=== PATIENT | female | born 1955 | race Caucasian/White ===

== ENCOUNTER 2022-04-02 17:25 | Observation (INO) | payer OTHER, SELFPAY ==
[2022-04-02] VITALS (12 sets, daily range): BP systolic 125–141; BP diastolic 59–83; PULSE 61–73; RESP 14–22; TEMP 36.3–36.4; O2SAT 95–100; BMI 29.5
--- NOTE | ~2022-04-02 | XR_ITS ---
XR chest 2V DATE: 04/02/2022 18:18 INDICATION: Left shoulder pain radiating to left breast for 3 days TECHNIQUE: PA and lateral views COMPARISON: None FINDINGS: Normal heart size. No hilar or mediastinal enlargement. The lungs are moderately hyperinfla oneal but clear of infiltrate or consolidation. No pleural effusion or pulmonary vascular congestion or pneumothorax. Aortic calcification and minimal unfolding. Osteopenia. IMPRESSION: No active cardiac pulmonary disease Aortic atherosclerosis Osteopenia Reviewed, dictated and finalized at location A.
--- NOTE | ~2022-04-02 | NM_ITS ---
EXAMINATION: NM michael stress w perfusion DATE: 04/03/2022 12:19 INDICATION: Chest pain. TECHNIQUE: Rest images were obtained following intravenous administration of 9 mCi Tc99m tetrofosmin (Myoview). The patient was infused intravenously with Lexiscan (regadenoson). Then, 30.8 mCi Tc99m te trofosmin (Myoview) was administered intravenously, and stress images were obtained. Data was reconst ructed into short axis and horizontal and vertical long axis SPECT images. Gated SPECT images were al so obtained. COMPARISON: None. FINDINGS: There is no definite reversible or fixed perfusion abnormality to suggest ischemia or infar ction. There is no segmental wall motion abnormality. Left ventricular ejection fraction measures > 70%. IMPRESSION: 1. No definite ischemia or infarct. 2. Normal left ventricular ejection fraction measuring >70%. Reviewed, dictated and finalized at location A.
--- NOTE | ~2022-04-02 | XR_ITS ---
EXAMINATION: XR thoracic spine 3V DATE: 04/03/2022 14:24 INDICATION: Thoracic back pain. TECHNIQUE: 3 views of thoracic spine were obtained. COMPARISON: Chest 2 views 04/02/2022 FINDINGS: There is 5 degrees levocurvature of thoracic spine. Vertebral body heights and intervertebr al disc heights are normal. There are endplate osteophytes at multiple levels. IMPRESSION: 1. Mild thoracic spondylosis. Reviewed, dictated and finalized at location A.
--- NOTE | ~2022-04-02 | XR_ITS ---
EXAMINATION: XR lumbar spine 2-3V DATE: 04/03/2022 14:24 INDICATION: Back pain. TECHNIQUE: 3 views of lumbar spine were obtained. COMPARISON: None. FINDINGS: Bone alignment is normal. Vertebral body heights and intervertebral disc heights are normal . There are endplate osteophytes at multiple levels. The facet joints are unremarkable. IMPRESSION: 1. Mild lumbar spondylosis. Reviewed, dictated and finalized at location A. IMPRESSION: 1. Mild lumbar spondylosis.
--- NOTE | 2022-04-02 17:45 | ECG_ITS ---
Measurements Intervals [place] Rate: 64 P: 41 MO: 179 QRS: 3 QRSD: 102 T: 94 QT: 408 QTc: 422 Interpretive Statements SINUS RHYTHM ST-T WAVE ABNORMALITY IN ANTERIOR LEADS- CONSIDER ISCHEMIA ABNORMAL ECG Electronically Signed On 04-02-2022 20:56:23 CDT by Giovani Gonsalez D.O.
--- NOTE | 2022-04-02 17:49 | ED.CHESTPAIN ---
HPI - Chest Pain General Chief Complaint: Chest Pain Stated Complaint: back pain that comes around to front Time Seen by Provider: 04/02/22 17:49 History of Present Illness HPI narrative: Patient is a 66-year-old female with a history of hypertension, hyperlipidemia, hypothyroidism presenting to the emergency department for evaluation of chest pain with radiation to the middle back. Patient reports left-sided breast pain with radiation to the back. There is no pain currently at the time of assessment. Patient reports pulsating pain that sometimes last for anywhere from 10 to 20 seconds but denies any pressure-like sensation. At times she has associated nausea but no associated diaphoresis or shortness of breath. Patient denies cough, weakness, general malaise. Denies fever, chills, nausea or vomiting. Patient reports upper abdominal pain. Patient reports history of stress test 10 years ago. She is also a former smoker with cessation 10 years ago. Patient denies recent long car or air travel. No recent leg swelling or calf pain. Related Data Home Medications Medication Instructions Recorded Confirmed calcium carbonate 600 mg calcium 1,200 mg PO DAILY 08/26/21 11/07/21 (1,500 mg) tablet (Calcium) propranolol 10 mg tablet 10 mg PO .QD 08/26/21 11/07/21 coenzyme Q10 75 mg capsule 75 mg PO DAILY 11/07/21 11/07/21 melatonin 3 mg capsule 3 mg PO QHS 11/25/21 Allergies Allergy/AdvReac Type Severity Reaction Status Date / Time morphine Allergy Unknown Unknown Verified 03/10/22 11:24 Latex, Natural Rubber Allergy Rash Verified 03/10/22 11:24 Penicillins Allergy Rash Verified 03/10/22 11:24 propoxyphene [From Darvon] Allergy Rash Verified 03/10/22 11:24 Review of Systems Review of Systems: CONSTITUTIONAL: Denies fever, chills, or sweats. EYES: Denies visual changes, redness, or discharge. ENT: Denies rhinorrhea, congestion, sore throat, or otalgia. CARDIOVASCULAR: Chest pain without palpitations or edema RESPIRATORY: Denies cough or dyspnea. GASTROINTESTINAL: Denies abdominal pain, nausea, vomiting, or diarrhea. GENITOURINARY: Denies dysuria or hematuria. SKIN: Denies rash or itching. MUSCULOSKELETAL: Denies back pain, joint pain, or myalgia. NEUROLOGIC: Denies headache, numbness, or weakness. [facility] Past Medical History Medical History Anxiety BMI 26.0-26.9,adult BMI 28.0-28.9,adult BMI greater than 30 History of breast cancer Hyperlipidemia Hypertension Hypothyroidism Impacted cerumen of right ear Inflamed skin tag Insomnia Left shoulder pain Osteopenia Surgical History Surgical History History of breast augmentation History of cholecystectomy History of D&C Family History Family History Other Arthritis Diabetes mellitus Hypertension Osteoporosis Social History Social History Alcohol intake: never Exam Narrative: GENERAL: Awake, alert, conversant HEAD: Normocephalic, atraumatic. EYES: PERRLA and EOMI. ENT: Nares clear, no rhinorrhea or epistaxis. Mucous membranes moist. NECK: Supple. CHEST: No respiratory distress, breathing even and non labored, no chest wall pain HEART: Regular rate, sinus rhythm ABDOMEN:Non distended, non tender EXTREMITIES: Normal range of motion. No edema. No calf tenderness or induration. SKIN: Warm, dry, no rash. NEURO:No focal deficits. Alert and oriented x3 Course Vital Signs Vital signs: Vital Signs Temperature 36.3 C L 04/02/22 17:35 Pulse Rate 73 04/02/22 17:35 Respiratory Rate 16 04/02/22 17:35 Blood Pressure 141/69 H 04/02/22 17:35 Pulse Oximetry 100 04/02/22 17:35 Oxygen Delivery Room Air 04/02/22 17:35 Temperature 36.3 C L 04/02/22 17:35 Pulse Rate 64 04/02/22 18:35 Respiratory Rate 16 04/02/22 1
[2022-04-02] MEDS: ASPIRIN 81 MG CHEWABLE TABLET 324 MG PO (17:54)
[2022-04-02 18:17] LABS: Basophils Absolute Auto 0.1 K/mm3 (0.0-0.1); Basophils Percent Auto 0.7 % (0.2-1.2); Eosinophils Absolute Auto 0.1 K/mm3 (0-0.3); Eosinophils Percent Auto 1.3 % (0-4.4); Hematocrit 42.1 % (37.0-47.0); Hemoglobin 14.1 g/dL (12.0-15.0); Immature Granulocyte Absolute 0.01 K/mm3 (0.00-0.031); Immature Granulocyte Percent A 0.1 % (0-0.5); Lymphocytes Absolute Auto 2.91 K/mm3 (0.9-3.2); Lymphocytes Percent Auto 38.1 % (18.3-44.2); Mean Corpuscular HGB Conc 33.5 g/dl (32-36); Mean Corpuscular Hemoglobin 30.1 pg (26-34); Monocytes Absolute Auto 0.5 K/mm3 (0.1-0.6); Monocytes Percent Auto 6.7 % (2.6-8.5); Neutrophils Absolute Auto 4.1 K/mm3 (1.3-6.7); Neutrophils Percent Auto 53.1 % (45.5-73.1); Platelet Count Result 310 k/mm3 (150-375); Red Blood Count 4.68 M/mm3 (4.2-5.4); Red Cell Distribution Width 13.5 % (11.5-14.5); White Blood Count 7.6 K/mm3 (4.5-10.0)
--- NOTE | 2022-04-02 18:23 | ECG_ITS ---
Measurements Intervals [place] Rate: 62 P: 46 [place]: 189 QRS: 4 QRSD: 104 T: 90 QT: 414 QTc: 423 Interpretive Statements SINUS RHYTHM T WAVE ABNORMALITY IN ANTERIOR LEADS- CONSIDER ISCHEMIA BASELINE ARTIFACT- II, III ABNORMAL ECG Electronically Signed On 04-02-2022 20:57:08 CDT by Giovani Gonsalez D.O.
[2022-04-02 18:31] LABS: Alanine Aminotransferase 20 U/L (6-35); Albumin Level 4.5 g/dL (3.5-5.1); Alkaline Phosphatase 87 U/L (38-126); Anion Gap 8 mmol/L (8-16); Aspartate Amino Transferase 28 U/L (14-36); Bilirubin,Total 0.6 mg/dL (0.2-1.3); Blood Urea Nitrogen 10 mg/dL (7-17); Calcium 9.4 mg/dL (8.4-10.2); Carbon Dioxide 28 mmol/L (22-30); Chloride 106 mmol/L (98-107); Estimated CRCL calculation 69 ml/min; Estimated Glomerular Filt Rate > 60; Glucose 100 mg/dL (65-110); Lipase 241 U/L (23-300); Potassium 3.7 mmol/L (3.4-5.0); Prothrombin Time 12.6 Seconds (11.1-14.7); Sodium 142 mmol/L (137-145)
[2022-04-02 18:42] LABS: Troponin I < 0.012 ng/mL (0.000-0.034)
[2022-04-02] MEDS: KETOROLAC 15 MG/ML VIAL (*BKC) IV PUSH (18:58)
[2022-04-02 19:16] LABS: Creatine Kinase 55 U/L (30-135)
[2022-04-02 19:26] LABS: SARS-CoV-2 RNA PCR Negative
[2022-04-02 19:41] LABS: D Dimer 0.33 ug/mL (<0.48)
--- NOTE | 2022-04-02 19:41 | PM.IMHP ---
H&P: HPI History of Present Illness Date/Time: 04/02/22 19:41 Chief Complaint: Chest discomfort Narrative: This is a 66-year-old female with past medical history significant for hyperlipidemia, hypertension, hypothyroidism, generalized anxiety disorder. Patient presents to the emergency room due to pain in the chest region for the last 3 days or so took Tylenol and ibuprofen at home which did not help only minimally decided to present to the emergency room after no improvement pain is in the back and comes around to the chest area of the left side there is no dizziness, no lightheadedness no shortness of breath no diaphoresis no nausea no vomiting associated with did no pain with deep inspiration, patient has not been doing any new activities or exercises, no fevers, no rigors, no chills, compares the pain to a squeeze, rate set at 6/10 in intensity, changes with position changes workup was unrevealing. Patient is been placed in observation for further evaluation, management and treatment. Review of Systems Review of Systems: Chest discomfort Constitutional: Constitutional: Denies body ache(s), Denies chills, Denies fatigue, Denies fever(s), Denies lethargy, Denies malaise, Denies poor appetite and Denies weakness Eyes: Eyes: Denies change in vision ENT: Denies dysphagia, Denies vertigo, Denies dizziness, Denies nasal congestion, Denies nasal discharge, Denies nasal obstruction, Denies odynophagia and Denies disequilibrium Cardiovascular: Cardiovascular: Reports chest pain, Denies syncope, Denies irregular heart rhythm, Denies lightheadedness, Denies palpitations and Denies dyspnea on exertion Respiratory: Respiratory: Denies cough Gastrointestinal: Gastrointestinal: Denies abdominal pain, Denies dyspepsia, Denies heartburn, Denies diarrhea, Denies nausea and Denies vomiting Genitourinary: Genitourinary: Denies dysuria Musculoskeletal: Musculoskeletal: Reports back pain Integumentary/Breasts: Skin/Breast: Denies rash Neurologic: Denies vertigo, Denies dizziness, Denies focal weakness and Denies Sensory deficit (Neuro) Psychiatric: Psychiatric: Reports no additional psychiatric complaints and Reports as per HPI Endocrine: Endocrine: Denies cold intolerance, Denies fatigue, Denies flushing, Denies heat intolerance, Denies polyphagia, Denies polydipsia and Denies palpitations Hematologic/Lymphatic: Hematologic/Lymphatic: Reports no additional hematologic/lymphatic complaints and Reports as per HPI Allergic/Immunologic: Allergic/Immunologic: Reports no additional allergic/immunologic complaints and Reports as per HPI PMFSH Past Medical History Medical History Anxiety BMI 26.0-26.9,adult BMI 28.0-28.9,adult BMI greater than 30 History of breast cancer Hyperlipidemia Hypertension Hypothyroidism Impacted cerumen of right ear Inflamed skin tag Insomnia Left shoulder pain Osteopenia Surgical History Surgical History History of breast augmentation History of cholecystectomy History of D&C Family History Family History Other Arthritis Diabetes mellitus Hypertension Osteoporosis Social History Social History Smoking packs per day: 1 Smoking cigarettes per day: 20.0 Years smoked: 23 Smoking pack-years: 23.00 Smoking status: Former smoker Tobacco type: cigarettes Alcohol intake: never Substance use: never Spiritual care concerns: No Meds Home Medications and Allergies Home Medications Medication Instructions Recorded Confirmed Type calcium carbonate 600 mg calcium 1,200 mg PO DAILY 08/26/21 04/02/22 History (1,500 mg) tablet (Calcium) propranolol 10 mg tablet 10 mg PO DAILY 08/26/21 04/02/22 History levothyroxine 25 mcg tablet 25 mcg PO DAILY 04/02/22 04/02/22 H
[2022-04-02 21:26] LABS: Troponin I < 0.012 ng/mL (0.000-0.034)
--- NOTE | 2022-04-02 22:00 | ADMGEN ---
This patient, Edith Joyner, was admitted to IMU Room 206-02 on 04/02/22 at 2050. Patient/family oriented to hospital policies and general routines including ID bracelet, bed and alarms, visiting hours, pain management, procedures, bathroom and other care routines, personal items, smoking policy, room service/diet, and visiting hours. Information on how to activate the Rapid Response Team has been discussed. Patient/Family are encouraged to report perceived risks to care and to ask questions if they do not understand what they are told or what they should do.
[2022-04-02] MEDS: ACETAMINOPHEN 325 MG TABLET 650 MG PO (22:25)
[2022-04-03] VITALS (8 sets, daily range): BP systolic 91–126; BP diastolic 52–62; PULSE 51–96; RESP 14–16; TEMP 36.2–36.4; O2SAT 96–99
[2022-04-03 00:26] LABS: Troponin I < 0.012 ng/mL (0.000-0.034)
--- NOTE | 2022-04-03 02:55 | EST_ITS ---
Patient Info Name: Edith Joyner Age: 66 years : 1955 Gender: Female Ht: 60 in Wt: 151 lbs BSA: 1.73 m2 HR: 50 bpm BP: 138 / 71 mmHg Heart Rhythm: Sinus Rhythm Exam Date: 04/03/2022 11:19 AM Exam Location: [facility] Stress Patient Status: Outpatient Admit Date: 04/02/2022 Staff Ordering Physician: rBit Kiser MD Attending Provider: Brit Kiser MD Exercise Technologist: Vicky Brenner CT Nurse: Sylvia Islas Exam Type: CA stress michael w NM Study Info Indications R07.9 - Chest pain, unspecified A regadenoson stress test was performed. Summary 1. Sinus rhythm with nonspecific T-wave abnormality. 2. No change in ECG following Lexiscan injection. 3. Clinically and electrocardiographically unremarkable Lexiscan stress test. 4. Myocardial perfusion imaging study to be dictated by Radiology. Protocol: Lexiscan Stress ECG Details Stage: REST Duration (min): 0 min : 52 sec HR (bpm): 51 SBP (mmHg): 138 DBP (mmHg): 71 Stage: REST Duration (min): 5 min : 15 sec HR (bpm): 60 SBP (mmHg): 138 DBP (mmHg): 71 Stage: STAGE 1 Duration (min): 0 min : 59 sec HR (bpm): 86 SBP (mmHg): 140 DBP (mmHg): 74 Stage: RECOVERY Duration (min): 1 min : 0 sec HR (bpm): 90 SBP (mmHg): 140 DBP (mmHg): 74 Stage: RECOVERY Duration (min): 2 min : 0 sec HR (bpm): 83 SBP (mmHg): 140 DBP (mmHg): 74 Stage: RECOVERY Duration (min): 3 min : 0 sec HR (bpm): 80 SBP (mmHg): 138 DBP (mmHg): 84 Stage: RECOVERY Duration (min): 3 min : 10 sec HR (bpm): 80 SBP (mmHg): 138 DBP (mmHg): 84 Rest HR: 60 bpm Peak HR: 91 bpm Rest Sys BP: 138 mmHg Peak Sys BP: 140 mmHg Max Pred HR: 152 bpm % Max Pred HR: 60 % Target HR: 129 bpm Max RPP: 12,740 bpm*mmHg Termination Reason: Completed protocol Cardiac Symptoms: None Total Time: 1 min : 0 sec Rest Shipley BP: 71 mmHg Peak [place]ley BP: 74 mmHg Total Dose: 0.4 mg Resting ECG Sinus rhythm with nonspecific T-wave abnormality. Stress ECG No change in ECG following Lexiscan injection. Report Signatures
[2022-04-03] MEDS: ACETAMINOPHEN 325 MG TABLET 650 MG PO ×2 (03:51→09:10)
[2022-04-03] MEDS: LEVOTHYROXINE SODIUM 25 MCG TABLET PO (05:50)
--- NOTE | 2022-04-03 08:14 | PM.IMPN ---
Subjective Date/time seen: 04/03/22 08:14 Objective Data Vital Signs Vital Signs: Vital Signs - 24 hr 04/02/22 17:35 04/02/22 18:35 04/02/22 17:58 Temperature 97.4 F L Pulse Rate 73 64 71 Respiratory Rate 16 16 16 Blood Pressure 141/69 H 136/62 138/83 Pulse Oximetry 100 97 99 Oxygen Delivery Room Air 04/02/22 18:00 04/02/22 18:01 04/02/22 18:17 Temperature Pulse Rate 66 64 Respiratory Rate 19 14 22 H Blood Pressure 130/80 Pulse Oximetry 97 95 98 Oxygen Delivery 04/02/22 18:18 04/02/22 18:31 04/02/22 19:31 Temperature Pulse Rate 70 64 61 Respiratory Rate 20 18 17 Blood Pressure 139/75 136/62 125/78 Pulse Oximetry 98 96 97 Oxygen Delivery 04/02/22 19:19 04/03/22 00:00 04/03/22 00:00 Temperature 97.5 F L 97.2 F L Pulse Rate 63 70 Respiratory Rate 16 14 Blood Pressure 141/59 H 113/52 L Pulse Oximetry 98 96 Oxygen Delivery Room Air 04/02/22 22:00 04/03/22 00:00 04/02/22 21:30 Temperature Pulse Rate 61 66 63 Respiratory Rate Blood Pressure Pulse Oximetry Oxygen Delivery 04/03/22 02:00 04/03/22 04:00 04/03/22 04:00 Temperature 97.1 F L Pulse Rate 58 L 96 Respiratory Rate 16 Blood Pressure 91/60 L Pulse Oximetry 96 Oxygen Delivery Room Air 04/03/22 04:00 04/03/22 06:00 Temperature Pulse Rate 57 L 67 Respiratory Rate Blood Pressure Pulse Oximetry Oxygen Delivery Intake/Output Intake/Output: Intake & Output 03/31/22 04/01/22 04/02/22 04/03/22 23:59 23:59 23:59 23:59 Intake Total 0 Balance 0 Meds/Results Medications: Active Medications Generic Name Dose Route Start Last Admin Trade Name Freq PRN Reason Stop Dose Admin Acetaminophen 650 mg 04/02/22 19:14 04/03/22 03:51 Acetaminophen 325 Mg Tablet PO 650 mg Q4H PRN Administration Mild Pain (1-3) or Fever Aspirin 81 mg 04/03/22 08:00 Aspirin 81 Mg Chewable Tablet PO DAILY@0800 [facility] Calcium Carbonate 1,000 mg 04/03/22 09:00 Calcium Carbonate (Oscal) 500 Mg Tablet PO QAM [facility] Enoxaparin Sodium 40 mg 04/03/22 09:00 Enoxaparin 40 Mg/0.4 Ml Syringe SUB-Q DAILY [facility] Levothyroxine Sodium 25 mcg 04/03/22 06:30 04/03/22 05:50 Levothyroxine Sodium 25 Mcg Tablet PO 25 mcg DAILY@0630 [facility] Administration Ondansetron HCl 4 mg 04/02/22 19:14 Ondansetron Inj 4 Mg/2 Ml Vial IV PUSH Q4H PRN Nausea Propranolol HCl 10 mg 04/03/22 09:00 Propranolol Hcl 10 Mg Tablet PO DAILY [facility] Radiology Results: ITS Impressions Chest X-Ray 04/02/22 18:18 IMPRESSION: No active cardiac pulmonary disease Aortic atherosclerosis Osteopenia Labs Labs: Laboratory Results - last 24 hr 04/02/22 04/02/22 04/02/22 18:11 18:11 18:11 WBC 7.6 RBC 4.68 Hgb 14.1 Hct 42.1 MCV 90.0 MCH 30.1 MCHC 33.5 RDW 13.5 Plt Count 310 MPV 10.0 Immature Gran % (Auto) 0.1 Neut % (Auto) 53.1 Lymph % (Auto) 38.1 [place] % (Auto) 6.7 Eos % (Auto) 1.3 Baso % (Auto) 0.7 Lymph # (Auto) 2.91 [place] # (Auto) 0.5 Eos # (Auto) 0.1 Baso # (Auto) 0.1 Abs Immat Gran (auto) 0.01 Absolute Neuts (auto) 4.1 Absolute Nucleated RBC 0.0 Nucleated RBC % 0.0 PT 12.6 INR 1.0 APTT 28.0 D-Dimer Sodium 142 Potassium 3.7 Chloride 106 Carbon Dioxide 28 Anion Gap 8 BUN 10 Creatinine 0.60 L Estim Creat Clear Calc 69 Estimated GFR > 60 Glucose 100 Calcium 9.4 Total Bilirubin 0.6 AST 28 ALT 20 Alkaline Phosphatase 87 Total Creatine Kinase Troponin I < 0.012 Total Protein 7.0 Albumin 4.5 Lipase 241 SARS-CoV-2 RNA (RT-PCR) 04/02/22 04/02/22 04/02/22 18:11 18:11 18:36 WBC RBC Hgb Hct MCV MCH MCHC RDW Plt Count MPV Immature Gran % (Auto) Neut % (Auto) Lymph % (Auto) [place] % (Auto) Eos % (Auto) B
[2022-04-03] MEDS: ENOXAPARIN 40 MG/0.4 ML SYRINGE SUB-Q (09:07)
[2022-04-03] MEDS: PROPRANOLOL HCL 10 MG TABLET PO (09:07)
[2022-04-03] MEDS: CALCIUM CARBONATE (OSCAL) 500 MG TABLET 1000 MG PO (09:07)
[2022-04-03] MEDS: ASPIRIN 81 MG CHEWABLE TABLET PO (09:08)
--- NOTE | 2022-04-03 09:34 | PM.CNCAR ---
Assessment and Plan Assessment and plan (1) Atypical chest pain: Code(s): R07.89 - Other chest pain Status: Acute Plan This is a 66-year-old lady without previous history of coronary disease she has symptoms of recent onset of midthoracic back pain that at times radiates around to the left inframammary region. The features of this pain are not consistent with ischemic heart disease and I my level of concern is very low. The hospitalist I believe have already ordered a Lexiscan nuclear stress test for screening which of course is fine. We will follow-up on those results later today. Hopefully this will be negative for reversible ischemia and she can then be discharged. She probably requires some imaging of her thoracic spine given the onset of the symptoms and her history of breast cancer. Macario Ross MD [facility] History of Present Illness History of Present Illness Consult date/time: 04/03/22 09:34 Reason For Visit: Atypical chest pain Narrative: This is a 66-year-old woman that I am seeing at the request of the hospitalist this morning she was brought into the hospital yesterday because of some midthoracic back/chest pain that began about 3 or 4 days ago. The patient states she is having episodes of rather sharp mid thoracic back pain this seems to at times stay there and at times radiate around to the left inframammary region. The discomfort seems to come and go in a unpredictable fashion it is not really related to exertion or body position. The symptoms were persistent for several days so she came to the emergency department yesterday. Her electrocardiogram was from found to show sinus mechanism with some nonspecific precordial T-wave inversion. There are no old ECGs in the system here for comparison. She had a series of troponin levels done which are normal. She reports that she has not been found in the past to have coronary artery disease. She did state that many years ago when she was with her son who is now 35 years old she was told by 1 of the physicians they thought she had mitral valve regurgitation. She can not remember any of the testing that might have been done other than she thinks she had an echocardiogram back then. She was not of the opinion that this was anything serious and has not followed up with a rig welder since then. The patient does have a history of treated hypothyroidism and remote history of breast cancer having had a lumpectomy and radiation therapy on the right breast about 11 years ago. She is not actively followed by an oncologist. Review of Systems Constitutional: Constitutional: Reports no additional constitutional complaints Eyes: Eyes: Reports no additional eye complaints ENT: Reports system reviewed and no additional complaints, except as documented Cardiovascular: Cardiovascular: Reports as per HPI Respiratory: Respiratory: Reports no additional respiratory complaints Gastrointestinal: Gastrointestinal: Reports no additional gastrointestinal complaints Musculoskeletal: Musculoskeletal: Reports as per HPI and Reports back pain Integumentary/Breasts: Skin/Breast: Reports system reviewed and no additional complaints, except as docu Neurologic: Reports system reviewed and no additional complaints, except as documented Endocrine: Endocrine: Reports no additional endocrine complaints Hematologic/Lymphatic: Hematologic/Lymphatic: Reports no additional hematologic/lymphatic complaints Allergic/Immunologic: Allergic/Immunologic: Reports no additional allergic/immunologic complaints PMFSH Past Medical History Medical History Anxiety BMI 26.0-26.9,adult BMI 28.0-28.9,adult BMI greater than 30 History of breast cancer Hyperlipidemia Hypertension Hypothyroidism Impacted cerumen of right ear Inflamed skin tag Insomnia Left shoulder pain Osteopenia Surgical History Surgical History (Reviewed 04/02
--- NOTE | 2022-04-03 13:54 | PM.DS ---
DS: Admitting Diagnosis Discharge Date 04/03/22 Admitting Diagnosis Atypical Chest Pain DS: Discharge Diagnosis Discharge Diagnosis (1) Atypical chest pain: Code(s): R07.89 - Other chest pain Status: Acute Assessment and Plan: Admitted to IMU and monitored overnight. Troponin negative. Also patient denying chest pain saying she is having a back pain that radiates to her chest describing it as a sharp, intermittent pain. Lexiscan showed no ischemia. Does have hx of HTN but no hx of CAD. The pain is likely musculoskeletal as the lexican shows no ischemia. Added methocarbamaol. This was discussed with the patient who verbalized understanding. Of note, aspirin was not continued for discharge as USPSTF guidelines recommends against the use to daily aspirin due to increased bleeding risk and no recommendation for aspirin was made by Cardiology. (2) Hypothyroidism: Qualifiers: Hypothyroidism type: acquired Qualified Code(s): E03.9 - Hypothyroidism, unspecified Code(s): E03.9 - Hypothyroidism, unspecified Status: Acute Assessment and Plan: Continued home levothyroxine while inpatient. (3) Hypertension: Qualifiers: Hypertension type: primary hypertension Qualified Code(s): I10 - Essential (primary) hypertension Code(s): I10 - Essential (primary) hypertension Status: Acute Assessment and Plan: Continued home medication while inpatient. (4) Hyperlipidemia: Qualifiers: Hyperlipidemia type: mixed hyperlipidemia Qualified Code(s): E78.2 - Mixed hyperlipidemia Code(s): E78.5 - Hyperlipidemia, unspecified Status: Acute Assessment and Plan: Treating hypothyroidism can help with this but the patient does not take a statin at home. Will need to follow up outpatient with PCP. (5) History of breast cancer: Code(s): Z85.3 - Personal history of malignant neoplasm of breast Status: Acute Assessment and Plan: S/p lumpectomy and radiation. Due to the location of this pain ordered XR thoracic and lumbar spine. XR lumbar and thoraic spine were showed mild lumbar and thoracic spondylosis. If the pain is persistent, will need follow up with primary care physician. DS: Summary Hospital Course Reason for hospitalization: Atypical chest pain Hospital Course: 66F with a past medical history of breast cancer s/p xrt and lumpectomy, hypertension, hyperlipidemia and hypothyroidism who presented to the emergency department with reported left sided breast pain with radiation to the back. The next morning the patient denied this was what she reported saying the pain was a muscle spasm on the left side that radiated to her left breast. Cardiology was consulted and the patient had a lexiscan, which showed no ischemia. Patient reported her problem to be back spasm and was treated with methocarbamol. Cardiology did not feel the reported chest pain was cardiac in etiology and troponin were negative. Aspirin was not continued for discharge as USPSTF recommends against aspirin for primary prevention individuals over 60 and Cardiology did not make a recommendation for aspirin due to increased bleeding risk. For the back pain, xray of the lumbar and thoracic spine were completed and showed no fracture and mild lumbar and thoracic spondylosis. Patient advised to follow up with primary care physician within a week of discharge from the hospital. Patient discharged to home with low dose methocarbamol as she had significant sedation with cyclobenzaprine in the past. Time Spent with Patient Time attestation: Total time spent providing and/or coordinating discharge services: Exam Narrative: GENERAL: NAD, cooperative HEENT: Normocephalic, atraumal NECK: Supple CV: Normal S1, S2, RRR, No MRG RESP: CTAB, Normal work of breathing. EXTREMITIES: Warm and well perfused, no clubbing, cyanosis, or edema. SKIN: warm, dry and
== END 2022-04-03 16:48 | disposition home or self-care (01) ==
LOC: ANHED 19:39 → ANHIMU 20:38
PROVIDERS: Admitting Provider Internal Medicine; Emergency Provider Emergency Medicine; PCP Family Medicine; Visit Provider Family Medicine
DX: R07.89 Other chest pain (principal); E03.9 Hypothyroidism, unspecified; I10 Essential (primary) hypertension; E78.5 Hyperlipidemia, unspecified; R10.10 Upper abdominal pain, unspecified; Z85.3 Personal history of malignant neoplasm of breast; Z90.49 Acquired absence of other specified parts of digestive tract; I70.0 Atherosclerosis of aorta; M85.80 Other specified disorders of bone density and structure, unspecified site; M47.816 Spondylosis without myelopathy or radiculopathy, lumbar region; F41.1 Generalized anxiety disorder; I25.10 Atherosclerotic heart disease of native coronary artery without angina pectoris; M47.814 Spondylosis without myelopathy or radiculopathy, thoracic region; R94.31 Abnormal electrocardiogram [ECG] [EKG]; Z20.822 Contact with and (suspected) exposure to COVID-19; Z87.891 Personal history of nicotine dependence; Z79.899 Other long term (current) drug therapy; Z92.3 Personal history of irradiation
CPT/HCPCS: 36415; 71046; 72072; 72100; 78452; 80053; 82550; 83690; 84484; 85025; 85380; 85610; 85730; 93005; 93017; 96372; 96374; 99285; A9270; A9502; C9803; G0378; J1650; J1885; J2785; U0003; U0005

== ENCOUNTER → 2022-04-08 09:18 | Outpatient (CLI) | payer OTHER, SELFPAY ==
--- NOTE | ~2022-04-08 | MMUS_ITS ---
EXAMINATION: MM diag michael implant BI w yudelka, US breast RT limited HISTORY: History of right breast cancer status post lumpectomy. Right breast thickening. TECHNIQUE: Additional 3-D tomosynthesis images of the breasts were performed and synthetic 2-D images were generated. CAD analysis was submitted and interpreted. High resolution Limited right breast ult rasound was performed. COMPARISON: Comparison to multiple prior studies sequentially, with oldest reviewed study dated 06/10. BREAST PARENCHYMAL COMPOSITION: Breast composed of scattered areas of fibroglandular density FINDINGS: MAMMOGRAPHIC FINDINGS: There is distortion of the right breast in the lower inner quadrant with overlying skin thickening, u nchanged from prior studies. No new masses, calcifications or architectural distortion are identified in either breast to suggest malignancy. ULTRASOUND: Limited right breast ultrasound: Normal heterogeneous echotexture without focal solid or cystic mass. IMPRESSION: 1. No evidence for malignancy in either breast. 2. Routine yearly screening mammogram and regular clinical breast examination are recommended. BI-RADS Category 2: Benign finding(s). Reviewed, dictated and finalized at location L. IMPRESSION: 1. No evidence for malignancy in either breast. 2. Routine yearly screening mammogram and regular clinical breast examination a re recommended. BI-RADS Category 2: Benign finding(s).
== END ==
PROVIDERS: PCP Family Medicine; Visit Provider Nurse Practitioner
DX: N64.89 Other specified disorders of breast (principal)
CPT/HCPCS: 76642; 77062; 77066; G0279

== ENCOUNTER 2022-04-11 01:49 | Emergency (ER) | payer OTHER, SELFPAY ==
--- NOTE | ~2022-04-11 | XR_ITS ---
XR wrist RT min 3V 04/11/2022 02:50 Indication: Right wrist pain after fall Procedure: 5 views right wrist Comparison: No prior studies for comparison. Findings: There is a nondisplaced radial styloid fracture. The carpal bones and distal ulna there are unremarkable. Mild soft tissue swelling. Scaphoid intact. Impression: 1: Nondisplaced radial styloid fracture. Reviewed, dictated and finalized at location A. Impression: 1: Nondisplaced radial styloid fracture.
[2022-04-11 01:52] VITALS: BP 142/64; PULSE 71; RESP 17; TEMP 36.4; O2SAT 99
--- NOTE | 2022-04-11 02:11 | ED.GENADULT ---
HPI - General Adult General Chief complaint: Extremity Injury, Upper Stated complaint: Fall, right wrist pain Time Seen by Provider: 04/11/22 01:52 History of Present Illness HPI narrative: 66-year-old female presenting to the emergency department for evaluation of right wrist pain. Patient reports she was walking the dog when another dog interfered causing her dog to lounge and the patient fell injuring her wrist. Related Data Home Medications Medication Instructions Recorded Confirmed calcium carbonate 600 mg calcium 1,200 mg PO DAILY 08/26/21 04/09/22 (1,500 mg) tablet (Calcium) propranolol 10 mg tablet 10 mg PO DAILY 08/26/21 04/09/22 levothyroxine 25 mcg tablet 25 mcg PO DAILY 04/02/22 04/09/22 atorvastatin 20 mg tablet (Lipitor) 20 mg PO DAILY 04/09/22 04/09/22 Allergies Allergy/AdvReac Type Severity Reaction Status Date / Time morphine Allergy Unknown Unknown Verified 04/11/22 01:55 Latex, Natural Rubber Allergy Rash Verified 04/11/22 01:55 Penicillins Allergy Rash Verified 04/11/22 01:55 propoxyphene [From Darvon] Allergy Rash Verified 04/11/22 01:55 Review of Systems Review of Systems: CONSTITUTIONAL: Denies fever, chills, or sweats. EYES: Denies visual changes, redness, or discharge. ENT: Denies rhinorrhea, congestion, sore throat, or otalgia. CARDIOVASCULAR: Denies chest pain, palpitations, or edema. RESPIRATORY: Denies cough or dyspnea. GASTROINTESTINAL: Denies abdominal pain, nausea, vomiting, or diarrhea. GENITOURINARY: Denies dysuria or hematuria. SKIN: Denies rash or itching. MUSCULOSKELETAL: Wrist pain NEUROLOGIC: Denies headache, numbness, or weakness. [facility] Past Medical History Medical History (Updated 04/11/22 @ 03:23 by Adrian Jarquin MD) Adult BMI 29.0-29.9 kg/sq m Anxiety BMI 26.0-26.9,adult BMI 28.0-28.9,adult BMI greater than 30 History of breast cancer Hyperlipidemia Hypertension Hypothyroidism Impacted cerumen of right ear Inflamed skin tag Insomnia Left shoulder pain Osteopenia Surgical History Surgical History History of breast augmentation History of cholecystectomy History of D&C Family History Family History Other Arthritis Diabetes mellitus Hypertension Osteoporosis Social History Social History Smoking packs per day: 1 Smoking cigarettes per day: 20.0 Years smoked: 23 Smoking pack-years: 23.00 Smoking status: Former smoker Tobacco type: cigarettes Alcohol intake: never Substance use: never Spiritual care concerns: No Exam Narrative: APPEARANCE: Well appearing, no pain, no distress, well-nourished. HEAD: normocephalic, atraumatic. EYES: PERRLA/EOMI, conjunctivae clear. NOSE: Normal no drainage NECK: Supple. No adenopathy, no masses. RESPIRATORY: Airway patent, respirations nonlabored. Clear to auscultation bilaterally, no rales, rhonchi, wheezing. CARDIOVASCULAR: Regular rate and rhythm without murmurs rubs or gallops. ABDOMINAL: Soft, nontender, nondistended, normal bowel sounds MUSCULOSKELETAL: Right wrist pain due to tenderness to palpation. Limited range of motion. Neurovascular intact. No deformity or edema. NEURO: Alert. Cranial nerves II through XII intact. Good gait. Good coordination SKIN: Warm, dry. Normal Color Course Course Emergency Course: Patient was placed in a splint for concern for distal radius fracture. Patient was encouraged to have close follow-up with her primary care physician. Vital Signs Vital signs: Vital Signs Temperature 97.6 F 04/11/22 01:52 Pulse Rate 71 04/11/22 01:52 Respiratory Rate 17 04/11/22 01:52 Blood Pressure 142/64 H 04/11/22 01:52 Pulse Oximetry 99 04/11/22 01:52 Oxygen Delivery Room Air 04/11/22 01:52 Temperature 97.6 F 04/11/22 01:52 Pulse Rate 71 04/11/22 01:52 Respiratory Rate 17
--- NOTE | 2022-04-11 04:06 | PC.NURSE ---
Short arm volar OCL on right arm for 15-20min, CMS remains intact. Sling applied to Right arm and RN provided education about proper way to wear sling, verbalized understanding. Pt having no pain upon discharge. ambulatory with steady gait upon D/C from ER. to drive pt home.
== END 2022-04-11 04:08 | disposition home or self-care (01) ==
PROVIDERS: Emergency Provider Emergency Medicine; PCP Family Medicine
DX: S52.514A Nondisplaced fracture of right radial styloid process, initial encounter for closed fracture (principal); E78.5 Hyperlipidemia, unspecified; I10 Essential (primary) hypertension; E03.9 Hypothyroidism, unspecified; M85.80 Other specified disorders of bone density and structure, unspecified site; Z85.3 Personal history of malignant neoplasm of breast; W18.39XA Other fall on same level, initial encounter; Y93.K1 Activity, walking an animal
CPT/HCPCS: 29125; 73110; 99283; 99284; A4565

== ENCOUNTER 2022-05-31 12:54 | Observation (INO) | payer OTHER, SELFPAY ==
[2022-05-31] VITALS (9 sets, daily range): BP systolic 111–135; BP diastolic 58–83; PULSE 59–75; RESP 12–20; TEMP 36.4–36.7; O2SAT 92–100; BMI 29.3
--- NOTE | ~2022-05-31 | XR_ITS ---
XR chest 1V DATE: 05/31/2022 13:37 INDICATION: Dizziness, weakness TECHNIQUE: AP chest COMPARISON: 04/02/2022 PA and lateral chest FINDINGS: Normal heart size. Aortic arch calcification and minimal aortic unfolding. No hilar or medi astinal enlargement. No pulmonary infiltrate or consolidation, pleural effusion or pulmonary vascular congestion or pneumo thorax. Included skeletal structures are unremarkable. IMPRESSION: No active cardiopulmonary disease Aortic atherosclerosis Reviewed, dictated and finalized at location A.
--- NOTE | ~2022-05-31 | CT_ITS ---
EXAMINATION: CT brain wo con DATE: 05/31/2022 13:34 INDICATION: Dizziness for 4 to 5 days TECHNIQUE: Computed tomography (CT) of the head was performed without intravenous contrast. The mA wa s adjusted according to patient size. Iterative reconstruction technique was employed. Exam dose: 60 5.33 mGy-cm total exam DLP. COMPARISON: None FINDINGS: No intracranial mass lesion or hemorrhage or cerebrovascular accident. No midline shift or mass effect. Normal ventricular size. No subdural or epidural hematoma. Focal mild posterolateral right sphenoid sinus mucoperiosteal thickening. The included paranasal sinu ses and mastoids are otherwise normally developed and aerated. No fracture or bone destruction of the cranial vault. IMPRESSION: No significant intracranial abnormality Reviewed, dictated and finalized at Location A. Reviewed, dictated and finalized at location A.
--- NOTE | 2022-05-31 13:02 | ECG_ITS ---
Measurements Intervals [place] Rate: 62 P: 44 IA: 197 QRS: 22 QRSD: 109 T: 123 QT: 417 QTc: 425 Interpretive Statements SINUS RHYTHM LOW QRS VOLTAGE IN PRECORDIAL LEADS ST-T WAVE ABNORMALITY IN ANT/HIGH LAT LEADS- CONSIDER ISCHEMIA BASELINE WANDER- V3 ABNORMAL ECG COMPARED TO ECG 04/02/2022 18:34:05 NO SIGNIFICANT CHANGES Electronically Signed On 06-01-2022 6:46:01 CDT by Giovani Gonsalez D.O.
--- NOTE | 2022-05-31 13:14 | ED.DIZZY ---
HPI - Dizziness General Chief Complaint: Dizziness <Leatha Oconnor MD - Last Filed: 05/31/22 16:10> Stated Complaint: lightheaded dizzy for the past few days <Leatha Oconnor MD - Last Filed: 05/31/22 16:10> Time Seen by Provider: 05/31/22 13:07 <Leatha Oconnor MD - Last Filed: 05/31/22 16:10> Source: patient and family <Leatha Oconnor MD - Last Filed: 05/31/22 16:10> Mode of arrival: ambulatory <Leatha Oconnor MD - Last Filed: 05/31/22 16:10> Limitations: no limitations <Leatha Oconnor MD - Last Filed: 05/31/22 16:10> History of Present Illness HPI Narrative: Patient is 67 years old white female came from home with her by private car complaining of lightheadedness and dizziness for the last 5 days, most of the time. Yesterday woke up from sleep with severe blurry vision, could not read her phone for up to 1 hour. Resolved spontaneously. The lightheadedness and dizziness gets worse with walking, standing and moving, get better laying still. History of hypertension, hyperlipidemia, hypothyroidism. Patient does not smoke or drink or uses drugs. Patient does not take antiplatelet or anticoagulant medication. <Leatha Oconnor MD - Last Filed: 05/31/22 16:10> Related Data Home Medications: Home Medications Medication Instructions Recorded Confirmed calcium carbonate 600 mg calcium 1,200 mg PO DAILY 08/26/21 05/31/22 (1,500 mg) tablet (Calcium) propranolol 10 mg tablet 10 mg PO DAILY 08/26/21 05/31/22 atorvastatin 20 mg tablet (Lipitor) 20 mg PO HS 04/09/22 05/31/22 levothyroxine 25 mcg tablet 25 mcg PO DAILY 05/31/22 05/31/22 <Leatha Oconnor MD - Last Filed: 05/31/22 16:10> Allergies/Adverse Reactions: Allergies Allergy/AdvReac Type Severity Reaction Status Date / Time Latex, Natural Rubber Allergy Unknown Blisters Verified 05/31/22 13:34 morphine Allergy Unknown Nausea Verified 05/31/22 13:34 Penicillins Allergy SOB Verified 05/31/22 13:34 propoxyphene [From Darvon] Allergy Rash Verified 05/31/22 13:34 <Leatha Oconnor MD - Last Filed: 05/31/22 16:10> Review of Systems Review of Systems: All systems reviewed & are unremarkable except as noted in HPI and below <Leatha Oconnor MD - Last Filed: 05/31/22 16:10> PMFSH Past Medical History Medical History: Medical History (Updated 05/31/22 @ 22:21 by Nina Blevins PA-C) Anxiety Arthritis Cancer of right breast (2010) Status post lumpectomy and radiation therapy. Hyperlipidemia Hypertension Hypothyroidism Osteopenia <Leatha Oconnor MD - Last Filed: 05/31/22 16:10> Surgical History Surgical History: Surgical History (Updated 05/31/22 @ 22:11 by Nina Blevins PA-C) History of breast augmentation History of cholecystectomy History of dilation and curettage History of lumpectomy of right breast (2010) <Leatha Oconnor MD - Last Filed: 05/31/22 16:10> Family History Family History: Family History Father CHF (congestive heart failure) Mother No problems noted. Sibling Hypertension Obesity Breast cancer Other Arthritis Diabetes mellitus HLD (hyperlipidemia) Osteoporosis <Leatha Oconnor MD - Last Filed: 05/31/22 16:10> Social History Social History: Social History Social History: Surrogate medical decision maker: Julian Joyner, spouse. Code status: Full code. Smoking packs per day: 1 Smoking cigarettes per day: 20.0 Years smoked: 23 Smoking pack-years: 23.00 Smoking status: Former smoker Tobacco type: cigarettes Second hand tobacco smoke exposure: Yes Smoking end date: 06/20/11 Alcohol intake: former Alcohol use details: No alcohol since 2010. Substance use: never Substance use type: does not use Additional living arrangements comments: The patient lives with her spouse in [facility]
[2022-05-31 13:32] LABS: Basophils Absolute Auto 0.1 K/mm3 (0.0-0.1); Basophils Percent Auto 0.9 % (0.2-1.2); Eosinophils Absolute Auto 0.1 K/mm3 (0-0.3); Eosinophils Percent Auto 0.9 % (0-4.4); Hematocrit 43.7 % (37.0-47.0); Hemoglobin 14.8 g/dL (12.0-15.0); Immature Granulocyte Absolute 0.02 K/mm3 (0.00-0.031); Immature Granulocyte Percent A 0.3 % (0-0.5); Lymphocytes Absolute Auto 2.47 K/mm3 (0.9-3.2); Lymphocytes Percent Auto 35.7 % (18.3-44.2); Mean Corpuscular HGB Conc 33.9 g/dl (32-36); Mean Corpuscular Hemoglobin 30.7 pg (26-34); Mean Corpuscular Volume 90.7 fl (80-100); Monocytes Absolute Auto 0.5 K/mm3 (0.1-0.6); Monocytes Percent Auto 7.1 % (2.6-8.5); Neutrophils Absolute Auto 3.8 K/mm3 (1.3-6.7); Neutrophils Percent Auto 55.1 % (45.5-73.1); Platelet Count Result 321 k/mm3 (150-375); Red Blood Count 4.82 M/mm3 (4.2-5.4); Red Cell Distribution Width 13.3 % (11.5-14.5); White Blood Count 6.9 K/mm3 (4.5-10.0)
[2022-05-31 13:43] LABS: Alanine Aminotransferase 24 U/L (6-35); Albumin Level 4.6 g/dL (3.5-5.1); Alkaline Phosphatase 70 U/L (38-126); Anion Gap 10 mmol/L (8-16); Aspartate Amino Transferase 36 U/L (14-36); Blood Urea Nitrogen 13 mg/dL (7-17); Calcium 9.4 mg/dL (8.4-10.2); Carbon Dioxide 25 mmol/L (22-30); Chloride 107 mmol/L (98-107); Estimated CRCL calculation 66 ml/min; Estimated Glomerular Filt Rate > 60; Glucose 121 mg/dL (65-110); Potassium 4.1 mmol/L (3.4-5.0); Sodium 142 mmol/L (137-145)
[2022-05-31 13:54] LABS: Troponin I < 0.012 ng/mL (0.000-0.034)
[2022-05-31 14:03] LABS: Prothrombin Time 12.7 Seconds (11.1-14.7)
[2022-05-31 14:04] LABS: Partial Thromboplastin Time 26.9 SECONDS (22.3-36.8)
[2022-05-31 14:11] LABS: Erythrocyte Sedimentation Rate 6 mm/hr (0-20)
[2022-05-31 14:34] LABS: Appearance Urine Cloudy (Clear); Bilirubin Urine Negative (Negative); Blood Urine Negative (Negative); Color Urine Yellow (Yellow); Glucose Urine UA Negative (Negative); Ketones Urine Negative (Negative); Leukocyte Esterase Ur Negative LEU/UL (Negative); Nitrate Urine Negative (Negative); Protein Urine Negative (Negative); Specific Grav Ur 1.015 (1.001-1.035)
[2022-05-31 14:38] LABS: Mucus Urine Rare /lpf; RBC Urine 0-2 /hpf (0-2); Squamous Epithelial Cell Urine Many /hpf (Few); WBC Urine 0-3 /hpf
[2022-05-31 14:39] LABS: Add Urine Microscopic? YES
[2022-05-31 14:45] LABS: Amphetamine Screen Urine Negative (Negative); Barbiturate Screen Urine Negative (Negative); Benzodiazepines Screen Urine Negative (Negative); Cannabinoid Screen Urine Negative (Negative); Cocaine Screen Urine Negative (Negative); Methadone Screen Urine Negative (Negative); Opiate Screen Urine Negative (Negative); Phencyclidine Screen Urine Negative (Negative)
--- NOTE | 2022-05-31 16:00 | PM.IMHP ---
H&P: HPI History of Present Illness Date/Time: 05/31/22 16:00 Chief Complaint: Dizziness. Narrative: This is a pleasant 67-year-old female with hypertension, hyperlipidemia, hypothyroidism, anxiety, and history of breast cancer who presented to the emergency department via private vehicle from home for evaluation of dizziness for 5 days. She woke from sleep on Wednesday morning and when she got a bed she felt dizzy and lightheaded with a mild, dull headache, sinus congestion, and bilateral fullness in her ears. She assumes that her symptoms were related to a change in weather however her symptoms have persisted. She has noticed now that her dizziness seems to be more vertiginous in nature, almost as though she is on a boat with mild but pretty constant feelings of movement or swaying. It is not worse with position change. Yesterday when she woke from sleep she rolled over to look at her phone and her vision was blurry for upwards of an hour I thought my eyes were dry but they were not. Her vital signs were stable on arrival today. Labs were reviewed and they are reassuring and really unremarkable. Brain CT showed no significant intracranial abnormalities however did note focal, mild posterolateral right sphenoid sinus perimucosal thickening. She is being admitted in this setting for brain MRI to rule out central causes of her symptoms. On exam she had heavy cerumen bilaterally, and impacted cerumen on the left. Ears were washed out and she feels as though her congestion and symptoms have may be improved somewhat. She denies fever, chills, sweats, sore throat, tinnitus, productive cough, sick contacts, chest pain, palpitations, irregular heartbeat, paresthesias, focal weakness, facial droop, dysarthria, and dysphagia. She has not had any falls or head trauma. Review of Systems Review of Systems: Twelve systems were reviewed and are negative except for as per HPI. [facility] Past Medical History Medical History (Updated 05/31/22 @ 22:21 by Nina Blevins PA-C) Anxiety Arthritis Cancer of right breast (2010) Status post lumpectomy and radiation therapy. Hyperlipidemia Hypertension Hypothyroidism Osteopenia Surgical History Surgical History (Updated 05/31/22 @ 22:11 by Nina Blevins PA-C) History of breast augmentation History of cholecystectomy History of dilation and curettage History of lumpectomy of right breast (2010) Family History Family History Father CHF (congestive heart failure) Mother No problems noted. Sibling Hypertension Obesity Breast cancer Other Arthritis Diabetes mellitus HLD (hyperlipidemia) Osteoporosis Social History Social History Social History: Surrogate medical decision maker: Julian Joyner, spouse. Code status: Full code. Smoking packs per day: 1 Smoking cigarettes per day: 20.0 Years smoked: 23 Smoking pack-years: 23.00 Smoking status: Former smoker Tobacco type: cigarettes Second hand tobacco smoke exposure: Yes Smoking end date: 06/20/11 Alcohol intake: former Alcohol use details: No alcohol since 2010. Substance use: never Substance use type: does not use Additional living arrangements comments: The patient lives with her spouse in [place]. 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 Spiritual care concerns: No Meds Home Medications and Allergies Home Medications Medication Instructions Recorded Confirmed Type calcium carbonate 600 mg calcium 1,200 mg PO DAILY 08/26/21 05/31/22 History (1,500 mg) tablet (Calcium) propranolol 10 mg tablet 10 mg PO DAILY 08/26/21 05/31/22 History atorvastatin 20 mg tablet (Lipitor) 20 mg PO HS 04/09/22 05/31/22 History levothyroxine 25 mcg tablet 25 mcg PO DAILY 05/31/22 05/31/22 History Allergies Allergy/AdvReac T
[2022-05-31] MEDS: ASPIRIN 325 MG TABLET PO (16:12)
--- NOTE | 2022-05-31 17:34 | PC.NURSE ---
This patient, Edith Joyner, was admitted to Medical Room 242-. Patient/family oriented to hospital policies and general routines including ID bracelet, bed and alarms, visiting hours, pain management, procedures, bathroom and other care routines, personal items, smoking policy, room service/diet, and visiting hours. Information on how to activate the Rapid Response Team has been discussed. Patient/Family are encouraged to report perceived risks to care and to ask questions if they do not understand what they are told or what they should do.
[2022-05-31] MEDS: CARBAMIDE PEROXIDE 6.5% OT SOLN 15 ML BTL 5 DROP LEFT EAR (18:38)
[2022-05-31] MEDS: ATORVASTATIN 20 MG TABLET PO (22:14)
[2022-06-01] VITALS (7 sets, daily range): BP systolic 119; BP diastolic 53; PULSE 57–72; RESP 17; TEMP 36.3; O2SAT 97–98
--- NOTE | 2022-06-01 | ECHO_ITS ---
Patient Info Name: Edith Joyner Age: 67 years : 1955 Gender: Female Ht: 60 in Wt: 150 lbs BSA: 1.72 m2 HR: 65 bpm BP: 119 / 53 mmHg Heart Rhythm: Sinus Rhythm Exam Date: 06/01/2022 9:40 AM Exam Location: [facility] Patient Status: Outpatient Admit Date: 05/31/2022 Staff Ordering Physician: Nina Blevins PA-C Dental Floss Packer: Shon Young RDCS, RT Attending Provider: Varsha Nicolas MD Referring Physician: Gen PULLIAM; Exam Type: CA echo doppler color flow Study Info Indications R42 - Dizziness and giddiness I11.0 - Hypertensive heart disease with heart failure Complete two-dimensional, color flow and Doppler transthoracic echocardiogram is performed. Strain analysis performed. Summary 1. Complete two-dimensional, color flow and Doppler transthoracic echocardiogram is performed. 2. Left ventricular chamber dimension is normal. 3. Left ventricular systolic function is normal, estimated at 65-70%. 4. There is mildly increased left ventricular wall thickness. 5. The left ventricular diastolic function is grade I diastolic dysfunction. 6. Global longitudinal strain is normal at -23 %. 7. There is trace mitral valve regurgitation. 8. The mitral valve annulus is mildly calcified. 9. There is no aortic valve stenosis. 10. There is no aortic valve regurgitation. 11. There is mild tricuspid valve regurgitation. 12. Mild pulmonary hypertension, estimated pulmonary arterial systolic pressure is 35 mmHg. Left Ventricle Left ventricular chamber dimension is normal. Left ventricular systolic function is normal, estimated at 65-70%. There is mildly increased left ventricular wall thickness. The left ventricular diastolic function is grade I diastolic dysfunction. Global longitudinal strain is normal at -23 %. Right Ventricle Right ventricular chamber dimension is normal. Right ventricular systolic function is normal. Left Atria Left atrial chamber dimension is normal. Right Atria Right atrial chamber dimension is normal. Aortic Valve The aortic valve is not well visualized. There is no aortic valve stenosis. There is no aortic valve regurgitation. Pulmonic Valve The pulmonic valve is not well visualized. Mitral Valve The mitral valve has normal leaflets. There is trace mitral valve regurgitation. The mitral valve annulus is mildly calcified. Tricuspid Valve The tricuspid valve leaflets are normal. There is mild tricuspid valve regurgitation. Mild pulmonary hypertension, estimated pulmonary arterial systolic pressure is 35 mmHg. Pericardium/Pleural The pericardium appears epicardial fat pad. There is no pericardial effusion. Inferior Vena Cava Normal inferior vena cava with >50% collapse upon inspiration consistent with normal right atrial pressure, 5 mmHg. Aorta The aortic root size at the sinus of Valsalva is normal. Left Ventricular Outflow Tract Name Value Normal LVOT 2D LVOT Diameter 1.9 cm LVOT Doppler LVOT Peak Gradient 5 mmHg LVOT Mean Gradient 2 mmHg LVOT VTI
[2022-06-01 05:32] LABS: Anion Gap 14 mmol/L (8-16); Blood Urea Nitrogen 14 mg/dL (7-17); Carbon Dioxide 25 mmol/L (22-30); Chloride 103 mmol/L (98-107); Estimated CRCL calculation 65 ml/min; Estimated Glomerular Filt Rate > 60; Glucose 94 mg/dL (65-110); Magnesium 2.2 mg/dL (1.6-2.3); Potassium 3.1 mmol/L (3.4-5.0); Sodium 142 mmol/L (137-145)
[2022-06-01] MEDS: LEVOTHYROXINE SODIUM 25 MCG TABLET PO (06:25)
--- NOTE | 2022-06-01 08:45 | PM.DS ---
DS: Admitting Diagnosis Discharge Date 06/01/22 0845 Admitting Diagnosis Vertigo DS: Discharge Diagnosis Discharge Diagnosis (1) Vertigo: Code(s): R42 - Dizziness and giddiness Status: Acute Assessment and Plan: Head CT was performed and showed no significant intracranial abnormalities Patient was noted to have impacted cerumen which had been rinsed out the ED Neurology consulted Carotid Dopplers Patient was able to walk No arrhythmia noted Drug screen negative Meclizine on board (2) Impacted cerumen of left ear: Code(s): H61.22 - Impacted cerumen, left ear Status: Acute Assessment and Plan: Rinsed out in the ED No further problems Will have patient follow up outpatient (3) Sinusitis: Code(s): J32.9 - Chronic sinusitis, unspecified Status: Acute Assessment and Plan: Continue home medications (4) Hypertension: Qualifiers: Hypertension type: primary hypertension Qualified Code(s): I10 - Essential (primary) hypertension Code(s): I10 - Essential (primary) hypertension Status: Acute Assessment and Plan: BP 119/53 Continue home medications Trend BP Adjust therapy as indicated (5) Hyperlipidemia: Qualifiers: Hyperlipidemia type: mixed hyperlipidemia Qualified Code(s): E78.2 - Mixed hyperlipidemia Code(s): E78.5 - Hyperlipidemia, unspecified Status: Acute Assessment and Plan: Continue home atorvastatin (6) Hypothyroidism: Qualifiers: Hypothyroidism type: acquired Qualified Code(s): E03.9 - Hypothyroidism, unspecified Code(s): E03.9 - Hypothyroidism, unspecified Status: Acute Assessment and Plan: Continue levothyroxine DS: Summary Hospital Course Hospital Course: Patient is 67-year-old female with a past medical history of hypertension, hyperlipidemia, hypothyroidism that presented to the ED with complaints of dizziness for 5 days. Upon arrival it was noted that patient did have impaction of cerumen in the left ear. Cerumen was cleaned out and patient was feeling a little better however does seem to little water logged. Patient was admitted for further investigation. CT of the brain showed no abnormalities. Carotid Dopplers were performed. Echo was also taken. Currently patient feels okay and is able to walk without feeling dizzy. She denies any chest pain, shortness of breath, nausea, vomiting, diarrhea, constipation, weakness or fatigue. Patient is stable for discharge per labs and vital signs at this time. Neurology did see the patient and agrees with current care plan. Status at Discharge Functional status at discharge: independent ambulation Overall status at discharge: patient is progressing back to baseline Time Spent with Patient Time attestation: Total time spent providing and/or coordinating discharge services: 37 minutes Time spent: Greater than 30 minutes Specific discharge activities: Diagnostic testing, chart review, developing a treatment plan, education, care coordination documentation, physical exam, result review Exam Const: General: cooperative, healthy appearing, no acute distress, well developed, alert and awake Nutritional Appearance: well nourished Orientation/consciousness: patient oriented x3 Limitations: no limitations HENMT: Head: normal to inspection Ears: hearing grossly normal bilaterally General nose exam: Normal external nose present Mouth: Yes Normal oral and palatal mucosa present, Yes lip normal and Yes tongue normal Teeth and gingiva: abnormal tooth and associated gingiva and poor dentition Eyes: General: appearance normal, both eyes and all related structures Neck: Neck: normal visual inspection, full ROM, trachea midline and supple Chest: Chest palpation & inspection: normal inspection of the chest Resp: Effort & Inspection: normal
[2022-06-01] MEDS: CALCIUM CARBONATE (OSCAL) 500 MG TABLET 1000 MG PO (09:06)
[2022-06-01] MEDS: ASPIRIN 81 MG CHEWABLE TABLET PO (09:06)
[2022-06-01] MEDS: FLUTICASONE PROPIONATE 0.05% NA SPR 16 GM BTL (*BKC) 1 SPRAY NASAL (09:07)
[2022-06-01] MEDS: CARBAMIDE PEROXIDE 6.5% OT SOLN 15 ML BTL 5 DROP LEFT EAR (09:07)
[2022-06-01] MEDS: PROPRANOLOL HCL 10 MG TABLET PO (09:08)
[2022-06-01] MEDS: POTASSIUM CHLORIDE 20 MEQ TABLET 40 MEQ PO (09:09)
--- NOTE | 2022-06-01 09:52 | WPDNEURCNPN ---
Assessment and Plan Assessment and plan (1) Vertigo: Code(s): R42 - Dizziness and giddiness Status: Acute Plan considering the symptomatology of several days duration even though she will be treated symptomatic the possibility of the central etiology needs to be ruled out she would go through the investigation and further recommendations made accordingly Consult date: 06/01/22 Time Seen: 09:30 Reason for consult: Dizziness HPI: Edith Joyner is a 67 year old female admitted to the hospital through the emergency room where she was brought by her from home in a private car complaining of lightheadedness and dizziness of 5 days duration reportedly yesterday she woke up from sleep with severe blurred vision could not read or phone for [id number] though the symptomatology resolved spontaneously her lightheadedness and dizziness gets worse with walking standing and moving and get better when she lays down his stated she reported that she has history of 1. Hypertension 2. Hypothyroid 3. Anxiety and napped for arthritis. She has undergone surgery for cholecystectomy and right breast lumpectomy with no diagnosis of the malignancy. She has been taking propranolol 10 mg daily at home in addition to atorvastatin 20 mg daily levothyroxine 25 mg daily on initial evaluation in the emergency room vital signs were stable, her CBC and BMP were normal except for glucose was 121 and UA was negative so as the drug screen. CT scan of the head in the emergency room revealed no evidence of bleed and the chest x-ray was negative except mentioned about the aortic atherosclerosis EKG revealed no atrial fibrillation Review of Systems Review of Systems: All systems reviewed & are unremarkable except as noted in HPI and below PMFSH Past Medical History Medical History (Updated 05/31/22 @ 22:21 by Nina Blevins PA-C) Anxiety Arthritis Cancer of right breast (2010) Status post lumpectomy and radiation therapy. Hyperlipidemia Hypertension Hypothyroidism Osteopenia Surgical History Surgical History (Updated 05/31/22 @ 22:11 by Nina Blevins PA-C) History of breast augmentation History of cholecystectomy History of dilation and curettage History of lumpectomy of right breast (2010) Family History Family History Father CHF (congestive heart failure) Mother No problems noted. Sibling Hypertension Obesity Breast cancer Other Arthritis Diabetes mellitus HLD (hyperlipidemia) Osteoporosis Social History Social History Social History: Surrogate medical decision maker: Julian Joyner, spouse. Code status: Full code. Smoking packs per day: 1 Smoking cigarettes per day: 20.0 Years smoked: 23 Smoking pack-years: 23.00 Smoking status: Former smoker Tobacco type: cigarettes Second hand tobacco smoke exposure: Yes Smoking end date: 06/20/11 Alcohol intake: former Alcohol use details: No alcohol since 2010. Substance use: never Substance use type: does not use Additional living arrangements comments: The patient lives with her spouse in [place]. 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 Spiritual care concerns: No Meds Home Medications and Allergies Home Medications Medication Instructions Recorded Confirmed Type calcium carbonate 600 mg calcium 1,200 mg PO DAILY 08/26/21 05/31/22 History (1,500 mg) tablet (Calcium) propranolol 10 mg tablet 10 mg PO DAILY 08/26/21 05/31/22 History atorvastatin 20 mg tablet (Lipitor) 20 mg PO HS 04/09/22 05/31/22 History levothyroxine 25 mcg tablet 25 mcg PO DAILY 05/31/22 05/31/22 History Allergies Allergy/AdvReac Type Severity Reaction Status Date / Time Latex, Natural Rubber Allergy Unknown Blisters Verified 05/31/22 13:34 morphine Allergy Unknown Nausea
== END 2022-06-01 15:39 | disposition home or self-care (01) ==
LOC: ANHED 16:10 → ANH2MED 17:17
PROVIDERS: Physician Assistant; Admitting Provider Hospitalist; Emergency Provider Emergency Medicine; PCP Family Medicine; Visit Provider Nurse Practitioner
DX: R42 Dizziness and giddiness (principal); H61.22 Impacted cerumen, left ear; J32.9 Chronic sinusitis, unspecified; I10 Essential (primary) hypertension; E78.2 Mixed hyperlipidemia; E03.9 Hypothyroidism, unspecified; H53.8 Other visual disturbances; F41.9 Anxiety disorder, unspecified; M85.80 Other specified disorders of bone density and structure, unspecified site; I70.0 Atherosclerosis of aorta; M19.90 Unspecified osteoarthritis, unspecified site; R94.31 Abnormal electrocardiogram [ECG] [EKG]; Z87.891 Personal history of nicotine dependence; Z85.3 Personal history of malignant neoplasm of breast; Z79.899 Other long term (current) drug therapy; Z82.62 Family history of osteoporosis; Z84.89 Family history of other specified conditions
CPT/HCPCS: 36415; 70450; 71045; 80048; 80053; 80307; 81001; 83735; 84443; 84484; 85025; 85610; 85652; 85730; 93005; 93306; 99285; A9270; G0378

== ENCOUNTER 2022-09-09 08:25 | Outpatient (CLI) | payer OTHER, SELFPAY ==
--- NOTE | ~2022-09-09 | MR_ITS ---
EXAMINATION: MR brain/brain stem wo con DATE: 09/09/2022 11:15 INDICATION: Transient ischemic episode. Dizziness. TECHNIQUE: Magnetic resonance imaging (MRI) of the brain and brainstem was performed without intraven ous contrast. Sequences included sagittal and axial T1-weighted SE, axial diffusion-weighted FS SE, a xial T2*-weighted GRE, axial 3D SWAN, axial T2-weighted FLAIR, and axial T2-weighted FSE. Postcontras t axial and coronal T1-weighted SE was obtained. Apparent diffusion coefficient (ADC) maps were creat ed. COMPARISON: Head CT dated 05/31/2022 FINDINGS: There are no areas of restricted diffusion to suggest acute infarction. There are couple tiny old lac unar infarcts in the right cerebellar hemisphere. No intracranial hemorrhage or abnormal intracranial mass lesion. There are a few small scattered areas of nonspecific increased T2-weighted signal inten sity in the cerebral white matter, predominantly involving the deep and periventricular white matter which is within normal limits for age and likely sequela of chronic small vessel ischemic disease.. T here are no intraparenchymal signal abnormalities seen on the other pulse sequences. The ventricles a re symmetric and normal in size. There are no abnormal extra-axial fluid collections. Flow voids are seen in the cerebral arteries on the T2-weighted sequences consistent with their expected patency. Vi sualized orbits and soft tissues are unremarkable. IMPRESSION: 1. A couple tiny old lacunar infarcts at the right cerebellar hemisphere. No acute intracranial proce ss. 2. Scattered nonspecific white matter T2 hyperintensity which is within normal limits for age and lik michelle sequela of chronic small vessel ischemic disease. Reviewed, dictated and finalized at location A. 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 A couple tiny old lacunar infarcts at the right cerebellar hemisphere. No ac tun[place]-biloxi intracranial process. 2. Scattered nonspecific white matter T2 hyperintensity which is within normal limits for age and likely sequela of chronic small vessel ischemic disease.
--- NOTE | 2022-09-09 09:04 | ECHO_ITS ---
Patient Info Name: Edith Joyner Age: 67 years : 1955 Gender: Female Ht: 60 in Wt: 148 lbs BSA: 1.71 m2 HR: 61 bpm BP: 131 / 76 mmHg Heart Rhythm: Sinus Rhythm Technical Quality: Fair Exam Date: 09/09/2022 9:12 AM Exam Location: [facility] Patient Status: Outpatient Admit Date: 09/09/2022 Staff Ordering Physician: Renato Miranda MD Transit Mechanic: Rosy London RDCS Attending Provider: Renato Miranda MD Exam Type: CA echo dop bubble study w con Study Info Indications G45.9 - Transient cerebral ischemic attack, unspecified Complete two-dimentional, color flow and Doppler transthoracic echocardiogram is performed with agitated saline and with contrast to opacify the left ventricle and to improve the delineation of the left ventricle endocardial borders. Contrast/Agitated Saline Contrast/Ag. Saline: Definity Amount: 3.00 ml Existing IV Access: No IV Access Condition: patent with no signs of infiltration New IV Access: Left Contrast/Ag. Saline: Agitated Saline Amount: 20.00 ml Existing IV Access: No IV Access Condition: patent with no signs of infiltration New IV Access: Left Summary 1. Left ventricular chamber dimension is normal. 2. Definity contrast administered improved wall motion interpretation. 3. Left ventricular systolic function is normal, estimated at 60-65%. 4. The left ventricular diastolic function is grade I diastolic dysfunction. 5. E/e' 8 is minimally elevated. 6. There is trace aortic valve regurgitation. 7. There is mild mitral valve regurgitation. 8. No pulmonary hypertension, estimated pulmonary arterial systolic pressure is 20 mmHg. Left Ventricle E/e' 8 is minimally elevated. Definity contrast administered improved wall motion interpretation. Left ventricular chamber dimension is normal. Left ventricular systolic function is normal, estimated at 60-65%. The left ventricular diastolic function is grade I diastolic dysfunction. Right Ventricle Right ventricular chamber dimension is normal. Right ventricular systolic function is normal. Left Atria Left atrial chamber dimension is normal. Right Atria Right atrial chamber dimension is normal. Atrial Septum Agitated saline injection with and without valsalva maneuver opacified right side cardiac chambers without shunt to left side cardiac chambers. Intact interatrial septum visualized by 2D and agitated saline imaging. Aortic Valve The aortic valve is trileaflet. There is no aortic valve stenosis. There is trace aortic valve regurgitation. Pulmonic Valve There is no pulmonic regurgitation. Mitral Valve There is no mitral valve stenosis. There is mild mitral valve regurgitation. Tricuspid Valve There is no tricuspid valve regurgitation. No pulmonary hypertension, estimated pulmonary arterial systolic pressure is 20 mmHg. Pericardium/Pleural There is no pericardial effusion. Inferior Vena Cava Normal inferior vena cava with >50% collapse upon inspiration consistent with normal right atrial pressure, 5 mmHg. Aorta The aortic root size at the sinus of Valsalva is normal. Left Ventricular Outflow Tract Name Value Normal LVOT 2D
[2022-09-09] MEDS: PERFLUTREN LIPID MICROSPHERES 1.5 ML VIAL DILUTED TO 10 ML TOTAL VOLUME IV PUSH (10:05)
--- NOTE | 2022-09-09 12:26 | IVDEFINITY ---
Prior to administration of IV Definity the patient was educated on the risks and benefits of the imaging enhancing agent including potential adverse side effects. The patient verbalized understanding. Allergies were verified. No exclusion criteria were identified and at least one of the following inclusion criteria were met: 1) physician request, 2) patient technically difficult to image (per the [place] [employer]chocardi[employer] guidelines of two or more segments not discernable within the apical view), or 3) questionable left ventricular function. ?
== END 2022-09-09 08:26 | disposition home or self-care (01) ==
LOC: ANHCARD 08:27
PROVIDERS: PCP Family Medicine; Visit Provider Psychiatry & Neurology Neurology
DX: G45.9 Transient cerebral ischemic attack, unspecified (principal); R42 Dizziness and giddiness; R93.0 Abnormal findings on diagnostic imaging of skull and head, not elsewhere classified; I34.0 Nonrheumatic mitral (valve) insufficiency
CPT/HCPCS: 70551; 96375; C8929; Q9957

== ENCOUNTER 2022-12-31 07:39 | Outpatient (CLI) | payer OTHER, SELFPAY ==
--- NOTE | ~2022-12-31 | MMUS_ITS ---
EXAMINATION: MM diagnostic michael BI w yudelka, US breast LT limited HISTORY: Palpable superior left breast abnormality. TECHNIQUE: ML, MLO and CC 3-D tomosynthesis images of both breasts were performed and synthetic 2-D i mages were generated. CAD analysis was submitted and interpreted. High resolution targeted left breas t ultrasound examination at the area of clinical complaint was performed. COMPARISON: 04/08/2022 diagnostic right mammogram and limited right breast ultrasound examination /, 06/09/2020, 06/12/2019 outside mammogram examinations BREAST PARENCHYMAL COMPOSITION: There are scattered areas of fibroglandular density. FINDINGS: MAMMOGRAPHIC FINDINGS: There is diminished size of the right breast and scarring including prominent inferomedial retraction , stable since 06/12/2019. Removal of left breast implant since 04/08/2022. No suspicious mass or new architectural distortion or any malignant calcification or new skin thicken ing or retraction is detected. ULTRASOUND: Real-time imaging targeted to area of clinical complaint of palpable abnormality of left breast at 12 :00 8 cm from the nipple reveals no suspicious mass or shadowing, cyst or other significant sonograph ic finding. IMPRESSION: 1. Status post right partial mastectomy for breast cancer; no evidence of malignancy 2. No significant change since 06/12/2019, with exception of interval removal of left breast implant s chelsi 04/08/2022 BI-RADS Category 2: Benign finding(s). Reviewed, dictated and finalized at location A. IMPRESSION: 1. Status post right partial mastectomy for breast cancer; no evidence of malig yolanda 2. No significant change since 06/12/2019, with exception of interval removal of left breast implant since 04/08/2022 BI-RADS Category 2: Benign finding(s).
== END 2022-12-31 07:40 ==
PROVIDERS: PCP Family Medicine; Visit Provider Nurse Practitioner Family
DX: N64.59 Other signs and symptoms in breast (principal); Z85.3 Personal history of malignant neoplasm of breast; Z90.11 Acquired absence of right breast and nipple
CPT/HCPCS: 76642; 77062; 77066; G0279

== ENCOUNTER 2023-03-04 10:39 | Outpatient (CLI) | payer OTHER, SELFPAY ==
--- NOTE | ~2023-03-04 | US_ITS ---
US thyroid INDICATION: Nontoxic thyroid goiter TECHNIQUE: Real-time sonographic images of the thyroid gland were obtained. COMPARISON: No prior studies for comparison. FINDINGS: The right thyroid lobe measures 4.3 x 1.8 x 1.9 cm. The left thyroid lobe measures 2.8 x 1 .1 x 1.3 cm. Thyroid gland is diffusely heterogeneous with multiple bilateral thyroid masses. Largest dominant largely solid mass of the right lobe is hypoechoic, wider than tall, smoothly marginated wi thout echogenic foci measuring 2.2 x 2 x 1.7 cm, TR 4. Largest dominant left thyroid mass is solid, h ypoechoic, wider than tall, smoothly marginated without echogenic foci measuring 9 mm, TR 4. IMPRESSION: 1. Small bilateral thyroid masses, largest dominant mass in the right lobe measures 2.2 cm, TR 4. Ul trasound-guided fine-needle aspiration biopsy recommended. Reviewed, dictated and finalized at location [] IMPRESSION: 1. Small bilateral thyroid masses, largest dominant mass in the right lobe mookie sures 2.2 cm, TR 4. Ultrasound-guided fine-needle aspiration biopsy recommended .
== END 2023-03-04 10:40 ==
PROVIDERS: PCP Family Medicine; Visit Provider Nurse Practitioner Family
DX: E04.1 Nontoxic single thyroid nodule (principal)
CPT/HCPCS: 76536

== ENCOUNTER 2023-03-24 12:18 | Outpatient (CLI) | payer OTHER, SELFPAY ==
--- NOTE | ~2023-03-24 | US_ITS ---
EXAMINATION: US FNA w image guidance DATE: 03/24/2023 13:17 INDICATION: Right thyroid nodule. TECHNIQUE: The procedure and its benefits and risks were discussed with the patient. Risks specifically discusse d included bleeding. The patient verbalized understanding of the risks and agreed to proceed. The nec k was prepped and draped in the usual sterile manner. 1% lidocaine was used for local anesthesia. 6 passes were made with a 25G needle into the lesion under ultrasound guidance. There were no immedia te complications. FINDINGS: Grayscale ultrasound images demonstrate needles advanced into a 2.1 cm nodule in right thyroid lobe f or biopsy. IMPRESSION: 1. Ultrasound-guided fine needle aspiration of a nodule in right thyroid lobe. Reviewed, dictated and finalized at location A.
== END 2023-03-24 12:19 | disposition home or self-care (01) ==
PROVIDERS: PCP Family Medicine; Visit Provider Nurse Practitioner Family
DX: E04.1 Nontoxic single thyroid nodule (principal)
CPT/HCPCS: 10005; 88173; 88305

== ENCOUNTER 2023-03-28 21:14 | Emergency (ER) | payer OTHER, SELFPAY ==
--- NOTE | ~2023-03-28 | XR_ITS ---
Clinical Indication: Cough PA and lateral views of the chest: Comparison: 05/31/2022 Findings: The lungs are clear, without evidence of focal consolidation or pleural effusion. Cardiome diastinal silhouette is within normal limits. Bones and soft tissues are unremarkable. Impression: Normal chest. Reviewed, dictated and finalized at location . Impression: Normal chest.
--- NOTE | 2023-03-28 21:15 | ECG_ITS ---
Measurements Intervals [place] Rate: 60 P: 53 DE: 189 QRS: 8 QRSD: 97 T: 22 QT: 399 QTc: 400 Interpretive Statements SINUS RHYTHM ST-T WAVE ABNORMALITY IN ANTERIOR LEADS- CONSIDER ISCHEMIA BASELINE ARTIFACT- I, III, AVL ABNORMAL ECG COMPARED TO ECG 05/31/2022 13:41:52 NO SIGNIFICANT CHANGES Electronically Signed On 03-29-2023 6:52:12 CDT by Giovani Gonsalez D.O.
[2023-03-28 21:21] VITALS: BP 151/83; PULSE 60; RESP 13; O2SAT 99
[2023-03-28 21:46] LABS: Basophils Absolute Auto 0.1 K/mm3 (0.0-0.1); Basophils Percent Auto 0.9 % (0.2-1.2); Eosinophils Absolute Auto 0.2 K/mm3 (0-0.3); Eosinophils Percent Auto 2.2 % (0-4.4); Hematocrit 46.4 % (37.0-47.0); Hemoglobin 15.6 g/dL (12.0-15.0); Immature Granulocyte Absolute 0.02 K/mm3 (0.00-0.031); Immature Granulocyte Percent A 0.2 % (0-0.5); Lymphocytes Absolute Auto 3.42 K/mm3 (0.9-3.2); Lymphocytes Percent Auto 38.4 % (18.3-44.2); Mean Corpuscular HGB Conc 33.6 g/dl (32-36); Mean Corpuscular Hemoglobin 30.8 pg (26-34); Mean Corpuscular Volume 91.5 fl (80-100); Mean Platelet Volume 10.1 fl (7.4-10.4); Monocytes Absolute Auto 0.7 K/mm3 (0.1-0.6); Neutrophils Absolute Auto 4.5 K/mm3 (1.3-6.7); Neutrophils Percent Auto 50.3 % (45.5-73.1); Platelet Count Result 322 k/mm3 (150-375); Red Blood Count 5.07 M/mm3 (4.2-5.4); Red Cell Distribution Width 13.4 % (11.5-14.5); White Blood Count 8.9 K/mm3 (4.5-10.0)
[2023-03-28 21:59] LABS: Alanine Aminotransferase 24 U/L (6-35); Albumin Level 4.9 g/dL (3.5-5.1); Alkaline Phosphatase 72 U/L (38-126); Anion Gap 5 mmol/L (8-16); Aspartate Amino Transferase 35 U/L (14-36); Bilirubin,Total 0.7 mg/dL (0.2-1.3); Blood Urea Nitrogen 11 mg/dL (7-17); Calcium 9.8 mg/dL (8.4-10.2); Carbon Dioxide 30 mmol/L (22-30); Chloride 104 mmol/L (98-107); Estimated CRCL calculation 63 ml/min; Estimated Glomerular Filt Rate > 60; Glucose 92 mg/dL (65-110); Magnesium 2.2 mg/dL (1.6-2.3); Sodium 139 mmol/L (137-145)
[2023-03-28 22:32] VITALS: PULSE 68
[2023-03-28 22:47] LABS: Appearance Urine Cloudy (Clear); Bilirubin Urine Negative (Negative); Blood Urine Negative (Negative); Color Urine Yellow (Yellow); Glucose Urine UA Negative (Negative); Ketones Urine Negative (Negative); Leukocyte Esterase Ur Negative LEU/UL (Negative); Nitrate Urine Negative (Negative); Protein Urine Negative (Negative); RBC Urine 0-2 /hpf (0-2); Specific Grav Ur 1.006 (1.001-1.035); Urobilinogen Urine 0.2 mg/dL (<2.0)
[2023-03-28 22:48] LABS: Bacteria Urine Rare /hpf; Non Pathogenic Casts 0-2; Squamous Epithelial Cell Urine Many /hpf (Few); WBC Urine 0-5 /hpf
[2023-03-28 23:07] LABS: Add Urine Microscopic? YES
--- NOTE | 2023-03-28 23:23 | ED.GENADULT ---
HPI - General Adult General Chief complaint: Arrhythmia/Palpitations Stated complaint: irregular heart beat Time Seen by Provider: 03/28/23 21:23 History of Present Illness HPI narrative: Patient is a 67-year-old female who presents the emergency department with chief complaint of palpitations. Patient reports that she had a blood pressure cuff that read as her heart rate was irregular patient states she had no palpitations during this time no feeling syncope no chest pain. Patient does report that she had a little bit of a cough and was concerned that she may have bronchitis or pneumonia. Related Data Home Medications Medication Instructions Recorded Confirmed fluticasone propionate 50 1 spray intranasal Q12H 08/21/22 12/10/22 mcg/actuation nasal spray,suspension aspirin 81 mg tablet,delayed 81 mg PO .QD 10/23/22 12/10/22 release (Adult Aspirin Regimen) calcium carbonate 600 mg calcium 600 mg PO DAILY 11/11/22 12/10/22 (1,500 mg) tablet (Calcium) Allergies Allergy/AdvReac Type Severity Reaction Status Date / Time Latex, Natural Rubber Allergy Unknown Blisters Verified 03/28/23 21:15 morphine Allergy Unknown Nausea Verified 03/28/23 21:15 Penicillins Allergy SOB Verified 03/28/23 21:15 propoxyphene [From Darvon] Allergy Rash Verified 03/28/23 21:15 Review of Systems Review of Systems: A 10 system review of systems was completed on the patient and is negative except for what is stated in the HPI. Nursing and ancillary documentation was reviewed. COUNT INCLUDES THE [facility] Past Medical History Medical History Anxiety Arthritis Cancer of right breast (2010) Status post lumpectomy and radiation therapy. Diastolic dysfunction Hyperlipidemia Hypertension Hypokalemia Hypothyroidism Multiple lacunar infarcts Osteopenia Overweight with body mass index (BMI) of 28 to 28.9 in adult Surgical History Surgical History History of breast augmentation History of cholecystectomy History of dilation and curettage History of lumpectomy of right breast (2010) Family History Family History Father CHF (congestive heart failure) Mother Hypertension Sibling Hypertension Obesity Breast cancer Bone cancer Other Arthritis Diabetes mellitus HLD (hyperlipidemia) Osteoporosis Social History Social History Social History: Surrogate medical decision maker: Julian Joyner, spouse. Code status: Full code. Smoking packs per day: 1 Smoking cigarettes per day: 20.0 Years smoked: 23 Smoking pack-years: 23.00 Smoking status: Former smoker Tobacco type: cigarettes Second hand tobacco smoke exposure: Yes Smoking end date: 06/20/11 Alcohol intake: former Alcohol use details: No alcohol since 2010. Substance use: never Substance use type: does not use Lack of Transportation: No Lack of Food: Never True Current Housing: I Have Housing Concerned About Future Housing: No Difficulty Paying Gas/Electric Bills: No Difficulty Paying for Meds: No Currently Unemployed: No Education: Trade/Vocational Certificate Difficulty w/ Childcare or Family Care: No Living arrangements: with family Additional living arrangements comments: The patient lives with her spouse in [place]. 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 Gender identity (if verbalized by the patient): Female Spiritual care concerns: No Exam Narrative: GENERAL: Well-appearing, well-nourished, and in no acute distress. HEAD: Normocephalic, atraumatic. EYES: PERRLA and EOMI. ENT: Nares clear, no rhinorrhea or epistaxis. Mucous membranes moist. NECK: Supple. CHEST: Clear to auscultatio
[2023-03-28 23:30] VITALS: BP 131/55; PULSE 66; RESP 17; O2SAT 99
== END 2023-03-28 23:35 | disposition home or self-care (01) ==
PROVIDERS: Emergency Provider Emergency Medicine; PCP Family Medicine
DX: R00.2 Palpitations (principal); E78.5 Hyperlipidemia, unspecified; I10 Essential (primary) hypertension; E03.9 Hypothyroidism, unspecified; M19.90 Unspecified osteoarthritis, unspecified site; M85.80 Other specified disorders of bone density and structure, unspecified site; Z85.3 Personal history of malignant neoplasm of breast; Z92.3 Personal history of irradiation; Z87.891 Personal history of nicotine dependence; Z79.82 Long term (current) use of aspirin; Z90.49 Acquired absence of other specified parts of digestive tract
CPT/HCPCS: 36415; 71046; 80053; 81001; 83735; 85025; 93005; 99283

== ENCOUNTER → 2023-05-04 10:05 | Outpatient (CLI) | payer OTHER, SELFPAY ==
--- NOTE | ~2023-05-04 | DEXA_ITS ---
Bone Density Report Name: VICENTA TORRES Age: 67 Sex: Female Ethnicity: White Date of : 1955 Indication: postmenopausal; screening for osteoporosis; parental hip fracture; prior fracture; Referring Provider: Caren Davidson Study: Bone densitometry was performed. Exam Date: May 04, 2023 Accession number: [id number] Bone Density: Region BMD T-score Z-score Classification AP Spine (L1-L4) 0.878 -1.5 0.6 Osteopenia Femoral Neck (Left) 0.617 -2.1 -0.3 Osteopenia Total Hip (Left) 0.761 -1.5 0.0 Osteopenia Femoral Neck (Right) 0.662 -1.7 0.1 Osteopenia Total Hip (Right) 0.758 -1.5 0.0 Osteopenia Total Hip Mean 0.760 -1.5 0.0 Osteopenia World Health Organization criteria for BMD impression classify patients as: Normal (T-score at or above -1.0), Osteopenia (T-score between -1.0 and -2.5), or Osteoporosis (T-score at or below -2.5). 10-year Fracture Risk(1): Major Osteoporotic Fracture 29% Hip Fracture 7.4% Reported Risk Factors: [place] (), Neck BMD=0.617, BMI=27.6, previous fracture, parental fracture (1) FRAX(R) Version 3.08. Fracture probability calculated for an untreated patient. Fracture probability may be lower if the patient has received treatment. Clinical Information Provided by Patient: Has had a low trauma fracture Parent has had a hip fracture Has used the following medications: Calcium, vit D included in Calcium, taken off and on Patient maximum height was 61 Menopause Age: 54 Drinks caffeinated beverages Onset of menses at age 12 Number of children 1 Impression: The patient has low bone mass, based on the Left Femoral Neck T-score. The patient has an estimated ten-year risk of hip fracture of 7.4% and an estimated ten-year risk of major fracture of 29%, based on the WHO FRAX algorithm. The patient has risk factors, including: parental hip fracture, previous fracture. Discussion: BONE DENSITY IS LOW AT ONE OR MORE SKELETAL SITES. THE PATIENT'S BMD AND CLINICAL RISK FACTORS CONTRIBUTE TO THIS PATIENT'S HIGH RISK OF FRACTURE. This patient's lowest T-score is low at one or more skeletal sites. It meets the World Health Organization's (WHO) criteria for ?low bone mass? (T-score between -1.0 and -2.5). The patient's 10-year risk of hip fracture and 10 year risk of a major osteoporotic fracture as calculated by FRAX exceeds the threshold where pharmacological therapy is recommended by the National Osteoporosis Foundation (NOF). However, all treatment decisions require clinical judgment and consideration of individual patient factors, including patient preferences, comorbidities, previous drug use, risk factors not captured in the FRAX model (e.g., frailty, falls, vitamin D deficiency, increased bone turnover, interval significant decline in bone density) and possib
== END ==
PROVIDERS: PCP Family Medicine; Visit Provider Nurse Practitioner Family
DX: M85.88 Other specified disorders of bone density and structure, other site (principal); M85.852 Other specified disorders of bone density and structure, left thigh; M85.851 Other specified disorders of bone density and structure, right thigh
CPT/HCPCS: 77080

== ENCOUNTER 2023-05-27 12:32 | Outpatient (CLI) | payer OTHER, SELFPAY ==
--- NOTE | ~2023-05-27 | US_ITS ---
EXAMINATION: US FNA w image guidance DATE: 05/27/2023 13:55 INDICATION: Nontoxic single thyroid nodule TECHNIQUE: A time-out was performed to verify the patient's name, date of , and procedure to be performed . The procedure and its benefits and risks were discussed with the patient. Risks specifically discus sed included bleeding and infection. The patient understood the risks and agreed to proceed. The neck was prepped and draped in the usual sterile manner. 3 mL 1% lidocaine was used for local anesthesia . 6 passes were made with a 25G needle into the lesion targeting both the isoechoic, hypoechoic and very hypoechoic components. A 7th passes made with a 20 1G needle into the cystic component of the ma ss and 2.5 mm dark maroon-colored fluid was aspirated and also sent to lab. Appropriate needle locati on was documented with continuous sonographic guidance. A sterile bandage was applied. There were n o immediate complications. FINDINGS: Grayscale ultrasound images demonstrate biopsy needles advanced into a 2.7 x 1.4 x 2.0 cm mixed solid and cystic mass in the right thyroid. IMPRESSION: 1. Successful ultrasound-guided fine needle aspiration of a 2.7 cm mixed solid and cystic right thyr oid mass. Reviewed, dictated and finalized at location A. IMPRESSION: 1. Successful ultrasound-guided fine needle aspiration of a 2.7 cm mixed solid and cystic right thyroid mass.
== END 2023-05-27 12:33 | disposition home or self-care (01) ==
PROVIDERS: PCP Family Medicine; Visit Provider Otolaryngology
DX: E04.1 Nontoxic single thyroid nodule (principal)
CPT/HCPCS: 10005; 88108; 88173; 88305

== ENCOUNTER 2023-05-31 10:48 | Outpatient (CLI) | payer OTHER, SELFPAY ==
--- NOTE | 2023-06-10 14:43 | WPDHOLTEREM ---
Holter/Event Monitor Holter/Event Monitor Date of procedure: 06/08/23 Holter/Event Procedure: 48 Hr Holter Monitor Indications: Cardiac arrhythmia Conclusion: 1. 48 hour holter monitor on 06/08/23. 2. Underlying rhythm is sinus rhythm. HR range 48-92 bpm; average HR 63 bpm. 3. There are 7 premature supraventricular complexes and 2 supraventricular couplets and 1 supraventricular triplet. No supraventricular tachycardia. 4. There are 116 premature ventricular complexes. No ventricular tachycardia. 5. No sinoatrial or atrioventricular blocks. No significant pauses greater than 2 seconds. 6. Patient reports symptoms of irregular heart beat which demonstrate sinus rhythm, HR range 62-73 bpm.
== END 2023-05-31 10:49 | disposition home or self-care (01) ==
PROVIDERS: PCP Family Medicine; Visit Provider Family Medicine
DX: I49.9 Cardiac arrhythmia, unspecified (principal)
CPT/HCPCS: 93225; 93226

== ENCOUNTER 2023-09-17 12:18 | Emergency (ER) | payer OTHER, SELFPAY ==
[2023-09-17] VITALS (8 sets, daily range): BP systolic 109–126; BP diastolic 55–68; PULSE 60–67; RESP 16–24; TEMP 36.6–36.8; O2SAT 98–100
--- NOTE | ~2023-09-17 | XR_ITS ---
EXAMINATION: XR chest 2V 09/17/2023 13:09 INDICATION: Crushing chest pain. Hypertension. PROCEDURE: 2 view chest COMPARISON: 03/28/2023 FINDINGS: The lungs are clear. The cardiomediastinal silhouette is within normal limits. There are no pleural effusions. There is no pneumothorax suspected. IMPRESSION: 1: NO ACUTE CARDIOPULMONARY DISEASE. Reviewed, dictated and finalized at location A. RIOR PANELER
--- NOTE | 2023-09-17 12:19 | ECG_ITS ---
Measurements Intervals [place] Rate: 59 P: 38 [place]: 198 QRS: 0 QRSD: 96 T: 38 QT: 403 QTc: 401 Interpretive Statements SINUS BRADYCARDIA LOW QRS VOLTAGE IN PRECORDIAL LEADS [QRS DEFLECTION < 1.0 mV IN CHEST LEADS] COMPARED TO ECG 03/28/2023 21:22:18 SINUS BRADYCARDIA NOW PRESENT Electronically Signed On 09-17-2023 16:39:04 SLIDE FASTENERS INSPECTOR by Michelle Hinkle M.D.
[2023-09-17 12:35] LABS: Basophils Percent Auto 0.6 % (0.2-1.2); Eosinophils Absolute Auto 0.1 K/mm3 (0-0.3); Eosinophils Percent Auto 1.2 % (0-4.4); Hematocrit 41.9 % (37.0-47.0); Hemoglobin 13.5 g/dL (12.0-15.0); Lymphocytes Absolute Auto 2.26 K/mm3 (0.9-3.2); Lymphocytes Percent Auto 32.9 % (18.3-44.2); Mean Corpuscular HGB Conc 32.2 g/dl (32-36); Mean Corpuscular Hemoglobin 29.8 pg (26-34); Mean Corpuscular Volume 92.5 fl (80-100); Mean Platelet Volume 9.9 fl (7.4-10.4); Monocytes Absolute Auto 0.5 K/mm3 (0.1-0.6); Monocytes Percent Auto 6.7 % (2.6-8.5); Neutrophils Percent Auto 58.6 % (45.5-73.1); Platelet Count Result 293 k/mm3 (150-375); Red Blood Count 4.53 M/mm3 (4.2-5.4); Red Cell Distribution Width 13.4 % (11.5-14.5); White Blood Count 6.9 K/mm3 (4.5-10.0)
[2023-09-17 12:46] LABS: Alanine Aminotransferase 19 U/L (6-35); Albumin Level 4.3 g/dL (3.5-5.1); Alkaline Phosphatase 75 U/L (38-126); Anion Gap 8 mmol/L (8-16); Aspartate Amino Transferase 27 U/L (14-36); Bilirubin,Total 0.9 mg/dL (0.2-1.3); Blood Urea Nitrogen 15 mg/dL (7-17); Calcium 9.3 mg/dL (8.4-10.2); Carbon Dioxide 27 mmol/L (22-30); Chloride 106 mmol/L (98-107); Estimated CRCL calculation 65 ml/min; Estimated Glomerular Filt Rate > 60; Glucose 106 mg/dL (65-110); Lipase 231 U/L (23-300); Potassium 3.6 mmol/L (3.4-5.0); Sodium 141 mmol/L (137-145)
[2023-09-17 12:54] LABS: INR 0.9; Prothrombin Time 12.3 Seconds (11.1-14.7)
[2023-09-17 12:55] LABS: Partial Thromboplastin Time 27.4 SECONDS (22.3-36.8)
[2023-09-17 12:57] LABS: Troponin I < 0.012 ng/mL (0.000-0.034)
--- NOTE | 2023-09-17 13:53 | ED.CHESTPAIN ---
HPI - Chest Pain General Chief Complaint: Chest Pain Stated Complaint: chest pain X1 hour Time Seen by Provider: 09/17/23 13:32 History of Present Illness HPI narrative: 68-year-old female presenting to the emergency department for evaluation of intermittent chest pain. Patient states that the pain has been occurring over the last few hours. Patient describes a short lasting tightness across her anterior chest. Patient is unable to do find anything that makes the pain better or worse. Patient has no prior history of OR. patient does take medications for high cholesterol and hypertension. Patient has no prior history of PE or DVT. Patient denies any fevers shortness of breath. Related Data Home Medications Medication Instructions Recorded Confirmed aspirin 81 mg tablet,delayed 81 mg PO .QD 10/23/22 06/14/23 release (Adult Aspirin Regimen) calcium carbonate 600 mg calcium 600 mg PO DAILY 11/11/22 06/14/23 (1,500 mg) tablet (Calcium) nystatin 100,000 unit/gram topical topical 09/15/23 powder Allergies Allergy/AdvReac Type Severity Reaction Status Date / Time Latex, Natural Rubber Allergy Unknown Blisters Verified 09/17/23 12:18 morphine Allergy Unknown Nausea Verified 09/17/23 12:18 Penicillins Allergy SOB Verified 09/17/23 12:18 propoxyphene [From Darvon] Allergy Rash Verified 09/17/23 12:18 Review of Systems Review of Systems: All systems reviewed & are unremarkable except as noted in HPI and below PMFSH Past Medical History Medical History Adult BMI 29.0-29.9 kg/sq m Anxiety Arthritis Cancer of right breast (2010) Status post lumpectomy and radiation therapy. Changing skin lesion Diastolic dysfunction Dyspepsia Hyperlipidemia Hypertension Hypokalemia Hypothyroidism Multiple lacunar infarcts Osteopenia Overweight with body mass index (BMI) of 28 to 28.9 in adult Surgical History Surgical History History of breast augmentation History of cholecystectomy History of dilation and curettage History of lumpectomy of right breast (2010) Family History Family History Father CHF (congestive heart failure) Mother Hypertension Sibling Hypertension Obesity Breast cancer Bone cancer Other Arthritis Diabetes mellitus HLD (hyperlipidemia) Osteoporosis Social History Social History Social History: Surrogate medical decision maker: Julian Joyner, spouse. Code status: Full code. Smoking packs per day: 1 Smoking cigarettes per day: 20.0 Years smoked: 23 Smoking pack-years: 23.00 Smoking status: Former smoker Tobacco type: cigarettes Second hand tobacco smoke exposure: No Smoking end date: 06/20/11 Alcohol intake: former Alcohol use details: No alcohol since 2010. Substance use: never Substance use type: does not use Lack of Transportation: No Lack of Food: Never True Current Housing: I Have Housing Concerned About Future Housing: No Difficulty Paying Gas/Electric Bills: No Difficulty Paying for Meds: No Currently Unemployed: No Education: Trade/Vocational Certificate Difficulty w/ Childcare or Family Care: No Living arrangements: with family Additional living arrangements comments: The patient lives with her spouse in [place]. 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 Gender identity (if verbalized by the patient): Female Spiritual care concerns: No Exam Narrative: APPEARANCE: Well appearing, no pain, no distress, well-nourished. HEAD: normocephalic, atraumatic. EYES: PERRLA/EOMI, conjunctivae clear. NOSE: Normal no drainage EARS:TMS clear with good light reflex. THROAT: Pharynx clear, no exudate
--- NOTE | 2023-09-17 15:31 | ECG_ITS ---
Measurements Intervals [place] Rate: 61 P: 46 [place]: 198 QRS: 2 QRSD: 101 T: -61 QT: 425 QTc: 431 Interpretive Statements SINUS RHYTHM LOW QRS VOLTAGE IN PRECORDIAL LEADS [QRS DEFLECTION < 1.0 mV IN CHEST LEADS] MODERATE T-WAVE ABNORMALITY, CONSIDER ANTERIOR ISCHEMIA [-0.1+ mV T WAVE IN V3/V4] MODERATE T-WAVE ABNORMALITY, CONSIDER INFERIOR ISCHEMIA [-0.1+ mV T WAVE IN II/aVF] COMPARED TO ECG 09/17/2023 12:24:21 SINUS RHYTHM NOW PRESENT Electronically Signed On 09-17-2023 16:43:29 ACTIVITIES MANAGER by Michelle Hinkle M.D.
[2023-09-17 16:11] LABS: Troponin I < 0.012 ng/mL (0.000-0.034)
== END 2023-09-17 16:50 | disposition home or self-care (01) ==
PROVIDERS: Emergency Provider Emergency Medicine; PCP Family Medicine
DX: R07.89 Other chest pain (principal); I10 Essential (primary) hypertension; E78.00 Pure hypercholesterolemia, unspecified; E03.9 Hypothyroidism, unspecified; E66.3 Overweight; Z68.28 Body mass index [BMI] 28.0-28.9, adult; M19.90 Unspecified osteoarthritis, unspecified site; M85.80 Other specified disorders of bone density and structure, unspecified site; Z85.3 Personal history of malignant neoplasm of breast; Z87.891 Personal history of nicotine dependence; Z90.49 Acquired absence of other specified parts of digestive tract; Z79.82 Long term (current) use of aspirin; R00.1 Bradycardia, unspecified
CPT/HCPCS: 36415; 71046; 80053; 83690; 84484; 85025; 85610; 85730; 93005; 99284

== ENCOUNTER 2023-09-29 08:29 | Outpatient (CLI) | payer OTHER, SELFPAY ==
[2023-09-29 09:32] LABS: Cholesterol 162 mg/dL (0-200); HDL Direct 75 mg/dL; Triglycerides 101 mg/dL (<150)
[2023-09-29 09:45] LABS: LDL Cholesterol Direct 62 mg/dL
== END 2023-09-29 08:30 | disposition home or self-care (01) ==
LOC: ANHLAB 08:30
PROVIDERS: PCP Family Medicine; Visit Provider Nurse Practitioner Family
DX: E78.2 Mixed hyperlipidemia (principal); E03.9 Hypothyroidism, unspecified; F41.9 Anxiety disorder, unspecified
CPT/HCPCS: 36415; 80061; 84436; 84443

== ENCOUNTER 2023-09-30 09:19 | Outpatient (CLI) | payer OTHER, SELFPAY ==
--- NOTE | ~2023-09-30 | XR_ITS ---
XR cervical spine min 6V DATE: 09/30/2023 09:38 INDICATION: Neck pain, limited range of motion TECHNIQUE: AP, open-mouth, odontoid, flexion, extension and neutral lateral views COMPARISON: None FINDINGS: C1 and C2 are normally aligned and the odontoid process is intact. There is minimal anterolisthesis at C2-3, stable in neutral, flexion and extension. There is an approximately 2 mm anterolisthesis at C3-4 in flexion, reduced in neutral and extension. There is minimal retrolisthesis at C5-6 and extension, reduced in neutral and extension and flexion. There is approximately 2.5 mm anterolisthesis at C7-T1, relatively stable despite flexion or extensio n. There is preservation of cervical disc space at C2-3 and C3-4. There is moderate loss of interspace h eight at C4-5. There is moderate to moderately severe degenerative disc disease at C5-6. There is severe degenerative disease at C6-7 and C7-T1. There is uncovertebral joint spurring at C5-6 and C6-7 primarily. IMPRESSION: Cervical spondylosis Reviewed, dictated and finalized at location L. TING SUPERVISOR IMPRESSION: Cervical spondylosis
== END 2023-09-30 09:20 | disposition home or self-care (01) ==
LOC: ANHIMG 09:23
PROVIDERS: PCP Family Medicine; Visit Provider Nurse Practitioner Family
DX: M47.892 Other spondylosis, cervical region (principal)
CPT/HCPCS: 72052

== ENCOUNTER 2023-10-07 07:42 | Outpatient (CLI) | payer OTHER, SELFPAY ==
--- NOTE | ~2023-10-07 | MR_ITS ---
EXAMINATION: MR cervical spine wo con DATE: 10/07/2023 08:11 INDICATION: Neck pain. TECHNIQUE: Magnetic resonance imaging (MRI) of the cervical spine was performed without intravenous c ontrast. COMPARISON: Cervical spine radiographs 09/30/23 FINDINGS: There is 3 degrees levocurvature of cervical spine. There is mild chronic height loss of C7 vertebral body. There is mildly decreased disc height at C4-C5, moderately decreased disc height at C5-C6, and severely decreased disc height at C6-C7 and C7-T1. The spinal cord signal intensity is nor mal. The following disc levels are specifically discussed: C2-C3: The disc does not extend beyond the endplate margin. There is no uncovertebral joint osteoarth ritis. There is ankylosis of the facet joints with moderate hypertrophy. There is no neural foraminal stenosis. There is no central canal stenosis. C3-C4: The disc does not extend beyond the endplate margin. There is no uncovertebral joint osteoarth ritis. There is severe bilateral facet joint osteoarthritis. There is mild bilateral neural foraminal stenosis. There is no central canal stenosis. C4-C5: The disc does not extend beyond the endplate margin. There is no uncovertebral joint osteoarth ritis. There is ankylosis of the facet joints with moderate right and mild left hypertrophy. There is no neural foraminal stenosis. There is no central canal stenosis. C5-C6: The disc is bulging. There is mild right and severe left uncovertebral joint osteoarthritis. T here is mild bilateral facet joint osteoarthritis. There is mild left neural foraminal stenosis. Ther e is mild central canal stenosis. C6-C7: The disc is bulging. There is severe bilateral uncovertebral joint osteoarthritis. There is mo derate bilateral facet joint osteoarthritis. There is moderate left neural foraminal stenosis. There is no central canal stenosis. C7-T1: There is a central protrusion. There is severe bilateral uncovertebral joint osteoarthritis. T here is moderate bilateral facet joint osteoarthritis. There is mild bilateral neural foraminal steno sis. There is no central canal stenosis. IMPRESSION: 1. Severe cervical spondylosis. Reviewed, dictated and finalized at location E. GER HOTEL
== END 2023-10-07 07:43 ==
PROVIDERS: PCP Nurse Practitioner Family; Visit Provider Nurse Practitioner Family
DX: M50.30 Other cervical disc degeneration, unspecified cervical region (principal); M47.892 Other spondylosis, cervical region
CPT/HCPCS: 72141

== ENCOUNTER 2023-12-10 09:19 | Outpatient (CLI) | payer OTHER, SELFPAY ==
--- NOTE | ~2023-12-10 | US_ITS ---
US axilla RT 12/10/2023 09:37 Indication: Right axillary lump. Personal history of breast cancer. Procedure: High-resolution ultrasound of the right axilla Comparison: Diagnostic mammogram dated 12/31/2022 Findings: There is a normal 1 cm lymph node with fatty hilum in the area of palpable concern. No susp icious masses to suggest malignancy. Impression: 1: No suspicious masses of the right axilla. Normal right axillary lymph node measures 1 in the area of palpable concern. BI-RADS CATEGORY 2 - BENIGN FINDINGS Reviewed, dictated and finalized at location A. Impression: 1: No suspicious masses of the right axilla. Normal right axillary lymph node m easures 1 in the area of palpable concern. BI-RADS CATEGORY 2 - BENIGN FINDINGS
== END 2023-12-10 09:20 ==
PROVIDERS: PCP Obstetrics & Gynecology; Visit Provider Physician Assistant
DX: G89.29 Other chronic pain (principal); M25.512 Pain in left shoulder; R22.9 Localized swelling, mass and lump, unspecified
CPT/HCPCS: 76882

== ENCOUNTER 2024-01-07 13:38 | Emergency (ER) | payer OTHER, SELFPAY ==
--- NOTE | ~2024-01-07 | CT_ITS ---
EXAMINATION: CT brain wo con DATE: 01/07/2024 14:07 INDICATION: Head injury TECHNIQUE: Computed tomography (CT) of the head was performed without intravenous contrast. Sagittal and coronal reconstructions were performed. The mA was adjusted according to patient size. Iterative reconstruction technique was employed. The dose-length product was 681.00 mGy-cm. COMPARISON: None FINDINGS: No fracture. No acute intracranial hemorrhage, acute infarction or abnormal extra axial fluid collect ion. There is minimal scattered white matter hypoattenuation consistent with chronic small vessel isc hemic disease. Symmetric prominence of the sulci consistent with mild age-appropriate diffuse cerebr al volume loss. Ventricles are normal and symmetric. No mass/mass effect. The orbits, paranasal sinus es and mastoid air cells are normal. IMPRESSION: 1. Normal aging brain. No fracture or acute intracranial process. Reviewed, dictated and finalized at location A.
[2024-01-07 13:39] VITALS: BP 141/58; PULSE 86; RESP 16; TEMP 36.6; O2SAT 100
--- NOTE | 2024-01-07 14:23 | ED_ITS ---
HPI - General Adult General Chief complaint: Head Injury Stated complaint: head injury Time Seen by Provider: 01/07/24 13:51 History of Present Illness HPI narrative: 68-year-old female present to the emergency department for evaluation after a head injury last night. Patient states she stood up and struck her head on the freezer door causing a posterior scalp hematoma. Patient denies any neck pain denies any loss of consciousness. Related Data Home Medications Medication Instructions Recorded Confirmed aspirin 81 mg tablet,delayed 81 mg PO .QD 10/23/22 01/12/24 release (Adult Aspirin Regimen) calcium carbonate (Calcium 600) 600 mg PO DAILY 11/11/22 01/12/24 Allergies Allergy/AdvReac Type Severity Reaction Status Date / Time Latex, Natural Rubber Allergy Unknown Blisters Verified 01/12/24 10:50 morphine Allergy Unknown Nausea Verified 01/12/24 10:50 Penicillins Allergy SOB Verified 01/12/24 10:50 propoxyphene [From Darvon] Allergy Rash Verified 01/12/24 10:50 Review of Systems Review of Systems: All systems reviewed & are unremarkable except as noted in HPI and below PMFSH Past Medical History Medical History Adult BMI 29.0-29.9 kg/sq m Anxiety Arthritis Cancer of right breast (2010) Status post lumpectomy and radiation therapy. Changing skin lesion Diastolic dysfunction Dyspepsia Hyperlipidemia Hypertension Hypokalemia Hypothyroidism Multiple lacunar infarcts Osteopenia Overweight with body mass index (BMI) of 28 to 28.9 in adult Surgical History Surgical History History of breast augmentation History of cholecystectomy History of dilation and curettage History of lumpectomy of right breast (2010) Family History Family History Father CHF (congestive heart failure) Hypertension Mother Hypertension Heart disease Thyroid disorder Sibling Hypertension Obesity Breast cancer Bone cancer Diabetes mellitus Depression Other Depression Other Arthritis HLD (hyperlipidemia) Osteoporosis Social History Social History Social History: Surrogate medical decision maker: Julian Anya, spouse. Code status: Full code. Smoking packs per day: 1 Smoking cigarettes per day: 20.0 Years smoked: 23 Smoking pack-years: 23.00 Smoking status: Former smoker Tobacco type: cigarettes Second hand tobacco smoke exposure: No Smoking end date: 06/20/11 Alcohol intake: former Alcohol use details: No alcohol since 2010. Substance use: never Substance use type: does not use Do You Feel Safe in your Home?: Yes Lack of Transportation: No Lack of Food: Never True Current Housing: I Have Housing Concerned About Future Housing: No Difficulty Paying Gas/Electric Bills: No Difficulty Paying for Meds: No Currently Unemployed: No Education: Trade/Vocational Certificate Difficulty w/ Childcare or Family Care: No Living arrangements: with family Additional living arrangements comments: The patient lives with her spouse in [place]. 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 Gender identity (if verbalized by the patient): Female Spiritual care concerns: No Exam Narrative: APPEARANCE: Well appearing, no pain, no distress, well-nourished. HEAD: normocephalic, atraumatic. Posterior scalp hematoma EYES: PERRLA/EOMI, conjunctivae clear. NOSE: Normal no drainage EARS:TMS clear with good light reflex. THROAT: Pharynx clear, no exudate. NECK: Supple. No adenopathy, no masses. RESPIRATORY: Airway patent, respirations nonlabored. Clear to auscultation bilaterally, no rales, rhonchi, wheezing. CARDIOVASCULAR: Regular rate and rhythm without murmurs rubs or gallops. ABDOMINAL: Soft, nontender, nondistended, normal bowel sounds MUSCULOSKELETAL: Moves all extremities. Strength/ROM intact, No edema, No calf tenderness. NEURO: Alert. Cranial nerves II through XII intact. Good gait. Good coordination SKIN: Warm, dry. Normal Color Course Vital Signs Vital signs: Vital Signs Temperature 97.8 F 01/07/24 13:39 Pulse Rate 86 01/07/24 13:39 Respiratory Rate 16 01/07/24 13:39 Blood Pressure 141/58 H 01/07/24 13:39 Pulse Oximetry 100 01/07/24 13:39 Oxygen Delivery Room Air 01/07/24 13:39 Temperature 97.8 F 01/07/24 13:39 Pulse Rate 86 01/07/24 13:39 Respiratory Rate 16 01/07/24 13:39 Blood Pressure 141/58 H 01/07/24 13:39 Pulse Oximetry 100 01/07/24 13:39 Oxygen Delivery Room Air 01/07/24 13:39 Medical Decision Making MDM Narrative Medical decision making narrative: 68-year-old female presented to the emergency department for evaluation for head injury. Head CT was negative for acute intracranial abnormality. Patient was updated the results of her workup. All questions concerns were addressed patient was well-appearing at time of discharge. Differential Diagnosis Differential Diagnosis: Skull fracture, hematoma, concussion, subdural hematoma, subarachnoid hemorrhage Vital Signs Vital Signs: Vital Signs Temperature 97.8 F 01/07/24 13:39 Pulse Rate 86 01/07/24 13:39 Respiratory Rate 16 01/07/24 13:39 Blood Pressure 141/58 H 01/07/24 13:39 Pulse Oximetry 100 01/07/24 13:39 Oxygen Delivery Room Air 01/07/24 13:39 Temperature 97.8 F 01/07/24 13:39 Pulse Rate 86 01/07/24 13:39 Respiratory Rate 16 01/07/24 13:39 Blood Pressure 141/58 H 01/07/24 13:39 Pulse Oximetry 100 01/07/24 13:39 Oxygen Delivery Room Air 01/07/24 13:39 Discharge Plan Discharge Clinical Impression: Head injury Patient Disposition: Home, Self-Care Condition: Stable Instructions: Antibiotic Form, Head Injury (ED) Additional Instructions: Tylenol for pain control. Ice as needed. Have close follow-up with your primary care physician. If you have any worsening symptoms please call or return to the emergency department. Prescriptions: No Action calcium carbonate [Calcium 600] 600 mg calcium (1,500 mg) tablet 600 mg PO DAILY aspirin [Adult Aspirin Regimen] 81 mg tablet,delayed release (DR/EC) 81 mg PO .QD nystatin-triamcinolone 100,000-0.1 unit/g-% cream 1 applic topical BID Qty: 30 0RF atorvastatin [Lipitor] 20 mg tablet 20 mg PO HS Qty: 90 1RF propranolol 10 mg tablet 10 mg PO DAILY Qty: 90 1RF levothyroxine 25 mcg tablet 25 mcg PO DAILY Qty: 90 1RF Rx Instructions: TAKE 1 TABLET BY MOUTH EVERY DAY ondansetron 4 mg tablet,disintegrating 4 mg PO Q8H PRN (Reason: nausea and vomiting) Qty: 7 0RF Follow-up/Referrals: Deon Kathleen MD [Primary Care Provider] -
== END 2024-01-07 15:09 | disposition home or self-care (01) ==
PROVIDERS: Emergency Provider Emergency Medicine; PCP Family Medicine
DX: S00.03XA Contusion of scalp, initial encounter (principal); I10 Essential (primary) hypertension; E78.5 Hyperlipidemia, unspecified; E03.9 Hypothyroidism, unspecified; M19.90 Unspecified osteoarthritis, unspecified site; M85.80 Other specified disorders of bone density and structure, unspecified site; Z85.3 Personal history of malignant neoplasm of breast; Z87.891 Personal history of nicotine dependence; Z90.49 Acquired absence of other specified parts of digestive tract; Z79.82 Long term (current) use of aspirin; W22.8XXA Striking against or struck by other objects, initial encounter
CPT/HCPCS: 70450; 99284

== ENCOUNTER 2024-02-01 09:15 | Day surgery (SDC) | payer OTHER, SELFPAY ==
[2024-01-27 10:39] VITALS: BMI 29.2
--- NOTE | ~2024-02-01 | XR_ITS ---
EXAMINATION: XR fluoroscopy no charge DATE: 02/01/2024 10:00 CDT INDICATION: BRANDON C5,C6,C7 NERVE BK . TECHNIQUE: 12 fluoroscopic images and 4 cine clips of the cervical spine were obtained during bilater al C5-C7 nerve block, performed by Juvencio Byrd MD. I was not present during the procedure. Fluor oscopy exposure time was 28.1 seconds. Air Kerma 3.75 mGy. COMPARISON: None FINDINGS/IMPRESSION: Fluoroscopic documentation of bilateral C5-C7 nerve block. Please refer to the operative note for com plete procedural details . Reviewed, dictated and finalized at location K.
--- NOTE | 2024-02-01 06:11 | WPDHPUPDATE1 ---
History and Physical Update Update Date/Time: 02/01/24 06:11 History and Physical has been reviewed, including an updated exam of the patient. There are NO changes in the patient's condition. Risks, benefits, and alternatives have been discussed and questions answered. Patient agrees to proceed with procedure.
--- NOTE | 2024-02-01 06:12 | W.PM.PROC2 ---
Procedure Note - Detailed Date of Procedure 02/01/24 Pre-op Diagnosis cervical spondylosis, cervicalgia, chronic pain Post-op Diagnosis Same Procedure Performed Diagnostic bilateral Cervical Medial Branch Blocks at C5, C6, C7 Blocking the Ipsilateral C5-6, C6-7 facet joints under Fluoroscopic Guidance and with Contrast Control ( 4 levels blocked). Surgeon Juvencio Byrd MD Anesthesia Local Description of Procedure INFORMED CONSENT: Risks, benefits and alternatives to the procedure were discussed in detail with the patient who expressed explicit understanding and consent to proceed. Patient was informed verbally and in written form regarding the risks associated with the procedure including the low risk of serious infection, bleeding/bruising, allergic reaction, nerve or organ injury, paralysis, procedural site pain or discomfort, worsening pain and/or mobility, failure to treat and/or disfigurement. The patient expressed explicit understanding and consent to proceed. All materials required for the procedure were available prior to procedure start. Site and side were marked prior to procedure and confirmed in the presence of the patient. PROCEDURE IN DETAIL: The patient was brought to the procedural suite and placed in the prone position with head stabilized with a ProneView pillow. Patient was made comfortable with use of pillows under the head/chest, hips and ankles. Skin overlying the injection site on the affected side(s) was prepared broadly with ChloraPrep applicator and draped in a sterile manner. Aseptic technique was used throughout. The endplates of the vertebral bodies at the site(s) of interest were aligned in the AP view. Ipsilateral oblique angulation was utilized to optimize visualization of the pars interarticularis at each target site. Local anesthesia was established by infiltration with approximately 5 mL of 1% lidocaine via a 1-1/2 inch 27-gauge needle. A 25-gauge 3.5 inch Quincke spinal needle was advanced until the needle tip contacted the periosteum of the pars interarticularis at the target site, right C5. Lateral view was utilized to confirm the appropriate placement of the needle tip just anterior to the center point of the interarticularis. In the Lateral view, 0.25 mL of Omnipaque 300 contrast medium was injected after negative aspiration for CSF, blood or other bodily fluid, showing appropriate extra-articular spread of contrast without evidence of intravascular, foraminal or intrathecal placement. A 0.25 mL solution of 0.5% PF bupivacaine was injected after negative repeat aspiration. Appropriate spread of the injectate was confirmed with washout of previously injected contrast. No parasthesias were elicited. Needle was removed completely intact without difficulty. The same exact procedure was repeated for all remaining levels on the ipsilateral side, right C6,C7 medial branches, modified as necessary to accommodate for the new target location with identical findings and results and no evidence of complication. The same exact procedure was repeated for all remaining levels on the contralateral side, left C5, C6, C7 medial branches, modified as necessary to accommodate for the new target location with identical findings and results and no evidence of complication. Images were saved and documented in the patient chart. Patient's skin was cleansed and sterile bandage applied. The patient tolerated the procedure well. The patient was transported to the recovery area in stable condition where they were observed for an appropriate amount of time prior to discharge, without evidence of complication. Patient was instructed on the appropriate completion of a pain diary over the next 12-24 hours. The patient was instructed to avoid excessive activity for the next 48 hours, including climbing and frequent use of stairs. Showers only for 48 hours. They were instructed not to drive or operate heavy machinery for 24 hours. They are to monitor
[2024-02-01 09:28] VITALS: BP 117/69; PULSE 60; RESP 16; TEMP 36.4; O2SAT 99
[2024-02-01 10:06] VITALS: BP 130/62; PULSE 60; RESP 12; O2SAT 98
[2024-02-01 10:10] VITALS: BP 116/52; PULSE 60; RESP 12; O2SAT 98
[2024-02-01 10:15] VITALS: BP 117/58; PULSE 57; RESP 15; O2SAT 98
[2024-02-01] MEDS: LIDOCAINE HCL 1% PF INJ 5 ML VIAL INFILTRATE (10:16)
[2024-02-01] MEDS: BUPivacaine HCL 0.5% 10 ML AMP 5 ML INFILTRATE (10:19)
[2024-02-01 10:20] VITALS: BP 115/55; PULSE 57; RESP 14; O2SAT 98
[2024-02-01 10:25] VITALS: BP 114/56; PULSE 56; RESP 14; O2SAT 98
== END 2024-02-01 10:37 | disposition home or self-care (01) ==
PROVIDERS: PCP Family Medicine; Visit Provider Anesthesiology Pain Medicine
PROC: (CPT 64490; principal; 2024-02-01 10:30)
DX: M47.812 Spondylosis without myelopathy or radiculopathy, cervical region (principal); M54.2 Cervicalgia; G89.4 Chronic pain syndrome
CPT/HCPCS: 64490; 64491; 99199

== ENCOUNTER 2024-02-03 10:34 | Outpatient (CLI) | payer OTHER, SELFPAY ==
--- NOTE | ~2024-02-03 | MM_ITS ---
EXAMINATION: MM screening michael BI w yudelka HISTORY: Screening mammogram TECHNIQUE: Craniocaudal and mediolateral oblique 3-D tomosynthesis images were obtained and synthetic 2-D images were generated. CAD analysis was submitted and interpreted. COMPARISON: December 31, 2022 diagnostic bilateral mammogram and limited left breast ultrasound examinat ion BREAST PARENCHYMAL COMPOSITION: There are scattered areas of fibroglandular density. FINDINGS: Again noted is volume loss, deformity and retraction of the right breast, stable since 2022. There is no evidence of suspicious mass, calcification, or new architectural distortion t o suggest malignancy in either breast. There has been no suspicious interval change. IMPRESSION: 1. Status post right partial mastectomy for breast cancer; No mammographic evidence of malignancy. 2. Recommend routine screening mammography in one year. BI-RADS Category 2: Benign finding(s). Reviewed, dictated and finalized at location B. IMPRESSION: 1. Status post right partial mastectomy for breast cancer; No mammographic evid ence of malignancy. 2. Recommend routine screening mammography in one year. BI-RADS Category 2: Benign finding(s).
== END 2024-02-03 10:35 ==
LOC: MICIMG 10:35
PROVIDERS: PCP Obstetrics & Gynecology; Visit Provider Family Medicine
DX: Z12.31 Encounter for screening mammogram for malignant neoplasm of breast (principal)
CPT/HCPCS: 77063; 77067

== ENCOUNTER 2024-02-11 08:00 | Outpatient (RCR) | payer OTHER, SELFPAY ==
--- NOTE | 2024-02-05 09:36 | PTOPEVAL1 ---
Assessment and note entered by Kely Mcgrath, PT Evaluation Information Assessment Status Evaluation Diagnosis neck pain Onset 01/18/2024 Subjective Information Pt reports chronic stiffness to neck to the base of the skull R = L denies radiating to shoulder and arms. States have increased difficulty with turning head to the left when driving and lying down the couch/bed. States that more often, she's feeling more of inability to move, restricted and tight versus pain. Reported Pain Level Pain Score 2: Self Report Assessment PT Clinical Summary Pt presents with increased pain to neck muscles from the base of the skull down to shoulders. Presents with impaired ROM secondary to muscle shortening, aching and tightness type of pain, muscle imbalance with weakness of the opposite side and postural deficits which impacts safety with performing IADLs and driving. Skilled PT necessary to improve safety and function, improve quality of life. Plan of Care Interventions Electrical Stimulation,Hot Pack/Cold Pack,Manual Therapy,Neuro Re-education,Patient/Caregiver Education,Therapeutic Activities,Therapeutic Exercise PT Services Indicated Yes Treatment Frequency and 2x/wk for 12 visits Duration These treatments will address the objective and functional deficits as defined above. The patient will be advanced safely and appropriately in order for the patient to progress towards his/her prior level of function. Additional exercises will be introduced and as well as a comprehensive home exercise program upon discharge, if needed, ?to ensure carryover of functional gains achieved in the clinic. This treatment plan has been reviewed and agreement upon by the patient.
--- NOTE | 2024-05-11 10:10 | PCPTNOTE ---
Mrs. Joyner attended a total of 4 treatment sessions from 01/31/24 to 02/11/24. During her last sessions pt. received manual techniques and performed therapeutic exercise focused on posture, ROM and strength. She continued to c/o tightness at the neck and pain levels at 11/27. She failed to return to the clinic following her 02/11/24 appointment. She will be discharged from our care at this time.
== END 2024-04-30 23:59 | disposition home or self-care (01) ==
LOC: ANHPT 08:00
PROVIDERS: PCP Family Medicine; Visit Provider Anesthesiology Pain Medicine
DX: M54.2 Cervicalgia (principal); M79.18 Myalgia, other site; M47.812 Spondylosis without myelopathy or radiculopathy, cervical region
CPT/HCPCS: 97014; 97110; 97140; 97161; 97530; G0283

== ENCOUNTER 2024-05-03 08:32 | Outpatient (CLI) | payer OTHER, SELFPAY ==
--- NOTE | ~2024-05-03 | CT_ITS ---
CTA brain carotid Ordering provider: Dian ArnoldMD History: . history of cerebellar stroke . Comparison: January 07, 2024 Technique: CT angiogram head and neck was performed following timed intravenous injection of contrast . Thin slice axial images and reformatted coronal images were obtained. Three dimensional reformatted images of the brain were also obtained using a [employer] workstation. Radiation reduction technique ut ilized. The dose-length product was 1453.64 mGy-cm. FINDINGS: HEAD: --ANTERIOR AND MIDDLE CEREBRAL ARTERIES AND BRANCHES: Normal caliber and contour. --INTERNAL CAROTID ARTERIES: Mild atheromatous disease but no significant stenosis. No occlusion. --BASILAR ARTERY AND BRANCHES: Small caliber and normal contour. No atheromatous disease. --POSTERIOR CEREBRAL ARTERIES: Normal caliber and contour --POSTERIOR COMMUNICATING ARTERIES: Both continues as the posterior cerebral arteries. --ANEURYSM: None visualized. --BRAIN: Normal. No evidence of hemorrhage or acute infarct seen. --BONES AND SUPERFICIAL SOFT TISSUES: Normal. --PARANASAL SINUSES AND MASTOIDS: Left maxillary and right sphenoid sinus disease. Minimal bilateral ethmoid sinus disease. NECK: --RIGHT CERVICAL CAROTID SYSTEM: Normal caliber and contour. Percent stenosis per NASCET criteria is 0%. No carotid dissection. Otherwise, no significant atheromatous disease or stenosis of the cervica l carotid system. --LEFT CERVICAL CAROTID SYSTEM: Normal caliber and contour. Percent stenosis per NASCET criteria is 0%. No carotid dissection. Otherwise, no significant atheromatous disease or stenosis of the cervical carotid system. --VERTEBRAL ARTERIES: Normal caliber and contour. --VISUALIZED AORTIC ARCH AND BRANCHING VESSELS: Mild atheromatous disease but no significant stenosis . --SOFT TISSUES: Nodule is seen in the right lobe of the thyroid. --CERVICAL SPINE: Age appropriate degenerative changes. IMPRESSION: 1. Normal CTA head and neck. Percent stenosis per NASCET criteria is 0%. 2. No occlusion or significant stenosis seen in the intracerebral vessels. Reviewed, dictated and finalized at location A.
[2024-05-03 09:58] LABS: Estimated Glomerular Filt Rate > 60
== END 2024-05-03 08:33 | disposition home or self-care (01) ==
PROVIDERS: PCP Family Medicine; Visit Provider Student in an Organized Health Care Education/Training Program
DX: I63.9 Cerebral infarction, unspecified (principal)
CPT/HCPCS: 70496; 70498; Q9967

== ENCOUNTER 2024-05-17 10:28 | Outpatient (CLI) | payer OTHER, SELFPAY ==
--- NOTE | ~2024-05-17 | US_ITS ---
EXAMINATION: US thyroid DATE: 05/17/2024 10:59 INDICATION: Nontoxic single thyroid nodule. TECHNIQUE: Multiple ultrasound images of the thyroid were obtained. COMPARISON: Ultrasound 03/04/2023 FINDINGS: The right thyroid lobe measures 4.4 x 1.8 x 1.9 cm. The left thyroid lobe measures 4.2 x 0.9 x 1.2 c m. In the left thyroid lobe, there is a 9 mm mixed solid and cystic, isoechoic, wider than tall nodu le with smooth margins without echogenic foci (TI-RADS TR2), not suspicious. In the right thyroid lob e, there is a 3.0 cm mixed cystic and solid, hypoechoic, wider than tall nodule with ill-defined peg in without echogenic foci (TR3), stable from 03/04/23. In the thyroid isthmus, there is a 4 mm nodule, likely benign. IMPRESSION: 1. 3.0 cm right thyroid nodule, stable from 03/04/23. Biopsy was nondiagnostic on 03/24/2023 and 3. Reviewed, dictated and finalized at location A. IMPRESSION: 1. 3.0 cm right thyroid nodule, stable from 03/04/23. Biopsy was nondiagnostic o n 03/24/2023 and 05/27/2023.
== END 2024-05-17 10:29 ==
LOC: MICIMG 10:28
PROVIDERS: PCP Family Medicine; Referring Provider Otolaryngology; Visit Provider Otolaryngology
DX: E04.1 Nontoxic single thyroid nodule (principal)
CPT/HCPCS: 76536

== ENCOUNTER 2024-06-08 16:06 | Emergency (ER) | payer OTHER, SELFPAY ==
[2024-06-08 16:12] VITALS: BP 137/69; PULSE 70; RESP 16; TEMP 36.7; O2SAT 98
[2024-06-08 18:20] VITALS: BP 142/74; PULSE 67; RESP 18; TEMP 36.3; O2SAT 98
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
[2024-06-08] MEDS: BACITRACIN OINTMENT 15 GM TUBE 1 APPLIC TOPICAL (20:19)
[2024-06-08 20:20] VITALS: BP 136/70; PULSE 70; RESP 20; O2SAT 99
== END 2024-06-08 20:20 | disposition home or self-care (01) ==
PROVIDERS: Emergency Provider Physician Assistant; PCP Family Medicine
DX: T21.22XA Burn of second degree of abdominal wall, initial encounter (principal); T31.0 Burns involving less than 10% of body surface; I11.9 Hypertensive heart disease without heart failure; E78.5 Hyperlipidemia, unspecified; E03.9 Hypothyroidism, unspecified; E66.3 Overweight; Z68.29 Body mass index [BMI] 29.0-29.9, adult; M19.90 Unspecified osteoarthritis, unspecified site; M85.80 Other specified disorders of bone density and structure, unspecified site; Z92.3 Personal history of irradiation; Z85.3 Personal history of malignant neoplasm of breast; Z87.891 Personal history of nicotine dependence; Z90.49 Acquired absence of other specified parts of digestive tract; Z79.899 Other long term (current) drug therapy; X12.XXXA Contact with other hot fluids, initial encounter
CPT/HCPCS: 16000; 16020; 99283; A9270

== ENCOUNTER 2024-10-07 08:48 | Outpatient (CLI) | payer OTHER, SELFPAY ==
[2024-10-07 09:32] LABS: Hematocrit 42.2 % (37.0-47.0); Mean Corpuscular HGB Conc 33.2 g/dl (32-36); Mean Corpuscular Hemoglobin 30.6 pg (26-34); Mean Corpuscular Volume 92.1 fl (80-100); Mean Platelet Volume 10.1 fl (7.4-10.4); Platelet Count Result 291 k/mm3 (150-375); Red Blood Count 4.58 M/mm3 (4.2-5.4); Red Cell Distribution Width 13.6 % (11.5-14.5); White Blood Count 6.7 K/mm3 (4.5-10.0)
[2024-10-07 09:47] LABS: Alanine Aminotransferase 25 U/L (6-35); Albumin Level 4.3 g/dL (3.5-5.1); Alkaline Phosphatase 85 U/L (38-126); Anion Gap 8 mmol/L (4-12); Aspartate Amino Transferase 28 U/L (14-36); Bilirubin,Total 0.9 mg/dL (0.2-1.3); Blood Urea Nitrogen 11 mg/dL (7-17); Calcium 9.2 mg/dL (8.4-10.2); Carbon Dioxide 27 mmol/L (22-30); Chloride 106 mmol/L (98-107); Cholesterol 148 mg/dL (0-200); Estimated Glomerular Filt Rate > 60; Glucose 99 mg/dL (65-110); HDL Direct 76 mg/dL; Potassium 3.8 mmol/L (3.4-5.0); Sodium 141 mmol/L (137-145); Triglycerides 105 mg/dL (<150)
[2024-10-07 09:57] LABS: LDL Cholesterol Direct 45 mg/dL
[2024-10-07 10:03] LABS: Free T4 Free Thyroxine 0.97 ng/dL (0.78-2.19); Vitamin D 25 Hydroxy 22.5 ng/mL
--- OUTSIDE RECORDS SUMMARY | 2024-10-12 08:39 | XMS_ITS | Clinical Summary ---
Author Organization [employer] [facility] stephania Address [address] [place] [address] Care Team Providers Care Physical Therapy Supervisor Name Role Phone Deon Kathleen MD Primary Care Provider [phone] Allergies Active Allergy Reactions Criticality Noted Date Comments Latex Hives High 11/10/2013 Morphine Nausea and Vomiting Low 11/10/2013 Penicillin G Other (See Comments) 04/20/2012 Trouble breathing Medications levothyroxine 25 mcg tablet TAKE 1 TABLET DAILY CASHIER WRAPPER. 90 Tablet 2 10/01/2016 Active propranolol (INDERAL) 10 mg tablet Take 10 mg by mouth 2 times daily. 0 08/30/2018 Active calcium-cholecal ciferol 500 mg(1,250mg) -400 unit tablet Take 1 Tablet by mouth daily. Active atorvastatin (LIPITOR) 20 mg tablet Take 20 mg by mouth daily at bedtime. Active Active Problems Patient Care Coordination No te Formatting of this note migh t be different from the original. Primary Care: Sunny Cruz MD Referring Provider: Sunny Cruz MD [address] [place] [address] Other: Problem Noted Date Diagnosed Date Mitral valve insufficiency 11/14/2018 Hypertension 11/14/2018 Anxiety and depression 08/13/2014 Non-toxic multinodular goiter 04/07/2014 Hyperlipidemia 02/28/2014 Osteopenia 12/01/2013 Overview (12/01/2013): Dexa 12/01: Lumbar Spine (L1-L4) Bone Mineral Density = 1.108 gm/cm2 (T-score), -0.6 -normal Left Femoral Neck Bone Mineral Density = 0.896 gm/cm2 (T-score), -1.0 -normla Right Femoral Neck Bone Mineral Density = 0.886 gm/cm2 (T-score),-1.1 -osteopenia GERD (gastroesophageal reflux disease) 4 Obesity 11/12/2013 Breast cancer 04/20/2012 Overview (04/20/2012): 10-2010, R DCIS,micropappilary,node negative, ER+,TN+,BCT,RT, Tamoxifen Resolved Problems Problem Noted Date Diagnosed Date Resolved Date Hypothyroidism 01/10/2015 04/30/2016 Encounters Date Type Department Care Team Description 10/10/2024 External Device Data ST[facility] ABSTRACTION Provider, Abstract 10/03/2024 External Device Data [facility] ABSTRACTION Provider, Abstract 08/22/2024 Telephone [facility] [place] [address] [place] [address] Anni Parra RN pathology results 08/15/2024 External Device Data [facility] ABSTRACTION Provider, Abstract 08/10/2024 11:30 AM HOURLY SIGN LANGUAGE INTERPRETER - 08/10/2024 12:00 PM HOURLY SIGN LANGUAGE INTERPRETER Surgery [facility] [address] [place] [address] Madyson Pina MD COLONOSCOPY 08/10/2024 11:11 AM HOURLY SIGN LANGUAGE INTERPRETER Anesthesia Event [facility] [address] [place] [address] Tracy Ag MD 08/10/2024 9:47 AM HOURLY SIGN LANGUAGE INTERPRETER - 08/10/2024 12:11 PM HOURLY SIGN LANGUAGE INTERPRETER Hospital Encounter [facility] [address] [place] [address] Madyson Pina MD Positive colorectal cancer screening using Cologuard test Discharge Disposition: Home or Self Care from Last 3 Months Immunizations Immunization Administration Dates Next Due Influenza Vaccine Split 3+ Yrs IM 08/10/2014 Family History Medical History Relation Name Comments Heart Disease Father High Cholesterol Father Hypertension Father Melanoma Mother Colon Cancer Neg Hx Relation Name Status Comments Father Mother Social History Tobacco Use Types Packs/Day Years Used Date Smoking Tobacco: Former Cigarettes 1 32 0 04/20/1979 - 04/20/2011 Smokeless Tobacco: Never Tobacco Cessation:Counseling Given: Not Answered Alcohol Use Standard Drinks/Week Comments No 0 (1 standard drink = 0.6 oz pur e alcohol) None since 2010. Feeling Safe Answer Date Recorded Are you in a relationship wi th someone who hurts you emotionally and/or physically? No 08/10/2024 Comments No Sex and Gender Information Value Date Recorded Sex Assigned at Female 08/05/2024 12:43 PM HOURLY SIGN LANGUAGE INTERPRETER Legal Sex Female 3:11 AM HOURLY SIGN LANGUAGE INTERPRETER Gender Identity Female 08/05/2024 12:43 PM HOURLY SIGN LANGUAGE INTERPRETER Sexual Orientation Straight 08/05/2024 12 :43 PM HOURLY SIGN LANGUAGE INTERPRETER Occupation Industry Job Start Date Job End Date Not on file Not on file Not on file Not on file Last Filed Vital Signs Vital Sign Reading Time Taken Comments Blood Pressure 114/82 08/10/2024 12:00 PM HOURLY SIGN LANGUAGE INTERPRETER Pulse 70 08/10/2024 12:00 PM HOURLY SIGN LANGUAGE INTERPRETER Temperature 36.2 ??C (97.2 ??F) 08/10/2024 10:[address] Respiratory Rate 16 08/10/2024 12:00 PM HOURLY SIGN LANGUAGE INTERPRETER Oxygen Saturation 99% 08/10/2024 12:00 PM HOURLY SIGN LANGUAGE INTERPRETER Inhaled Oxygen Concentration - - Weight 66.4 kg (146 lb 6.4 oz) 08/10/2024 10:07 AM HOURLY SIGN LANGUAGE INTERPRETER Height 152.4 cm (5') 08/10/2024 10:07 AM HOURLY SIGN LANGUAGE INTERPRETER Body Mass Index 28.59 08/10/2024 10:07 AM HOURLY SIGN LANGUAGE INTERPRETER Plan of Treatment Health Maintenance Due Date Last Done Comments DTAP/TDAP/TD VACCINES (1 - Tdap) 1972 FIT-DNA Q 3 years 1998 FIT/FOBT Q 1 year 1998 Flex Sig/CT Colonography Q 5 years 1998 PNEUMOCOCCAL VACCINE 65+ YEA RS (1 of 1 - PCV) 2003 ZOSTER VACCINE (1 of 2) 2003 BREAST CANCER SCREENING 07/15/2017 07/15/20 16, 07/05/2015, 07/17/2014, Additional history exists INFLUENZA VACCINE (#1) 2024 08/10/2014 RSV VACCINE (60+ or ) (1 - 1-dose 75+ series) 2028 COLORECTAL SCREENING 08/10/2034 08/10/2024, 08/10/2024, 01/05/2014, Additional history exists Colorectal Cancer Screening 08/10/2034 OSTEOPOROSIS SCREENING Completed , 01/28/2018, 01/03/2016, Additional history exists Procedures Procedure Name Priority Date/Time Associated Diagnosis Comments COLONOSCOPY REPORT 08/10/2024 11 :46 AM HOURLY SIGN LANGUAGE INTERPRETER PATHOLOGY Pathology 08/10/2024 11:32 AM HOURLY SIGN LANGUAGE INTERPRETER Positive colorectal cancer screening using Cologuard test TN COLONOSCOPY FLX DX W/COLLJ SPEC WHEN PFRMD 08/10/2024 11:30 AM HOURLY SIGN LANGUAGE INTERPRETER Positive colorectal cancer screening using Cologuard test Case Notes no blood thinner LATEX ALLERGY XR DEXA BONE DENSITY AXIAL 1 OR MORE SITES Routine 04/01/2021 11:51 AM CDT Osteoporosis of multiple sites MAMMO SCREEN IMPL BILAT W OR WO CAD Routine 07/15/2016 9:16 AM CDT Visit for screening mammogram from Last 3 Months or Most Recently Relevant to Health Maintenance Results * COLONOSCOPY REPORT (08/10/2024 11:46 AM HOURLY SIGN LANGUAGE INTERPRETER) Narrative Procedure Note Madyson Pina MD - 08/10/2024 11:46 AM CST [facility] Endoscopy Patient Name: Edith Joyner Procedure Date: 08/10/2024 Date of : 1955 Attending MD: Madyson Pnia MD, Procedure: Colonoscopy Indications: Positive Cologuard test Providers: Madyson Pina MD Referring MD: Deon Kathleen MD Medicines: Monitored Anesthesia Care Complications: No immediate complications. Procedure: Informed consent was obtained for the procedure, including moderate sedation after risks were discussed. Based on the pre-procedure assessment, including review of the patient's medical history, medications, allergies, and review of systems, the patient was deemed to be an appropriate candidate for sedation. A timeout was performed. Continuous ECG monitoring, pulse oximetry, blood pressure monitoring, and direct observation were performed. The Colonoscope was introduced through the anus and advanced to the cecum, identified by appendiceal orifice and ileocecal valve. The colonoscopy was performed without difficulty. The patient tolerated the procedure well. The quality of the bowel preparation was adequate. Findings: The perianal and digital rectal examinations were normal. A 4 mm polyp was found in the rectum. The polyp was hyperplastic. The polyp was removed with a cold snare. Resection and retrieval were complete. A 3 mm polyp was found in the descending colon. The polyp was sessile. The polyp was removed with a cold snare. Resection and retrieval were complete. A 4 mm polyp was found in the transverse colon. The polyp was sessile. The polyp was removed with a cold snare. Resection and retrieval were complete. Impression: - One 4 mm polyp in the rectum, removed with a cold snare. Resected and retrieved. - One 3 mm polyp in the descending colon, removed with a cold snare. Resected and retrieved. - One 4 mm polyp in the transverse colon, removed with a cold snare. Resected and retrieved. Recommendation: - Discharge patient to home. - Advance diet as tolerated. - Await pathology results. - Repeat colonoscopy for surveillance based on pathology results. Procedure Code(s): --- Professional --- 43409, Colonoscopy, flexible; with removal of tumor(s), polyp(s), or other lesion(s) by snare technique CPT copyright 2020 [employer]. All rights reserved. The codes documented in this report are preliminary and upon harness worker review may be revised to meet current compliance requirements. Madyson Pina MD 08/10/2024 11:46:01 AM This report has been signed electronically. Number of Addenda: [id number] [address] [place] [address] [place] Madyson Pina MD GI PROCEDURE ORDERABLES Final Re sult * PATHOLOGY (08/10/2024 11:32 AM HOURLY SIGN LANGUAGE INTERPRETER) CASE REPORT Surgical Pathology Report ? Case: [id number] ? Authorizing Provider: ??Madyson Pina MD ?Collected: ? 08/10/2024 11:32 AM ? Ordering Location: ? [facility] ? Received: ?08/10/2024 12:40 PM ? Endoscopy Services ? Pathologist: ? Kenneth, Ernestine, MD ? Specimens: ?? A) - Colon, transverse, polyp ? B) - Colon, descending, polyp ? C) - Rectum, polyp ? 08/16/2024 3:[address] [facility] FINAL DIAGNOSIS Large intestine, transverse colon, biopsy - Tubular adenoma Large intestine, descending colon, biopsy - Colonic mucosa with prominent smooth muscle (see microscopic description) Large intestine, rectum, biopsy - Benign spindle cell proliferation, favor perineurioma 08/16/2024 3:[address] [facility] S DESCRIPTION A. Received in formalin labeled with the patient's name and colon, transverse is 1 trinh-pink piece of tissue admixed with fecal material measuring 0.4 x 0.4 x 0.2 cm. The specimen is filtered and entirely submitted as A1. B. Received in formalin labeled with the patient's name and colon, descending is 1 trinh-pink piece of tissue measuring 0.6 x 0.5 x 0.2 cm. The specimen is filtered and entirely submitted as B1. C. Received in formalin labeled with the patient's name and rectum are 2 trinh-pink pieces of tissue measuring 0.7 x 0.4 x 0.2 cm in aggregate. The specimen is filtered and entirely submitted as C1. 08/16/2024 3:[address] [facility] MICROSCOPIC DESCRIPTION The descending colon biopsy shows a fragment with prominent smooth muscle. The cells are positive for desmin and negative for DOG1. This likely represents prominent muscularis mucosae. The rectum biopsy shows a benign spindle cell proliferation within the lamina propria. The cells are positive for CD34, while negative for S100 and GORAN. 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 Dr. Wright has reviewed the rectum biopsy and agrees. 08/16/2024 3:[address] [facility] OPERATIVE PROCEDURE 1: COLONOSCOPY 08/16/2024 3:[address] [facility] CLINICAL INFORMATION R19.5-Positive colorectal cancer screening using Cologuard test 08/16/2024 3:[address] [facility] COMMENT Immunohistochemical stains were performed, if any, and interpreted at [facility] ([facility]) Laboratory with appropriately staining controls. This test was developed and its performance characteristics determined by [facility] Lab. It has not been cleared or approved by the US Food and Drug Administration. The FDA does not require this test to go through premarket FDA review. This test is used for clinical purposes, and should not be regarded as investigational or for research. This lab is certified under CLIA to perform high complexity testing. Estrogen and progesterone receptor staining has not been validated in our lab on decalcified tissue; decalcification may decrease immunoreactivity for these and other antigens. 08/16/2024 3:57 PM HOURLY SIGN LANGUAGE INTERPRETER [facility] Tissue TRANSVERSE COLON STRUCTURE / Unknown Collection / Unknown 08/10/2024 11:32 AM HOURLY SIGN LANGUAGE INTERPRETER 08/10/2024 12:40 PM HOURLY SIGN LANGUAGE INTERPRETER Tissue specimen (specimen) DESCENDING COLON STRUCTURE / Unknown 08/10/2024 11:32 AM HOURLY SIGN LANGUAGE INTERPRETER 08/10/2024 12:40 PM HOURLY SIGN LANGUAGE INTERPRETER Tissue specimen (specimen) ENTIRE RECTUM / Unknown 08/10/2024 11:33 AM HOURLY SIGN LANGUAGE INTERPRETER 08/10/2024 12:40 PM HOURLY SIGN LANGUAGE INTERPRETER Madyson Pina MD PATHOLOGY/CYTOLOGY ORDERABLES Fi nal Result [facility]# [id number] [address] [place] [address] * XR DEXA BONE DENSITY AXIAL 1 OR MORE SITES (04/01/2021 11:51 AM CDT) Anatomical Region Laterality Modality Computed Radiogr aphy 04/01/2021 11:5 1 AM CDT Narrative 04/01/2021 3:08 PM CDT SUMMARY DEXA REPORT ?? DATE: 04/01/2021 11:51 AM INDICATION: Breast cancer, postmenopausal FINDINGS: Bone mineral density is consistent with osteopenia. The lowest T score is -1.6. The lowest T score on the previous study was -1.5. Please refer to the full report available in [facility] under the PACS Images tab. ??If a faxed copy is needed, please call [phone]. ?? DICTATION LOCATION: [facility] Procedure Note Oberle, Keshawn, MD - 04/01/2021 SUMMARY DEXA REPORT DATE: 04/01/2021 11:51 AM INDICATION: Breast cancer, postmenopausal FINDINGS: Bone mineral density is consistent with osteopenia. The lowest T score is -1.6. The lowest T score on the previous study was -1.5. Please refer to the full report available in [facility] under the PACS Images tab. If a faxed copy is needed, please call [phone]. DICTATION LOCATION: [facility] us Daphnie Arteaga MD DIAGNOSTIC IMAGING ORDERABLES Final Result * MAMMO DIGITAL SCREEN IMPLANTS BILAT (07/15/2016 9:16 AM CDT) Anatomical Region Laterality Modality Breast Bilateral Mammography 07/15/2016 9:16 AM CDT Impressions 07/16/2016 4:54 PM CDT IMPRESSION: Negative bilateral screening mammogram. Recommend routine followup. OVERALL ASSESSMENT: ??BI-RADS Category 1 - Negative DICTATION LOCATION: [facility] Narrative 07/16/2016 4:54 PM CDT BILATERAL DIGITAL SCREENING IMPLANT MAMMOGRAM WITH CAD DATE: 07/15/2016 9:16 AM HISTORY: Annual screening study. Postlumpectomy right breast. Implant left breast. COMPARISON: 07/05/2015 and 06/24/2012 TECHNIQUE: ??A bilateral screening mammogram was performed. In addition to the standard views, implant displaced views were obtained in two projections, eight views total. BREAST COMPOSITION: ??Scattered fibroglandular densities. FINDINGS: ??No new masses, suspicious calcifications, or areas of asymmetry or distortion are identified. The images were reviewed using the CAD system. Procedure Note Helen Orellana MD - 07/16/2016 BILATERAL DIGITAL SCREENING IMPLANT MAMMOGRAM WITH CAD DATE: 07/15/2016 9:16 AM HISTORY: Annual screening study. Postlumpectomy right breast. Implant left breast. COMPARISON: 07/05/2015 and 06/24/2012 TECHNIQUE: A bilateral screening mammogram was performed. In addition to the standard views, implant displaced views were obtained in two projections, eight views total. BREAST COMPOSITION: Scattered fibroglandular densities. FINDINGS: No new masses, suspicious calcifications, or areas of asymmetry or distortion are identified. The images were reviewed using the CAD system. IMPRESSION IMPRESSION: Negative bilateral screening mammogram. Recommend routine followup. OVERALL ASSESSMENT: BI-RADS Category 1 - Negative DICTATION LOCATION: [facility] Don Alvarado MD MAMMO ORDERABLES F inal Result from Last 3 Months or Most Recently Relevant to Health Maintenance Insurance [facility] MCR Advance Directives For more information, please contact: [phone] * Full Code (Latest Code Status on File) Date Activated Date Inactivated Comments 01/05/2014 11:11 AM 01/05/2014 3:58 PM Care Teams Physical Therapy Supervisor Relationship Specialty Start Date End Date Deon Kathleen MD [address] [place] [address] PCP - General Family Practice 07/31/24
--- OUTSIDE RECORDS SUMMARY | 2024-10-12 08:39 | XMS_ITS | Patient Health Summary ---
Author Organization [facility] Address [address] [place] [address] Care Team Providers Care Professional Builder Name Role Phone Unavailable Primary Care Provider Unavailabl e Note from [facility],non-owned Affiliates and Associated Physician Practices is amultiple site organization consisting of ambulatory clinics and hospital sitesin [place], [place], [place] and [place]. This disclosure is being madepursuant to the Care Everywhere program and may not contain all information available regarding this patient. Last updated 18.[facility] Social History Tobacco Use Types Packs/Day Years Used Date Smoking Tobacco: Never Assessed Sex and Gender Information Value Date Recorded Sex Assigned at Not on file Gender Identity Not on file Sexual Orientation Not on file Procedures * DERMATOPATHOLOGY(Performed 06/14/2023) * DERMATOPATHOLOGY(Performed 10/27/2021) Results * DERMATOPATHOLOGY (06/14/2023 12:00 AM CDT) Only the most recent of2 resultswithin the time period is included. Case Report Dermatopathology Report ? Case: [id number] ? Authorizing Provider: ??Deon Kathleen MD ? Collected: ? 06/14/2023 12:00 AM ? Ordering Location: ? [facility] ? Received: ?06/15/2023 11:31 AM ? Pathologist: ? Joceline Gutierrez MD ? Specimens: ?? A) - Skin, right back upper ? B) - Skin, right back middle ? 3 2:32 PM T DERMATOPATHOLOGY LABORATORY Final Diagnosis Specimen A. SKIN, right back upper: SEBORRHEIC KERATOSIS, IRRITATED AND INFLAMED (L82.0) PRESENT AT MARGIN Specimen B. SKIN, right back middle: SEBORRHEIC KERATOSIS, IRRITATED (L82.0) PRESENT AT MARGIN 3 2:32 PM T DERMATOPATHOLOGY LABORATORY Clinical History A-B: Changing Lesion Check Margins 3 2:32 PM T DERMATOPATHOLOGY LABORATORY Gross Description Specimen A: Received is one formalin filled container labeled with the patient's name and designated right back upper. The specimen consists of a shave biopsy measuring 14x8x3 mm. Jar 0. Specimen B: Received is one formalin filled container labeled with the patient's name and designated right back middle. The specimen consists of a shave biopsy measuring 9x10x4 mm. Jar 0. 3 2:32 PM T DERMATOPATHOLOGY LABORATORY Microscopic Description Specimen A. SKIN, right back upper: Sections show acanthosis, papillomatosis, hyperkeratosis, and squamous eddies. There is a lymphohistiocytic infiltrate within the papillary dermis. This lesion is present at the margin of the specimen. Specimen B. SKIN, right back middle: There is acanthosis consisting of fairly uniform squamous cells with eosinophilic cytoplasm and squamous eddies. This lesion is present at the margin of the specimen. 3 2:32 PM CDT DERMATOPATHOLOGY LABORATORY Disclaimer An external and internal positive and negative controls are appropriate for the histochemical, immunohistochemical and immunofluorescence stain(s) in this case (if any), except where stated explicitly. The performance characteristics of the stain(s) cited in this report were developed and its performance characteristic determined by the Dermatopathology Laboratory at [facility], directed by Dr. Michelle Jauregui. These tests need not be, and therefore are not, approved by the [place] Food and Drug Administration. The tests are used for clinical purposes. Billing Codes Specimen Charges Stain Charges 15654 13438 1 1 3 2:32 PM CDT DERMATOPATHOLOGY LABORATORY Embedded Images 3 2:32 PM CDT DERMATOPATHOLOGY LABORATORY Pathology/Cytology TISSUE SPECIMEN FROM SKIN / Unknown 06/14/2023 06/15/2023 11:31 AM CDT Miscellaneous samples (specimen) TISSUE SPECIMEN FROM SKIN / Unknown 06/14/2023 06/15/2023 11:31 AM CDT Deon Kathleen MD LAB - PATHOLOGY/CYTO LOGY ORDERABLES Performing Organization Address City/State/[facility] Co de Phone Number DERMATOPATHOLOGY LABORATORY [facility] - Department of Dermatology [address], [address] [phone]
--- OUTSIDE RECORDS SUMMARY | 2024-10-12 08:39 | XMS_ITS | Clinical Summary ---
Author Organization [facility] Address [address] [place] [address] Care Team Providers Care Tile Erector Name Role Phone Harsha Fay MD Primary Care Provider Allergies Active Allergy Reactions Criticality Noted Date Comments Codeine Nausea & Vomiting Low 06/30/2018 Latex Hives Medium 11/10/2013 Blisters Morphine Nausea And Vomiting 11/10/2013 Penicillins Unknown Medications levothyroxine (SYNTHROID, LEVOTHROID) 25 mcg tablet 05/23/2018 Active propranolol (INDERAL) 10 mg tablet TK 1 T PO BID 0 05/15/2018 Active calcium carbonate-vitam in D3 500 mg(1,250mg) -400 unit chewable tablet Take 1 tablet by mouth daily. Active mirtazapine (REMERON) 15 mg tablet Take 15 mg by mouth nightly before bedtime 12/19/2020 Active simvastatin (ZOCOR) 10 mg tablet Take 10 mg by mouth nightly Active Active Problems Problem Noted Date Diagnosed Date Personal history of primary malignant neoplasm o f breast 02/03/2014 Overview (12/25/2016): Hx of breast cancer Surgical History Surgery Date Site/Laterality Comments OTHER SURGICAL HISTORY 09/20/2010 - 09/19/2011 Cancer, breast: right lumpectomy 2010 w/ [facility] AUGMENTATION MAMMOPLASTY 09/20/1976 - 09/19/1977 Breast augmentation CHOLECYSTECTOMY 09/20/1996 - 09/19/1997 Cholecystectomy BREAST LUMPECTOMY 09/20/2010 - 09/19/2011 Right Cancerous SHOULDER SURGERY 09/20/2016 - 09/19/2017 Right Shoulder Lipoid Removed-Non Cancerous LIPOMA RESECTION Left shoulder COMBINED HYSTEROSCOPY DIAGNOSTIC / D&C 09/20/2016 - 09/19/2017 with curettage COMBINED HYSTEROSCOPY DIAGNOSTIC / D&C 09/20/2017 - 09/19/2018 Medical History Medical History Date Comments Hx Other Medical Radiation thera py Hypothyroidism 2016 Hypertension 2016 Breast cancer (HCC) 2010 Cancer, [facility] [facility]; Outcome: free of disease Mitral insufficiency mumur GERD (gastroesophageal reflux disease) Breast CA (HCC) right High cholesterol Family History Medical History Relation Name Comments Breast cancer Sister Colon cancer Neg Hx Ovarian cancer Neg Hx Uterine cancer Neg Hx Relation Name Status Comments Sister Social History Tobacco Use Types Packs/Day Years Used Date Smoking Tobacco: Former Smokeless Tobacco: Never Comments:quit 7 years ago Alcohol Use Standard Drinks/Week Comments No 0 (1 standard drink = 0.6 oz pur e alcohol) Comments No Sex and Gender Information Value Date Recorded Sex Assigned at Not on file Legal Sex Female 4:19 PM DRAWER IN Gender Identity Not on file Sexual Orientation Not on file Obstetrics History Para Term AB IAB SAB Ectopic Multiple Livin g Live Births 1 1 Date Outcome GA Total Labor Labor/2nd/3rd Weight Sex Type Anes PTL Tasneem A1 A5 Name Clin 1987 Para 3.43 kg (7 lb 9 oz) Vag-Sp ont Last Filed Vital Signs Vital Sign Reading Time Taken Comments Blood Pressure 126/74 03/19/2021 10:04 AM CDT Pulse 51 06/30/2018 9:47 AM CDT Temperature 35.9 ??C (96.7 ??F) 06/30/2018 9:10 AM CD T Respiratory Rate 14 06/30/2018 9:47 AM CDT Oxygen Saturation 99% 06/30/2018 9:47 AM CDT Inhaled Oxygen Concentration - - Weight 78.5 kg (173 lb) 03/19/2021 10:04 AM CDT Height 153.7 cm (5' 0.5 ) 03/19/2021 10:04 AM CD T Body Mass Index 33.23 03/19/2021 10:04 AM CDT Plan of Treatment Not on file Insurance HEALTHCARE Member Subscriber Plan / Payer (Ef fective 2018-Present) Name:Edith Joyner Relation to Subscriber:Self Name:Edith Joyner Payer ID:[id number] (NAIC) Type:MEDICARE RISK OTHER Address: [address] [place] [id number] [place] [address] HEALTHCARE [address] [place] [address] HEALTHCARE Care Teams Tile Erector Relationship Specialty [place] [address] [address] [address] PCP - General Family Medicine 06/01/18
--- OUTSIDE RECORDS SUMMARY | 2024-10-12 08:39 | XMS_ITS | Encounter Summary ---
Author Organization [facility] Address [address] [address] Care Team Providers Care Tire Bagger Name Role Phone Unavailable Primary Care Provider Unavailabl e Encounter Details Date Type Department Care Team (Late st Contact Info) Description 06/15/2023 Lab Requisition [facility] - [facility] [address] [facility] [place] [address] Deon Kathleen MD [address] [place] [address] Social History Tobacco Use Types Packs/Day Years Used Date Smoking Tobacco: Never Assessed Sex and Gender Information Value Date Recorded Sex Assigned at Not on file Gender Identity Not on file Sexual Orientation Not on file documented as of this encounter Plan of Treatment Not on file documented as of this encounter Procedures Procedure Name Priority Date/Time Associated Diagnosis Comments DERMATOPATHOLOGY Routine 06/14/2023 12:0 0 AM CDT documented in this encounter Results * DERMATOPATHOLOGY (06/14/2023 12:00 AM CDT) Case Report Dermatopathology Report ? Case: [id number] ? Authorizing Provider: ??Deon Kathleen MD ? Collected: ? 06/14/2023 12:00 AM ? Ordering Location: ? [facility] ? Received: ?06/15/2023 11:31 AM [...] (L82.0) PRESENT AT MARGIN 3 2:32 PM [facility] Clinical History A-B: Changing Lesion [...] 9x10x4 mm. Jar 0. 3 2:32 PM [facility] Microscopic Description Specimen A. SKIN, [...] characteristic determined by the Dermatopathology Laboratory at [facility], directed by Dr. Michelle Jauregui. These tests need not be, and therefore are not, approved by the [place] Food and Drug Administration. The tests are used for clinical purposes. Billing Codes Specimen Charges Stain Charges 26475 06391 1 1 3 2:32 PM CDT DERMATOPATHOLOGY LABORATORY Embedded Images 3 2:32 PM CDT DERMATOPATHOLOGY LABORATORY Pathology/Cytology TISSUE SPECIMEN FROM SKIN / Unknown 06/14/2023 06/15/2023 11:31 AM CDT Miscellaneous samples (specimen) TISSUE SPECIMEN FROM SKIN / Unknown 06/14/2023 06/15/2023 11:31 AM CDT Deon Kathleen MD LAB - PATHOLOGY/CYTO LOGY ORDERABLES DERMATOPATHOLOGY LABORATORY [facility] - Department of Dermatology [address], [address] [phone] documented in this encounter Visit Diagnoses Not on filedocumented in this encounter
--- OUTSIDE RECORDS SUMMARY | 2024-10-12 08:39 | XMS_ITS | Encounter Summary ---
Author Organization [facility] Address [address] [place] [address] Care Team Providers Care Healthcare Customer Service Name Role Phone Deon Kathleen MD Primary Care Provider [phone] Encounter Details Date Type Department Care Team (Late st Contact Info) Description 07/23/2006 Outpatient Historical [facility] Internal Medicine [address] [address] [place] [address] Ramon Garnett MD [address] [place] [address] Social History Tobacco Use Types Packs/Day Years Used Date Smoking Tobacco: Never Assessed Comments Unknown Sex and Gender Information Value Date Recorded Sex Assigned at Female 08/05/2024 12:43 PM ETL PROGRAMMER Legal Sex Female 3:11 AM ETL PROGRAMMER Gender Identity Female 08/05/2024 12:43 PM ETL PROGRAMMER Sexual Orientation Straight 08/05/2024 12 :43 PM ETL PROGRAMMER documented as of this encounter Plan of Treatment Not on file documented as of this encounter Visit Diagnoses Not on filedocumented in this encounter Care Teams Healthcare Customer Service Relationship Specialty Start Date End Date Deon Kathleen MD [address] [place] [address] PCP - General Family Practice 07/31/24 documented as of this encounter
--- OUTSIDE RECORDS SUMMARY | 2024-10-12 08:39 | XMS_ITS | Encounter Summary ---
Author Organization [facility] Address [address] [place] [address] Care Team Providers Care Clinical Nursing Professor Name Role Phone Unavailable Primary Care Provider Unavailabl e Encounter Details Date Type Department Care Team (Late st Contact Info) Description 10/29/2021 Lab Requisition [facility] [address] [facility] [place] [id number] Deon Kathleen MD [address] [place] [address] Social History Tobacco Use Types [...] Priority Date/Time Associated Diagnosis Comments DERMATOPATHOLOGY Routine 10/27/2021 12:0 0 AM LDR NURSE documented in this encounter Results * DERMATOPATHOLOGY (10/27/2021 12:00 AM LDR NURSE) Case Report Dermatopathology Report ? Case: [id number] ? Authorizing Provider: ??Deon Kathleen MD ? Collected: ? 10/27/2021 12:00 AM ? Ordering Location: ? [facility] ?Received: ?10/29/2021 01:26 PM ? Pathologist: ? Joceline Gutierrez MD ? Specimen: ?Skin, back ? 10:32 AM [facility] DERMATOPATHOLOGY LABORATORY Final Diagnosis Specimen A. SKIN, back: BENIGN VERRUCOUS KERATOSIS, INFLAMED (L82.1) PRESENT AT MARGIN 10:32 AM [facility] DERMATOPATHOLOGY LABORATORY Clinical History Changing lesion. Check margins. 10:32 AM [facility] DERMATOPATHOLOGY LABORATORY Gross Description Specimen A: Received is one formalin filled container labeled with the patient's name and designated back. The specimen consists of a shave biopsy measuring [id number], bisected. The margin is inked green. Jar 0. 10:32 AM [facility] DERMATOPATHOLOGY LABORATORY Microscopic Description Specimen A. SKIN, back: Sections show hyperkeratosis, papillomatosis, hypergranulosis, and acanthosis. Inflammatory cells are present within the dermis. These histological findings can be seen in a verruca vulgaris or a seborrheic keratosis. This lesion is present at the margin of the specimen. 10:32 AM [facility] DERMATOPATHOLOGY LABORATORY Disclaimer An external and internal positive and negative controls are appropriate for the histochemical, immunohistochemical and immunofluorescence stain(s) in this case (if any), except where stated explicitly. The performance characteristics of the stain(s) cited in this report were developed and its performance characteristic determined by the Dermatopathology Laboratory at [facility], directed by Dr. Michelle Jauregui. These tests need not be, and therefore are not, approved by the [place] Food and Drug Administration. The tests are used for clinical purposes. Billing Codes Specimen Charges Stain Charges 31382 1 2 10:32 AM LDR NURSE DERMATOPATHOLOGY LABORATORY Embedded Images 2 10:32 AM LDR NURSE DERMATOPATHOLOGY LABORATORY Pathology/Cytolog y TISSUE SPECIMEN FROM SKIN / Unknown 10/27/2021 10/29/2021 1:26 PM LDR NURSE Deon Kathleen MD LAB - PATHOLOGY/CYTO LOGY ORDERABLES DERMATOPATHOLOGY LABORATORY [facility] - Department of Dermatology [facility] Medicine [address] [place] [address], [address] [phone] documented in this encounter Visit Diagnoses Not on filedocumented in this encounter
--- OUTSIDE RECORDS SUMMARY | 2024-10-12 08:39 | XMS_ITS | Clinical Summary ---
Author Organization [facility] Address [address] [place] [address] Care Team Providers Care Travel Coordinator Name Role Phone Unavailable Primary Care Provider Unavailabl e Source Comments [facility],non-owned Affiliates and Associated Physician Practices is amultiple site organization consisting of ambulatory clinics and hospital sitesin [place], [place], [place] and [place]. This disclosure is being madepursuant to the Care Everywhere program and may not contain all information available regarding this patient. Last updated 18.[facility] Social History Tobacco Use Types Packs/Day Years Used Date Smoking Tobacco: Never Assessed Sex and Gender Information Value Date Recorded Sex Assigned at Not on file Gender Identity Not on file Sexual Orientation Not on file Plan of Treatment Health Maintenance Due Date Last Done Comments BONE DENSITY TESTING 1955 COLOGUARD (AGES 45-75) - COL ON CA SCREENING 1955 COLON MONITORING 1953 COLONOSCOPY - COLON CA SCREENING 1953 CT COLONOGRAPHY - COLON CA SCREENING 1955 Colorectal Cancer Screening 1953 FIT - COLON CA SCREENING 1953 FLEX SIG - COLON CA SCREENING 1953 LIPID TESTING 1953 MAMMOGRAM 1953 HEPATITIS C SCREENING 05/18/1971 DTAP/TDAP/TD VACCINES (1 - Tdap) 1972 PNEUMOCOCCAL VACCINE 50+ (1 of 1 - PCV) 2003 ZOSTER VACCINE (1 of 2) 2003 COVID-19 VACCINE ( - 2023-2 5 season) 2024 INFLUENZA VACCINE (#1) 2024 DEPRESSION SCREENING 09/20/2024 MEDICARE AWV ? CALENDAR YEAR 2024 Respiratory Syncytial Virus (RSV) Vaccine Pt: or over 60 yrs (1 - 1-dose 75+ series) 2028 HEPATITIS B VACCINE Aged Out No longe r eligible based on patient's age to complete this topic HIB VACCINE Aged Out No longer eligi ble based on patient's age to complete this topic HPV VACCINE Aged Out No longer eligi ble based on patient's age to complete this topic MENINGOCOCCAL (Group B) VACCINE Aged Out No longer eligible based on patient's age to complete this topic MENINGOCOCCAL VACCINE Aged Out No brendon giulia eligible based on patient's age to complete this topic
--- OUTSIDE RECORDS SUMMARY | 2024-10-12 08:39 | XMS_ITS | Continuity of Care Document ---
Author Organization [facility] Address [address] [place] [address] Phone Care Team Providers Care Fuel House Attendant Name Role Phone Deepthi Friedman DO Unavailable [...] on Encounter [facility], [address] [facility], [place], [address], [place] tel:[phone] [facility] Encounter for screening mammogram for breast cancer [address], [place], [place], [address] . tel: [phone] [facility], [address] [facility] [address], [place], [address], [place] tel:[phone] [facility] No Information [address], [place], [place], [address] . tel: [phone] OFFICE/OUTPAT IENT VISIT EST [facility], [address] [facility] [facility] [address], [place], [address], [place] tel:[phone] [facility] abnormal bleeding (chief complaint) PMB (postmenopaus al bleeding)H/O tamoxifen therapy 7 [address]. [address], [place], [place], [address] . 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 [address], [place], [place], [address] . tel: [phone] [facility] , [address] [address], [place], [address], [place] tel:[phone] [facility] No Information 6 Ricki Perez. [address] [facility], [place], [place], [address] . tel: [phone] OFFICE/OUTPAT IENT VISIT NEW [facility] , [address] [address], [place], [address], [place] tel:[phone] [facility] Pain of finger of right handOpen displaced fracture of distal phalanx of right little finger, initial encounter 6 Ricki Perez. [address] [facility], [place], [place], [id number] . 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 [address], [place], [place], [address] . tel: [phone] OFFICE/OUTPAT IENT VISIT EST [facility], [address] [facility] [address], [place], [address], tel:[phone] [facility] abnormal pap smear (chief complaint) ASCUS (atypical squamous cells of undetermined sig 4 [address]. [address], [place], [place], [address] . tel: [phone] Family History Family Member Type Diagnosis Age [...] is Payers Payer name Insurance type Covered green party ID Authoriza tion(s) No Information Social History [...] breast exam. Related to Enc ntr for obgyn nurse exam (general) (routine) w/o abn findings Aug-16-2016 HPV guidelines reviewed. Related to Encntr for obgyn nurse exam (general) (routine) w/o abn findings Pap smear guidelines reviewed. R elated to Encntr for obgyn nurse exam (general) (routine) w/o abn findings Enroll in our patient portal. Re lated to Encntr for obgyn nurse exam (general) (routine) w/o abn findings Rest, ice and elevate. Related t o Open displaced fracture of distal phalanx of right little finger, initial encounter Pap screening guidelines Assessments Type Assessment Date No Information Patient Care Teams Name Effective Dates (start - stop) Status Members No Information
--- OUTSIDE RECORDS SUMMARY | 2024-10-12 08:39 | XMS_ITS | Data Portability ---
Author Organization [facility] Address [address] [place] [address] Care Team Providers Care Data Processing Auditor Name Role Phone DEION MCNEAL Primary Care Provider Assessment Encounter Date Assessment Date Assessment LastModified by Organization Details LastModified Time 03/24/2022 03/24/2022 Annual gynecological exam performed. Patient will come back in a year unless there are new symptoms. [email or web address] Not available 03/24/2022 12:34:50 07/05/2023 07/05/2023 Annual gynecological exam performed. Patient will come back in a year unless there are new symptoms. [email or web address] Not available 07/05/2023 12:21:11 08/16/2024 08/16/2024 Annual gynecological exam performed. Patient will come back in a year unless there are new symptoms. Not available 08/16/2024 11:54:58 Plan of Treatment Reminders Order Date Submit Date Provider Last Modified By Organization Details Last Modified Time Details Appointments None recorded. Lab None recorded. Referral breast surgery referral - This patient wants to be referred to a breast specialist. Our office can not refer her with her [employer] insurance. The patients PCP must send out off specialist referrals. Please create an insurance referral for this patient, Thank you. 2021 022 CLEMENTINA resendez MD, [address] [facility], [facility], [place], [address], 05:00:49 Procedures None recorded. Surgeries None recorded. Imaging None recorded. Medication Orders nystatin 100,000 unit/gram topical powder 2022 023 [email or web address] [id number], [address], [place], [address], 4 11:08:38 nystatin-tr iamcinolone 100,000 unit/gram-0 .1 % topical ointment 2023 024 CLEMENTINA [id number], [address], [place], [address], 4 12:00:39 Patient TargetsNo targets recorded. Patient InstructionsNo instructions recorded. Reason for Referral Breast Surgery Referral for Personal history of primary malignant neoplasm of breast This patient wants to be referred to a breast specialist. Our office can not refer her with her [employer] insurance. The patients PCP must send out off specialist referrals. Please create an insurance referral for this patient, Thank you. Referring Physician: Arielle Huff, STUDENT SUPPORT SERVICES DIRECTOR, Encounter Date: 03/24/2022 Results Created Date Observation Date Name Description Value Unit Range Abnormal Flag Note LastModifiedBy Organization Detail LastModifiedTime 03/24/20 22 03/24/2022 IMAGE GUIDE D PAP AND HPV REGAR DLESS image guided Pap, HPV regardless of Pap result SEE RESULT S BELOW CASE REPOR T: Cytol ogy Gynec ologi monique Repor t Case: [id number] Autho vatere g Provi ronny: Arielle Huff, MARIANGEL Colle cted: 03/24 1256 Order ing Locat ion: [place] [facility] Recei alia: 03/25 0810 First Scree n: Frase r, Kalee , CT Rescr een: Zarina Leonard, CT Speci men: Scree josh Pap - Image d, Cervi x STATE MENT OF ADEQU ACY: Satis facto ry for evalu ation Trans forma tion zone compo nent prese nt FINAL DIAGN OSIS: Negat miroslava for Intra epith elial Lesio n or Malig yolanda (NIL) . Elect lito coronel lindsay d by Zarina Leonard, CT on 2021 at 2:17 PM ----- ----- ----- ----- ----- ----- ----- ----- ----- ----- ----- ----- ----- ----- ----- ----- ----- ---- HPV RESUL TS: HPV mRNA E6/E7 : No HPV mRNA Detec oneal NOTE: This high risk HPV mRNA assay detec ts fourt een high- risk HPV types (16, 18, 31, 33, 35, 39, 45, 51, 52, 56, 58, 59, 66, 68) witho ut diffe renti ation . COMME NT: Note: This speci men was revie wed by a Cytot echno logis t and/o r Patho logis t (as indic ated in this repor t) after evalu ation using the Thinp rep Imagi ng Syste m. CLINI MONIQUE INFOR MATIO N: Menst rual Statu s: LMP (if appli cable ): Clini monique Histo ry/Pr eviou s Pap: Type of Neopl leoncio (if appli cable ): Signi fican t Clini monique Findi ngs: Other Histo ry: Hormo valdo (if appli cable ): PAP EDUCA SANDOVAL L NOTE: The Pap Test is a scree josh test with an inher ent false negat miroslava rate. Liqui d-bas ed sampl ing may decre ase, but will not elimi tracie, false negat miroslava resul ts. A negat miroslava resul t does not precl ude the prese nce and/o r devel opmen t of disea se, since the prese nce of abnor mal cells in the sampl e depen ds on the locat ion of the lesio n and sampl ing techn ique. Ponce nued regul ar scree josh is the best metho d of cance r preve ntion . If repor oneal cytol ogic findi ng do not corre late with physi monique and/o r histo rical findi ngs, fur er inves tigat ion is recom megan d, as clini robert sanchez nted. Not Available [facility] [address] [facility], [place], [address], 03/30/2022 15:19:58 03/24/20 22 03/24/2022 IMAGE GUIDE D PAP AND HPV REGAR DLESS image guided Pap, HPV regardless of Pap result SEE RESULT S BELOW CASE REPOR T: Cytol ogy Gynec ologi monique Repor t Case: [id number] Autho mary segura Provi ronny: Arielle Huff, MARRIAGE PERFORMER Colle cted: 03/24 1256 Order ing Locat ion: [place] [facility] [place] Recei alia: 03/25 0810 First Scree n: Kalee Jaimes , CT Rescr een: Zarina Leonard, CT Speci men: Donis moreno Pap - Image d, Cervi x STATE MENT OF ADEQU ACY: Satis facto ry for evalu ation Trans forma tion zone compo nent prese nt FINAL DIAGN OSIS: Negat miroslava for Intra epith elial Lesio n or Leonardo guerrero (NIL) . Elect lito coronel lindsay d by Zarina Leonard, CT on 2021 at 2:17 PM ----- ----- ----- ----- ----- ----- ----- ----- ----- ----- ----- ----- ----- ----- ----- ----- ----- ---- HPV RESUL TS: HPV mRNA E6/E7 : No HPV mRNA Detec oneal NOTE: This high risk HPV mRNA assay detec ts fourt een high- risk HPV types (16, 18, 31, 33, 35, 39, 45, 51, 52, 56, 58, 59, 66, 68) witho ut diffe renti ation . COMME NT: Note: This speci men was revie wed by a Cytot echno logis t and/o r Patho logis t (as indic ated in this repor t) after evalu ation using the Thinp rep Imagi ng Syste m. CLINI MONIQUE INFOR MATIO N: Menst rual Statu s: LMP (if appli cable ): Clini monique Histo ry/Pr eviou s Pap: Type of Neopl leoncio (if appli cable ): Signi fican t Clini monique Findi ngs: Other Histo ry: Hormo valdo (if appli cable ): PAP EDUCA SANDOVAL L NOTE: The Pap Test is a scree josh test with an inher ent false negat miroslava rate. Liqui d-bas ed sampl ing may decre ase, but will not elimi tracie, false negat miroslava resul ts. A negat miroslava resul t does not precl ude the prese nce and/o r devel opmen t of disea se, since the prese nce of abnor mal cells in the sampl e depen ds on the locat ion of the lesio n and sampl ing techn ique. Ponce nued regul ar scree josh is the best metho d of cance r preve ntion . If repor oneal cytol ogic findi ng do not corre late with physi monique and/o r histo rical findi ngs, furth er inves tigat ion is recom megan d, as clini robert sanchez nted. Not Available [facility] [address] [place], [address], 05/26/2022 16:54:53 08/16/20 24 08/16/2024 IMAGE GUIDE D PAP AND HPV REGAR DLESS image guided Pap, HPV regardless of Pap result SEE RESULT S BELOW CASE REPOR T: Cytol ogy Gynec ologi monique Repor t Case: [id number] Autho mary g Provi ronny: Arielle Huff, MARIANGEL Colle cted: 08/16 1346 Order ing Locat ion: [place] [facility] [place] Recei alia: 08/17 0229 First Scree n: Soumya Foley ret, CT Speci men: Scree josh Pap - Image d, Cervi x STATE MENT OF ADEQU ACY: Satis facto ry for evalu ation Trans forma tion zone compo nent absen t ----- ----- ----- ----- ----- ----- ----- ----- ----- ----- ----- ----- ----- ----- ----- ----- ----- ---- FINAL DIAGN OSIS: Negat miroslava for Intra epith elial Lesshruti grande or Leonardo guerrero (NIL) . Elect lito montoya d by Soumya Foley ret, CT on 2023 at 3:40 PM ----- ----- ----- ----- ----- ----- ----- ----- ----- ----- ----- ----- ----- ----- ----- ----- ----- ---- HPV RESUL TS: HPV mRNA E6/E7 : No HPV mRNA Detec oneal NOTE: This high risk HPV mRNA assay detec ts fourt een high- risk HPV types (16, 18, 31, 33, 35, 39, 45, 51, 52, 56, 58, 59, 66, 68) witho ut diffe renti ation . COMME NT: This speci men was revie wed by a Cytot echno logis t and/o r Patho logis t (as indic ated in this repor t) after evalu ation using the Thinp rep Imagi ng Syste m. CLINI MONIQUE INFOR MATIO N: Menst rual Statu s: LMP (if appli cable ): Clini monique Histo ry/Pr eviou s Pap: Type of Neopl leoncio (if appli cable ): Signi radha t Clini monique Findi ngs: Other Histo ry: Hormo valdo (if appli cable ): PAP EDUCA SANDOVAL L NOTE: The Pap Test is a scree josh test with an inher ent false negat miroslava rate. Liqui d-bas ed sampl ing may decre ase, but will not elimi tracie, false negat miroslava resul ts. A negat miroslava resul t does not precl ude the prese nce and/o r devel opmen t of disea se, since the prese nce of abnor mal cells in the sampl e depen ds on the locat ion of the lesio n and sampl ing techn ique. Ponce nued regul ar scree josh is the best metho d of cance r preve ntion . If repor oneal cytol ogic findi ng do not corre late with physi monique and/o r histo rical findi ngs, furth er inves tigat ion is recom megan d, as clini robert warra nted. Not Available [facility] (Lab) [address], [place], [address], 08/28/2024 16:43:57 05/27/20 22 04/08/2022 MAMMO , diagn ostic , digit al, bilat eral No observ ation record ed. [email or web address] [facility] [address], [place], [address], 05/28/2022 16:19:17 12/10/19 24 12/10/2023 US, breas t, unila teral No observ ation record ed. [facility] [address], [place], [address], 12/14/2023 12:52:42 02/04/20 24 02/03/2024 MAMMO , scree josh, bilat eral No observ ation record ed. CLEMENTINA [facility] [address], [place], [address], 02/09/2024 14:37:02 Result Notes None recorded. Problems No Known Problems Procedures Surgical History Date Name Laterality Status Provider Name and Address Organization Details Recorded Time 024 Date of Last Colonoscopy completed Rebecca Cheney [facility] 08/16/2024 11:59:03 024 [facility] 12:02:41 024 Date of Last Mammogram completed Rebecca [facility] 08/16/2024 12:01:47 023 removal of mole of skin by excision completed [facility] 07/05/2023 12:26:24 022 Date of Last Pap Smear completed Rebecca [facility] 08/16/2024 12:01:20 022 removal of breast implant completed [facility] 07/05/2023 12:25:18 018 Dilation and Curettage completed [facility] 07/05/2023 12:24:21 017 Dilation and Curettage completed [facility] 07/05/2023 12:24:11 014 completed Judit Saenz [facility] 03/24/2022 12:35:32 011 Breast Surgery completed [facility] 07/05/2023 12:23:48 011 Breast Biopsy completed [facility] 07/05/2023 12:23:41 011 removal of breast implant completed [facility] 07/05/2023 12:25:13 005 procedure on shoulder completed [facility] 07/05/2023 12:26:07 992 procedure on shoulder completed [facility] 07/05/2023 12:25:51 989 [facility] 12:24:02 979 termination of completed Linhmatteo Wolf [facility] 07/05/2023 12:24:32 978 Breast Implants completed [facility] 07/05/2023 12:23:54 Imaging Results Imaging Date Name Status LastModified by Organiz ation Details LastModified Time 04/08/2022 MAMMO, diagnostic, digital, bilateral completed vschroedter [facility] [address], [place], [address], 05/28/2022 16:19:17 12/10/2023 US, breast, unilateral completed [facility] [address], [place], [address], 12/14/2023 12:52:42 02/03/2024 MAMMO, screening, bilateral completed CLEMENTINA [facility] [address], [place], [address], 02/09/2024 14:37:02 Procedure Notes None recorded. Medical Equipment None Reported. Allergies Allergen ID Allergen Name Allergen Category Reaction Reaction Severity Criticality Documentation Date Start Date Code Code System Note Provider Name and Address Organization Details Recorded Time 38355 morpholin e salicylat e Not available vomiting moderate Not available 03/24/2022 97553 8 RxNorm Judit hernandez [facility] 2 12:35:24 51952 Product containin g penicilli n and antibioti c (product) medicatio n anaphylax is severe Not available 03/24/2022 36559 05 SNOMED Judit hernandez [facility] 2 12:35:24 Medications Name Sig Start Date Stop Date Status Note LastModified by Organization Details LastModified Time silver sulfadiazin e 1 % topical cream APPLY THIN LAYER TO BURN TWICE DAILY FOR 2 WEEKS active Not Available Not Available No t Available nystatin 100,000 unit/mL oral suspension SWISH AND SWALLOW 1 ML TO EACH SIDE OF THE MOUTH 4 TIMES DAILY 07/05 completed Not Available Not Available Not Available atorvastati n 20 mg tablet TAKE 1 TABLET BY MOUTH AT BEDTIME active Not Available Not Available No t Available trazodone 50 mg tablet TAKE 1 TABLET BY MOUTH EVERYDAY AT BEDTIME 07/05 completed Not Available Not Available Not Available meloxicam 15 mg tablet TAKE 1 TABLET BY MOUTH EVERY DAY 07/05 completed Not Available Not Available Not Available famotidine 40 mg tablet TAKE 1 TABLET BY MOUTH EVERY EVENING FOR 30 DAYS 07/05 completed Not Available Not Available Not Available sulfamethox azole 800 mg-trimetho prim 160 mg tablet TAKE 1 TABLET BY MOUTH TWICE A DAY 08/16 completed Not Available Not Available Not Available levothyroxi ne 25 mcg tablet TAKE 1 TABLET BY MOUTH EVERY DAY active Not Available Not Available No t Available nystatin-tr iamcinolone 100,000 unit/gram-0 .1 % topical ointment APPLY TO AFFECTED AREA TWICE A DAY FOR 7 DAYS 08/16 completed Not Available Not Available Not Available propranolol 10 mg tablet TAKE 1 TABLET BY MOUTH EVERY DAY active Not Available Not Available No t Available benzonatate 100 mg capsule TAKE 1 CAPSULE BY MOUTH THREE TIMES A DAY NEEDED FOR COUGH 07/05 completed Not Available Not Available Not Available simvastatin 5 mg tablet TAKE 1 TABLET BY MOUTH EVERY DAY IN THE EVENING 03/24 completed Not Available Not Available Not Available nystatin-tr iamcinolone 100,000 unit/g-0.1 % topical cream APPLY TOPICALLY TWICE A DAY 08/16 completed Not Available Not Available Not Available mupirocin 2 % topical ointment APPLY 1 APPLICATI ON ONTO THE AFFECTED AREA(S) ON THE SKIN TWICE DAILY 07/05 completed Not Available Not Available Not Available mirtazapine 15 mg tablet TAKE 1 TABLET BY MOUTH EVERY DAY BEFORE BEDTIME 03/24 completed Not Available Not Available Not Available nystatin 100,000 unit/gram topical powder APPLY TO AFFECTED AREA TWICE A DAY FOR 7 DAYS 03/01 completed Not Available Not Available Not Available ondansetron 4 mg disintegrat ing tablet DISSOLVE 1 TABLET ON THE TONGUE EVERY 8 HOURS NEEDED FOR NAUSEA/VO MITING 03/03 completed Not Available Not Available Not Available fluticasone propionate 50 mcg/actuati on nasal spray,suspe nsion INSTILL 1-2 SPRAYS INTO EACH NOSTRIL ONCE DAILY active Not Available Not Available No t Available hydrocortis one 1 % topical cream with perineal applicator APPLY 1 APPLICATI ON TO AFFECTED AREA THREE TIMES A DAY NEEDED FOR ITCHING active Not Available Not Available No t Available Gavilyte-C 240 gram-22.72 gram-6.72 gram-5.84 gram oral solution FOLLOW PRESCRIBI NG PHYSICIAN S INSTRUCTI ONS ONLY - THESE WERE SENT VIA EMAIL OR [employer]. 08/16 completed Not Available Not Available Not Available BinaxNOW COVID-19 Ag Self Test kit Use as Directed on the Package 07/05 completed Not Available Not Available Not Available Vitals Date Recorded Body height Body mass index (BMI) Body weight Systolic blood pressure Diastolic blood pressure Provider Name and Address Organization Details Last Updated DateTime 03/24/2022 154.94 cm 29.5 kg/m2 78274.41 g 140 mm[Hg] 81 mm[Hg] Judit Saenz [facility] 2 12:35:18 Date Recorded Body height Body mass index (BMI) Body weight Systolic blood pressure Diastolic blood pressure Provider Name and Address Organization Details Last Updated DateTime 07/05/2023 154.94 cm 28.5 kg/m2 12819.45 g 125 mm[Hg] 74 mm[Hg] Linh Wolf [facility] 3 12:21:30 Date Recorded Body height Body mass index (BMI) Body weight Systolic blood pressure Diastolic blood pressure Provider Name and Address Organization Details Last Updated DateTime 03/03/2024 154.94 cm 28.2 kg/m2 47111.26 g 128 mm[Hg] 74 mm[Hg] Tasneem Reddy [facility] 4 09:43:28 Date Recorded Body height Body mass index (BMI) Body weight Systolic blood pressure Diastolic blood pressure Provider Name and Address Organization Details Last Updated DateTime 08/16/2024 154.94 cm 28.3 kg/m2 71048.86 g 122 mm[Hg] 71 mm[Hg] Rebecca Cheney [facility] 11:58:51 Social History Question Answer Notes LastModified by Organizat ion Details LastModified Time Tobacco Smoking Status Former Smoker Arianna Case mary, [facility] 07/08/2023 14:02:05 Do You Have An Advance Directive? No Information not available 03/24/2022 What Is Your Level Of Alcohol Consumption? Occasional [email or web address] Information not available 07/05/2023 How Many Years Have You Consumed Alcohol? 10 Information not available 03/24/2022 Are You Blind Or Do You Have Difficulty Seeing? No Information not available 03/24/2022 What Is Your Level Of Caffeine Consumption? Occasional Information not available 03/24/2022 How Much Tobacco Do You Chew? None Information not available 03/24/2022 In The 14 Days Before Symptom Onset, Have You Had Close Contact With A Laboratory-confir med COVID-19 While That Case Was Ill? No Information not available 03/24/2022 In The 14 Days Before Symptom Onset, Have You Had Close Contact With A Person Who Is Under Investigation For COVID-19 While That Person Was Ill? No Information not available 03/24/2022 Have You Been To An Area Known To Be High Risk For COVID-19? No Information not available 03/24/2022 Are You Deaf Or Do You Have Serious Difficulty Hearing? No Information not available 03/24/2022 What Type Of Diet Are You Following? REGULAR Information not available 03/24/2022 What Is The Highest Grade Or Level Of School You Have Completed Or The Highest Degree You Have Received? [id number] Information not available 03/24/2022 What Is Your Occupation? Retired Information not available 03/24/2022 When Did You Quit Smoking? 11-15yearssinc elastcigarette Information not available 07/08/2023 Are There Any Guns Present In Your Home? No Information not available 03/24/2022 Have You Ever Been Counseled For Unhealthy Alcohol Use? No Information not available 07/05/2023 Do You Use Protection During Sex? No Information not available 03/24/2022 Do You Use Your Seat Belt Or Car Seat Routinely? Yes Information not available 03/24/2022 Do You Have Smoke And Carbon Monoxide Detectors In Your Home? Yes Information not available 03/24/2022 At What Age Did You Start Smoking Tobacco? 18 Information not available 03/24/2022 How Much Tobacco Do You Smoke? No Information not available 03/24/2022 Do You Feel Stressed (tense, Restless, Nervous, Or Anxious, Or Unable To Sleep At Night)? [id number] Information not available 08/16/2024 Do You Use Any Illicit Or Recreational Drugs? No Information not available 03/24/2022 Do You Use Sunscreen Routinely? Yes Information not available 03/24/2022 How Many Years Have You Smoked Tobacco? 20 Information not available 03/24/2022 Have You Used IV Drugs? No Information not available 03/24/2022 Do You Or Have You Ever Used Any Other Forms Of Tobacco Or Nicotine? No Information not available 07/08/2023 Sex: Unknown Functional Status Question Answer Note LastModified by Organizat ion Details LastModified Time Do you have difficulty walking or climbing stairs? No Information not available 03/24/2022 Are you able to walk? YESWOREST Information not available 03/24/2022 Are you able to care for yourself? Yes Information not available 03/24/2022 Do you have difficulty dressing or bathing? No Information not available 03/24/2022 What is your exercise level? Occasional Information not available 03/24/2022 Mental Status None recorded. Family History Relationship Description Onset Age of this Age Resolved Age Notes LastModified by Organization Details LastModified Time Father Heart disease [email or web address] Not available 01/2022 12:35:28 Mother Disorder of thyroid gland vschroedter Not available 01/2022 12:35:28 Mother Osteoporosis vschroedter Not av ailable 03/24/2022 12:35:28 Sister Diabetes mellitus vschroedter Not available 01/2022 12:35:28 Sister Anxiety disorder vschroedter Not available 01/2022 12:35:28 Sister Malignant tumor of breast vschroedter Not available 01/2022 12:35:28 Sister Heart disease vschroedter Not available 01/2022 12:35:28 Medical History Condition Response Allergies (Food, seasonal, environmental ) Y Other N Breast Cancer Y Drug/Latex Allergies/Reactions Y Blood Transfusion N Dermatologic Disorders N Lung Disease N Defects or Inherited Disease N Breast Problem Y Gestational Diabetes N Hematologic disorders N Anesthesia Complications N History of STI N Deep Vein Thrombosis N Polycystic ovary syndrome N Anxiety Disorder Y Autoimmune disease Y Arthritis N Infertility N Polyps N Acid Reflux (GERD) Y History of abnormal pap N Cancer Y Stroke N Varicosities N Neurologic/Epilepsy N Endometriosis N High Cholesterol Y Headaches Y Fibromyalgia N Kidney Disease N Heart Problems Y Kidney or Bladder Problems N Thyroid Problems Y GI Problems N Eating Disorder N Anemia N Art (IVF or FET) N Psychiatric Illness N Ovarian Cancer N Diabetes N Pulmonary (TB, Asthma) N Hepatitis/Liver Disease N No Past Medical History N Eczema N Urinary Tract Infection N Abuse/Domestic Violence N Asthma N Trauma/Violence N Depression/ depression N Heart Disease Y Pre-Eclampsia N Hypertension Y Osteoporosis N Thrombophilias N Gynecological History Statement/Question Response Date of Last Mammogram 02/03/2024 Date of LMP 08/20/2011 N Was last menstrual period normal Y STIs/STDs N If Post Menopausal, Age at Menopause 55 Date of Last Colonoscopy 08/10/2024 N/A Desired Control Method Abstinence Abnormal Pap N On BCP's at Conception? N Colposcopy HPV Vaccine N Duration of Flow (days) 7 Current Control Method Menopause Age at First Child 31 Frequency of Cycle (Q days) 30 Sexually Active? N Menses Monthly N Date of DEXA bone scan 09/20/2019 Age of first menstrual cycle 13 Date of Last Pap Smear 03/24/2022 Sexual Problems? N LMP Approximate 09/20/2013 N Obstetrics History GPAL:G 2 P 1 0 1 1 Type Value Full Term 1 Induced 1 Living 1 Total 2 Past Encounters Encounter ID Performer Location Encounter Start Date Encounter Closed Date Diagnosis/Indication Diagnosis SNOMED-CT Code Diagnosis ICD10 Code Diagnosis Note [id number] ARCHANA Magallon [facility] [address] [address] 03/24/2022 12:02:15 03/24/2022 17:11:44 Gynecologic examination [id number] Z01.419 Take Calcium with Vitamin D 12-1500mg daily. Do monthly self breast exams. It is advised to get annual flu shot in the fall and she could obtain at [facility] or [facility] care clinic. If you haven't received the Tdap vaccine in the last 10 years you should obtain one as well. Have mammogram yearly, bone density every 2-3 years and colonoscop y every 5-10 years depending on findings and history. Engage in daily exercise of low impact aerobic exercise 45-60 minutes 4-5 times weekly. Avoid tobacco and illicit drugs as well as using moderation with alcohol intake less than 1-2 8 oz beverages daily. This lifestyle behavior pattern will lead to less health conditions and longer life span. If BMI greater than 25 weight watchers or dietary consult advised. Questions have been answered. Patient appears to understand instructio ns, but if you have any further questions call or respond to this email WWEMedical hx: Breast cancer, hypothyroi dism, mitral insufficie ncy, coronary artery disease, GERD, high cholestero l, HTNRight breast cancer, Right lumpectomy in 2010, radiation, tamoxifen therapy (completed in ) Upon completion of tamoxifen therapy had an episode of postmen bleeding, had D&C x 2 with benign pathology per patient. No vaginal bleeding since.Hx of ASCUS pap a few years agoLast pap 2019 - Normal per patientPap done today due to abnormal recent hxBreast exam with right breast lump vs fluid collection vs scar tissue. Patient states it has been like this since her procedure and it was thought to be a fluid collection . We discussed breast specialist referral for consult / assessment .-Her last breast imaging was on 06/20/2021 per patient, states breast have not changed since then. She would like to see specialist prior to obtaining new imaging.Елена Glover is getting her left breast implant removed in April with plastic surgery, we discussed having breast specialist consult prior to this procedureC olonoscopy UTDDexa in 2019 - managed by PCP, states osteopenia - taking calcium and vitamin D. Next Dexa in 1 year through PCP per patientRTC in 1 year for WWE or sooner if needed BP 140/81, no symptoms. To f/u with PCP about BP, red flag symptoms discussed Personal h istory of primary malignant neoplasm of breast [id number] Z85.3 [id number] ARCHANA Magallon Hurley [address] [address] 07/05/2023 12:01:59 07/05/2023 14:42:13 Gynecologic examination [id number] Z01.419 WWEpostmen opausalno pap needed todayhx of breast CA : mammogram UTD, due next 4dex a UTD/manage d by PCPcolonos copy UTD/manage d by PCPUTD with routine labs Take Calcium with Vitamin D daily.Do monthly self breast exams.It is advised to get annual flu shot in the fall and she could obtain at [facility] or [facility] care clinic. If you haven't received the Tdap vaccine in the last 10 years you should obtain one as well.Have mammogram yearly, bone density every 2-3 years and colonoscop y every 5-10 years depending on findings and history.En kandis in daily exercise of low impact aerobic exercise 45-60 minutes 4-5 times weekly. Avoid tobacco and illicit drugs as well as using moderation with alcohol intake less than 1-2 8 oz beverages daily. This lifestyle behavior pattern will lead to less health conditions and longer life span. If BMI greater than 25 weight watchers or dietary consult advised.Qu estions have been answered. Patient appears to understand instructio ns, but if you have any further questions call or respond to this email Candidiasis of skin 8582 [id number] B37.2 rx sent, keep area clean/dryI f no improvemen t RTC for further evaluation [id number] ARCHANA Magallon Hurley [address] [address] 03/03/2024 09:32:44 03/03/2024 10:22:06 Candidiasis of skin [id number] B37.2 rx sent for nystatin-t riamcinolo ne ointmentke ep area clean/drya void scented soaps/prod ucts, free and clear laundry products, avoid tigh/restr ictive clothing, cotton underwear only, sleep with no underwearR TC if symptoms persist Time spent in visit is a total of 20 mins with at least 50% of visit consisting of counseling and review of plan of care. [id number] ARCHANA Magallon Hurley [address] [address] 08/16/2024 11:48:46 08/16/2024 12:27:02 Gynecologic examination [id number] Z01.419 WWEpostmen opausalPap - updated per pt requestSTI screen - declinedMa mmogram - order given, due next 5Colo n cancer screening - UTDDexa - UTD/PCPRou bassem labs - UTD/PCPRTC in 1 yr or sooner if needed Do monthly self breast exams.It is advised to get annual flu shot in the fall and she could obtain at local pharmacy. If you haven't received the Tdap vaccine in the last 10 years you should obtain one as well.Have mammogram yearly, bone density every 2-3 years and stay up to date on colon cancer screening. Engage in regular exercise. Avoid tobacco and illicit drugs. This lifestyle behavior pattern will lead to less health conditions and longer life span. If BMI greater than 25 dietary consult advised.Qu estions have been answered. Health Concerns Section Related Observation LastModified by Organization Detai ls LastModified Time None Recorded Concern Status LastModified by Organization Details LastModified Time None Recorded Advance Directives Directive N: Payers Encounter Date Sequence Insurance Name Policy Number Policy Johnson Covered Member ID Johnson Member ID Guarantor Name 03/24/2022 1 [employer] [facility] (MEDICARE REPLACEMENT HMO) [id number] Edith Joyner [id number] Edith Joyner 07/05/2023 1 [employer] [facility] (MEDICARE REPLACEMENT HMO) [id number] Edith Joyner [id number] Edith Joyner 03/03/2024 1 [employer] [facility] (MEDICARE REPLACEMENT HMO) [id number] Edith Joyner [id number] Edith Anya 08/16/2024 1 [employer] (MEDICARE REPLACEMENT O) [id number] Edith Resendez Anya [id number] Edith Anya Notes Date Note Type Note Provider Name and Address Organization Details Recorded Time 2 text/html Annual Spare Hand Post-MenopausalReported bypatient.Menopausal Symptoms:no menopausal symptoms; normal vaginal lubrication Vaginal Bleeding:history of menopause having occurred; no history of post menopausal bleeding Urinary Symptoms:no hematuria; no incontinence; no nocturia; no urinary frequency Vulva:no genital lesion; no vulvar atrophy Vagina:normal vaginal discharge; no vaginal atrophy Breast:no breast lump; no nipple discharge; no breast pain Sexual Complaints:no sexual complaints Psychological Symptoms:no depression; no anxiety Preventive Measures:encourage regular mammograms starting age 40; encourage self breast examination; encourage regular exercise; encourage no tobacco use ARCHANA Magallon [address], [place], [address], [facility] 03/24/2022 14:08:31 3 text/html Annual Spare Hand Post-MenopausalReported bypatient.Menopausal Symptoms:no menopausal symptoms; normal vaginal lubrication Vaginal Bleeding:history of menopause having occurred; no history of post menopausal bleeding Urinary Symptoms:no hematuria; no incontinence; no nocturia; no urinary frequency Vulva:no genital lesion; no vulvar atrophy Vagina:normal vaginal discharge; no vaginal atrophy Breast:no breast lump; no nipple discharge; no breast pain; yeast rash under breast, red/itchy (also happens under pannus Sexual Complaints:no sexual complaints Psychological Symptoms:no depression; no anxiety Preventive Measures:encourage regular mammograms starting age 40; encourage self breast examination; encourage regular exercise; encourage no tobacco use; mammogram performed within the past yearNotes:Medical hx: Breast cancer, hypothyroidism, mitral insufficiency, coronary artery disease, GERD, high cholesterol, HTNRight breast cancer, Right lumpectomy in 2010, radiation, tamoxifen therapy (completed in )Upon completion of tamoxifen therapy had an episode of postmen bleeding, had D&C x 2 with benign pathology per patient. No vaginal bleeding since. [address], [place], [address], [facility] 07/05/2023 14:41:51 4 text/html 68yopresents for irritation in bilateral inner thigh creasesymptoms come and go for the past year, worse when hot outsideirritated and itchy at timessymptoms do not extend to vulva or vagina neg d/c, odors, pelvic painneg n/v/fneg flu-like symptomsneg lesions Medical hx: Breast cancer, hypothyroidism, mitral insufficiency, coronary artery disease, GERD, high cholesterol, HTN ARCHANA Magallon [address], [place], [address], [facility] 03/03/2024 10:21:31 4 text/html Annual Spare Hand Post-MenopausalReported bypatient.Menopausal Symptoms:no menopausal symptoms; normal vaginal lubrication Vaginal Bleeding:history of menopause having occurred; no history of post menopausal bleeding Urinary Symptoms:no hematuria; no incontinence; no nocturia; no urinary frequency Vulva:no genital lesion; no vulvar atrophy Vagina:normal vaginal discharge; no vaginal atrophy Breast:no breast lump; no nipple discharge; no breast pain Sexual Complaints:no sexual complaints Psychological Symptoms:no depression; no anxiety Preventive Measures:encourage regular mammograms starting age 40; encourage self breast examination; encourage regular exercise; encourage no tobacco use; mammogram performed within the past year; history of recent colonoscopyNotes:69yo wwepostmenopausallast pap 2021 - normalmammogram UTD 4colonoscopy UTD exa UTD 2022 PCP Medical hx: Breast cancer, hypothyroidism, mitral insufficiency, coronary artery disease, GERD, high cholesterol, HTNRight breast cancer, Right lumpectomy in 2010, radiation, tamoxifen therapy (completed in )Upon completion of tamoxifen therapy had an episode of postmen bleeding, had D&C x 2 with benign pathology per patient. No vaginal bleeding since. ARCHANA Magallon [address], [place], [address], [facility] 08/16/2024 12:23:58 OBGyn Episode Ob Episode Information Episode Created Date Number of Fetuses Patient Bloodtype Patient rh Status Prepregnancy Weight lbs Domestic Partner Domestic Partner Phone Father Name Cat Wagon Operator Status 07/05/20 23 1 CLOSED Fetus Data First Name Last Name Admitted to NICU Weight (g) Sex Living Outcome Pediatric Complications Fetus ID Race Codes Race Delivery Type 3401.94 M Full Term [id number] Vaginal Delivery Ben Calculation Initial Ben Date Initial Exam Date Initial Exam Provider Initial Ultrasound Date Last Menstrual Period Date Ultra Sound Weeks Gestation 0 Eighteen To Twenty Week Ben Update Ultra Sound Date Fundal Height At Umbil Quickening Date Ultra Sound Latest Weeks Gestation Final Ben Confirmed By Final Ben Confirmed Date Final Ben Date Ultra Sound Latest Days Gestation 0 0 Menstrual History Last Menstrual Date Menses Monthly On Bcp Conception Prior Menses Frequency Hcg Plus Date Menarche Onset Age Delivery Information Delivery Date Delivery Type Labor Anesthesia Weeks Gestation Incision Type Labor Labor Length Hrs Delivered By Post Complications Tubal Sterilization Discharge Date Comments 7 Discharge Information Feeding Method Contraceptive Method Maternal HG B and HCT Levels Ob Episode Information Episode Created Date Number of Fetuses Patient Bloodtype Patient rh Status Prepregnancy Weight lbs Domestic Partner Domestic Partner Phone Father Name Cat Wagon Operator Status 07/05/20 23 1 CLOSED Fetus Data First Name Last Name Admitted to NICU Weight (g) Sex Living Outcome Pediatric Complications Fetus ID Race Codes Race Delivery Type , Induced [id number] Ben Calculation Initial Ben Date Initial Exam Date Initial Exam Provider Initial Ultrasound Date Last Menstrual Period Date Ultra Sound Weeks Gestation 0 Eighteen To Twenty Week Ben Update Ultra Sound Date Fundal Height At Umbil Quickening Date Ultra Sound Latest Weeks Gestation Final Ben Confirmed By Final Ben Confirmed Date Final Ben Date Ultra Sound Latest Days Gestation 0 0 Menstrual History Last Menstrual Date Menses Monthly On Bcp Conception Prior Menses Frequency Hcg Plus Date Menarche Onset Age Delivery Information Delivery Date Delivery Type Labor Anesthesia Weeks Gestation Incision Type Labor Labor Length Hrs Delivered By Post Complications Tubal Sterilization Discharge Date Comments 9 Discharge Information Feeding Method Contraceptive Method Maternal HG B and HCT Levels
--- OUTSIDE RECORDS SUMMARY | 2024-10-12 08:39 | XMS_ITS | Referral Summary ---
Author Organization [facility] Address [address] 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 This disclosure is being madepursuant to the Care Everywhere program and may not contain all information available regarding this patient. Last updated 18.[facility] [employer] [place] Social History Tobacco Use Types Packs/Day Years Used Date Smoking Tobacco: Never Assessed Sex and Gender Information Value Date Recorded Sex Assigned at Not on file Gender Identity Not on file Sexual Orientation Not on file Plan of Treatment Not on file
--- OUTSIDE RECORDS SUMMARY | 2024-10-12 08:39 | XMS_ITS | Referral Summary ---
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 Gender Identity Not on file Sexual Orientation Not on file Last Filed Vital Signs Vital Sign Reading Time Taken Comments Blood Pressure 126/74 03/19/2021 10:04 AM CDT Pulse 51 06/30/2018 9:47 AM CDT Temperature 35.9 ??C (96.7 ??F) 06/30/2018 9:10 AM C DT Respiratory Rate 14 06/30/2018 9:47 AM CDT Oxygen Saturation 99% 06/30/2018 9:47 AM CDT Inhaled Oxygen Concentration - - Weight 78.5 kg (173 lb) 03/19/2021 10:04 AM CDT Height 153.7 cm (5' 0.5 ) 03/19/2021 10:04 AM CD T Body Mass Index 33.23 03/19/2021 10:04 AM CDT Plan of Treatment Not on file Insurance [employer] Care Teams Field Naturalist Relationship Specialty [place] [id number] [address] [facility] [address] [place] [address] PCP - General Family Medicine 06/01/18
--- OUTSIDE RECORDS SUMMARY | 2024-10-12 08:39 | XMS_ITS | Continuity of Care Document ---
Author Organization [facility] Address [address] [place] [address] Phone Care Team Providers Care Outside Sales Engineer Name Role Phone Harsha Fay MD Unavailable Unavailable Allergies, Adverse Reactions, Alerts Substance Reaction Status Criticality codeine Active No Information morphine Active No Information PENICILLIN Active No Information Medications Medication Instructions Dosage Effective Dates (start - stop) Status Comments PROPRANOLOL 10 MG TABLET TAKE 1 TABLET BY MOUTH EVERY DAY - Active LEVOTHYROXINE 25 MCG TABLET TAKE 1 TABLET BY MOUTH EVERY DAY - Active meloxicam 15 mg tablet take 1 tablet by oral route every day 15 MG - Active MIRTAZAPINE 15 MG TABLET TAKE 1 TABLET BY MOUTH EVERY DAY BEFORE BEDTIME - Active SIMVASTATIN 5 MG TABLET TAKE 1 TABLET BY MOUTH EVERY DAY IN THE EVENING - Active Calcium 500 + D 500 mg (1,250 mg)-400 unit tablet 1 tablet twice a day - Active FIBER GUMMIES (unknown strength) 2 BID Not Available - Active Procedures Procedure Date X-RAY EXAM OF SHOULDER, COMPLETE 2020 Admin influenza virus vac FLU VACC PRSV FREE INC ANTIG OFFICE [id number] BODY MASS INDEX DOCD SYST BP >= 140 MM HG6 IT DIAST BP >= 90 MM HG Kept Appointment No Charge Encounter Jun SCREENING MAMMOGRAM (CAD) HEPATIC FUNCTION PANEL(LFT, LIVER) May- LIPID PANEL ROUTINE VENIPUNCTURE FALL RISK ASSESSMENT DOC'D PRES/ABSN URINE INCON ASSESS Pt inelig neg scrn depres OFFICE [id number] BODY MASS INDEX DOCD SYST BP LT 130 MM HG DIAST BP 80-89 MM HG CBC, INC PLATELETS AND DIFFERENTIAL COMPREHEN METABOLIC PANEL CMP 1 LIPID PANEL THYROID STIMULATION HORMONE(TSH) 2020 ROUTINE VENIPUNCTURE Admin influenza virus vac FLU VAC NO PRSV 4 MIKA, 0.5mL DOSAGE SYST BP LT 130 MM HG DIAST BP < 80 MM HG OFFICE [id number] Additional supplies, materials, & Clinic al Staff Time During A PHE BODY MASS INDEX DOCD SCREENING MAMMOGRAM (CAD) COMPREHEN METABOLIC PANEL CMP 0 LIPID PANEL THYROID STIMULATION HORMONE(TSH) 2019 ROUTINE VENIPUNCTURE FALL RISK ASSESSMENT DOC'D PRES/ABSN URINE INCON ASSESS Pt inelig neg scrn depres OFFICE [id number] BODY MASS INDEX DOCD SYST BP LT 130 MM HG DIAST BP < 80 MM HG LIPID PANEL ROUTINE VENIPUNCTURE COMPREHEN METABOLIC PANEL CMP 9 LIPID PANEL THYROID STIMULATION HORMONE(TSH) 2018 ROUTINE VENIPUNCTURE OFFICE [id number] BODY MASS INDEX DOCD SYST BP LT 130 MM HG DIAST BP < 80 MM HG Admin influenza virus vac FLU VACC PRSV FREE INC ANTIG SCREENING MAMMOGRAM (CAD) FALL PLAN OF CARE DOC'D URINE INCON PLAN DOC'D PRES/ABSN URINE INCON ASSESS Pt inelig neg scrn depres OFFICE [id number] BODY MASS INDEX DOCD SYST BP LT 130 MM HG DIAST BP 80-89 MM HG OFFICE [id number] BODY MASS INDEX DOCD SYST BP LT 130 MM HG DIAST BP < 80 MM HG OFFICE [id number] BODY MASS INDEX DOCD SYST BP LT 130 MM HG DIAST BP < 80 MM HG Advance Directives Directive Yes / No Effective Date File Name No Information Encounters Encounter Description Practice Location Reason(s) For Visit Diagnoses Date Provider Providers Copied on Encounter [facility], [id number] [place] [address], [id number] , tel: [phone] [facility] No Information 2 Sumeet Harsha. [address], [id number] , . tel: [phone] [facility], [address] [place] [address], [id number] , tel: [phone] [facility] No Information 2 Sumeet Harsha. [address], [id number] , [place]. tel: [phone] [facility], [id number] [place] [address], [id number] , tel: [phone] [facility] No Information 2 Sumeet Harsha. [address], [id number] , . tel: [phone] [facility], [address], [place], [place], [address] , [place] tel: [phone] [facility] Pain in left shoulder 1 John Valentina. [address] [place] [address], [address], [id number] , [place]. tel: [phone] Referring Provider: Valentina Lopez, [address] [place] [address], [address] . tel:[phone] OFFICE HOUAL-PAD-HA PANDED [facility], [address], [place], [place], [address] , [place] tel: [phone] [facility] Acute (chief complaint) Acute pain of left shoulderBody mass index [BMI] 31.0-31.9, adult 1 John Montgomery. [address] [place] [address], [address], [id number] , [place]. tel: [phone] Referring Provider: Harsha Fabian, [address] [place] [address], [address] . tel:[phone] [facility], [address], [place], [place], [address] , [place] tel: [phone] [facility] Acute cough 1 Sumeet Mcleod. [address] [place] [address], [address], [id number] , [place]. tel: [phone] Referring Provider: Harsha Fabian, [address] [place] [address], [address] . tel:[phone] [facility], [address], [place], [place], [address] , [place] tel: [phone] [facility] No Information 1 Veronica Ann [address] [place], [place], [id number] , [place]. tel: [phone] Referring Provider: Harsha Fabian, [address] [place] [address], [address] . tel:[phone] [facility], [address], [place], [place], [id number] , tel: [phone] [facility] Mixed hyperlipidemia 1 Sumeet Irving [address] [place] [address], [id number] , . tel: [phone] Referring Provider: Harsha Fabian, [address] [place] [address], [address] . tel:[phone] [facility], [address], [place], [place], [address] , tel: [phone] [facility] No Information 1 Sumeet Irving [address] [place] [address], [id number] , . tel: [phone] OFFICE PDOLN-VMU-JS TAILED [facility], [address], [place], [place], [address] , tel: [phone] [facility] med management (chief complaint) Body mass index (BMI) 32.0-32.9, adultMixed hyperlipidemiaEsse ntial (primary) hypertensionModera te major depressionChronic insomniaGAD (generalized anxiety disorder)Nonrheuma tic mitral (valve) insufficiencyObesi ty (BMI 30-39.9)Multinodul ar goiterGERD without esophagitisAdult hypothyroidism 1 Sumeet Irving [address] [place] [address], [id number] , . tel: [phone] Referring Provider: Harsha Fabian, [address] [place] [address], [address] . tel:[phone] [facility], [address] [place] [address], [id number] , tel: [phone] [facility] Hypothyroidism, unspecified 1 Sumeet Irving [address] [place] [address], [id number] , . tel: [phone] Referring Provider: Harsha Fabian, [address] [place] [address], [address] . tel:[phone] [facility], [address] [place] [address], [id number] , tel: [phone] [facility] No Information 1 Sumeet Mcleod. [address] [place] [address], [id number] , . tel: [phone] OFFICE DJPNB-JKJ-[facility], [address] [facility], [place], [place], [address] , tel: [phone] [facility] med management (chief complaint) Essential (primary) hypertensionModera te major depressionAdult hypothyroidismGERD without esophagitisObesity (BMI 30.0-34.9)Mixed hyperlipidemia 0 Sumeet Mcleod. [address] [place] [address], [id number] , [place]. tel: [phone] Referring Provider: Harsha Fabian, [address] [place] [address], [address] . tel:[phone] [facility], [address] [place] [address], [id number] , tel: [phone] [facility] No Information 0 Dionte Vargas [address], [place], [place], [address] , [place]. tel: [phone] Referring Provider: Harsha Fabian, [address] [place] [address], [address] . tel:[phone] [facility], [address] [facility], [place], [place], [address] , tel: [phone] [facility] Eye exam, routine 0 Sumeet Mcleod. [address] [place] [address], [id number] , [place]. tel: [phone] [facility], [address], [place], [place], [address] , tel: [phone] [facility] Mixed hyperlipidemia Justin-0 4-202 0 Sumeet Mcleod. [address] [facility], [address], [id number] , . tel: [phone] Referring Provider: Harsha Fabian, [address] [place] [address], [address] . tel:[phone] OFFICE UJDMK-VPP-[facility], [address], [place], [place], [address] , tel: [phone] [facility] med management (chief complaint) Body mass index (BMI) 31.0-31.9, adultGAD (generalized anxiety disorder)GERD without esophagitisAdult hypothyroidismMode rate major depressionMultinod ular goiterMixed hyperlipidemiaEsse ntial (primary) hypertensionChroni c insomniaObesity (BMI 30.0-34.9) January- 8-202 0 Sumeet Mcleod. [address] [place] [address], [address], [id number] , . tel: [phone] Referring Provider: Harsha Fabian, [address] [place] [address], [address] . tel:[phone] [facility], [address], [place], [place], [address] , tel: [phone] [facility] Mixed hyperlipidemia Mar-0 6-202 0 Sumeet Mcleod. [address] [facility], [address], [id number] , . tel: [phone] Referring Provider: Harsha Fabian, [address] [place] [address], [address] . tel:[phone] [facility], [address], [place], [place], [address] , tel: [phone] [facility] Mixed hypercholesterolem ia and hypertriglyceridem ia 9 Sumeet Aldridgen. [address] [place] [address], [address], [id number] , [place]. tel: [phone] [facility], [address], [place], [place], [address] , tel: [phone] [facility] Essential (primary) hypertensionMixed hyperlipidemiaGene ralized anxiety disorder 9 Sumeet Aldridgen. [address] [place] [address], [address], [id number] , [place]. tel: [phone] Referring Provider: Harsha Fabian, [address] [place] [address], [address] . tel:[phone] OFFICE OLGCT[facility]WDX[facility], [address] [place] [address], [id number] , tel: [phone] [facility] med management (chief complaint) Essential hypertensionMixed hypercholesterolem ia and hypertriglyceridem iaAdult hypothyroidismGAD (generalized anxiety disorder)Moderate major depressionGERD without esophagitisBody mass index (BMI) 32.0-32.9, adult 9 Sumeet Aldridgen. [address] [facility], [address], [id number] , [place]. tel: [phone] Referring Provider: Harsha Fabian, [address] [place] [address], [address] . tel:[phone] [facility], [address], [place], [place], [address] , tel: [phone] [facility] No Information 9 Sumeet Harsha. [address] [place] [address], [address], [id number] , . tel: [phone] Referring Provider: Harsha Fabian, [address] [place] [address], [address] . tel:[phone] [facility], [address], [place], [place], [address] , tel: [phone] [facility] No Information Veronica Ann [address] [place], [place], [id number] , . tel: [phone] Referring Provider: Harsha Fabian, [address] [place] [address], [address] . tel:[phone] [facility], [address], [place], [place], [address] , [place] tel: [phone] [facility] med management (chief complaint) Body mass index (BMI) 32.0-32.9, adultGAD (generalized anxiety disorder)Chronic insomniaEssential hypertensionMixed hypercholesterolem ia and hypertriglyceridem iaAdult hypothyroidismObes ity (BMI 30.0-34.9) Sumeet Mcleod. [address] [place] [address], [address], [id number] , . tel: [phone] Referring Provider: Harsha Fabian, [address] [place] [address], [address] . tel:[phone] OFFICE [facility], [address] [facility], [place], [place], [address] , tel: [phone] [facility] med management (chief complaint) Body mass index (BMI) 31.0-31.9, adultGAD (generalized anxiety disorder)Obesity (BMI 30.0-34.9)Right foot pain Sumeet Mcleod. [address] [place] [address], [address], [id number] , . tel: [phone] Referring Provider: Harsha Fabian, [address] [place] [address], [address] . tel:[phone] OFFICE [facility], [address], [place], [place], [address] , tel: [phone] [facility] med management (chief complaint) Body mass index (BMI) 31.0-31.9, adultMixed hypercholesterolem ia and hypertriglyceridem iaModerate major depressionEssentia l hypertensionAdult hypothyroidismGAD (generalized anxiety disorder)Chronic insomniaObesity (BMI 30.0-34.9)Multinod ular goiter 9 Sumeet Mcleod. [address] [facility], [address], [id number] , . tel: [phone] Referring Provider: Harsha Fabian, [address] [place] [address], [address] . tel:[phone] [facility], [address], [place], [place], [address] , tel: [phone] [facility] Urinary frequency 9 Sumeet Mcleod. [address] [place] [address], [address], [id number] , . tel: [phone] Referring Provider: Harsha Fabian, [address] [place] [address], [address] . tel:[phone] [facility], [address], [place], [place], [address] , tel: [phone] [facility] Nonrheumatic mitral (valve) insufficiency 9 Sumeet Irving [address] [place] [address], [address], [id number] , [place]. tel: [phone] [facility], [address], [place], [place], [address] , tel: [phone] [facility] Other hypertrophic disorders of the skin 9 Sumeet Mcleod. [address] [facility], [address], [id number] , . tel: [phone] Referring Provider: Harsha Fabian, [address] [place] [address], [address] . tel:[phone] [facility], [address], [place], [place], [address] , tel: [phone] [facility] Adult hypothyroidismEsse ntial hypertensionMixed hypercholesterolem ia and hypertriglyceridem iaBreast pain, leftGERD without esophagitisGAD (generalized anxiety disorder) 4 9 Sumeet Mcleod. [address] [facility], [address], [id number] , [place]. tel: [phone] Referring Provider: Harsha Fabian, [address] [place] [address], [address] . tel:[phone] [facility], [address], [place], [place], [address] , tel: [phone] [facility] Left eye pain Aug- 9- 8 Sumeet Mcleod. [address] [facility], [address], [id number] , [place]. tel: [phone] [facility], [address], [place], [place], [address] , [place] tel: [phone] [facility] Other vitreous opacities, left eye Aug-1 3-201 8 Demarco Chapman. [address] [facility], [address], [id number] , [place]. tel: [phone] [facility], [address], [place], [place], [address] , [place] tel: [phone] [facility] Other vitreous opacities, left eye Dec-0 7-201 8 Sumeet Harsha. [address] [facility], [address], [id number] , [place]. tel: [phone] [facility], [address], [place], [place], [address] , tel: [phone] [facility] Mixed hypercholesterolem ia and hypertriglyceridem iaEssential hypertensionAdult hypothyroidismVitr eous floaters of left eyeSkin tagMucinous cystadenoma Dec-0 6-201 8 Sumeet Aldridgen. [address] [facility], [address], [id number] , [place]. tel: [phone] Referring Provider: Harsha Fabian, [address] [place] [address], [address] . tel:[phone] [facility], [address], [place], [place], [address] , [place] tel: [phone] [facility] Submucous leiomyoma of uterus 8 Sumeet Aldridgen. [address] [facility], [address], [id number] , [place]. tel: [phone] [facility], [address], [place], [place], [address] , [place] tel: [phone] [facility] Uterine leiomyoma, unspecified location 8 Sumeet Aldridgen. [address] [facility], [address], [id number] , [place]. tel: [phone] [facility], [address], [place], [place], [address] , [place] tel: [phone] [facility] Essential hypertensionMixed hypercholesterolem ia and hypertriglyceridem iaAdult hypothyroidismAnnu al physical exam May- 8 Sumeet Aldridgen. [address] [facility], [address], [id number] , [place]. tel: [phone] Referring Provider: Harsha Fabian, [address] [place] [address], [address] . tel:[phone] [facility], [address], [place], [place], [address] , [place] tel: [phone] [facility] Encntr for general adult medical exam w/o abnormal findingsHypothyroi dism, unspecifiedMixed hyperlipidemia May- 8 Sumeet Aldridgen. [address] [facility], [address], [id number] , [place]. tel: [phone] Referring Provider: Harsha Fabian, [address] [place] [address], [address] . tel:[phone] [facility], [address], [place], [place], [address] , tel: [phone] [facility] Annual physical examAdult hypothyroidismMixe d hypercholesterolem ia and hypertriglyceridem iaGAD (generalized anxiety disorder)Multinodu lar thyroidEncntr screen mammogram for malignant neoplasm of breastEssential hypertensionBody mass index (BMI) 30.0-30.9, adultObesity (BMI 30.0-34.9) 8 Sumeet Mcleod. [address] [place] [address], [address], [id number] , . tel: [phone] Referring Provider: Harsha Fabian, [address] [place] [address], [address] . tel:[phone] [facility], [address] [facility], [place], [place], [address] , tel: [phone] [facility] Screening for osteoporosis 8 Sumeet Mcleod. [address] [place] [address], [address], [id number] , . tel: [phone] [facility], [address], [place], [place], [address] , tel: [phone] [facility] Body mass index (BMI) 29.0-29.9, adultAdult hypothyroidismGAD (generalized anxiety disorder)Mixed hypercholesterolem ia and hypertriglyceridem iaRefused influenza vaccine 8 Sumeet Mcleod. [address] [place] [address], [address], [id number] , . tel: [phone] Referring Provider: Harsha Fabian, [address] [place] [address], [address] . tel:[phone] [facility], [address] [facility], [place], [place], [address] , tel: [phone] [facility] JOINT PAIN-ANKLE 200 6 Mena Darling. [address], [place], [place], [address] . tel: [phone] Family History Family Member Type Diagnosis Age At Onset Mother Problem (finding) hypercholesterolemia Mother Problem (finding) osteoarthritis Immunizations Vaccine Date Status Comments Fluzone High-Dose, high dose , preservative free administered Source: New Immuniza tion Record Moderna COVID19 Vaccine, 0.5 mL per dose, 2 doses, administered 28 days apart administered Note: Josselint ; Scout ce: Other Registry Moderna COVID19 Vaccine, 0.5 mL per dose, 2 doses, administered 28 days apart administered Source: Other Regist ry Fluzone Quad, preservative free, split virus, 0.5mL dosage administered Source: New Immunization Record pneumococcal polysaccharide vaccine, 23 valent administered Source: Source Unspe cified Fluzone High-Dose, high dose , preservative free administered Source: New Immuniza tion Record Pneumococcal conjugate PCV 13 administere d Source: New Immunization Record Tdap administered Source: Source Unspecified Pneumococcal conjugate PCV 13 pending Source: New Immunization Record Payers Payer name Insurance type Covered democrat ID Authoriza tion(s) [employer] MB [id number] [employer] [place] [id number] [employer] MB [id number] [employer] MB [id number] [employer] MB [id number] [employer] MB [id number] Social History Type Description Quantity Date Captured Comments Sex Female Smoking Status No Information Gender Identity Female Chief Complaint And Reason For Visit No Information Reason For Referral Reason For Referral No Information Plan Of Treatment Date Type Action Status Goal Dietary manageme nt education, guidance, and counseling completed Goal Dietary manageme nt education, guidance, and counseling completed Goal Dietary manageme nt education, guidance, and counseling completed Goal Dietary manageme nt education, guidance, and counseling completed Goal Dietary manageme nt education, guidance, and counseling completed Goal Dietary manageme nt education, guidance, and counseling completed Goal Dietary manageme nt education, guidance, and counseling completed Referral Ordered: X-RAY EXAM OF SHOULDER, COMPLETE, MIN 2 VIEWS Left ordered Referral Ordered: Sharmaine Ellison OD -Ophthalmology (related to Eye exam, routine) ordered Referral [place]: [place] [address] [place], [phone] Ordered: Referrals: Ophthalmology. Sharmaine Ellison OD. Evaluation/diagnostic/treatment - Level 3 Appointment date/timeframe: 03/22/2020 ordered Unknown Immunization Pneumococcal conjugate PCV 1 3 ordered Future Order: Lab Order TSH - Th yroid Stimulating Hormone ([id number]), Collected on: , Sent on: Sent Future Order: Lab Order Comprehe nsive Metabolic (CMP) ([id number]), Collected on: , Sent on: Sent Future Order: Lab Order Lipid Pa ranjeet ([id number]), Collected on: , Sent on: Sent Future Order: Lab Order CBC AUTO DIFF ([id number]), Collected on: , Sent on: Sent Future Order: Lab Order Free T4 (FT4) ([id number]), Collected on: , Sent on: Sent History Of Present Illness Encounter Date Complaint History Of Prese nt Illness Acute 66 y/o F here w/ concern of left shoulder painPatient c/o left shoulder pain progressively worsening. Denies injury. Rates pain0/10 at rest but w/ rotation of shoulder rates 9/10. She has tried topical arthritic cream and ibuprofen w/ minimal relief. She also has tried heat - feels good while heat is applied but does not resolve pain. med management Here for follow up on chronic medical conditions. Recent BW results reviewed and discussed with patient. All questions answered to patient's satisfaction.Mixed hyperlipidemiaCholesterol remains high - willing to start statin - start on 5 mg Simvastatin dailyEssential (primary) hypertension Advised to continue current medications. Monitor BP regularly. Advised on DASH diet and regular exercises as natural ways to help lower blood pressure.Moderate major depression Exercise encouraged to release natural endorphins and increase energy.Medication/s as prescribed.YEIMI (generalized anxiety disorder) No recent flare up. Stable. Discussed relaxation techniques and patient verbalized understanding.Nonrheumatic mitral (valve) insufficiency AsxMultinodular goiter euthyroid based on previous blood work results. continue current replacement doseChronic insomniaStable with med useObesity I have discussed weight management with patient. I discussed goal BMI. advised on meal portioning, healthier eating habits, and regular aerobic exercise.GERD without esophagitis No recent flare up. Discussed avoidance of acidic and spicy foods. Avoid skipping meals. Verbalized understanding.Adult hypothyroidism euthyroid based on previous blood work results. continue current replacement dose med management Here for follow up on chronic medical conditions.Essential (primary) hypertension Blood pressure control should be less than 130/80 on most occasions. Monitoring is important to see trends. Advised logging BP.Low salt diet is very helpful along with regular cardiovascular exercises, adequate water intake and appropriate restful sleep as these have shown to naturally help decrease BP. Blood tests should be done at least once yearly to see effects of hypertension such as possible deterioration of kidney function as well as to monitor effects of medications.Good blood pressure control is needed to avoid and reduce potential end-organ damage.Patient verbalized understanding.Moderate major depression Exercise encouraged to release natural endorphins and increase energy.Medication/s as prescribed.Adult hypothyroidism euthyroid based on previous blood work results. continue current replacement doseGERD without esophagitis No recent flare up. Discussed avoidance of acidic and spicy foods. Avoid skipping meals. Verbalized understanding.Obesity I have discussed weight management with patient. I discussed goal BMI. advised on meal portioning, healthier eating habits, and regular aerobic exercise. med management Here for follow up on chronic medical conditions.YEIMI No recent flare up. Stable. Discussed relaxation techniques and patient verbalized understanding.GERD without esophagitis No recent flare up. Discussed avoidance of acidic and spicy foods. Avoid skipping meals. Verbalized understanding.Adult hypothyroidism euthyroid based on previous blood work results. continue current replacement doseModerate major depression Exercise encouraged to release natural endorphins and increase energy.Medication/s as prescribed.Multinodular goiternot palpableMixed hyperlipidemia Advised on hypercholesterolemia. Watch diet, stay active. Continue current treatment.Essential (primary) hypertension Blood pressure control should be less than 130/80 on most occasions. Monitoring is important to see trends. Advised logging BP.Low salt diet is very helpful along with regular cardiovascular exercises, adequate water intake and appropriate restful sleep as these have shown to naturally help decrease BP. Blood tests should be done at least once yearly to see effects of hypertension such as possible deterioration of kidney function as well as to monitor effects of medications.Good blood pressure control is needed to avoid and reduce potential end-organ damage.Patient verbalized understanding.Chronic insomnia Patient is stable with current med, denies ill effects, reports good compliance. Occasionally can't sleep and advised can double up on Remeron. Will call with updatesObesity I have discussed weight management with patient. I discussed goal BMI. advised on meal portioning, healthier eating habits, and regular aerobic exercise. med management Here for follow up on chronic medical conditions.Essential hypertension Blood pressure control should be less than 130/80 on most occasions. Monitoring is important to see trends. Advised logging BP.Low salt diet is very helpful along with regular cardiovascular exercises, adequate water intake and appropriate restful sleep as these have shown to naturally help decrease BP. Blood tests should be done at least once yearly to see effects of hypertension such as possible deterioration of kidney function as well as to monitor effects of medications.Good blood pressure control is needed to avoid and reduce potential end-organ damage.Patient verbalized understanding.Mixed hypercholesterolemia Advised on hypercholesterolemia. Watch diet, stay active. Continue current treatment.Adult hypothyroidism euthyroid based on previous blood work results. continue current replacement doseGAD (generalized anxiety disorder) No recent flare up. Stable. Discussed relaxation techniques and patient verbalized understanding.Moderate major depression Exercise encouraged to release natural endorphins and increase energy.GERD GERD or acid reflux can be best treated by eating small meals throughout the day. Acid reflux medications can also help suppress some of the symptoms. Recommendations have been to keep the head of bed elevated at nighttime to prevent nighttime symptoms, and try to avoid acidic, spicy, greasy and heavy meals. med management Here for follow up on chronic medical conditions.YEIMI (generalized anxiety disorder) better with med useChronic insomnia stable with current med, denies ill effects, reports complianceEssential hypertension Advised to continue current medications. Monitor BP regularly. Advised on DASH diet and regular exercises as natural ways to help lower blood pressure.Mixed hypercholesterolemia Advised on hypercholesterolemia. Watch diet, stay active. Continue current treatment.Adult hypothyroidism euthyroid based on previous blood work results. continue current replacement doseObesity I have discussed weight management with patient. I discussed goal BMI. advised on meal portioning, healthier eating habits, and regular aerobic exercise. med management Here for follow up on chronic medical conditions.She never really started Remeron due to fear of listed side effects. Discussed at length - she will try and call with updates. Nothing much has changed with regards to her anxiety and insomnia as she did not use med.Also reports right foot pain, denies any injury or trauma med management Here for follow up on chronic medical conditions.Moderate major depression under a lot od stress lately, getting depressedWill start RX, discussed and verbalized understandingChronic insomniaunable to sleep due to mind constantly racingWill start RX, discussed and verbalized understandingMixed hypercholesterolemia Advised on hypercholesterolemia. Watch diet, stay active. Continue current treatment.Essential hypertension Advised to continue current medications. Monitor BP regularly. Advised on DASH diet and regular exercises as natural ways to help lower blood pressure.Adult hypothyroidism euthyroid based on previous blood work results. continue current replacement doseGAD (generalized anxiety disorder) no recent flare up. on meds, stable. discussed relaxation techniquesObesity I have discussed weight management with patient. I discussed goal BMI. advised on meal portioning, healthier eating habits, and regular aerobic exercise.Multinodular goiterasx, euthyroid Functional Status Date Functional Assessmen t No Information Instructions Date Instruction Additional Infor russell XR todayMeloxicam 15 mg daily x 2 weeksHeat/iceNotify if no improvement in 2 weeks Related to Acute pain of left shoulder Dietary management e ducation, guidance, and counseling Related to Body mass index (BMI) 31.0-31.9, adult Body Mass index disc ussed. Explained current BMI and goal BMI and ways to reach goal Related to Body mass index (BMI) 32.0-32.9, adult euthyroid based on p revious blood work results. continue current replacement dose Related to Adult hypothyroidism No recent flare up. Discussed avoidance of acidic and spicy foods. Avoid skipping meals. Verbalized understanding. Related to GERD without esophagitis Exercise encouraged to release natural endorphins and increase energy.Medication/s as prescribed. Related to Moderate major depression No recent flare up. Stable. Discussed relaxation techniques and patient verbalized understanding. Related to YEIMI (generalized anxiety disorder) I have discussed caitlyn ght management with patient. I discussed goal BMI. advised on meal portioning, healthier eating habits, and regular aerobic exercise. Related to Obesity (BMI 30-39.9) Stable with med use Related to C hronic insomnia euthyroid based on p revious blood work results. continue current replacement dose Related to Multinodular goiter Asx Related to Nonrh eumatic mitral (valve) insufficiency Advised to continue current medications. Monitor BP regularly. Advised on DASH diet and regular exercises as natural ways to help lower blood pressure. Related to Essential (primary) hypertension Cholesterol remains high - willing to start statin - start on 5 mg Simvastatin daily Related to Mixed hyperlipidemia Prescribed activity/ exercise education Related to Body mass index (BMI) 32.0-32.9, adult Dietary management e ducation, guidance, and counseling Related to Body mass index (BMI) 32.0-32.9, adult No recent flare up. Discussed avoidance of acidic and spicy foods. Avoid skipping meals. Verbalized understanding. Related to GERD without esophagitis euthyroid based on p revious blood work results. continue current replacement dose Related to Adult hypothyroidism I have discussed caitlyn ght management with patient. I discussed goal BMI. advised on meal portioning, healthier eating habits, and regular aerobic exercise. Related to Obesity (BMI 30.0-34.9) Exercise encouraged to release natural endorphins and increase energy.Medication/s as prescribed. Related to Moderate major depression Blood pressure contr ol should be less than 130/80 on most occasions. Monitoring is important to see trends. Advised logging BP.Low salt diet is very helpful along with regular cardiovascular exercises, adequate water intake and appropriate restful sleep as these have shown to naturally help decrease BP. Blood tests should be done at least once yearly to see effects of hypertension such as possible deterioration of kidney function as well as to monitor effects of medications.Good blood pressure control is needed to avoid and reduce potential end-organ damage.Patient verbalized understanding. Related to Essential (primary) hypertension Advised on hyperchol esterolemia. Watch diet, stay active. Continue current treatment. Related to Mixed hyperlipidemia Blood pressure contr ol should be less than 130/80 on most occasions. Monitoring is important to see trends. Advised logging BP.Low salt diet is very helpful along with regular cardiovascular exercises, adequate water intake and appropriate restful sleep as these have shown to naturally help decrease BP. Blood tests should be done at least once yearly to see effects of hypertension such as possible deterioration of kidney function as well as to monitor effects of medications.Good blood pressure control is needed to avoid and reduce potential end-organ damage.Patient verbalized understanding. Related to Essential (primary) hypertension I have discussed caitlyn ght management with patient. I discussed goal BMI. advised on meal portioning, healthier eating habits, and regular aerobic exercise. Related to Obesity (BMI 30.0-34.9) not palpable Related to Multi nodular goiter Exercise encouraged to release natural endorphins and increase energy.Medication/s as prescribed. Related to Moderate major depression Patient is stable wi th current med, denies ill effects, reports good compliance. Related to Chronic insomnia Body Mass index disc ussed. Explained current BMI and goal BMI and ways to reach goal Related to Body mass index (BMI) 31.0-31.9, adult euthyroid based on p revious blood work results. continue current replacement dose Related to Adult hypothyroidism No recent flare up. Stable. Discussed relaxation techniques and patient verbalized understanding. Related to YEIMI (generalized anxiety disorder) No recent flare up. Discussed avoidance of acidic and spicy foods. Avoid skipping meals. Verbalized understanding. Related to GERD without esophagitis Prescribed activity/ exercise education Related to Body mass index (BMI) 31.0-31.9, adult Dietary management e ducation, guidance, and counseling Related to Body mass index (BMI) 31.0-31.9, adult GERD or acid reflux can be best treated by eating small meals throughout the day. Acid reflux medications can also help suppress some of the symptoms. Recommendations have been to keep the head of bed elevated at nighttime to prevent nighttime symptoms, and try to avoid acidic, spicy, greasy and heavy meals. Related to GERD without esophagitis Exercise encouraged to release natural endorphins and increase energy. Related to Moderate major depression No recent flare up. Stable. Discussed relaxation techniques and patient verbalized understanding. Related to YEIMI (generalized anxiety disorder) Advised on hyperchol esterolemia. Watch diet, stay active. Continue current treatment. Related to Mixed hypercholesterolemia and hypertriglyceridemia euthyroid based on p revious blood work results. continue current replacement dose Related to Adult hypothyroidism Blood pressure contr ol should be less than 130/80 on most occasions. Monitoring is important to see trends. Advised logging BP.Low salt diet is very helpful along with regular cardiovascular exercises, adequate water intake and appropriate restful sleep as these have shown to naturally help decrease BP. Blood tests should be done at least once yearly to see effects of hypertension such as possible deterioration of kidney function as well as to monitor effects of medications.Good blood pressure control is needed to avoid and reduce potential end-organ damage.Patient verbalized understanding. Related to Essential hypertension Prescribed activity/ exercise education Related to Body mass index (BMI) 32.0-32.9, adult Dietary management e ducation, guidance, and counseling Related to Body mass index (BMI) 32.0-32.9, adult euthyroid based on p revious blood work results. continue current replacement dose Related to Adult hypothyroidism I have discussed caitlyn ght management with patient. I discussed goal BMI. advised on meal portioning, healthier eating habits, and regular aerobic exercise. Related to Obesity (BMI 30.0-34.9) Advised on hyperchol esterolemia. Watch diet, stay active. Continue current treatment. Related to Mixed hypercholesterolemia and hypertriglyceridemia stable with current med, denies ill effects, reports compliance Related to Chronic insomnia Advised to continue current medications. Monitor BP regularly. Advised on DASH diet and regular exercises as natural ways to help lower blood pressure. Related to Essential hypertension Body Mass index disc ussed. Explained current BMI and goal BMI and ways to reach goal Related to Body mass index (BMI) 32.0-32.9, adult better with med use Related to G AD (generalized anxiety disorder) Urinary Incontinence Fall Risk Prevention Prescribed activity/ exercise education Related to Body mass index (BMI) 32.0-32.9, adult Dietary management e ducation, guidance, and counseling Related to Body mass index (BMI) 32.0-32.9, adult I have discussed caitlyn ght management with patient. I discussed goal BMI. advised on meal portioning, healthier eating habits, and regular aerobic exercise. Related to Obesity (BMI 30.0-34.9) Body Mass index disc ussed. Explained current BMI and goal BMI and ways to reach goal Related to Body mass index (BMI) 31.0-31.9, adult exam is benign, like ly arthritic. Advised on use of OTC pain meds Related to Right foot pain will start Remeron Related to GA D (generalized anxiety disorder) Dietary management e ducation, guidance, and counseling Related to Body mass index (BMI) 31.0-31.9, adult Prescribed activity/ exercise education Related to Body mass index (BMI) 31.0-31.9, adult I have discussed caitlyn ght management with patient. I discussed goal BMI. advised on meal portioning, healthier eating habits, and regular aerobic exercise. Related to Obesity (BMI 30.0-34.9) asx, euthyroid Related to Multi nodular goiter Body Mass index disc ussed. Explained current BMI and goal BMI and ways to reach goal Related to Body mass index (BMI) 31.0-31.9, adult no recent flare up. on meds, stable. discussed relaxation techniques Related to YEIMI (generalized anxiety disorder) euthyroid based on p revious blood work results. continue current replacement dose Related to Adult hypothyroidism Advised to continue current medications. Monitor BP regularly. Advised on DASH diet and regular exercises as natural ways to help lower blood pressure. Related to Essential hypertension Will start RX, discu ssed and verbalized understanding Related to Chronic insomnia Will start RX, discu ssed and verbalized understanding Related to Moderate major depression Advised on hyperchol esterolemia. Watch diet, stay active. Continue current treatment. Related to Mixed hypercholesterolemia and hypertriglyceridemia Prescribed activity/ exercise education Related to Body mass index (BMI) 31.0-31.9, adult Dietary management e ducation, guidance, and counseling Related to Body mass index (BMI) 31.0-31.9, adult Assessments Type Assessment Date No Information Patient Care Teams Name Effective Dates (start - stop) Status Members No Information
== END 2024-10-07 08:49 | disposition home or self-care (01) ==
LOC: ANHLAB 08:51
PROVIDERS: PCP Family Medicine; Visit Provider Nurse Practitioner Family
DX: F41.9 Anxiety disorder, unspecified (principal); I10 Essential (primary) hypertension; E55.9 Vitamin D deficiency, unspecified
CPT/HCPCS: 36415; 80053; 80061; 82306; 84439; 84443; 85027

== ENCOUNTER 2024-11-28 10:48 | Outpatient (CLI) | payer OTHER, SELFPAY ==
[2024-11-28 11:18] LABS: Anion Gap 8 mmol/L (4-12); Blood Urea Nitrogen 14 mg/dL (7-17); Calcium 9.5 mg/dL (8.4-10.2); Carbon Dioxide 28 mmol/L (22-30); Chloride 105 mmol/L (98-107); Estimated Glomerular Filt Rate > 60; Glucose 96 mg/dL (65-110); Sodium 141 mmol/L (137-145)
[2024-11-28 11:49] LABS: Vitamin D 25 Hydroxy 60.2 ng/mL
--- OUTSIDE RECORDS SUMMARY | 2024-11-28 12:21 | XMS_ITS | Encounter Summary ---
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 Name Role Phone Unavailable Primary Care Provider Unavailabl e Encounter Details Date Type Department Care Team (Late st Contact Info) Description 10/29/2021 Lab Requisition [facility] DermPath Lab [address] [facility], [place] [phone] Deon Kathleen MD [address] [place] [address] Social History Tobacco Use Types [...] Comments DERMATOPATHOLOGY Routine 10/27/2021 12:0 0 AM SPORTS MEDICINE MASSEUR documented in this encounter Results * DERMATOPATHOLOGY (10/27/2021 12:00 AM SPORTS MEDICINE MASSEUR) Case Report Dermatopathology Report Case: [id number] Authorizing Provider: Deon Kathleen MD Collected: 10/27/2021 12:00 AM Ordering Location: [facility] DermPath Lab Received: 10/29/2021 01:26 PM Pathologist: Joceline Gutierrez MD Specimen: Skin, back 2 10:32 AM SPORTS MEDICINE MASSEUR DERMATOPATHOLOGY LABORATORY Final Diagnosis Specimen A. SKIN, back: BENIGN VERRUCOUS KERATOSIS, INFLAMED (L82.1) PRESENT AT MARGIN 2 10:32 AM SPORTS MEDICINE MASSEUR DERMATOPATHOLOGY LABORATORY Clinical History Changing lesion. Check margins. 10:32 AM [facility] DERMATOPATHOLOGY LABORATORY Gross Description Specimen A: Received is one formalin filled container labeled with the patient's name and designated back. The specimen consists of a shave biopsy measuring 8o9m1ln, bisected. The margin is inked green. Jar 0. 10:32 AM [facility] DERMATOPATHOLOGY LABORATORY Microscopic Description Specimen A. SKIN, back: Sections show hyperkeratosis, papillomatosis, hypergranulosis, and acanthosis. Inflammatory cells are present within the dermis. These histological findings can be seen in a verruca vulgaris or a seborrheic keratosis. This lesion is present at the margin of the specimen. 10:32 AM [facility] DERMATOPATHOLOGY LABORATORY Disclaimer An external and internal positive and negative controls are appropriate for the histochemical, immunohistochemical and immunofluorescence stain(s) in this case (if any), except where stated explicitly. The performance characteristics of the stain(s) cited in this report were developed and its performance characteristic determined by the Dermatopathology Laboratory at [facility], directed by Dr. Michelle Jauregui. These tests need not be, and therefore are not, approved by the [place] Food and Drug Administration. The tests are used for clinical purposes. Billing Codes Specimen Charges Stain Charges 18896 1 10:32 AM [facility] DERMATOPATHOLOGY LABORATORY Embedded Images 10:32 AM [facility] DERMATOPATHOLOGY LABORATORY Pathology/Cytolog y TISSUE SPECIMEN FROM SKIN / Unknown 10/27/2021 10/29/2021 1:26 PM SPORTS MEDICINE MASSEUR Deon Kathleen MD LAB - PATHOLOGY/CYTO LOGY ORDERABLES DERMATOPATHOLOGY LABORATORY [facility] - Department of Dermatology [address], [address] [phone] documented in this encounter Visit Diagnoses Not on filedocumented in this encounter
--- OUTSIDE RECORDS SUMMARY | 2024-11-28 12:21 | XMS_ITS | Clinical Summary ---
Author Organization [facility] stephania Address [address] [place] [address] Care Team Providers Care Gas Regulator Repairer Name Role Phone Deon Kathleen MD Primary Care Provider [phone] Allergies Active Allergy Reactions Criticality Noted Date Comments Latex Hives High 11/10/2013 Morphine Nausea and Vomiting Low 11/10/2013 Penicillin G Other (See Comments) 04/20/2012 Trouble breathing Medications levothyroxine 25 mcg tablet TAKE 1 TABLET DAILY SPORTS PHYSICIAN. 90 Tablet 2 10/01/2016 Active propranolol (INDERAL) [...] MD Referring Provider: Sunny Cruz MD [address] 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, ER+,IL+,BCT,RT, Tamoxifen Resolved Problems Problem Noted Date Diagnosed Date Resolved Date Hypothyroidism 01/10/2015 04/30/2016 Encounters Date Type Department Care Team Description 11/08/2024 External Device Data STL ABSTRACTION Provider, Abstract 11/07/2024 External Device Data STL ABSTRACTION Provider, Abstract 10/12/2024 External Device Data STL ABSTRACTION Provider, Abstract 10/11/2024 External Device Data STL ABSTRACTION Provider, Abstract 10/10/2024 External Device Data STL ABSTRACTION Provider, Abstract 10/03/2024 External Device Data STL ABSTRACTION Provider, Abstract from Last 3 Months Immunizations Immunization Administration [...] Sex Assigned at Female 08/05/2024 12:43 PM SOLE SCRAPER Legal Sex Female 3:11 AM SOLE SCRAPER Gender Identity Female 08/05/2024 12:43 PM SOLE SCRAPER Sexual Orientation Straight 08/05/2024 12 :43 PM SOLE SCRAPER Occupation Industry Job Start Date Job End Date Not on file Not on file Not on file Not on file Last Filed Vital Signs Vital Sign Reading Time Taken Comments Blood Pressure 114/82 08/10/2024 12:00 PM SOLE SCRAPER Pulse 70 08/10/2024 12:00 PM SOLE SCRAPER Temperature 36.2 C (97.2 F) 08/10/2024 10:07 AM SOLE SCRAPER Respiratory Rate 16 08/10/2024 12:00 PM SOLE SCRAPER Oxygen Saturation 99% 08/10/2024 12:00 PM SOLE SCRAPER Inhaled Oxygen Concentration - - Weight 66.4 kg (146 lb 6.4 oz) 08/10/2024 10:07 AM SOLE SCRAPER Height 152.4 cm (5') 08/10/2024 10:07 AM SOLE SCRAPER Body Mass Index 28.59 08/10/2024 10:07 AM SOLE SCRAPER Plan of Treatment Health Maintenance Due Date Last Done Comments DTAP/TDAP/TD VACCINES (1 - Tdap) 1972 FIT-DNA Q 3 years 1998 FIT/FOBT Q 1 year 1998 Flex Sig/CT Colonography Q 5 years 1998 Lung Cancer Screening 2003 PNEUMOCOCCAL VACCINE 50+ YEA RS (1 of 1 - PCV) [...] Comments COLONOSCOPY REPORT 08/10/2024 11 :46 AM SOLE SCRAPER XR DEXA BONE DENSITY AXIAL 1 OR MORE SITES Routine 04/01/2021 11:51 AM CDT Osteoporosis of multiple sites MAMMO SCREEN IMPL BILAT W OR WO CAD Routine 07/15/2016 9:16 AM CDT Visit for screening mammogram from Last 3 Months or Most Recently Relevant to Health Maintenance Results * COLONOSCOPY REPORT (08/10/2024 11:46 AM SOLE SCRAPER) Narrative Procedure Note Madyson Pina MD - 08/10/2024 11:46 AM CST [facility] Endoscopy Patient Name: Edith Joyner Procedure Date: 08/10/2024 Date of : 1955 Attending MD: Madyson Pina MD, Procedure: Colonoscopy Indications: Positive Cologuard test [...] pathology results. Procedure Code(s): --- Professional --- 15156, Colonoscopy, flexible; with removal of tumor(s), polyp(s), or other lesion(s) by snare technique CPT copyright 2020 [employer]. All rights reserved. The codes documented in this report are preliminary and upon demo event specialist review may be revised to meet current compliance requirements. Madyson Pina MD 08/10/2024 11:46:01 AM This report has been signed electronically. Number of Addenda: [id number] [place] [address] Madyson Pina MD GI PROCEDURE ORDERABLES Final Re sult * XR DEXA BONE DENSITY AXIAL 1 OR MORE SITES (04/01/2021 11:51 AM CDT) Anatomical Region Laterality Modality Computed Radiogr aphy 04/01/2021 11:5 1 AM CDT Narrative 04/01/2021 3:08 PM CDT SUMMARY DEXA REPORT DATE: 04/01/2021 11:51 AM INDICATION: Breast cancer, postmenopausal FINDINGS: Bone mineral density is consistent with osteopenia. The lowest T score is -1.6. The lowest T score on the previous study was -1.5. Please refer to the full report available in [employer] under the PACS Images tab. If a faxed copy is needed, please call [phone]. DICTATION LOCATION: [facility] Procedure Note Keshawn Mccullough MD - 04/01/2021 SUMMARY DEXA REPORT DATE: 04/01/2021 11:51 AM INDICATION: Breast cancer, postmenopausal FINDINGS: Bone mineral density is consistent with osteopenia. The lowest T score is -1.6. The lowest T score on the previous study was -1.5. Please refer to the full report available in [facility] under the PACS Images tab. If a faxed copy is needed, please call [phone]. DICTATION LOCATION: [facility] us Daphnie Arteaga MD DIAGNOSTIC IMAGING ORDERABLES Final Result * MAMMO DIGITAL SCREEN IMPLANTS BILAT (07/15/2016 9:16 AM CDT) Anatomical Region Laterality Modality Breast Bilateral Mammography 07/15/2016 9:16 AM CDT Impressions 07/16/2016 4:54 PM CDT IMPRESSION: Negative bilateral screening mammogram. Recommend routine followup. OVERALL ASSESSMENT: BI-RADS Category 1 - Negative DICTATION LOCATION: [facility] Narrative 07/16/2016 4:54 PM CDT [...] BI-RADS Category 1 - Negative DICTATION LOCATION: [facility] Don Alvarado MD MAMMO ORDERABLES F inal Result from Last 3 Months or Most Recently Relevant to Health Maintenance Insurance [facility] Advance Directives For more information, please contact: [phone] * Full Code (Latest Code Status on File) Date Activated Date Inactivated Comments 01/05/2014 11:11 AM 01/05/2014 3:58 PM Care Teams Gas Regulator Repairer Relationship Specialty Start Date End Date Deon Kathleen MD [address] [place] [address] PCP - General Family Practice 07/31/24
--- OUTSIDE RECORDS SUMMARY | 2024-11-28 12:21 | XMS_ITS | Encounter Summary ---
Author Organization [facility] Address [address] [facility] [place] [address] Care Team Providers Care Music Composer Name Role Phone Unavailable Primary Care Provider Unavailabl e Encounter Details Date Type Department Care Team (Late st Contact Info) Description 06/15/2023 Lab Requisition [facility] - DermPath Lab [address] [facility] [place] [phone] Deon Kathleen MD [address] [place] [address] Social History Tobacco Use Types [...] 12:00 AM CDT) Case Report Dermatopathology Report Case: [id number] Authorizing Provider: Deon Kathleen MD Collected: 06/14/2023 12:00 AM Ordering Location: [facility] DermPath Lab Received: 06/15/2023 11:31 AM Pathologist: Joceline Gutierrez MD Specimens: A) - Skin, right back upper B) - Skin, right back middle 2:32 PM CDT DERMATOPATHOLOGY LABORATORY Final Diagnosis Specimen A. SKIN, right back upper: SEBORRHEIC KERATOSIS, IRRITATED AND INFLAMED (L82.0) PRESENT AT MARGIN Specimen B. SKIN, right back middle: SEBORRHEIC KERATOSIS, IRRITATED (L82.0) PRESENT AT MARGIN 3 2:32 PM T DERMATOPATHOLOGY LABORATORY Clinical History A-B: Changing Lesion Check Margins 3 2:32 PM CDT DERMATOPATHOLOGY LABORATORY Gross Description Specimen A: Received [...] margin of the specimen. 3 2:32 PM T DERMATOPATHOLOGY LABORATORY Disclaimer An external and internal positive and negative controls are appropriate for the histochemical, immunohistochemical and immunofluorescence stain(s) in this case (if any), except where stated explicitly. The performance characteristics of the stain(s) cited in this report were developed and its performance characteristic determined by the Dermatopathology Laboratory at [facility], directed by Dr. Michelle Jauregui. These tests need not be, and therefore are not, approved by the [place] Food and Drug Administration. The tests are used for clinical purposes. Billing Codes Specimen Charges Stain Charges 91127 15789 1 1 3 2:32 PM CDT DERMATOPATHOLOGY LABORATORY Embedded Images 3 2:32 PM CDT DERMATOPATHOLOGY LABORATORY Pathology/Cytology TISSUE SPECIMEN FROM SKIN / Unknown 06/14/2023 06/15/2023 11:31 AM CDT Miscellaneous samples (specimen) TISSUE SPECIMEN FROM SKIN / Unknown 06/14/2023 06/15/2023 11:31 AM CDT Deon Kathleen MD LAB - PATHOLOGY/CYTO LOGY ORDERABLES DERMATOPATHOLOGY LABORATORY [facility] - Department of Dermatology [facility] Medicine [address] [place] [address], [address] [phone] documented in this encounter Visit Diagnoses Not on filedocumented in this encounter
--- OUTSIDE RECORDS SUMMARY | 2024-11-28 12:21 | XMS_ITS | Encounter Summary ---
Author Organization [facility] Address [address] [facility] [place] [address] Care Team Providers Care Marketing Mgr Name Role Phone Unavailable Primary Care Provider Unavailabl e Encounter Details Date Type Department Care Team (Late st Contact Info) Description 10/18/2024 Lab Requisition [facility] - DermPath Lab [address] [place] [phone] Deon Kathleen MD [address] [place] [address] Social History Tobacco Use Types [...] Priority Date/Time Associated Diagnosis Comments DERMATOPATHOLOGY Routine 10/17/2024 3:33 AM PASTEURISER OPERATOR documented in this encounter Results * DERMATOPATHOLOGY (10/17/2024 3:33 AM PASTEURISER OPERATOR) Case Report Dermatopathology Report Case: [id number] Authorizing Provider: Deon Kathleen MD Collected: 10/17/2024 03:33 AM Ordering Location: [facility] - Received: 10/18/2024 01:53 PM DermPath Lab Pathologist: Nury Crawford MD Specimen: Skin, left upper chest 1:29 PM PASTEURISER OPERATOR DERMATOPATHOLOGY LABORATORY Final Diagnosis Specimen A. SKIN, left upper chest: SEBORRHEIC KERATOSIS, CLONAL TYPE; INFLAMED (L82.1) PRESENT AT MARGIN 1:29 PM PASTEURISER OPERATOR DERMATOPATHOLOGY LABORATORY Clinical History Changing Lesion. Check margins 1:29 PM [facility] DERMATOPATHOLOGY LABORATORY Gross Description Specimen A: Received is one formalin filled container labeled with the patient's name and designated left upper chest. The specimen consists of a shave biopsy measuring 9x5x3 mm. Jar 0. 1:29 PM [facility] DERMATOPATHOLOGY LABORATORY Microscopic Description Specimen A. SKIN, left upper chest: Sections show a proliferation of keratinocytes with overlying hyperkeratosis. Aggregates of keratinocytes with abundant pale-staining cytoplasm appear demarcated from surrounding basaloid keratinocytes. There is a lymphohistiocytic infiltrate within the dermis. This lesion is present at the margin of the specimen. 1:29 PM [facility] DERMATOPATHOLOGY LABORATORY Disclaimer An external and internal positive and negative controls are appropriate for the histochemical, immunohistochemical and immunofluorescence stain(s) in this case (if any), except where stated explicitly. The performance characteristics of the stain(s) cited in this report were developed and its performance characteristic determined by the Dermatopathology Laboratory at [facility], directed by Dr. Michelle Jauregui. These tests need not be, and therefore are not, approved by the [place] Food and Drug Administration. The tests are used for clinical purposes. Billing Codes Specimen Charges Stain Charges 68965 1 1:29 PM [facility] DERMATOPATHOLOGY LABORATORY Embedded Images 1:29 PM [facility] DERMATOPATHOLOGY LABORATORY Pathology/Cytolo gy TISSUE SPECIMEN FROM SKIN / Unknown 10/17/2024 3:33 AM PASTEURISER OPERATOR 10/18/2024 1:53 PM [facility] Deon Kathleen MD LAB - PATHOLOGY/CYTO LOGY ORDERABLES DERMATOPATHOLOGY LABORATORY [facility] - Department of Dermatology [address] [phone] documented in this encounter Visit Diagnoses Not on filedocumented in this encounter
--- OUTSIDE RECORDS SUMMARY | 2024-11-28 12:21 | XMS_ITS | Clinical Summary ---
Author Organization [facility] Address [address] [facility] [place] [address] Care Team Providers Care Adoption Services Manager Name Role Phone Unavailable Primary Care Provider Unavailabl e Source Comments [facility],non-owned Affiliates and Associated Physician Practices is amultiple site organization consisting of ambulatory clinics and hospital sitesin [place], [place], [place] and [place]. This disclosure is being madepursuant to the Care Everywhere program and may not contain all information available regarding this patient. Last updated 18.[facility] Encounters Date Type Department Care Team Description 10/18/2024 Lab Requisition [facility] - DermPath Lab [address] [place] [phone] Deon Kathleen MD from Last 3 Months Social History Tobacco Use Types Packs/Day Years [...] SCREENING 1955 LIPID TESTING 1955 MAMMOGRAM 1955 MEDICARE AWV 12 MONTHS 1955 HEPATITIS C SCREENING 05/18/1971 DTAP/TDAP/TD VACCINES (1 - Tdap) 1972 PNEUMOCOCCAL VACCINE 50+ (1 of 1 - PCV) 2003 ZOSTER VACCINE (1 of 2) 2003 COVID-19 VACCINE (1 - 2023-2 5 season) 2024 INFLUENZA VACCINE (#1) 2024 DEPRESSION SCREENING 09/20/2024 MEDICARE AWV CALENDAR YEAR 2024 Respiratory Syncytial Virus (RSV) [...] on patient's age to complete this topic Procedures Procedure Name Priority Date/Time Associated Diagnosis Comments DERMATOPATHOLOGY Routine 10/17/2024 3:33 AM PUG MILL OPERATOR from Last 3 Months Results * DERMATOPATHOLOGY (10/17/2024 3:33 AM PUG MILL OPERATOR) Case Report Dermatopathology Report Case: [id number] Authorizing Provider: Deon Kathleen MD Collected: 10/17/2024 03:33 AM Ordering Location: [facility] - Received: 10/18/2024 01:53 PM DermPath Lab Pathologist: Nury Crawford MD Specimen: Skin, left upper chest 1:29 PM PUG MILL OPERATOR DERMATOPATHOLOGY LABORATORY Final Diagnosis Specimen A. SKIN, left upper chest: SEBORRHEIC KERATOSIS, CLONAL TYPE; INFLAMED (L82.1) PRESENT AT MARGIN 1:29 PM PUG MILL OPERATOR DERMATOPATHOLOGY LABORATORY Clinical History Changing Lesion. Check margins 1:29 PM PUG MILL OPERATOR DERMATOPATHOLOGY LABORATORY Gross Description Specimen A: Received is one formalin filled container labeled with the patient's name and designated left upper chest. The specimen consists of a shave biopsy measuring 9x5x3 mm. Jar 0. 1:29 PM PUG MILL OPERATOR DERMATOPATHOLOGY LABORATORY Microscopic Description Specimen A. SKIN, left upper chest: Sections show a proliferation of keratinocytes with overlying hyperkeratosis. Aggregates of keratinocytes with abundant pale-staining cytoplasm appear demarcated from surrounding basaloid keratinocytes. There is a lymphohistiocytic infiltrate within the dermis. This lesion is present at the margin of the specimen. 5 1:29 PM [facility] DERMATOPATHOLOGY LABORATORY Disclaimer An external and internal positive and negative controls are appropriate for the histochemical, immunohistochemical and immunofluorescence stain(s) in this case (if any), except where stated explicitly. The performance characteristics of the stain(s) cited in this report were developed and its performance characteristic determined by the Dermatopathology Laboratory at [facility], directed by Dr. Michelle Jauregui. These tests need not be, and therefore are not, approved by the [place] Food and Drug Administration. The tests are used for clinical purposes. Billing Codes Specimen Charges Stain Charges 92338 1 5 1:29 PM [facility] DERMATOPATHOLOGY LABORATORY Embedded Images 1:29 PM [facility] DERMATOPATHOLOGY LABORATORY Pathology/Cytolo gy TISSUE SPECIMEN FROM SKIN / Unknown 10/17/2024 3:33 AM PUG MILL OPERATOR 10/18/2024 1:53 PM PUG MILL OPERATOR Deon Kathleen MD LAB - PATHOLOGY/CYTO LOGY ORDERABLES DERMATOPATHOLOGY LABORATORY [facility] - Department of Dermatology [address], [address] [phone] from Last 3 Months
--- OUTSIDE RECORDS SUMMARY | 2024-11-28 12:21 | XMS_ITS | Continuity of Care Document ---
Author Organization [employer] Address [address] [place] [address] Phone Care Team Providers Care Director Patient Financial Services Name Role Phone Harsha Fay MD Unavailable [...] FLU VACC PRSV FREE INC ANTIG OFFICE NRLKN-LUA-MJFWZNST BODY MASS INDEX DOCD SYST BP >= 140 MM HG6 IT DIAST BP >= 90 MM HG Kept Appointment No Charge Encounter Jun SCREENING MAMMOGRAM (CAD) HEPATIC FUNCTION PANEL(LFT, LIVER) May- LIPID PANEL ROUTINE VENIPUNCTURE FALL RISK ASSESSMENT DOC'D PRES/ABSN URINE INCON ASSESS Pt inelig neg scrn depres OFFICE TPGYS-FAM-JQUKTNEW BODY MASS INDEX DOCD SYST BP LT 130 MM HG DIAST BP 80-89 MM HG CBC, INC PLATELETS AND DIFFERENTIAL COMPREHEN METABOLIC PANEL CMP 1 LIPID PANEL THYROID STIMULATION HORMONE(TSH) 2020 ROUTINE VENIPUNCTURE Admin influenza virus vac FLU VAC NO PRSV 4 MIKA, 0.5mL DOSAGE SYST BP LT 130 MM HG DIAST BP < 80 MM HG OFFICE FDPRH-MCC-MEMJZURM Additional supplies, materials, & Clinic al Staff Time During A PHE BODY MASS INDEX DOCD SCREENING MAMMOGRAM (CAD) COMPREHEN METABOLIC PANEL CMP 0 LIPID PANEL THYROID STIMULATION HORMONE(TSH) 2019 ROUTINE VENIPUNCTURE FALL RISK ASSESSMENT DOC'D PRES/ABSN URINE INCON ASSESS Pt inelig neg scrn depres OFFICE [id number]-CKJ-[id number] BODY MASS INDEX DOCD SYST BP LT 130 MM HG DIAST BP < 80 MM HG LIPID PANEL ROUTINE VENIPUNCTURE COMPREHEN METABOLIC PANEL CMP 9 LIPID PANEL THYROID STIMULATION HORMONE(TSH) 2018 ROUTINE VENIPUNCTURE OFFICE BLABR-DMI-FGVJGGBG BODY MASS INDEX DOCD SYST BP LT 130 MM HG DIAST BP < 80 MM HG Admin influenza virus vac FLU VACC PRSV FREE INC ANTIG SCREENING MAMMOGRAM (CAD) FALL PLAN OF CARE DOC'D URINE INCON PLAN DOC'D PRES/ABSN URINE INCON ASSESS Pt inelig neg scrn depres OFFICE TOZSJ-NCZ-WCEQJWFO BODY MASS INDEX DOCD SYST BP LT 130 MM HG DIAST BP 80-89 MM HG OFFICE NKCHS-IWT-VETROMDH BODY MASS INDEX DOCD SYST BP LT 130 MM HG DIAST BP < 80 MM HG OFFICE WTCDY-VYT-GWPHLEKP BODY MASS INDEX DOCD SYST BP LT 130 MM HG DIAST BP < 80 MM HG Advance Directives Directive Yes / No Effective Date File Name No Information Encounters Encounter Description Practice Location Reason(s) For Visit Diagnoses Date Provider Providers Copied on Encounter [facility], [id number] [place] [address], [id number] , tel: [phone] [facility] No Information 5 Sumeet Aldridgen. [address], [id number] , . tel: [phone] [facility], [address] [place] [address], [id number] , tel: [phone] [employer] [facility] No Information 2 Sumeet Harsha. [address], [id number] , [place]. tel: [phone] [facility], [id number] [place] [address], [id number] , tel: [phone] [employer] [facility] No Information 2 Sumeet Harsha. [address], [id number] , . tel: [phone] [facility], [address], [place], [place], [address] , [place] tel: [phone] [facility] Pain in left shoulder 1 John Valentina. [address] [place] [address], [address], [id number] , [place]. tel: [phone] Referring Provider: Valentina Lopez, [address] [place] [address], [address] . tel:[phone] OFFICE SFHIB-BNC-BY PANDED [facility], [address], [place], [place], [id number] , [place] tel: [phone] [facility] Acute (chief complaint) Acute pain of left shoulderBody mass index [BMI] 31.0-31.9, adult 1 John Montgomery. [address] [place] [address], [address], [id number] , [place]. tel: [phone] Referring Provider: Harsha Fabian, [address] [place] [address], [address] . tel:[phone] [facility] [address], [address], [place], [place], [address] , [place] tel: [phone] [facility] Acute cough 1 Sumeet Mcleod. [address] [place] [address], [address], [id number] , [place]. tel: [phone] Referring Provider: Harsha Fabian, [address] [place] [address], [address] . tel:[phone] [facility] [address], [address], [place], [place], [address] , [place] tel: [phone] [facility] No Information 1 Veronica Ann [address] [place], [place], [id number] , . tel: [phone] Referring Provider: Harsha Fabian, [address] [place] [address], [address] . tel:[phone] [employer] [facility], [address], [place], [place], [address] , tel: [phone] [employer] [facility] Mixed hyperlipidemia 1 Sumeet Irving [address] [place] [address], [id number] , . tel: [phone] Referring Provider: Harsha Fabian, [address] [place] [address], [address] . tel:[phone] [employer] [facility], [address], [place], [place], [address] , tel: [phone] [facility] No Information 1 Sumeet Irving [address] [place] [address], [id number] , . tel: [phone] OFFICE DUWZN-PYG-LP TAILED [facility], [address] [facility], [place], [place], [address] , tel: [phone] [facility] med management (chief complaint) Body mass index (BMI) 32.0-32.9, adultMixed hyperlipidemiaEsse ntial (primary) hypertensionModera te major depressionChronic insomniaGAD (generalized anxiety disorder)Nonrheuma tic mitral (valve) insufficiencyObesi ty (BMI 30-39.9)Multinodul ar goiterGERD without esophagitisAdult hypothyroidism 1 Sumeet Irving [address] [place] [address], [id number] , . tel: [phone] Referring Provider: Harsha Fabian, [address] [place] [address], [address] . tel:[phone] [facility], [address] [place] [address], [id number] , tel: [phone] [facility] Hypothyroidism, unspecified 1 Sumeet Irving [address] [place] [address], [id number] , . tel: [phone] Referring Provider: Harsha Fabian, [address] [place] [address], [address] . tel:[phone] [facility], [address] [place] [address], [id number] , tel: [phone] [facility] No Information 1 Sumeet Mcleod. [address] [place] [address], [id number] , . tel: [phone] OFFICE SILBM-PDU-OA TAILED [facility], [address] [facility], [place], [place], [id number] , tel: [phone] [facility] med management (chief complaint) Essential (primary) hypertensionModera te major depressionAdult hypothyroidismGERD without esophagitisObesity (BMI 30.0-34.9)Mixed hyperlipidemia 0 Sumeet Mcleod. [address] [place] [address], [id number] , [place]. tel: [phone] Referring Provider: Harsha Fabina, [address] [place] [address], [address] . tel:[phone] [facility], [address] [facility], [place], [place], [address] , tel: [phone] [facility] No Information 0 Dionte Vargas [address], [place], [place], [id number] , [place]. tel: [phone] Referring Provider: Harsha Fabian, [address] [place] [address], [address] . tel:[phone] [facility], [address] [facility], [place], [place], [address] , tel: [phone] [facility] Eye exam, routine 0 Sumeet Mcleod. [address] [place] [address], [id number] , . tel: [phone] [employer] [facility], [address], [place], [place], [address] , tel: [phone] [facility] Mixed hyperlipidemia Justin-0 4-202 0 Sumeet Mcleod. [address] [facility], [address], [id number] , . tel: [phone] Referring Provider: Harsha Fabian, [address] [place] [address], [address] . tel:[phone] OFFICE WKJWW-KKP-WM [facility], [address], [place], [place], [address] , tel: [phone] [facility] med management (chief complaint) Body mass index (BMI) 31.0-31.9, adultGAD (generalized anxiety disorder)GERD without esophagitisAdult hypothyroidismMode rate major depressionMultinod ular goiterMixed hyperlipidemiaEsse ntial (primary) hypertensionChroni c insomniaObesity (BMI 30.0-34.9) January- 8-202 0 Sumeet Mcleod. [address] [place] [address], [address], [id number] , . tel: [phone] Referring Provider: Harsha Fabian, [address] [place] [address], [address] . tel:[phone] [employer] [facility], [address], [place], [place], [address] , tel: [phone] [employer] [facility] Mixed hyperlipidemia Mar-0 6-202 0 Sumeet Mcleod. [address] [facility], [address], [id number] , . tel: [phone] Referring Provider: Harsha Fabian, [address] [place] [address], [address] . tel:[phone] [employer] [facility], [address], [place], [place], [address] , tel: [phone] [facility] Care [facility] Mixed hypercholesterolem ia and hypertriglyceridem ia [address] [place] [address], [address], [id number] , [place]. tel: [phone] [facility], [address], [place], [place], [address] , tel: [phone] [facility] Essential (primary) hypertensionMixed hyperlipidemiaGene ralized anxiety disorder 9 Sumeet Aldridgen. [address] [place] [address], [address], [id number] , [place]. tel: [phone] Referring Provider: Harsha Fabian, [address] [place] [address], [address] . tel:[phone] OFFICE XVSWR-EIX-XQ [facility], [address], [place], [place], [address] , tel: [phone] [facility] Care [facility] med management (chief complaint) Essential hypertensionMixed hypercholesterolem ia and hypertriglyceridem iaAdult hypothyroidismGAD (generalized anxiety disorder)Moderate major depressionGERD without esophagitisBody mass index (BMI) 32.0-32.9, adult 9 Sumeet Aldridgen. [address] [facility], [address], [id number] , [place]. tel: [phone] Referring Provider: Harsha Fabian, [address] [place] [address], [address] . tel:[phone] [facility], [address], [place], [place], [address] , tel: [phone] [facility] Care [facility] No Information 9 Sumeet Aldridgen. [address] [place] [address], [address], [id number] , . tel: [phone] Referring Provider: Harsha Fabian, [address] [place] [address], [address] . tel:[phone] [facility] [address], [place], [place], [address] , tel: [phone] [facility] No Information Veronica Ann [address] [place], [place], [address] , . tel: [phone] Referring Provider: Harsha Fabian, [address] [place] [address], [address] . tel:[phone] OFFICE [facility], [address], [place], [place], [address] , [place] tel: [phone] [facility] med management (chief complaint) Body mass index (BMI) 32.0-32.9, adultGAD (generalized anxiety disorder)Chronic insomniaEssential hypertensionMixed hypercholesterolem ia and hypertriglyceridem iaAdult hypothyroidismObes ity (BMI 30.0-34.9) Sumeet Mcleod. [address] [place] [address], [address], [id number] , . tel: [phone] Referring Provider: Harsha Fabian, [address] [place] [address], [address] . tel:[phone] OFFICE [facility]CE[facility]UBK[facility], [address], [place], [place], [address] , tel: [phone] [facility] med management (chief complaint) Body mass index (BMI) 31.0-31.9, adultGAD (generalized anxiety disorder)Obesity (BMI 30.0-34.9)Right foot pain Sumeet Mcleod. [address] [place] [address], [address], [id number] , . tel: [phone] Referring Provider: Harsha Fabian, [address] [place] [address], [address] . tel:[phone] OFFICE [facility]NT[facility]KWK[facility], [address], [place], [place], [address] , tel: [phone] [facility] med management (chief complaint) Body mass index (BMI) 31.0-31.9, adultMixed hypercholesterolem ia and hypertriglyceridem iaModerate major depressionEssentia l hypertensionAdult hypothyroidismGAD (generalized anxiety disorder)Chronic insomniaObesity (BMI 30.0-34.9)Multinod ular goiter 9 Sumeet Mcleod. [address] [facility], [address], [id number] , . tel: [phone] Referring Provider: Harsha Fabian, [address] [place] [address], [address] . tel:[phone] [facility], [address], [place], [place], [address] , tel: [phone] [facility] Urinary frequency 9 Sumeet Mcleod. [address] [place] [address], [address], [id number] , [place]. tel: [phone] Referring Provider: Harsha Fabian, [address] [place] [address], [address] . tel:[phone] [facility], [address], [place], [place], [address] , tel: [phone] [facility] Nonrheumatic mitral (valve) insufficiency Sumeet Mcleod. [address] [place] [address], [address], [id number] , [place]. tel: [phone] [facility], [address], [place], [place], [address] , tel: [phone] [facility] Other hypertrophic disorders of the skin 9 Sumeet Mcleod. [address] [facility], [address], [id number] , . tel: [phone] Referring Provider: Harsha Fabian, [address] [place], [place] [address] [address], [address] . tel:[phone] [facility], [address], [place], [place], [address] , tel: [phone] [facility] Adult hypothyroidismEsse ntial hypertensionMixed hypercholesterolem ia and hypertriglyceridem iaBreast pain, leftGERD without esophagitisGAD (generalized anxiety disorder) 4 9 Sumeet Mcleod. [address] [facility], [address], [id number] , [place]. tel: [phone] Referring Provider: Harsha Fabian, [address] [place] [address], [address] . tel:[phone] [facility], [address], [place], [place], [address] , tel: [phone] [facility] Left eye pain Aug- 9- 8 Sumeet Mcleod. [address], [id number] , [place]. tel: [phone] [facility], [address], [place], [address] , [place] tel: [phone] [facility] Other vitreous opacities, left eye Aug- 3-201 8 Demarco Chapman. [address] [facility], [address], [id number] , [place]. tel: [phone] [facility], [address], [place], [place], [address] , [place] tel: [phone] [facility] Other vitreous opacities, left eye Dec-0 7-201 8 Sumeet Harsha. [address] [facility], [address], [id number] , [place]. tel: [phone] [facility], [address], [place], [place], [address] , tel: [phone] [facility] Mixed hypercholesterolem ia and hypertriglyceridem iaEssential hypertensionAdult hypothyroidismVitr eous floaters of left eyeSkin tagMucinous cystadenoma Dec-0 6-201 8 Sumeet Aldridgen. [address] [facility], [address], [id number] , [place]. tel: [phone] Referring Provider: Harsha Fabian, [address] [place] [address], [address] . tel:[phone] [facility], [address], [place], [place], [address] , [place] tel: [phone] [facility] Submucous leiomyoma of uterus 8 Sumeet Aldridgen. [address] [facility], [address], [id number] , [place]. tel: [phone] [facility], [address], [place], [place], [address] , [place] tel: [phone] [facility] Uterine leiomyoma, unspecified location 8 Sumeet Aldridgen. [address] [place] [address], [address], [id number] , [place]. tel: [phone] [employer] [facility], [address], [place], [place], [address] , [place] tel: [phone] [facility] Essential hypertensionMixed hypercholesterolem ia and hypertriglyceridem iaAdult hypothyroidismAnnu al physical exam May- 8 Sumeet Aldridgen. [address] [facility], [address], [id number] , [place]. tel: [phone] Referring Provider: Harsha Fabian, [address] [place] [address], [address] . tel:[phone] [facility], [address], [place], [place], [address] , [place] tel: [phone] [facility] Encntr for general adult medical exam w/o abnormal findingsHypothyroi dism, unspecifiedMixed hyperlipidemia May- 8 Sume[address]gen[address] [place] [address], [address], [id number] , [place]. tel: [phone] Referring Provider: Harsha Fabian, [address] [place] [address], [address] . tel:[phone] [facility], [address] [facility], [place], [place], [address] , tel: [phone] [facility] Annual physical examAdult hypothyroidismMixe d hypercholesterolem ia and hypertriglyceridem iaGAD (generalized anxiety disorder)Multinodu lar thyroidEncntr screen mammogram for malignant neoplasm of breastEssential hypertensionBody mass index (BMI) 30.0-30.9, adultObesity (BMI 30.0-34.9) 8 Sumeet Mcleod. [address] [place] [address], [address], [id number] , . tel: [phone] Referring Provider: Harsha Fabian, [address] [place] [address], [address] . tel:[phone] [facility], [address] [facility], [place], [place], [address] , [place] tel: [phone] [facility] Screening for osteoporosis 8 Sumeet Mcleod. [address] [place] [address], [address], [id number] , . tel: [phone] [facility], [address] [facility], [place], [place], [address] , tel: [phone] [facility] Body mass index (BMI) 29.0-29.9, adultAdult hypothyroidismGAD (generalized anxiety disorder)Mixed hypercholesterolem ia and hypertriglyceridem iaRefused influenza vaccine 8 Sumeet Mcleod. [address] [place] [address], [address], [id number] , . tel: [phone] Referring Provider: Harsha Fabian, [address] [place] [address], [address] . tel:[phone] [employer] [facility], [address] [facility], [place], [place], [address] , tel: [phone] [facility] JOINT PAIN-ANKLE 200 6 Mena Darling. [address], [place], [place], [address] . tel: [phone] Family History Family Member Type Diagnosis Age [...] Insurance type Covered libertarian ID Authoriza tion(s) [employer] MB [id number] [employer] Voicemail MB [id number] [employer] MB [id number] [employer] MB [id number] [employer] MB [id number] [employer] MB [id number] Social History Type Description Quantity Date Captured [...] ordered Referral [place]: [place] [address] [place], [phone] Ordered: Referrals: Ophthalmology. Sharmaine Ellison OD. Evaluation/diagnostic/treatment - Level 3 Appointment date/timeframe: 03/22/2020 ordered Unknown Immunization Pneumococcal conjugate PCV 1 3 ordered Future Order: Lab Order TSH - Th yroid Stimulating Hormone ([id number]), Collected on: , Sent on: Sent Future Order: Lab Order Comprehe nsive Metabolic (CMP) ([id number]), Collected on: , Sent on: Sent Future Order: Lab Order Lipid Pa ranjeet ([id number]), Collected on: , Sent on: Sent Future Order: Lab Order CBC AUTO DIFF ([id number]), Collected on: , Sent on: Sent Future Order: Lab Order Free T4 (FT4) ([id number]), Collected on: , Sent on: Sent History [...]
--- OUTSIDE RECORDS SUMMARY | 2024-11-28 12:21 | XMS_ITS | Referral Summary ---
Author Organization [facility] Address [address] [place] [address] Care Team Providers Care Business Development Name Role Phone Unavailable Primary Care Provider Unavailabl e Source Comments [facility],non-owned Affiliates and Associated Physician Practices is amultiple site organization consisting of ambulatory clinics and hospital sitesin [place], [place], [place] and [place]. This disclosure is being madepursuant to the Care Everywhere program and may not contain all information available regarding this patient. Last updated 18.[facility] Encounters Date Type Department Care Team Description 10/18/2024 Lab Requisition [facility] - DermPath Lab [address] [place] [address] Deon Kathleen MD from Last 3 Months Social History Tobacco Use Types Packs/Day Years Used Date Smoking Tobacco: Never Assessed Sex and Gender Information Value Date Recorded Sex Assigned at Not on file Gender Identity Not on file Sexual Orientation Not on file Plan of Treatment Not on file Procedures Procedure Name Priority Date/Time Associated Diagnosis Comments DERMATOPATHOLOGY Routine 10/17/2024 3:33 AM STAMP MOUNTER from Last 3 Months Results * DERMATOPATHOLOGY (10/17/2024 3:33 AM STAMP MOUNTER) Case Report Dermatopathology Report Case: [id number] Authorizing Provider: Deon Kathleen MD Collected: 10/17/2024 03:33 AM Ordering Location: [facility] Physician [facility] - Received: 10/18/2024 01:53 PM DermPath Lab Pathologist: Nury Crawford MD Specimen: Skin, left upper chest 1:29 PM STAMP MOUNTER DERMATOPATHOLOGY LABORATORY Final Diagnosis Specimen A. SKIN, left upper chest: SEBORRHEIC KERATOSIS, CLONAL TYPE; INFLAMED (L82.1) PRESENT AT MARGIN 1:29 PM [facility] DERMATOPATHOLOGY LABORATORY Clinical History Changing Lesion. Check margins 1:29 PM [facility] DERMATOPATHOLOGY LABORATORY Gross Description Specimen A: Received is one formalin filled container labeled with the patient's name and designated left upper chest. The specimen consists of a shave biopsy measuring 9x5x3 mm. Jar 0. 1:29 PM [facility] DERMATOPATHOLOGY LABORATORY Microscopic Description Specimen A. SKIN, left upper chest: Sections show a proliferation of keratinocytes with overlying hyperkeratosis. Aggregates of keratinocytes with abundant pale-staining cytoplasm appear demarcated from surrounding basaloid keratinocytes. There is a lymphohistiocytic infiltrate within the dermis. This lesion is present at the margin of the specimen. 1:29 PM [facility] DERMATOPATHOLOGY LABORATORY Disclaimer An external and [...] purposes. Billing Codes Specimen Charges Stain Charges 97462 1 1:29 PM [facility] DERMATOPATHOLOGY LABORATORY Embedded Images 1:29 PM [facility] DERMATOPATHOLOGY LABORATORY Pathology/Cytolo gy TISSUE SPECIMEN FROM SKIN / Unknown 10/17/2024 3:33 AM STAMP MOUNTER 10/18/2024 1:53 PM STAMP MOUNTER Deon Kathleen MD LAB - PATHOLOGY/CYTO LOGY ORDERABLES DERMATOPATHOLOGY LABORATORY [facility] - Department of Dermatology [address], [address] [phone] from Last 3 Months
--- OUTSIDE RECORDS SUMMARY | 2024-11-28 12:21 | XMS_ITS | Encounter Summary ---
Author Organization [facility] Address [address] [place] [address] Care Team Providers Care Specimen Boss Name Role Phone Deon Kathleen MD Primary Care Provider [phone] Encounter Details Date Type Department Care Team (Late st Contact Info) Description 07/23/2006 Outpatient Historical [facility] Internal Medicine [place] [address] [place] [address] Ramon Garnett MD [address] [place] [address] Social History Tobacco Use Types Packs/Day Years Used Date Smoking Tobacco: Never Assessed Comments Unknown Sex and Gender Information Value Date Recorded Sex Assigned at Female 08/05/2024 12:43 PM BOOTH SUPERVISOR Legal Sex Female 3:11 AM BOOTH SUPERVISOR Gender Identity Female 08/05/2024 12:43 PM BOOTH SUPERVISOR Sexual Orientation Straight 08/05/2024 12 :43 PM BOOTH SUPERVISOR documented as of this encounter Plan of Treatment Not on file documented as of this encounter Visit Diagnoses Not on filedocumented in this encounter Care Teams Specimen Boss Relationship Specialty Start Date End Date Deon Kathleen MD [address] [place] [address] PCP - General Family Practice 07/31/24 documented as of this encounter
--- OUTSIDE RECORDS SUMMARY | 2024-11-28 12:21 | XMS_ITS | Patient Health Summary ---
Author Organization [facility] Address [address] [place] [address] Care Team Providers Care Coal Loader Name Role Phone Unavailable Primary Care Provider Unavailabl e Note from [facility],non-owned Affiliates and Associated Physician Practices is amultiple site organization consisting of ambulatory clinics and hospital sitesin [place], [place], [place] and [place]. This disclosure is being madepursuant to the Care Everywhere program and may not contain all information available regarding this patient. Last updated 18.[facility] Social History Tobacco Use Types Packs/Day Years Used Date Smoking Tobacco: Never Assessed Sex and Gender Information Value Date Recorded Sex Assigned at Not on file Gender Identity Not on file Sexual Orientation Not on file Procedures * DERMATOPATHOLOGY(Performed 10/17/2024) * DERMATOPATHOLOGY(Performed 06/14/2023) * DERMATOPATHOLOGY(Performed 10/27/2021) Results * DERMATOPATHOLOGY (10/17/2024 3:33 AM WESTERN FELT HAT BLOCKER) Only the most recent of3 resultswithin the time period is included. Case Report Dermatopathology Report Case: [id number] Authorizing Provider: Deon Kathleen MD Collected: 10/17/2024 03:33 AM Ordering Location: [facility] - Received: 10/18/2024 01:53 PM DermPath Lab Pathologist: Nury Crawford MD Specimen: Skin, left upper chest 1:29 PM WESTERN FELT HAT BLOCKER DERMATOPATHOLOGY LABORATORY Final Diagnosis Specimen A. SKIN, left upper chest: SEBORRHEIC KERATOSIS, CLONAL TYPE; INFLAMED (L82.1) PRESENT AT MARGIN 1:29 PM [facility]STERN FELT HAT BLOCK[facility] DERMATOPATHOLOGY LABORATORY Clinical History Changing Lesion. Check margins 1:29 PM WESTERN FELT HAT BLOCKER DERMATOPATHOLOGY LABORATORY Gross Description Specimen A: Received is one formalin filled container labeled with the patient's name and designated left upper chest. The specimen consists of a shave biopsy measuring 9x5x3 mm. Jar 0. 5 1:29 PM [facility] DERMATOPATHOLOGY LABORATORY Microscopic Description Specimen A. SKIN, left upper chest: Sections show a proliferation of keratinocytes with overlying hyperkeratosis. Aggregates of keratinocytes with abundant pale-staining cytoplasm appear demarcated from surrounding basaloid keratinocytes. There is a lymphohistiocytic infiltrate within the dermis. This lesion is present at the margin of the specimen. 5 1:29 PM [facility] DERMATOPATHOLOGY LABORATORY Disclaimer An external and internal positive and negative controls are appropriate for the histochemical, immunohistochemical and immunofluorescence stain(s) in this case (if any), except where stated explicitly. The performance characteristics of the stain(s) cited in this report were developed and its performance characteristic determined by the Dermatopathology Laboratory at [facility], directed by Dr. Michelle Jauregui. These tests need not be, and therefore are not, approved by the [place] Food and Drug Administration. The tests are used for clinical purposes. Billing Codes Specimen Charges Stain Charges 12523 1 5 1:29 PM [facility] DERMATOPATHOLOGY LABORATORY Embedded Images 1:29 PM [facility] DERMATOPATHOLOGY LABORATORY Pathology/Cytolo gy TISSUE SPECIMEN FROM SKIN / Unknown 10/17/2024 3:33 AM WESTERN FELT HAT BLOCKER 10/18/2024 1:53 PM [facility] Deon Kathleen MD LAB - PATHOLOGY/CYTO LOGY ORDERABLES DERMATOPATHOLOGY LABORATORY [facility] - Department of Dermatology [address], [address] [phone]
--- OUTSIDE RECORDS SUMMARY | 2024-11-28 12:22 | XMS_ITS | Clinical Summary ---
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 Gender Identity Not on file Sexual Orientation Not on file Obstetrics History Para Term AB IAB SAB Ectopic Multiple Livin g Live Births 1 1 1 Date Outcome GA Total Labor Labor/2nd/3rd Weight Sex Type Anes PTL Tasneem A1 A5 Name Clin 1989 Para 3.43 kg (7 lb 9 oz) Vag-Sp ont Last Filed Vital Signs Vital Sign Reading Time Taken Comments Blood Pressure 126/74 03/19/2021 10:04 AM CDT Pulse 51 06/30/2018 9:47 AM CDT Temperature 35.9 C (96.7 F) 06/30/2018 9:10 AM CDT Respiratory Rate 14 06/30/2018 9:47 AM CDT Oxygen Saturation 99% 06/30/2018 9:47 AM CDT Inhaled Oxygen Concentration - - Weight 78.5 kg (173 lb) 03/19/2021 10:04 AM CDT Height 153.7 cm (5' 0.5 ) 03/19/2021 10:04 AM CD T Body Mass Index 33.23 03/19/2021 10:04 AM CDT Plan of Treatment Not on file Insurance HEALTHCARE [address] [place] [address] [address] [place] [address] HEALTHCARE Care Teams Granite Polisher Machine Relationship Specialty [place] [address] [address] [address] PCP - General Family Medicine 06/01/18
--- OUTSIDE RECORDS SUMMARY | 2024-11-28 12:22 | XMS_ITS | Continuity of Care Document ---
Author Organization [facility] Address [address] [place] [address] Phone Care Team Providers Care Transferrer Name Role Phone Deepthi Friedman DO Unavailable [...] on Encounter [facility], [address] [facility], [place], [address], [place] tel:[phone] [facility] Encounter for screening mammogram for breast cancer [address], [place], [place], [address] . tel: [phone] [facility], [address] [facility] [facility] [address], [place], [address], [place] tel:[phone] [facility] No Information [address], [place], [place], [address] . tel: [phone] OFFICE/OUTPAT IENT VISIT EST [facility], [address] [facility] [address], [place], [address], [place] tel:[phone] [facility] abnormal bleeding (chief complaint) PMB (postmenopaus al bleeding)H/O tamoxifen therapy [address], [place], [place], [address] . 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, [place], [place], [id number] . tel: [phone] [facility] , [address] [address], [place], [address], [place] tel:[phone] [facility] No Information 6 Ricki Perez. [address] [facility], [place], [place], [address] . tel: [phone] OFFICE/OUTPAT IENT VISIT NEW [facility] , [address] [address], [place], [address], [place] tel:[phone] [facility] Pain of finger of right handOpen displaced fracture of distal phalanx of right little finger, initial encounter 6 Ricki Perez. [address] [facility], [place], [place], [address] . 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 [address] [address] [facility] [address], [place], [place], [address] . tel: [phone] OFFICE/OUTPAT IENT VISIT EST [facility], [address] [facility] [address], [place], [address], tel:[phone] [facility] abnormal pap smear (chief complaint) ASCUS (atypical squamous cells of undetermined sig [address]. [address] [address] [facility] [address], [place], [place], [address] . tel: [phone] Family History Family Member Type Diagnosis Age [...] is Payers Payer name Insurance type Covered republican ID Authoriza tion(s) No Information Social History [...] breast exam. Related to Enc ntr for molasses feed mixer exam (general) (routine) w/o abn findings Aug-16-2016 HPV guidelines reviewed. 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 Re lated to Encntr for molasses feed mixer exam (general) (routine) w/o abn findings Rest, ice and elevate. Related t o Open displaced fracture of distal phalanx of right little finger, initial encounter Pap screening guidelines Assessments Type Assessment Date No Information Patient Care Teams Name Effective Dates (start - stop) Status Members No Information
--- OUTSIDE RECORDS SUMMARY | 2024-11-28 12:22 | XMS_ITS | Referral Summary ---
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
== END 2024-11-28 10:49 | disposition home or self-care (01) ==
LOC: ANHLAB 10:49
PROVIDERS: PCP Family Medicine; Visit Provider Nurse Practitioner Family
DX: E55.9 Vitamin D deficiency, unspecified (principal); N28.9 Disorder of kidney and ureter, unspecified
CPT/HCPCS: 36415; 80048; 82306

== ENCOUNTER 2025-01-22 14:14 | Outpatient (CLI) | payer OTHER, SELFPAY ==
--- NOTE | ~2025-01-22 | XR_ITS ---
XR hand RT 2V Ordering provider: Malissa Davis APRN History: . M79.641 - Pain in right hand . Comparison: June 23, 2022 FINDINGS: BONES: No acute fracture or dislocation. Osteopenia in the periarticular aerated. JOINT SPACES: Narrowing of the proximal and distal interphalangeal joints. Osteoarthritic changes of the first carpometacarpal joint. SOFT TISSUES: Normal. IMPRESSION: No acute osseous abnormality right hand. Polyarticular osteoarthritic changes. Reviewed, dictated and finalized at location A.
--- OUTSIDE RECORDS SUMMARY | 2025-01-22 14:52 | XMS_ITS | Encounter Summary ---
Author Organization [facility] Address [address] [place] [address] Care Team Providers Care Customer Operations Associate Name Role Phone Deon Kathleen MD Primary Care Provider [phone] Encounter Details Date Type Department Care Team (Late st Contact Info) Description 07/23/2006 Outpatient Historical [facility] Internal Medicine [place] [address] [place] [address] Ramon Garnett MD [address] [place] [address] Social History Tobacco Use Types Packs/Day Years Used Date Smoking Tobacco: Never Assessed Comments Unknown Sex and Gender Information Value Date Recorded Sex Assigned at Female 08/05/2024 12:43 PM 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 [address] PCP - General Family Practice 07/31/24 documented as of this encounter
--- OUTSIDE RECORDS SUMMARY | 2025-01-22 14:53 | XMS_ITS | Clinical Summary ---
Author Organization [facility] Address [address] [place] [address] Care Team Providers Care Hot Packer Name Role Phone Unavailable Primary Care Provider Unavailabl e Source Comments [facility],non-owned Affiliates and Associated Physician Practices is amultiple site organization consisting of ambulatory clinics and hospital sitesin [place], [place], [place] and [place]. This disclosure is being madepursuant to the Care Everywhere program and may not contain all information available regarding this patient. 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
--- OUTSIDE RECORDS SUMMARY | 2025-01-22 14:53 | XMS_ITS | Encounter Summary ---
Author Organization [facility] Address [address] [facility] [place] [address] Care Team Providers Care Cut File Clerk Name Role Phone Unavailable Primary Care Provider Unavailabl e Encounter Details Date Type Department Care Team (Late st Contact Info) Description 06/15/2023 Lab Requisition [facility] - DermPath Lab [address] [facility], [place] [id number] Deon Kathleen MD [address] [place] [address] Social History Tobacco Use Types Packs/Day Years Used Date Smoking Tobacco: Never Assessed Comments Unknown Sex and Gender Information Value Date Recorded Sex Assigned at Not on file Legal Sex Female 1:03 PM DIRECTOR COMPLIANCE Gender Identity Not on file Sexual Orientation Not on file documented as of this encounter Plan of Treatment Not on file documented as of this encounter Procedures Procedure Name Priority Date/Time Associated Diagnosis Comments DERMATOPATHOLOGY Routine 06/14/2023 12:0 0 AM CDT documented in this encounter Results * DERMATOPATHOLOGY (06/14/2023 12:00 AM CDT) Case Report Dermatopathology Report Case: [id number] Authorizing Provider: Deon Kathleen MD Collected: 06/14/2023 12:00 AM Ordering Location: [facility] DermPath Lab Received: 06/15/2023 11:31 AM Pathologist: Joceline Guteirrez MD Specimens: A) - Skin, right back upper B) - Skin, right back middle 2:32 PM CDT DERMATOPATHOLOGY LABORATORY Final Diagnosis Specimen A. SKIN, right back upper: SEBORRHEIC KERATOSIS, IRRITATED AND INFLAMED (L82.0) PRESENT AT MARGIN Specimen B. SKIN, right back middle: SEBORRHEIC KERATOSIS, IRRITATED (L82.0) PRESENT AT MARGIN 3 2:32 PM T DERMATOPATHOLOGY LABORATORY Clinical History A-B: Changing Lesion Check Margins 2:32 PM T DERMATOPATHOLOGY LABORATORY Gross Description [...] shave biopsy measuring 9x10x4 mm. Jar 0. 2:32 PM T DERMATOPATHOLOGY LABORATORY Microscopic Description [...] present at the margin of the specimen. 2:32 PM T DERMATOPATHOLOGY LABORATORY Disclaimer An external and internal positive and negative controls are appropriate for the histochemical, immunohistochemical and immunofluorescence stain(s) in this case (if any), except where stated explicitly. The performance characteristics of the stain(s) cited in this report were developed and its performance characteristic determined by the Dermatopathology Laboratory at [facility], directed by Dr. Michelle Jauregui. These tests need not be, and therefore are not, approved by the [place] Food and Drug Administration. The tests are used for clinical purposes. Billing Codes Specimen Charges Stain Charges 22077 41302 1 1 3 2:32 PM CDT DERMATOPATHOLOGY LABORATORY Embedded Images 2:32 PM CDT DERMATOPATHOLOGY LABORATORY Pathology/Cytology TISSUE SPECIMEN FROM SKIN / Unknown 06/14/2023 06/15/2023 11:31 AM CDT Miscellaneous samples (specimen) TISSUE SPECIMEN FROM SKIN / Unknown 06/14/2023 06/15/2023 11:31 AM CDT us Denochristiane Kathleen MD LAB - PATHOLOGY/CYTOLOGY SHAILESH BAIRD Final Result DERMATOPATHOLOGY LABORATORY [facility] - Department of Dermatology [facility] Medicine [address] [place] [address], [address] [phone] documented in this encounter Visit Diagnoses Not on filedocumented in this encounter
--- OUTSIDE RECORDS SUMMARY | 2025-01-22 14:53 | XMS_ITS | Encounter Summary ---
Author Organization [facility] Address [address] [place] [address] Care Team Providers Care Emt Intermediate Name Role Phone Unavailable Primary Care Provider Unavailabl e Encounter Details Date Type Department Care Team (Late st Contact Info) Description 10/18/2024 Lab Requisition [facility] - DermPath Lab [address] [facility] [place] [phone] Deon Kathleen MD [address] [place] [address] Social History Tobacco Use Types Packs/Day Years Used Date Smoking Tobacco: Never Assessed Comments Unknown Sex and Gender Information Value Date Recorded Sex Assigned at Not on file Legal Sex Female 1:03 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 Gender Identity Not on file Sexual Orientation Not on file documented as of this encounter Plan of Treatment Not on file documented as of this encounter Procedures Procedure Name Priority Date/Time Associated Diagnosis Comments DERMATOPATHOLOGY Routine 10/17/2024 3:33 AM ACTIONSCRIPT DEVELOPER documented in this encounter Results * DERMATOPATHOLOGY (10/17/2024 3:33 AM ACTIONSCRIPT DEVELOPER) Case Report Dermatopathology Report Case: [id number] Authorizing Provider: Deon Kathleen MD Collected: 10/17/2024 03:33 AM Ordering Location: [facility] - Received: 10/18/2024 01:53 PM DermPath Lab Pathologist: Nury Crawford MD Specimen: Skin, left upper chest 1:29 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 DERMATOPATHOLOGY LABORATORY Final Diagnosis Specimen A. SKIN, left upper chest: SEBORRHEIC KERATOSIS, CLONAL TYPE; INFLAMED (L82.1) PRESENT AT MARGIN 1:29 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 DERMATOPATHOLOGY LABORATORY Clinical History Changing Lesion. Check margins 1:29 PM [facility] DERMATOPATHOLOGY LABORATORY Gross Description Specimen A: Received is one formalin filled container labeled with the patient's name and designated left upper chest. The specimen consists of a shave biopsy measuring 9x5x3 mm. Jar 0. 1:29 PM [facility] DERMATOPATHOLOGY LABORATORY Microscopic Description Specimen A. SKIN, left upper chest: Sections show a proliferation of keratinocytes with overlying hyperkeratosis. Aggregates of keratinocytes with abundant pale-staining cytoplasm appear demarcated from surrounding basaloid keratinocytes. There is a lymphohistiocytic infiltrate within the dermis. This lesion is present at the margin of the specimen. 1:29 PM [facility] DERMATOPATHOLOGY LABORATORY Disclaimer An external and internal positive and negative controls are appropriate for the histochemical, immunohistochemical and immunofluorescence stain(s) in this case (if any), except where stated explicitly. The performance characteristics of the stain(s) cited in this report were developed and its performance characteristic determined by the Dermatopathology Laboratory at [facility], directed by Dr. Michelle Jauregui. These tests need not be, and therefore are not, approved by the [place] Food and Drug Administration. The tests are used for clinical purposes. Billing Codes Specimen Charges Stain Charges 72002 1 1:29 PM [facility] DERMATOPATHOLOGY LABORATORY Embedded Images 1:29 PM [facility] DERMATOPATHOLOGY LABORATORY Pathology/Cytolo gy TISSUE SPECIMEN FROM SKIN / Unknown 10/17/2024 3:33 AM ACTIONSCRIPT DEVELOPER 10/18/2024 1:53 PM [facility] us Deonchristiane Kathleen MD LAB - PATHOLOGY/CYTOLOGY SHAILESH BAIRD Final Result DERMATOPATHOLOGY LABORATORY [facility] - Department of Dermatology [address] [place] [address], [facility] [phone] documented in this encounter Visit Diagnoses Not on filedocumented in this encounter
--- OUTSIDE RECORDS SUMMARY | 2025-01-22 14:53 | XMS_ITS | Clinical Summary ---
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, ER+,AR+,BCT,RT, Tamoxifen Resolved Problems Problem Noted Date Diagnosed [...] Sex Assigned at Female 08/05/2024 12:43 PM CINDER MAN Legal Sex Female 3:11 AM CINDER MAN Gender Identity Female 08/05/2024 12:43 PM CINDER MAN Sexual Orientation Straight 08/05/2024 12 :43 PM CINDER MAN Occupation Industry Job Start Date Job End Date Not on file Not on file Not on file Not on file Last Filed Vital Signs Vital Sign Reading Time Taken Comments Blood Pressure 114/82 08/10/2024 12:00 PM CINDER MAN Pulse 70 08/10/2024 12:00 PM CINDER MAN Temperature 36.2 C (97.2 F) 08/10/2024 10:07 AM CINDER MAN Respiratory Rate 16 08/10/2024 12:00 PM CINDER MAN Oxygen Saturation 99% 08/10/2024 12:00 PM CINDER MAN Inhaled Oxygen Concentration - - Weight 66.4 kg (146 lb 6.4 oz) 08/10/2024 10:07 AM CINDER MAN Height 152.4 cm (5') 08/10/2024 10:07 AM CINDER MAN Body Mass Index 28.59 08/10/2024 10:07 AM CINDER MAN Plan of Treatment Health Maintenance Due Date [...] history exists INFLUENZA VACCINE (#1) 2024 08/10/2014 OSTEOPOROSIS SCREENING 04/01/2026 , 01/28/2018, 01/03/2016, Additional history exists RSV VACCINE (60+ or ) (1 - 1-dose 75+ series) 2028 COLORECTAL SCREENING 08/10/2034 08/10/2024, 08/10/2024, 01/05/2014, Additional history exists Colorectal Cancer Screening 08/10/2034 Procedures Procedure Name Priority Date/Time Associated Diagnosis Comments COLONOSCOPY REPORT 08/10/2024 11 :46 AM CINDER MAN XR DEXA BONE DENSITY AXIAL 1 OR MORE SITES Routine 04/01/2021 11:51 AM CDT Osteoporosis of multiple sites MAMMO SCREEN IMPL BILAT W OR WO CAD Routine 07/15/2016 9:16 AM CDT Visit for screening mammogram from Last 3 Months or Most Recently Relevant to Health Maintenance Results * COLONOSCOPY REPORT (08/10/2024 11:46 AM CINDER MAN) Narrative Procedure Note Madyson Pina MD - 08/10/2024 11:46 AM CST [facility] Endoscopy Patient Name: Edith Joyner [...] pathology results. Procedure Code(s): --- Professional --- 75987, Colonoscopy, flexible; with removal of tumor(s), polyp(s), or other lesion(s) by snare technique CPT copyright 2020 [employer]. All rights reserved. The codes documented in this report are preliminary and upon business process analyst review may be revised to meet current compliance requirements. Madyson Pina MD 08/10/2024 11:46:01 AM This report has been signed electronically. Number of Addenda: [id number] [id number] [facility] [place] [address] Madyson Pina MD GI PROCEDURE ORDERABLES Final [...] refer to the full report available in [facility] under the PACS Images tab. If a faxed copy is needed, please call [phone]. DICTATION LOCATION: [facility] Procedure Note Keshawn Mccullough MD - 04/01/2021 SUMMARY DEXA REPORT DATE: 04/01/2021 11:51 AM INDICATION: Breast cancer, postmenopausal FINDINGS: Bone mineral density is consistent with osteopenia. The lowest T score is -1.6. The lowest T score on the previous study was -1.5. Please refer to the full report available in [facility] under the PACS Images tab. If a faxed copy is needed, please call [phone]. DICTATION LOCATION: [facility] us Daphnie Arteaga MD DIAGNOSTIC IMAGING ORDERABLES Final Result * MAMMO DIGITAL SCREEN IMPLANTS BILAT (07/15/2016 9:16 AM CDT) Anatomical Region Laterality Modality Breast Bilateral Mammography 07/15/2016 9:16 AM CDT Impressions 07/16/2016 4:54 PM CDT IMPRESSION: Negative bilateral screening mammogram. Recommend routine followup. OVERALL ASSESSMENT: BI-RADS Category 1 - Negative DICTATION LOCATION: [facility] Narrative 07/16/2016 4:54 PM CDT BILATERAL [...] BI-RADS Category 1 - Negative DICTATION LOCATION: [facility] Don Alvarado MD MAMMO ORDERABLES F inal Result from Last 3 Months or Most Recently Relevant to Health Maintenance Insurance [facility] MCR Advance Directives For more information, please contact: [phone] * Full Code (Latest Code Status on File) Date Activated Date Inactivated Comments 01/05/2014 11:11 AM 01/05/2014 3:58 PM Care Teams Cab Station Attendant Relationship Specialty Start Date End Date Deon Kathleen MD [address] [place] [address] PCP - General Family Practice 07/31/24
--- OUTSIDE RECORDS SUMMARY | 2025-01-22 14:53 | XMS_ITS | Encounter Summary ---
Author Organization [facility] Address [address] [place] [address] Care Team Providers Care Commercial Artist Name Role Phone Unavailable Primary Care Provider Unavailabl e Encounter Details Date Type Department Care Team (Late st Contact Info) Description 10/29/2021 Lab Requisition [facility] DermPath Lab [address] [facility] [address] [facility] [place] [phone] Deon Kathleen MD [address] [place] [address] Social History Tobacco Use Types Packs/Day Years Used Date Smoking Tobacco: Never Assessed Comments Unknown Sex and Gender Information Value Date Recorded Sex Assigned at Not on file Legal Sex Female 1:03 PM CUTTER GAS Gender Identity Not on file Sexual Orientation Not on file documented as of this encounter Plan of Treatment Not on file documented as of this encounter Procedures Procedure Name Priority Date/Time Associated Diagnosis Comments DERMATOPATHOLOGY Routine 10/27/2021 12:0 0 AM CUTTER GAS documented in this encounter Results * DERMATOPATHOLOGY (10/27/2021 12:00 AM CUTTER GAS) Case Report Dermatopathology Report Case: [id number] Authorizing Provider: Deon Kathleen MD Collected: 10/27/2021 12:00 AM Ordering Location: [facility] DermPath Lab Received: 10/29/2021 01:26 PM Pathologist: Joceline Gutierrez MD Specimen: Skin, back 2 10:32 AM CUTTER GAS DERMATOPATHOLOGY LABORATORY Final Diagnosis Specimen A. SKIN, back: BENIGN VERRUCOUS KERATOSIS, INFLAMED (L82.1) PRESENT AT MARGIN 2 10:32 AM CUTTER GAS DERMATOPATHOLOGY LABORATORY Clinical History Changing lesion. Check margins. 10:32 AM [facility] DERMATOPATHOLOGY LABORATORY Gross Description Specimen A: Received is one formalin filled container labeled with the patient's name and designated back. The specimen consists of a shave biopsy measuring 1u8w7cy, bisected. The margin is inked green. Jar 0. 10:32 AM [facility] DERMATOPATHOLOGY LABORATORY Microscopic Description Specimen A. SKIN, back: Sections show hyperkeratosis, papillomatosis, hypergranulosis, and acanthosis. Inflammatory cells are present within the dermis. These histological findings can be seen in a verruca vulgaris or a seborrheic keratosis. This lesion is present at the margin of the specimen. 10:32 AM [facility] DERMATOPATHOLOGY LABORATORY Disclaimer An external and internal positive and negative controls are appropriate for the histochemical, immunohistochemical and immunofluorescence stain(s) in this case (if any), except where stated explicitly. The performance characteristics of the stain(s) cited in this report were developed and its performance characteristic determined by the Dermatopathology Laboratory at [facility], directed by Dr. Michelle Jauregui. These tests need not be, and therefore are not, approved by the [place] Food and Drug Administration. The tests are used for clinical purposes. Billing Codes Specimen Charges Stain Charges 20842 1 2 10:32 AM [facility] DERMATOPATHOLOGY LABORATORY Embedded Images 10:32 AM [facility] DERMATOPATHOLOGY LABORATORY Pathology/Cytolog y TISSUE SPECIMEN FROM SKIN / Unknown 10/27/2021 10/29/2021 1:26 PM CUTTER G[employer] us Deonchristiane Kathleen MD LAB - PATHOLOGY/CYTOLOGY SHAILESH BAIRD Final Result DERMATOPATHOLOGY LABORATORY [facility] - Department of Dermatology [address] [phone] documented in this encounter Visit Diagnoses Not on filedocumented in this encounter
== END 2025-01-22 14:15 | disposition home or self-care (01) ==
PROVIDERS: PCP Family Medicine; Visit Provider Nurse Practitioner Family
DX: M19.041 Primary osteoarthritis, right hand (principal)
CPT/HCPCS: 73120

== ENCOUNTER 2025-02-03 08:31 | Outpatient (CLI) | payer OTHER, SELFPAY ==
--- NOTE | ~2025-02-03 | MM_ITS ---
EXAMINATION: MM screening michael BI w yudelka HISTORY: Screening TECHNIQUE: Craniocaudal and mediolateral oblique 3-D tomosynthesis images were obtained and synthetic 2-D images were generated. CAD analysis was submitted and interpreted. COMPARISON: Comparison to multiple prior studies sequentially, with oldest reviewed study dated 06/12. BREAST PARENCHYMAL COMPOSITION: Not dense: There are scattered areas of fibroglandular density. FINDINGS: There is no evidence of suspicious mass, calcification, or architectural distortion to sugg est malignancy in either breast. There has been no suspicious interval change. IMPRESSION: 1. No mammographic evidence of malignancy. 2. Recommend routine screening mammography in one year. BI-RADS Category 1: Negative Reviewed, dictated and finalized at location []
== END 2025-02-03 08:32 | disposition home or self-care (01) ==
LOC: MICIMG 08:32
PROVIDERS: PCP Family Medicine; Visit Provider Student in an Organized Health Care Education/Training Program
DX: Z12.31 Encounter for screening mammogram for malignant neoplasm of breast (principal)
CPT/HCPCS: 77063; 77067

== ENCOUNTER 2025-03-22 08:46 | Outpatient (CLI) | payer OTHER, SELFPAY ==
--- OUTSIDE RECORDS SUMMARY | 2025-03-22 08:51 | XMS_ITS | Clinical Summary ---
Author Organization [facility] Address [address] [place] [address] Care Team Providers Care Fence Manufacture Supervisor Name Role Phone Unavailable Primary Care Provider Unavailabl e Source Comments [facility],non-owned Affiliates and Associated Physician Practices is amultiple site organization consisting of ambulatory clinics and hospital sitesin [place], [place], [place] and [place]. This disclosure is being madepursuant to the Care Everywhere program and may not contain all information available regarding this patient. 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
--- OUTSIDE RECORDS SUMMARY | 2025-03-22 08:51 | XMS_ITS | Encounter Summary ---
Author Organization [facility] Address [address] [place] [address] Care Team Providers Care Braided Band Assembler Name Role Phone Unavailable Primary Care Provider Unavailabl e Encounter Details Date Type Department Care Team (Late st Contact Info) Description 06/15/2023 Lab Requisition [facility] - DermPath Lab [address] [place] [phone] Deon Kathleen MD [address] [place] [address] Social History Tobacco Use Types Packs/Day Years Used Date Smoking Tobacco: Never Assessed Comments Unknown Sex and Gender Information Value Date Recorded Sex Assigned at Not on file Legal Sex Female 1:03 PM YIELD ANALYST Gender Identity Not on file Sexual Orientation Not on file documented as of this encounter Plan of Treatment Not on file documented as of this encounter Procedures Procedure Name Priority Date/Time Associated Diagnosis Comments DERMATOPATHOLOGY Routine 06/14/2023 12:0 0 AM CDT documented in this encounter Results * DERMATOPATHOLOGY (06/14/2023 12:00 AM CDT) Case Report Dermatopathology Report Case: [id number] Authorizing Provider: Deon Kathleen MD Collected: 06/14/2023 12:00 AM Ordering Location: [facility] DermPath Lab Received: 06/15/2023 11:31 AM [...] MARGIN 3 2:32 PM T DERMATOPATHOLOGY LABORATORY at 1432 CDT Clinical History A-B: Changing Lesion Check Margins [...] 9x10x4 mm. Jar 0. 3 2:32 PM CDT DERMATOPATHOLOGY LABORATORY Microscopic Description Specimen A. SKIN, [...] determined by the Dermatopathology Laboratory at [facility], directed by Dr. Michelle Jauregui. These tests need not be, and therefore are not, approved by the [place] Food and Drug Administration. The tests are used for clinical purposes. Billing Codes Specimen Charges Stain Charges 69985 11162 1 1 3 2:32 PM CDT DERMATOPATHOLOGY LABORATORY Embedded Images 3 2:32 PM CDT DERMATOPATHOLOGY LABORATORY Pathology/Cytology TISSUE SPECIMEN FROM SKIN / Unknown 06/14/2023 06/15/2023 11:31 AM CDT Miscellaneous samples (specimen) TISSUE SPECIMEN FROM SKIN / Unknown 06/14/2023 06/15/2023 11:31 AM CDT us Deonchristiane Kathleen MD LAB - PATHOLOGY/CYTOLOGY SHAILESH BAIRD Final Result DERMATOPATHOLOGY LABORATORY [facility] - Department of Dermatology [facility] Medicine [address] [place] [address], [address] [phone] documented in this encounter Visit Diagnoses Not on filedocumented in this encounter
--- OUTSIDE RECORDS SUMMARY | 2025-03-22 08:51 | XMS_ITS | Encounter Summary ---
Author Organization [facility] Address [address] [place] [address] Care Team Providers Care Sales Representative Printing Name Role Phone Unavailable Primary Care Provider Unavailabl e Encounter Details Date Type Department Care Team (Late st Contact Info) Description 10/18/2024 Lab Requisition [facility] - DermPath Lab [address] [place] [phone] Deon Kathleen MD [address] [place] [address] Social History Tobacco Use Types Packs/Day Years Used Date Smoking Tobacco: Never Assessed Comments Unknown Sex and Gender Information Value Date Recorded Sex Assigned at Not on file Legal Sex Female 1:03 PM R&D LAB TECHNICIAN Gender Identity Not on file Sexual Orientation Not on file documented as of this encounter Plan of Treatment Not on file documented as of this encounter Procedures Procedure Name Priority Date/Time Associated Diagnosis Comments DERMATOPATHOLOGY Routine 10/17/2024 3:33 AM R&D LAB TECHNICIAN documented in this encounter Results * DERMATOPATHOLOGY (10/17/2024 3:33 AM R&D LAB TECHNICIAN) Case Report Dermatopathology Report Case: [id number] Authorizing Provider: Deon Kathleen MD Collected: 10/17/2024 03:33 AM Ordering Location: [facility] - Received: 10/18/2024 01:53 PM DermPath Lab Pathologist: Nury Crawford MD Specimen: Skin, left upper chest 1:29 PM R&D LAB TECHNICIAN DERMATOPATHOLOGY LABORATORY Final Diagnosis Specimen A. SKIN, left upper chest: SEBORRHEIC KERATOSIS, CLONAL TYPE; INFLAMED (L82.1) PRESENT AT MARGIN 1:29 PM R&D LAB TECHNICIAN DERMATOPATHOLOGY LABORATORY at 1329 R&D LAB TECHNICIAN Clinical History Changing Lesion. Check margins 1:29 PM [facility] DERMATOPATHOLOGY LABORATORY Gross Description Specimen A: Received is one formalin filled container labeled with the patient's name and designated left upper chest. The specimen consists of a shave biopsy measuring 9x5x3 mm. Jar 0. 1:29 PM [facility] DERMATOPATHOLOGY LABORATORY Microscopic Description Specimen A. SKIN, left upper chest: Sections show a proliferation of keratinocytes with overlying hyperkeratosis. Aggregates of keratinocytes with abundant pale-staining cytoplasm appear demarcated from surrounding basaloid keratinocytes. There is a lymphohistiocytic infiltrate within the dermis. This lesion is present at the margin of the specimen. 1:29 PM [facility] DERMATOPATHOLOGY LABORATORY Disclaimer An external and internal positive and negative controls are appropriate for the histochemical, immunohistochemical and immunofluorescence stain(s) in this case (if any), except where stated explicitly. The performance characteristics of the stain(s) cited in this report were developed and its performance characteristic determined by the Dermatopathology Laboratory at [facility], directed by Dr. Michelle Jauregui. These tests need not be, and therefore are not, approved by the [place] Food and Drug Administration. The tests are used for clinical purposes. Billing Codes Specimen Charges Stain Charges 53124 1 1:29 PM [facility] DERMATOPATHOLOGY LABORATORY Embedded Images 1:29 PM [facility] DERMATOPATHOLOGY LABORATORY Pathology/Cytolo gy TISSUE SPECIMEN FROM SKIN / Unknown 10/17/2024 3:33 AM R&D LAB TECHNICIAN 10/18/2024 1:53 PM [facility] us Deonchristiane Kathleen MD LAB - PATHOLOGY/CYTOLOGY SHAILESH BAIRD Final Result DERMATOPATHOLOGY LABORATORY [facility] - Department of Dermatology [address] [place] [address], [facility] [phone] documented in this encounter Visit Diagnoses Not on filedocumented in this encounter
--- OUTSIDE RECORDS SUMMARY | 2025-03-22 08:51 | XMS_ITS | Encounter Summary ---
Author Organization [facility] Address [address] [place] [address] Care Team Providers Care Vehicle Glass Technician Name Role Phone Unavailable Primary Care Provider Unavailabl e Encounter Details Date Type Department Care Team (Late st Contact Info) Description 10/29/2021 Lab Requisition [facility] [address] [place] [id number] Deon Kathleen MD [address] [place] [address] Social History Tobacco Use Types Packs/Day Years Used Date Smoking Tobacco: Never Assessed Comments Unknown Sex and Gender Information Value Date Recorded Sex Assigned at Not on file Legal Sex Female 1:03 PM CRABBER Gender Identity Not on file Sexual Orientation Not on file documented as of this encounter Plan of Treatment Not on file documented as of this encounter Procedures Procedure Name Priority Date/Time Associated Diagnosis Comments DERMATOPATHOLOGY Routine 10/27/2021 12:0 0 AM CRABBER documented in this encounter Results * DERMATOPATHOLOGY (10/27/2021 12:00 AM CRABBER) Case Report Dermatopathology Report Case: [id number] Authorizing Provider: Deon Kathleen MD Collected: 10/27/2021 12:00 AM Ordering Location: [facility] Received: 10/29/2021 01:26 PM Pathologist: Joceline Gutierrez MD Specimen: Skin, back 2 10:32 AM [facility] Final Diagnosis Specimen A. SKIN, back: BENIGN VERRUCOUS KERATOSIS, INFLAMED (L82.1) PRESENT AT MARGIN 2 10:32 AM [facility] at [address] [facility] Clinical History Changing lesion. Check margins. 10:32 AM [facility] Gross Description Specimen A: Received is one formalin filled container labeled with the patient's name and designated back. The specimen consists of a shave biopsy measuring [id number], bisected. The margin is inked green. Jar 0. 10:32 AM [facility] Microscopic Description Specimen A. SKIN, back: Sections show hyperkeratosis, papillomatosis, hypergranulosis, and acanthosis. Inflammatory cells are present within the dermis. These histological findings can be seen in a verruca vulgaris or a seborrheic keratosis. This lesion is present at the margin of the specimen. 10:32 AM [facility] Disclaimer An external and internal positive and negative controls are appropriate for the histochemical, immunohistochemical and immunofluorescence stain(s) in this case (if any), except where stated explicitly. The performance characteristics of the stain(s) cited in this report were developed and its performance characteristic determined by the Dermatopathology Laboratory at [facility], directed by Dr. Michelle Jauregui. These tests need not be, and therefore are not, approved by the [place] Food and Drug Administration. The tests are used for clinical purposes. Billing Codes Specimen Charges Stain Charges 64906 1 2 10:32 AM [facility] Embedded Images 10:32 AM [facility] Pathology/Cytolog y TISSUE SPECIMEN FROM SKIN / Unknown 10/27/2021 10/29/2021 1:26 PM CR[facility] us Deonchristiane Kathleen MD LAB - PATHOLOGY/CYTOLOGY SHAILESH BAIRD Final Result DERMATOPATHOLOGY LABORATORY [facility] - Department of Dermatology [address], [address] [phone] documented in this encounter Visit Diagnoses Not on filedocumented in this encounter
--- OUTSIDE RECORDS SUMMARY | 2025-03-22 08:51 | XMS_ITS | Clinical Summary ---
Author Organization [facility] stephania Address [address] [place] [address] Care Team Providers Care Hand Patcher Name Role Phone Deon Kathleen MD Primary Care Provider [phone] Allergies Active Allergy Reactions Criticality Noted Date Comments Latex Hives High 11/10/2013 Morphine Nausea and Vomiting Low 11/10/2013 Penicillin G Other (See Comments) 04/20/2012 Trouble breathing Medications levothyroxine 25 mcg tablet TAKE 1 TABLET DAILY PERSONAL LINES INSURANCE ADVISOR. 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, ER+,NM+,BCT,RT, Tamoxifen Resolved Problems Problem Noted Date Diagnosed Date Resolved Date Hypothyroidism 01/10/2015 04/30/2016 Encounters Date Type Department Care Team Description 03/13/2025 External Device Data [facility] ABSTRACTION Provider, Abstract 02/07/2025 External Device Data [facility] ABSTRACTION Provider, Abstract 02/06/2025 External Device Data [facility] Provider, Abstract [...] Sex Assigned at Female 08/05/2024 12:43 PM WELDING MACHINE FEEDER Legal Sex Female 3:11 AM WELDING MACHINE FEEDER Gender Identity Female 08/05/2024 12:43 PM WELDING MACHINE FEEDER Sexual Orientation Straight 08/05/2024 12 :43 PM WELDING MACHINE FEEDER Occupation Industry Job Start Date Job End Date Not on file Not on file Not on file Not on file Last Filed Vital Signs Vital Sign Reading Time Taken Comments Blood Pressure 114/82 08/10/2024 12:00 PM WELDING MACHINE FEEDER Pulse 70 08/10/2024 12:00 PM WELDING MACHINE FEEDER Temperature 36.2 C (97.2 F) 08/10/2024 10:07 AM WELDING MACHINE FEEDER Respiratory Rate 16 08/10/2024 12:00 PM WELDING MACHINE FEEDER Oxygen Saturation 99% 08/10/2024 12:00 PM WELDING MACHINE FEEDER Inhaled Oxygen Concentration - - Weight 66.4 kg (146 lb 6.4 oz) 08/10/2024 10:07 AM WELDING MACHINE FEEDER Height 152.4 cm (5') 08/10/2024 10:07 AM WELDING MACHINE FEEDER Body Mass Index 28.59 08/10/2024 10:07 AM WELDING MACHINE FEEDER Plan of Treatment Health Maintenance Due Date [...] Comments COLONOSCOPY REPORT 08/10/2024 11 :46 AM WELDING MACHINE FEEDER XR DEXA BONE DENSITY AXIAL 1 OR MORE SITES Routine 04/01/2021 11:51 AM CDT Osteoporosis of multiple sites MAMMO SCREEN IMPL BILAT W OR WO CAD Routine 07/15/2016 9:16 AM CDT Visit for screening mammogram from Last 3 Months or Most Recently Relevant to Health Maintenance Results * COLONOSCOPY REPORT (08/10/2024 11:46 AM WELDING MACHINE FEEDER) Narrative Procedure Note Madyson iPna MD - 08/10/2024 11:46 AM CST [facility] Endoscopy Patient Name: Edith Joyner Procedure [...] pathology results. Procedure Code(s): --- Professional --- 24289, Colonoscopy, flexible; with removal of tumor(s), polyp(s), or other lesion(s) by snare technique CPT copyright 2020 [employer]. All rights reserved. The codes documented in this report are preliminary and upon lead electrician review may be revised to meet current compliance requirements. Madyson Pina MD 08/10/2024 11:46:01 AM This report has been signed electronically. Number of Addenda: [id number] [place] [address] Madyson Pina MD GI PROCEDURE ORDERABLES Final [...] refer to the full report available in [facility] under the PACS Images tab. If a faxed copy is needed, please call [phone]. DICTATION LOCATION: [facility] Procedure Note Keshawn Mccullough MD - 04/01/2021 SUMMARY DEXA REPORT DATE: 04/01/2021 11:51 AM INDICATION: Breast cancer, postmenopausal FINDINGS: Bone mineral density is consistent with osteopenia. The lowest T score is -1.6. The lowest T score on the previous study was -1.5. Please refer to the full report available in [facility] under the PACS Images tab. If a faxed copy is needed, please call [phone]. DICTATION LOCATION: [facility] us Daphnie Arteaga MD DIAGNOSTIC IMAGING ORDERABLES Final Result * MAMMO DIGITAL SCREEN IMPLANTS BILAT (07/15/2016 9:16 AM CDT) Anatomical Region Laterality Modality Breast Bilateral Mammography 07/15/2016 9:16 AM CDT Impressions 07/16/2016 4:54 PM CDT IMPRESSION: Negative bilateral screening mammogram. Recommend routine followup. OVERALL ASSESSMENT: BI-RADS Category 1 - Negative DICTATION LOCATION: [facility] 07/16/2016 4:54 PM CDT BILATERAL DIGITAL SCREENING [...] BI-RADS Category 1 - Negative DICTATION LOCATION: [facility] Don Alvarado MD MAMMO ORDERABLES F inal Result from Last 3 Months or Most Recently Relevant to Health Maintenance Insurance [facility] Advance Directives For more information, please contact: [phone] * Full Code (Latest Code Status on File) Date Activated Date Inactivated Comments 01/05/2014 11:11 AM 01/05/2014 3:58 PM Care Teams Hand Patcher Relationship Specialty Start Date End Date Deon Kathleen MD [address] [place] [address] PCP - General Family Practice 07/31/24
--- OUTSIDE RECORDS SUMMARY | 2025-03-22 08:51 | XMS_ITS | Encounter Summary ---
Author Organization [facility] Address [address] [place] [address] Care Team Providers Care County Adviser Name Role Phone Deon Kathleen MD Primary Care Provider [phone] Encounter Details Date Type Department Care Team (Late st Contact Info) Description 07/23/2006 Outpatient Historical [facility] Internal Medicine [address] [address] [place] [address] Ramon Garnett MD [address] [place] [address] Social History Tobacco Use Types Packs/Day Years Used Date Smoking Tobacco: Never Assessed Comments Unknown Sex and Gender Information Value Date Recorded Sex Assigned at Female 08/05/2024 12:43 PM MANAGER RETAIL STORE Legal Sex Female 3:11 AM MANAGER RETAIL STORE Gender Identity Female 08/05/2024 12:43 PM MANAGER RETAIL STORE Sexual Orientation Straight 08/05/2024 12 :43 PM MANAGER RETAIL STORE documented as of this encounter Plan of Treatment Not on file documented as of this encounter Visit Diagnoses Not on filedocumented in this encounter Care Teams County Adviser Relationship Specialty Start Date End Date Deon Kathleen MD [address] [place] [address] PCP - General Family Practice 07/31/24 documented as of this encounter
--- OUTSIDE RECORDS SUMMARY | 2025-03-22 08:52 | XMS_ITS | Clinical Summary ---
Author Organization [facility] Address [address] [place] [address] Care Team Providers Care Hand Plug Shaper Name Role Phone Harsha Fay MD Primary [...] on file Legal Sex Female 4:19 PM TILE GRINDER Gender Identity Not on file Sexual Orientation [...] 10:04 AM CDT Height 153.7 cm (5' 0.5) 03/19/2021 10:04 AM CD T Body Mass Index 33.23 03/19/2021 10:04 AM CDT Plan of Treatment Not on file Insurance [employer]ALTH[employer]ARE [address] [place] [address] [address] [place] [address] HEALTHCARE Care Teams Hand Plug Shaper Relationship Specialty [place] [address] [address] PCP - General Family Medicine 06/01/18
--- OUTSIDE RECORDS SUMMARY | 2025-03-22 08:52 | XMS_ITS | Referral Summary ---
Author Organization [facility] Address [address] [place] [address] Care Team Providers Care Driver Merchandiser Name Role Phone Harsha Fay MD Primary [...] on file Legal Sex Female 4:19 PM LITIGATION SUPPORT ANALYST Gender Identity Not on file Sexual [...] Plan of Treatment Not on file Insurance [employer] Care Teams Driver Merchandiser Relationship Specialty [place] H[place] [address] [address] [address] [place] [address] PCP - General Family Medicine 06/01/18
--- OUTSIDE RECORDS SUMMARY | 2025-03-22 08:52 | XMS_ITS | Data Portability ---
Author Organization [facility] Address [address] [place] [address] Care Team Providers Care Clinical Support Nurse Name Role Phone DEION MCNEAL Primary Care Provider Assessment Encounter Date Assessment Date Assessment LastModified by Organization Details LastModified Time 03/24/2022 03/24/2022 Annual gynecological exam performed. Patient will come back in a year unless there are new symptoms. [email or web address] Not available 03/24/2022 12:34:50 07/05/2023 07/05/2023 Annual gynecological exam performed. Patient will come back in a year unless there are new symptoms. [email or web address] Not available 07/05/2023 12:21:11 08/16/2024 08/16/2024 Annual [...] Thank you. 2021 022 CLEMENTINA resendez MD, [address] [facility], [facility], [place], [address], 05:00:49 Procedures None recorded. Surgeries None recorded. Imaging None recorded. Medication Orders nystatin-tr iamcinolone 100,000 unit/gram-0 .1 % topical ointment 2023 024 CLEMENTINA [id number], [address], [place], [address], 4 12:00:39 nystatin 100,000 unit/gram topical powder 2022 023 georgiana [id number], [address], [place], [address], 4 11:08:38 Patient TargetsNo targets recorded. Patient InstructionsNo instructions [...] patient, Thank you. Referring Physician: Arielle Huff, COMMUNITY SERVICE WORKER, Encounter Date: 03/24/2022 Results Created Date Observation Date Name Description Value Unit Range Abnormal Flag Note LastModifiedBy Organization Detail LastModifiedTime 03/24/20 22 03/24/2022 IMAGE GUIDE D PAP AND HPV REGAR DLESS image guided Pap, HPV regardless of Pap result SEE RESULT S BELOW CASE REPOR T: Cytol ogy Gynec ologi monique Repor t Case: [id number] Autho mary g Provi ronny: Arielle Huff, [...] as clini robert sanchez nted. Not Available [facility] [address] [facility], [place], [address], 03/30/2022 15:19:58 03/24/20 22 03/24/2022 IMAGE GUIDE D PAP AND HPV REGAR DLESS image guided Pap, HPV regardless of Pap result SEE RESULT S BELOW CASE REPOR T: Cytol ogy Gynec ologi monique Repor t Case: [id number] Autho mary segura Provi ronny: Arielle Huff, MARIANGEL Colle cted: [...] as clini robert sanchez nted. Not Available [facility] [address] [place], [address], 05/26/2022 16:54:53 08/16/20 24 08/16/2024 IMAGE GUIDE D PAP AND HPV REGAR DLESS image guided Pap, HPV regardless of Pap result SEE RESULT S BELOW CASE REPOR T: Cytol ogy Gynec ologi monique Repor t Case: [id number] Autho rimarkn g Provi ronny: Arielle Huff, MARIANGEL Colle cted: 08/16 1346 Order ing Locat ion: [place] [facility] Recei alia: 08/17 0229 First Scree n: Alesha deSoumya ret, CT Speci men: Scree josh Pap [...] or Leonardo guerrero (NIL) . Elect lito loyd by Soumya Foley ret, CT on 2023 [...] as clini robert warra nted. Not Available [facility] (Lab) [address], [place], [address], 08/28/2024 16:43:57 05/27/20 22 04/08/2022 MAMMO , diagn ostic , digit al, bilat eral No observ ation record ed. [email or web address] [facility] [address], [place], [address], 05/28/2022 16:19:17 12/10/19 24 12/10/2023 US, tyrese t, unila teral No observ ation record ed. [facility] [address], [place], [address], 12/14/2023 12:52:42 02/04/20 24 02/03/2024 MAMMO , scree josh, bilat eral No observ ation record ed. [facility] [address], [place], [address], 02/09/2024 14:37:02 02/06/20 25 02/03/2025 MAMMO , scree josh, bilat eral No observ ation record ed. [facility] [address], [place], [address], 02/05/2025 11:07:38 Result Notes None recorded. Problems No Known Problems Procedures Surgical History Date Name Laterality Status Provider Name and Address Organization Details Recorded Time 024 Date of Last Colonoscopy completed [facility] 08/16/2024 11:59:03 024 Colonoscopy completed [facility] 08/16/2024 12:02:41 024 Date of Last Mammogram completed [facility] 08/16/2024 12:01:47 023 removal of mole of skin by excision completed [facility] 07/05/2023 12:26:24 022 Date of Last Pap Smear completed [facility] 08/16/2024 12:01:20 022 removal of breast implant completed [facility] 07/05/2023 12:25:18 018 Dilation and Curettage completed [facility] 07/05/2023 12:24:21 017 Dilation and Curettage completed [facility] 07/05/2023 12:24:11 014 completed Judit Saenz [facility] 03/24/2022 12:35:32 011 Breast Surgery completed [facility] 07/05/2023 12:23:48 011 Breast Biopsy completed [facility] 07/05/2023 12:23:41 011 removal of breast implant completed [facility] 07/05/2023 12:25:13 005 procedure on shoulder completed [facility] 07/05/2023 12:26:07 992 procedure on shoulder completed [facility] 07/05/2023 12:25:51 989 Cholecystectomy completed [facility] 07/05/2023 12:24:02 979 termination of completed [facility] 07/05/2023 12:24:32 978 Breast Implants completed [facility] 07/05/2023 12:23:54 Imaging Results None recorded. Procedure Notes None recorded. Medical Equipment None Reported. Allergies Allergen ID Allergen Name Allergen Category Reaction Reaction Severity Criticality Documentation Date Start Date Code Code System Note Provider Name and Address Organization Details Recorded Time 12848 morpholin e salicylat e Not available vomiting moderate Not available 03/24/2022 38292 8 [facility]Norm [facility] 12:35:24 23652 Product containin g penicilli n (product) medicatio n anaphylax is severe Not available 03/24/2022 02828 8001 SNOMED Judit stanford [facility] 12:35:24 Medications Name Sig Start Date Stop [...] - THESE WERE SENT VIA EMAIL OR Padcom. 08/16 completed Not Available Not Available Not Available [employer] COVID-19 Ag Self Test kit Use as Directed on the Package 07/05 completed Not Available Not Available Not Available Vitals Date Recorded Body height Body mass index (BMI) Body weight Systolic And Diastolic Provider Name and Address Organization Details Last Updated DateTime 03/03/2024 154.94 cm 28.2 kg/m2 45067.26 g 128/74 mm[Hg] Tasneem Reddy [facility] 03/03/2024 09:43:28 Date Recorded Body height Body mass index (BMI) Body weight Systolic And Diastolic Provider Name and Address Organization Details Last Updated DateTime 03/24/2022 154.94 cm 29.5 kg/m2 67177.41 g 140/81 mm[Hg] Judit Saenz [facility] 03/24/2022 12:35:18 Date Recorded Body height Body mass index (BMI) Body weight Systolic And Diastolic Provider Name and Address Organization Details Last Updated DateTime 07/05/2023 154.94 cm 28.5 kg/m2 56486.45 g 125/74 mm[Hg] Linh Wolf [facility] 07/05/2023 12:21:30 Date Recorded Body height Body mass index (BMI) Body weight Systolic And Diastolic Provider Name and Address Organization Details Last Updated DateTime 08/16/2024 154.94 cm 28.3 kg/m2 97932.86 g 122/71 mm[Hg] Rebecca Cheney [facility] 08/16/2024 11:58:51 Social History Question Answer Notes LastModified by Organizat ion Details LastModified Time Tobacco Smoking Status Former Smoker Arianna hernandez [facility] 07/08/2023 14:02:05 Do You Have An Advance Directive? No Information not available 03/24/2022 How Many Years Have You Consumed Alcohol? [...] Or The Highest Degree You Have Received? [id number] Information not available 03/24/2022 When Did You [...] No Information not available 03/24/2022 Do You Have Difficulty Walking Or Climbing Stairs? No Information not available 03/24/2022 Sex: Unknown Functional Status Question Answer Note LastModified by Organizat ion Details LastModified Time Do you use any illicit or recreational drugs? No Information not available 03/24/2022 Do you or have you ever used any other forms of tobacco or nicotine? No Information not available 07/08/2023 What is your level of alcohol consumption? Occasional Information not available 07/05/2023 Are you able to walk? YESWOREST Information not available 03/24/2022 Are you able to care for yourself? Yes Information n ot available 03/24/2022 What is your occupation? Retired Information not available 03/24/2022 Do you have difficulty dressing or bathing? No Information not available 03/24/2022 What is your exercise level? Occasional Information not available 03/24/2022 Mental Status Question Answer Note LastModified by Organization D etails LastModified Time Do you feel stressed (tense, restless, nervous, or anxious, or unable to sleep at night)? [id number] Information not available 08/16/2024 Family History Relationship Description Onset Age of [...] SNOMED-CT Code Diagnosis ICD10 Code Diagnosis Note [id number] ARCHANA Magallon [facility] [address] [address] 03/24/2022 12:02:15 03/24/2022 17:11:44 Gynecologic examination 92418669 Z01.419 Take Calcium with Vitamin D 12-1500mg daily. Do monthly self breast exams. It is advised to get annual flu shot in the fall and she could obtain at [facility] or [facility] care clinic. If you haven't received the [...] istory of primary malignant neoplasm of breast [id number] Z85.3 [id number] Arielle Huff MARIANGEL [facility] [address] [address] 07/05/2023 12:01:59 07/05/2023 14:42:13 Gynecologic examination 69436410 Z01.419 WWEpostmen opausalno pap needed todayhx of breast CA : mammogram UTD, due next 4dex a UTD/manage d by PCPcolonos copy UTD/manage d by PCPUTD with routine labs Take Calcium with Vitamin D daily.Do monthly self breast exams.It is advised to get annual flu shot in the fall and she could obtain at [facility] or [facility] clinic. If you haven't received the Tdap [...] respond to this email Candidiasis of skin 4988 3006 B37.2 rx sent, keep area clean/dryI f no improvemen t RTC for further evaluation [id number] Arielle Huff MARIANGEL [facility] [address] [address] 03/03/2024 09:32:44 03/03/2024 10:22:06 Candidiasis of skin 42025726 B37.2 rx sent for nystatin-t riamcinolo ne ointmentke ep area clean/drya void scented soaps/prod ucts, free and clear laundry products, avoid tigh/restr ictive clothing, cotton underwear only, sleep with no underwearR TC if symptoms persist Time spent in visit is a total of 20 mins with at least 50% of visit consisting of counseling and review of plan of care. [id number] ARCHANA Magallon [facility] [address] [address] 08/16/2024 11:48:46 08/16/2024 12:27:02 Gynecologic examination [id number] Z01.419 WWEpostconnor opausalPap - updated per pt requestSTI screen [...] None Recorded Advance Directives Directive N: Payers Insurance Date Sequence Insurance Name Policy Number Policy Johnson Covered Member ID Johnson Member ID Guarantor Name 08/19/2024 1 [facility] (MEDICARE REPLACEMENT HMO) [id number] Edith Joyner [id number] Edith Joyner Notes Date Note Type Note Provider Name and Address Organization Details Recorded Time 2 text/html Annual Glue Jointer Operator Post-MenopausalReported bypatient.Menopausal Symptoms:no menopausal symptoms; normal vaginal [...] exercise; encourage no tobacco use ARCHANA Magallon [address], [place], [address], [facility] 03/24/2022 14:08:31 3 text/html Annual Glue Jointer Operator Post-MenopausalReported bypatient.Menopausal Symptoms:no menopausal symptoms; normal vaginal [...] patient. No vaginal bleeding since. ARCHANA Magallon [address], [place], [address], [facility] 07/05/2023 14:41:51 4 text/html 68yopresents [...] cholesterol, HTN ARCHANA Magallon [address], [place], [address], [facility] 03/03/2024 10:21:31 4 text/html Annual Glue Jointer Operator Post-MenopausalReported bypatient.Menopausal Symptoms:no menopausal symptoms; normal vaginal [...] colonoscopyNotes:69yo wwepostmenopausallast pap 2021 - normalmammogram UTD olonoscopy UTD exa UTD 2022 PCP Medical hx: Breast cancer, hypothyroidism, mitral insufficiency, coronary artery disease, GERD, high cholesterol, HTNRight breast cancer, Right lumpectomy in 2010, radiation, tamoxifen therapy (completed in )Upon completion of tamoxifen therapy had an episode of postmen bleeding, had D&C x 2 with benign pathology per patient. No vaginal bleeding since. ARCHANA Magallon [address], [place], [address], [facility] 08/16/2024 12:23:58 OBGyn Episode Ob Episode Information Episode Created Date Number of Fetuses Patient Bloodtype Patient rh Status Prepregnancy Weight lbs Domestic Partner Domestic Partner Phone Father Name Product Support Representative Status 07/05/20 23 1 CLOSED Fetus Data First Name Last Name Admitted to NICU Weight (g) Sex Living Outcome Pediatric Complications Fetus ID Race Codes Race Delivery Type 3401.94 M Full Term [id number] Vaginal Delivery Ben Calculation Initial Ben Date [...] Domestic Partner Domestic Partner Phone Father Name Product Support Representative Status 07/05/20 23 1 CLOSED Fetus Data First Name Last Name Admitted to NICU Weight (g) Sex Living Outcome Pediatric Complications Fetus ID Race Codes Race Delivery Type , Induced 67228 Ben Calculation Initial Ben Date Initial Exam [...]
--- NOTE | 2025-03-22 11:30 | NEURO_ITS ---
Clinical note: The patient is 69-year-old with complaints of paresthesias in her right middle finger and neck pain. no history of diabetes mellitus. She had a nondisplaced fracture of the right wrist in 2022. A brief neurological examination of upper limbs did not show any focal muscle wasting or fasciculations. The results of the nerve conduction study and EMG findings are given below. Summary of findings: 1. Right median motor distal latency, amplitude and conduction velocity within normal limits. 2. Right ulnar motor distal latency, amplitude and conduction velocity within normal limits. 3. Right median palmar and digital sensory distal latencies amplitudes and conduction velocities normal limits. Right ulnar palmar and digital sensory distal latencies amplitudes and conduction velocity within normal limits. Right radial sensory distal latencies amplitudes conduction velocities were within normal limits 4. EMG examination is performed were various muscles examined in right upper limb in the C5-T1 distribution. No denervation changes were seen. Motor unit amplitude, duration and recruitment pattern were within normal limits. Impression: EMG and nerve conduction study of right upper limb is considered within normal limits. if symptoms continue a follow-up study in future should be considered. Melida Cordero MD, FAAN, FAANEM Neurology / electrodiagnostic Medicine Nerve Conduction Studies Motor Nerve Results ? Latency Amplitude F-Lat Segment Distance CV Comment Site (ms) (mV) (ms) (cm) (m/s) Right Med/Ulnar(Lum-INT) Motor ? Median (Lumb I) Wrist 3.0 1.78 ? Ulnar (Dorsal Interossei IV) Wrist 3.1 4.0 Right Median (APB) Motor Wrist 2.7 6.9 Elbow 6.7 5.9 Elbow-Wrist 200 50 Right Ulnar (ADM) Motor Wrist 2.6 9.4 Bel Elbow 6.0 8.4 Bel Elbow-Wrist 195 57 Abv Elbow 7.1 7.7 Abv Elbow-Bel Elbow 70 64 Sensory Nerve Results ? Latency (Peak) Amplitude (P-P) Segment Distance CV Comment Site (ms) (?V) (cm) (m/s) Right Median DigIII Sensory Wrist-Dig III 3.2 29 Wrist-Dig III 130 41 Right Median-Ulnar Palmar Sensory ? Median Palm-Wrist 1.85 51 Palm-Wrist 80 43 ? Ulnar Palm-Wrist 1.73 24 Palm-Wrist 80 46 Right Radial Sensory Forearm-Wrist 2.1 50 Forearm-Wrist 100 48 Right Ulnar Sensory Wrist-Dig V 2.9 34 Wrist-Dig V 130 45 Electromyography ?Side Muscle Nerve Ins Act Fibs Psw Amp Dur Recrt Comment Right Deltoid Axillary Nml Nml Nml Nml Nml Nml Right Triceps Radial Nml Nml Nml Nml Nml Nml Right ExtCarUln Radial (Post Int) Nml Nml Nml Nml Nml Nml Right Ext Indicis Radial (Post Int) Nml Nml Nml Nml Nml Nml Right FlexPolLong Median (Ant Int) Nml Nml Nml Nml Nml Nml Right 1stDorInt Ulnar Nml Nml Nml Nml Nml Nml Right Abd Poll Brev Median Nml Nml Nml Nml Nml Nml Right FlexDigProf Ulnar Nml Nml Nml Nml Nml Nml
== END 2025-03-22 08:47 | disposition home or self-care (01) ==
PROVIDERS: PCP Family Medicine; Visit Provider Plastic Surgery
DX: G56.01 Carpal tunnel syndrome, right upper limb (principal)
CPT/HCPCS: 95886; 95910

== ENCOUNTER 2025-06-05 10:47 | Outpatient (CLI) | payer OTHER, SELFPAY ==
--- OUTSIDE RECORDS SUMMARY | 2017-01-20 03:32 | XMS_ITS | Continuity of Care Document ---
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 TAMOXIFEN CITRATE (unknown strength) Not Available - Active LEVOTHYROXINE SODIUM (unknown strength) Not Available - Active LEXAPRO (unknown strength) Not Available - Active CALCIUM (unknown strength) Not Available - Active Lexapro 20 mg tablet - Active Synthroid 25 mcg tablet - Active tamoxifen 20 mg tablet - Active Procedures Procedure Date BIOPSY OF UTERUS LINING OFFICE/OUTPATIENT VISIT EST PREV VISIT EST AGE 40-64 RADEX FNGR MINIMUM 2 VIEWS OFFICE/OUTPATIENT VISIT NEW PREV VISIT EST AGE 40-64 OFFICE/OUTPATIENT VISIT EST Advance Directives Directive Yes / No Effective Date File Name No Information Encounters Encounter Description Practice Location Reason(s) For Visit Diagnoses Date Provider Providers Copied on Encounter [facility], [address] [facility], [place], [address], [place] tel:[phone] [facility] Encounter for screening mammogram for breast cancer [address], [place], [place], [id number] . tel: [phone] [facility], [address] [facility] [address], [place], [address], [place] tel:[phone] [facility] No Information [address] Elder [address]. [address], [place], [place], [id number] . tel: [phone] OFFICE/OUTPAT IENT VISIT EST [facility], [address] [facility] [address], [place], [address], [place] tel:[phone] [facility] abnormal bleeding (chief complaint) PMB (postmenopaus al bleeding)H/O tamoxifen therapy 7 Elder [address]. [address], [place], [place], [id number] . 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 [address], [place], [place], [id number] . tel: [phone] [facility] , [address] [address], [place], [address], [place] tel:[phone] [facility] No Information 6 Ricki Perez. [address] [facility], [place], [place], [id number] . tel: [phone] OFFICE/OUTPAT IENT VISIT NEW [facility] , [address] [address], [place], [address], [place] tel:[phone] [facility] Pain of finger of right handOpen displaced fracture of distal phalanx of right little finger, initial encounter 6 Ricki Perez. [address] [facility], [place], [place], [address] . 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 [address] [facility] [address], [place], [place], [address] . tel: [phone] OFFICE/OUTPAT IENT VISIT EST [facility], [address] [facility] [address], [place], [address], tel:[phone] [facility] abnormal pap smear (chief complaint) ASCUS (atypical squamous cells of undetermined sig 4 Elder [address]. [address], [place], [place], [address] . tel: [phone] Family History Family Member Type Diagnosis Age At Onset Mother Problem (finding) hypertension Father Problem (finding) stroke Mother Problem (finding) Anxiety Sister Problem (finding) Maternal history of alexey betes mellitus Sister Problem (finding) hypertension Sister Problem (finding) hypertension Father Problem (finding) hypertension Father Problem (finding) coronary arterioscleros is Mother Problem (finding) hypertension uncles Problem (finding) coronary arterioscleros is Payers Payer name Insurance type Covered libertarian ID Authoriza tion(s) No Information Social History Type Description Quantity Date Captured Comments Alcohol Use Details Unknown Caffeine Use Details Unknown Tobacco Use Status Smoking Status No Information Sex Female Chief Complaint And Reason For Visit No Information Reason For Referral Reason For Referral No Information Plan Of Treatment Date Type Action Status Referral Ordered: SCREENING MAMMOGRAPHY BILATERAL ordered Referral Ordered: RADEX FNGR MINIMUM 2 VIEWS RT ordered History Of Present Illness Encounter Date Complaint History Of Prese nt Illness abnormal bleeding annual exam annual exam Functional Status Date Functional Assessmen t No Information Instructions Date Instruction Additional Infor mation Self breast exam. Related to Enc ntr for director pharmacovigilance exam (general) (routine) w/o abn findings Aug-16-2016 HPV guidelines reviewed. Related to Encntr for director pharmacovigilance exam (general) (routine) w/o abn findings Pap smear guidelines reviewed. R elated to Encntr for director pharmacovigilance exam (general) (routine) w/o abn findings Enroll in our patient portal. Re lated to Encntr for director pharmacovigilance exam (general) (routine) w/o abn findings Rest, ice and elevate. Related t o Open displaced fracture of distal phalanx of right little finger, initial encounter Pap screening guidelines Assessments Type Assessment Date No Information Patient Care Teams Name Effective Dates (start - stop) Status Members No Information
--- OUTSIDE RECORDS SUMMARY | 2024-10-24 06:34 | XMS_ITS | Continuity of Care Document ---
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 Name Role Phone Harsha Fay MD Unavailable [...] FLU VACC PRSV FREE INC ANTIG OFFICE [id number] BODY MASS INDEX DOCD SYST BP >= 140 MM HG6 IT DIAST BP >= 90 MM HG Kept Appointment No Charge Encounter Jun SCREENING MAMMOGRAM (CAD) HEPATIC FUNCTION PANEL(LFT, LIVER) May- LIPID PANEL ROUTINE VENIPUNCTURE FALL RISK ASSESSMENT DOC'D PRES/ABSN URINE INCON ASSESS Pt inelig neg scrn depres OFFICE [id number] BODY MASS INDEX DOCD SYST BP LT 130 MM HG DIAST BP 80-89 MM HG CBC, INC PLATELETS AND DIFFERENTIAL COMPREHEN METABOLIC PANEL CMP 1 LIPID PANEL THYROID STIMULATION HORMONE(TSH) 2020 ROUTINE VENIPUNCTURE Admin influenza virus vac FLU VAC NO PRSV 4 MIKA, 0.5mL DOSAGE SYST BP LT 130 MM HG DIAST BP < 80 MM HG OFFICE [id number] Additional supplies, materials, & Clinic al Staff Time During A PHE BODY MASS INDEX DOCD SCREENING MAMMOGRAM (CAD) COMPREHEN METABOLIC PANEL CMP 0 LIPID PANEL THYROID STIMULATION HORMONE(TSH) 2019 ROUTINE VENIPUNCTURE FALL RISK ASSESSMENT DOC'D PRES/ABSN URINE INCON ASSESS Pt inelig neg scrn depres OFFICE [id number] BODY MASS INDEX DOCD SYST BP LT 130 MM HG DIAST BP < 80 MM HG LIPID PANEL ROUTINE VENIPUNCTURE COMPREHEN METABOLIC PANEL CMP 9 LIPID PANEL THYROID STIMULATION HORMONE(TSH) 2018 ROUTINE VENIPUNCTURE OFFICE [id number] BODY MASS INDEX DOCD SYST BP LT 130 MM HG DIAST BP < 80 MM HG Admin influenza virus vac FLU VACC PRSV FREE INC ANTIG SCREENING MAMMOGRAM (CAD) FALL PLAN OF CARE DOC'D URINE INCON PLAN DOC'D PRES/ABSN URINE INCON ASSESS Pt inelig neg scrn depres OFFICE [id number] BODY MASS INDEX DOCD SYST BP LT 130 MM HG DIAST BP 80-89 MM HG OFFICE [id number] BODY MASS INDEX DOCD SYST BP LT 130 MM HG DIAST BP < 80 MM HG OFFICE [id number] BODY MASS INDEX DOCD SYST BP LT 130 MM HG DIAST BP < 80 MM HG Advance Directives Directive Yes / No Effective Date File Name No Information Encounters Encounter Description Practice Location Reason(s) For Visit Diagnoses Date Provider Providers Copied on Encounter [facility], [id number] [place] [address], [id number] , tel: [phone] [facility] No Information 5 Sumeet Aldridgen. [address], [id number] , . tel: [phone] [facility], [id number] [place] [address], [id number] , tel: [phone] [facility] No Information 2 Sumeet Harsha. [address], [id number] , [place]. tel: [phone] [facility], [id number] [place] [address], [id number] , tel: [phone] [facility] No Information 2 Sumeet Harsha. [address], [id number] , . tel: [phone] [facility], [address], [place], [place], [address] , [place] tel: [phone] [facility] Pain in left shoulder 1 John Valentina. [address] [place] [address], [address], [id number] , [place]. tel: [phone] Referring Provider: Valentina Lopez, [address] [place] [address], [address] . tel:[phone] OFFICE PMNOO-HDP-KY PANDED [facility], [address], [place], [place], [address] , [place] tel: [phone] [facility] Acute (chief complaint) Acute pain of left shoulderBody mass index [BMI] 31.0-31.9, adult 1 John Montgomery. [address] [place] [address], [address], [id number] , [place]. tel: [phone] Referring Provider: Harsha Fabian, [address] [place] [address], [address] . tel:[phone] [facility], [address], [place], [place], [address] , [place] tel: [phone] [facility] Acute cough 1 Sumeet Mcleod. [address] [place] [address], [address], [id number] , [place]. tel: [phone] Referring Provider: Harsha Fabian, [address] [place] [address], [address] . tel:[phone] [facility], [address], [place], [place], [address] , [place] tel: [phone] [facility] No Information 1 Veronica Ann [address] [place], [place], [id number] , . tel: [phone] Referring Provider: Harsha Fabian, [address] [place] [address], [address] . tel:[phone] [employer], [address], [place], [place], [address] , tel: [phone] [employer] [facility] Mixed hyperlipidemia 1 Sumeet Irving [address] [place] [address], [id number] , . tel: [phone] Referring Provider: Harsha Fabian, [address] [place] [address], [address] . tel:[phone] [employer], [address], [place], [place], [address] , tel: [phone] [facility] No Information 1 Sumeet Irving [address] [place] [address], [id number] , . tel: [phone] OFFICE UQZWV-SBU-RQ TAILED [facility] [employer], [address] [facility], [place], [place], [address] , tel: [phone] [facility] med management (chief complaint) Body mass index (BMI) 32.0-32.9, adultMixed hyperlipidemiaEsse ntial (primary) hypertensionModera te major depressionChronic insomniaGAD (generalized anxiety disorder)Nonrheuma tic mitral (valve) insufficiencyObesi ty (BMI 30-39.9)Multinodul ar goiterGERD without esophagitisAdult hypothyroidism 1 Sumeet Irving [address] [place] [address], [id number] , . tel: [phone] Referring Provider: Harsha Fabian, [address] [place] [address], [address] . [phone] [facility], [address] [place] [address], [id number] , tel: [phone] [facility] Hypothyroidism, unspecified 1 Sumeet Irving [address] [place] [address], [id number] , . tel: [phone] Referring Provider: Harsha Fabian, [address] [place] [address], [address] . tel:[phone] [facility], [address] [place] [address], [id number] , tel: [phone] [facility] No Information 1 Sumeet Mcleod. [address] [place] [address], [id number] , . tel: [phone] OFFICE KGQCS-YYM-DW TAILED [facility], [address] [facility], [place], [place], [address] , tel: [phone] [facility] med management (chief complaint) Essential (primary) hypertensionModera te major depressionAdult hypothyroidismGERD without esophagitisObesity (BMI 30.0-34.9)Mixed hyperlipidemia 0 Sumeet Mcleod. [address] [place] [address], [id number] , [place]. tel: [phone] Referring Provider: Harsha Fabian, [address] [place] [address], [address] . tel:[phone] [facility], [address] [facility], [place], [place], [address] , tel: [phone] [facility] No Information 0 Dionte Vargas [address], [place], [place], [id number] , [place]. tel: [phone] Referring Provider: Harsha Fabian, [address] [place] [address], [address] . tel:[phone] [facility], [address] [facility], [place], [place], [address] , tel: [phone] [facility] Eye exam, routine 0 Sumeet Mcleod. [address] [place] [address], [id number] , . tel: [phone] [employer], [address], [place], [place], [address] , tel: [phone] [facility] Mixed hyperlipidemia Justin-0 4-202 0 Sumeet Mcleod. [address] [facility], [address], [id number] , . tel: [phone] Referring Provider: Harsha Fabian, [address] [place] [address], [address] . tel:[phone] OFFICE USPSN-FWC-KW [facility] [employer], [address], [place], [place], [address] , tel: [phone] [facility] med management (chief complaint) Body mass index (BMI) 31.0-31.9, adultGAD (generalized anxiety disorder)GERD without esophagitisAdult hypothyroidismMode rate major depressionMultinod ular goiterMixed hyperlipidemiaEsse ntial (primary) hypertensionChroni c insomniaObesity (BMI 30.0-34.9) January- 8-202 0 Sumeet Mcleod. [address] [place] [address], [address], [id number] , . tel: [phone] Referring Provider: Harsha Fabian, [address] [place] [address], [address] . tel:[phone] [employer], [address], [place], [place], [address] , tel: [phone] [facility] Mixed hyperlipidemia Mar-0 6-202 0 Sumeet Mcleod. [address] [facility], [address], [id number] , . tel: [phone] Referring Provider: Harsha Fabian, [address] [place] [address], [address] . tel:[phone] [employer], [address], [place], [place], [address] , tel: [phone] [facility] Mixed hypercholesterolem ia and hypertriglyceridem ia 9 Sume[address] [place] [address], [address], [id number] , [place]. tel: [phone] [facility], [address], [place], [place], [address] , tel: [phone] [facility] Essential (primary) hypertensionMixed hyperlipidemiaGene ralized anxiety disorder 9 Sumeet Aldridgen. [address] [place] [address], [address], [id number] , [place]. tel: [phone] Referring Provider: Harsha Fabian, [address] [place] [address], [address] . tel:[phone] OFFICE XPUAT-DFN-IN [facility], [address], [place], [place], [address] , tel: [phone] [facility] med management (chief complaint) Essential hypertensionMixed hypercholesterolem ia and hypertriglyceridem iaAdult hypothyroidismGAD (generalized anxiety disorder)Moderate major depressionGERD without esophagitisBody mass index (BMI) 32.0-32.9, adult 9 Sumeet Aldridgen. [address] [facility], [address], [id number] , [place]. tel: [phone] Referring Provider: Harsha Fabian, [address] [place] [address], [address] . tel:[phone] [facility], [address], [place], [place], [address] , tel: [phone] [facility] No Information 9 Sumeet Aldridgen. [address] [place] [address], [address], [id number] , . tel: [phone] Referring Provider: Harsha Fabian, [address] [place] [address], [address] . tel:[phone] [facility] [address], [place], [place], [address] , tel: [phone] [facility] No Information Veronica Ann [address] [place], [place], [id number] , . tel: [phone] Referring Provider: Harsha Fabian, [address] [place] [address], [address] . tel:[phone] [facility], [address], [place], [place], [address] , [place] tel: [phone] [facility] med management (chief complaint) Body mass index (BMI) 32.0-32.9, adultGAD (generalized anxiety disorder)Chronic insomniaEssential hypertensionMixed hypercholesterolem ia and hypertriglyceridem iaAdult hypothyroidismObes ity (BMI 30.0-34.9) Sumeet Mcleod. [address] [place] [address], [address], [id number] , . tel: [phone] Referring Provider: Harsha Fabian, [address] [place] [address], [address] . tel:[phone] OFFICE [facility], [address], [place], [place], [address] , tel: [phone] [facility] med management (chief complaint) Body mass index (BMI) 31.0-31.9, adultGAD (generalized anxiety disorder)Obesity (BMI 30.0-34.9)Right foot pain Sumeet Mcleod. [address] [place] [address], [address], [id number] , . tel: [phone] Referring Provider: Harsha Fabian, [address] [place] [address], [address] . tel:[phone] [facility], [address], [place], [place], [address] , tel: [phone] [facility] med management (chief complaint) Body mass index (BMI) 31.0-31.9, adultMixed hypercholesterolem ia and hypertriglyceridem iaModerate major depressionEssentia l hypertensionAdult hypothyroidismGAD (generalized anxiety disorder)Chronic insomniaObesity (BMI 30.0-34.9)Multinod ular goiter 9 Sumeet Mcleod. [address] [facility], [address], [id number] , . tel: [phone] Referring Provider: Harsha Fabian, [address] [place] [address], [address] . tel:[phone] [facility], [address], [place], [place], [address] , tel: [phone] [facility] Urinary frequency 9 Sumeet Mcleod. [address] [place] [address], [address], [id number] , [place]. tel: [phone] Referring Provider: Harsha Fabian, [address] [place] [address], [address] . tel:[phone] [facility], [address], [place], [place], [address] , tel: [phone] [facility] Nonrheumatic mitral (valve) insufficiency Sumeet Mcleod. [address] [place] [address], [address], [id number] , [place]. tel: [phone] [facility], [address], [place], [place], [address] , tel: [phone] [facility] Other hypertrophic disorders of the skin 9 Sumeet Mcleod. [address] [facility], [address], [id number] , . tel: [phone] Referring Provider: Harsha Fabian, [address] [place], [place] [address] [address], [address] . [phone] [facility], [address], [place], [place], [address] , tel: [phone] [facility] Adult hypothyroidismEsse ntial hypertensionMixed hypercholesterolem ia and hypertriglyceridem iaBreast pain, leftGERD without esophagitisGAD (generalized anxiety disorder) 4 9 Sumeet Mcleod. [address] [facility], [address], [id number] , [place]. tel: [phone] Referring Provider: Harsha Fabian, [address] [place] [address], [address] . [phone] [facility], [address], [place], [place], [address] , tel: [phone] [facility] Left eye pain Aug- 9- 8 Sumeet Mcleod. [address], [id number] , [place]. tel: [phone] [facility], [address], [place], [address] , [place] tel: [phone] [facility] Other vitreous opacities, left eye Aug- 3-201 8 Demarco Chapman. [address] [facility], [address], [id number] , [place]. tel: [phone] [facility], [address], [place], [place], [address] , [place] tel: [phone] [facility] Other vitreous opacities, left eye Dec-0 7-201 8 Sumeet Harsha. [address] [facility], [address], [id number] , [place]. tel: [phone] [facility], [address], [place], [place], [address] , tel: [phone] [facility] Mixed hypercholesterolem ia and hypertriglyceridem iaEssential hypertensionAdult hypothyroidismVitr eous floaters of left eyeSkin tagMucinous cystadenoma Dec-0 6-201 8 Sumeet Aldridgen. [address] [facility], [address], [id number] , [place]. tel: [phone] Referring Provider: Harsha Fabian, [address] [place] [address], [address] . tel:[phone] [facility], [address], [place], [place], [address] , [place] tel: [phone] [facility] Submucous leiomyoma of uterus 8 Sumeet Aldridgen. [address] [facility], [address], [id number] , [place]. tel: [phone] [facility], [address], [place], [address] , [place] tel: [phone] [facility] Uterine leiomyoma, unspecified location 8 Sumeet Aldridgen. [address] [place] [address], [address], [id number] , [place]. tel: [phone] [employer], [address], [place], [place], [address] , [place] tel: [phone] [facility] Essential hypertensionMixed hypercholesterolem ia and hypertriglyceridem iaAdult hypothyroidismAnnu al physical exam May- 8 Sumeet Aldridgen. [address] [facility], [address], [id number] , [place]. tel: [phone] Referring Provider: Harsha Fabian, [address] [place] [address], [address] . tel:[phone] [facility] [employer], [address], [place], [place], [address] , [place] tel: [phone] [facility] Encntr for general adult medical exam w/o abnormal findingsHypothyroi dism, unspecifiedMixed hyperlipidemia May- 8 Sumeet Aldridgen. [address] [place] [address], [address], [id number] , [place]. tel: [phone] Referring Provider: Harsha Fabian, [address] [place] [address], [address] . tel:[phone] [facility] [employer], [address] [facility], [place], [place], [address] , tel: [phone] [facility] Annual physical examAdult hypothyroidismMixe d hypercholesterolem ia and hypertriglyceridem iaGAD (generalized anxiety disorder)Multinodu lar thyroidEncntr screen mammogram for malignant neoplasm of breastEssential hypertensionBody mass index (BMI) 30.0-30.9, adultObesity (BMI 30.0-34.9) 8 Sumeet Mcleod. [address] [place] [address], [address], [id number] , . tel: [phone] Referring Provider: Harsha Fabian, [address] [place] [address], [address] . tel:[phone] [facility] [employer], [address] [facility], [place], [place], [address] , [place] tel: [phone] [facility] Screening for osteoporosis 8 Sumeet Mcleod. [address] [place] [address], [address], [id number] , . tel: [phone] [facility], [address] [facility], [place], [place], [address] , tel: [phone] [facility] Body mass index (BMI) 29.0-29.9, adultAdult hypothyroidismGAD (generalized anxiety disorder)Mixed hypercholesterolem ia and hypertriglyceridem iaRefused influenza vaccine 8 Sumeet Mcleod. [address] [place] [address], [address], [id number] , . tel: [phone] Referring Provider: Harsha Fabian, [address] [place] [address], [address] . tel:[phone] [employer], [facility], [place], [place], [address] , tel: [phone] [facility] JOINT PAIN-ANKLE 200 6 Mena Darling. [address], [place], [place], [address] . tel: [phone] Family History Family Member Type Diagnosis Age At Onset Mother Problem (finding) hypercholesterolemia Mother Problem (finding) osteoarthritis Immunizations Vaccine Date Status Comments Fluzone High-Dose, high dose , preservative free administered Source: New Immuniza tion Record Moderna COVID19 Vaccine, 0.5 mL per dose, 2 doses, administered 28 days apart administered Note: [employer] ; Scout ce: Other Registry Moderna COVID19 [...] Record Payers Payer name Insurance type Covered libertarian ID Authoriza tion(s) [id number] MB [id number] MB [id number] MB [id number] [employer] MB [id number] [employer] MB [id number] MB [id number] Social History Type Description Quantity Date Captured Comments Alcohol Use Details Unknown Caffeine Use Details Unknown Tobacco Use Status No Information Smoking Status No Information Sex Female Gender Identity Female Chief Complaint And Reason [...] COMPLETE, MIN 2 VIEWS Left ordered Referral [place]: [place] [address] [place], [phone] Ordered: Referrals: Ophthalmology. Sharmaine Ellison OD. Evaluation/diagnostic/treatment - Level 3 Appointment date/timeframe: 03/22/2020 ordered Unknown Immunization Pneumococcal conjugate PCV 1 3 ordered Future Order: Lab Order TSH - Th yroid Stimulating Hormone ([id number]), Collected on: , Sent on: Sent Future Order: Lab Order Comprehe nsive Metabolic (CMP) ([id number]), Collected on: , Sent on: Sent Future Order: Lab Order Lipid Pa ranjeet ([id number]), Collected on: , Sent on: Sent Future Order: Lab Order CBC AUTO DIFF ([id number]), Collected on: , Sent on: Sent Future Order: Lab Order Free T4 (FT4) ([id number]), Collected on: , Sent on: Sent History [...] Information Instructions Date Instruction Additional Infor mation XR todayMeloxicam 15 mg daily x 2 [...] verbalized understanding. Related to Essential (primary) hypertension Blood pressure contr ol should be less [...] to Body mass index (BMI) 31.0-31.9, adult Advised on hyperchol esterolemia. Watch diet, stay active. Continue current treatment. Related to Mixed hyperlipidemia euthyroid based on p revious blood work [...] treatment. Related to Mixed hypercholesterolemia and hypertriglyceridemia Blood pressure contr ol should be less [...] damage.Patient verbalized understanding. Related to Essential hypertension euthyroid based on p revious blood work results. continue current replacement dose Related to Adult hypothyroidism Prescribed activity/ exercise education Related to Body [...]
--- OUTSIDE RECORDS SUMMARY | 2025-06-05 12:48 | XMS_ITS | Encounter Summary ---
Author Organization [facility] Address [address] [facility] [address] Care Team Providers Care Medical Device Assembler Name Role Phone Unavailable Primary Care Provider Unavailabl e Encounter Details Date Type Department Care Team (Late st Contact Info) Description 10/18/2024 Lab Requisition [facility] - DermPath Lab [address] [facility] [address] [place] [id number] Deon Kathleen MD [address] [place] [address] Social History Tobacco Use Types Packs/Day Years Used Date Smoking Tobacco: Never Assessed Comments Unknown Sex and Gender Information Value Date Recorded Sex Assigned at Not on file Legal Sex 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 Gender Identity Not on file Sexual Orientation Not on file documented as of this encounter Plan of Treatment Not on file documented as of this encounter Procedures Procedure Name Priority Date/Time Associated Diagnosis Comments DERMATOPATHOLOGY Routine 10/17/2024 3:33 AM MOTION STUDY ENGINEER documented in this encounter Results * DERMATOPATHOLOGY (10/17/2024 3:33 AM MOTION STUDY ENGINEER) Case Report Dermatopathology Report Case: [id number] Authorizing Provider: Deon Kathleen MD Collected: 10/17/2024 03:33 AM Ordering Location: [facility] - Received: 10/18/2024 01:53 PM DermPath Lab Pathologist: Nury Crawford MD Specimen: Skin, left upper chest 1:29 PM MOTION STUDY ENGINEER DERMATOPATHOLOGY LABORATORY Final Diagnosis Specimen A. SKIN, left upper chest: SEBORRHEIC KERATOSIS, CLONAL TYPE; INFLAMED (L82.1) PRESENT AT MARGIN 1:29 PM MOTION STUDY ENGINEER DERMATOPATHOLOGY LABORATORY at 1329 MOTION STUDY ENGINEER Clinical History Changing Lesion. Check margins 1:29 PM [facility] DERMATOPATHOLOGY LABORATORY Gross Description Specimen A: Received is one formalin filled container labeled with the patient's name and designated left upper chest. The specimen consists of a shave biopsy measuring 9x5x3 mm. Jar 0. 1:29 PM [facility] DERMATOPATHOLOGY LABORATORY Microscopic Description Specimen A. SKIN, left upper chest: Sections show a proliferation of keratinocytes with overlying hyperkeratosis. Aggregates of keratinocytes with abundant pale-staining cytoplasm appear demarcated from surrounding basaloid keratinocytes. There is a lymphohistiocytic infiltrate within the dermis. This lesion is present at the margin of the specimen. 1:29 PM [facility] DERMATOPATHOLOGY LABORATORY Disclaimer An external and internal positive and negative controls are appropriate for the histochemical, immunohistochemical and immunofluorescence stain(s) in this case (if any), except where stated explicitly. The performance characteristics of the stain(s) cited in this report were developed and its performance characteristic determined by the Dermatopathology Laboratory at [facility], directed by Dr. Michelle Jauregui. These tests need not be, and therefore are not, approved by the [place] Food and Drug Administration. The tests are used for clinical purposes. Billing Codes Specimen Charges Stain Charges 10274 1 1:29 PM [facility] DERMATOPATHOLOGY LABORATORY Embedded Images 1:29 PM [facility] DERMATOPATHOLOGY LABORATORY Pathology/Cytolo gy TISSUE SPECIMEN FROM SKIN / Unknown 10/17/2024 3:33 AM MOTION STUDY ENGINEER 10/18/2024 1:53 PM [facility] us Deonchristiaen Kathleen MD LAB - PATHOLOGY/CYTOLOGY SHAILESH BAIRD Final Result DERMATOPATHOLOGY LABORATORY [facility] - Department of Dermatology [address] [place] [address], [facility] [phone] documented in this encounter Visit Diagnoses Not on filedocumented in this encounter
--- OUTSIDE RECORDS SUMMARY | 2025-06-05 12:48 | XMS_ITS | Encounter Summary ---
Author Organization [facility] Address [address] [place] [address] Care Team Providers Care Party Planner Name Role Phone Unavailable Primary Care Provider Unavailabl e Encounter Details Date Type Department Care Team (Late st Contact Info) Description 10/29/2021 Lab Requisition [facility] DermPath Lab [address], [place] [phone] Deon Kathleen MD [address] [place] [address] Social History Tobacco Use Types Packs/Day Years Used Date Smoking Tobacco: Never Assessed Comments Unknown Sex and Gender Information Value Date Recorded Sex Assigned at Not on file Legal Sex Female 1:03 PM BLOCK HACKER Gender Identity Not on file Sexual Orientation Not on file documented as of this encounter Plan of Treatment Not on file documented as of this encounter Procedures Procedure Name Priority Date/Time Associated Diagnosis Comments DERMATOPATHOLOGY Routine 10/27/2021 12:0 0 AM BLOCK HACKER documented in this encounter Results * DERMATOPATHOLOGY (10/27/2021 12:00 AM BLOCK HACKER) Case Report Dermatopathology Report Case: [id number] Authorizing Provider: Deon Kathleen MD Collected: 10/27/2021 12:00 AM Ordering Location: [facility] DermPath Lab Received: 10/29/2021 01:26 PM Pathologist: Joceline Gutierrez MD Specimen: Skin, back 2 10:32 AM [facility] DERMATOPATHOLOGY LABORATORY Final Diagnosis Specimen A. SKIN, back: BENIGN VERRUCOUS KERATOSIS, INFLAMED (L82.1) PRESENT AT MARGIN 2 10:32 AM [facility] DERMATOPATHOLOGY LABORATORY at 1032 BLOCK HACKER Clinical History Changing lesion. Check margins. 10:32 AM [facility] DERMATOPATHOLOGY LABORATORY Gross Description Specimen A: Received is one formalin filled container labeled with the patient's name and designated back. The specimen consists of a shave biopsy measuring [id number], bisected. The margin is inked green. Jar 0. 10:32 AM [facility] DERMATOPATHOLOGY LABORATORY Microscopic Description Specimen A. SKIN, back: Sections show hyperkeratosis, papillomatosis, hypergranulosis, and acanthosis. Inflammatory cells are present within the dermis. These histological findings can be seen in a verruca vulgaris or a seborrheic keratosis. This lesion is present at the margin of the specimen. 10:32 AM [facility] DERMATOPATHOLOGY LABORATORY Disclaimer An external and internal positive and negative controls are appropriate for the histochemical, immunohistochemical and immunofluorescence stain(s) in this case (if any), except where stated explicitly. The performance characteristics of the stain(s) cited in this report were developed and its performance characteristic determined by the Dermatopathology Laboratory at [facility], directed by Dr. Mcihelle Jauregui. These tests need not be, and therefore are not, approved by the [place] Food and Drug Administration. The tests are used for clinical purposes. Billing Codes Specimen Charges Stain Charges 01791 1 2 10:32 AM [facility] DERMATOPATHOLOGY LABORATORY Embedded Images 10:32 AM [facility] DERMATOPATHOLOGY LABORATORY Pathology/Cytolog y TISSUE SPECIMEN FROM SKIN / Unknown 10/27/2021 10/29/2021 1:26 PM BLOCK HACKER us Deonchristiane Kathleen MD LAB - PATHOLOGY/CYTOLOGY SHALIESH BAIRD Final Result DERMATOPATHOLOGY LABORATORY [facility] - Department of Dermatology [address], [address] [phone] documented in this encounter Visit Diagnoses Not on filedocumented in this encounter
--- OUTSIDE RECORDS SUMMARY | 2025-06-05 12:48 | XMS_ITS | Clinical Summary ---
Author Organization [facility] Address [address] [place] [address] Care Team Providers Care Small Stock Facer Name Role Phone Unavailable Primary Care Provider Unavailabl e Source Comments [facility] [employer],non-owned Affiliates and Associated Physician Practices is amultiple site organization consisting of ambulatory clinics and hospital sitesin [place], [place], [place] and [place]. This disclosure is being madepursuant to the Care Everywhere program and may not contain all information available regarding this patient. 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
--- OUTSIDE RECORDS SUMMARY | 2025-06-05 12:48 | XMS_ITS | Encounter Summary ---
Author Organization [facility] Address [address] [place] [address] Care Team Providers Care Instructor Business Education Name Role Phone Unavailable Primary Care Provider Unavailabl e Encounter Details Date Type Department Care Team (Late st Contact Info) Description 06/15/2023 Lab Requisition [facility] - DermPath Lab [address] [facility] [place] [phone] Deon Kathlene MD [address] [place] [address] Social History Tobacco Use Types Packs/Day Years Used Date Smoking Tobacco: Never Assessed Comments Unknown Sex and Gender Information Value Date Recorded Sex Assigned at Not on file Legal Sex Female 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 Gender Identity Not on file Sexual Orientation Not on file documented as of this encounter Plan of Treatment Not on file documented as of this encounter Procedures Procedure Name Priority Date/Time Associated Diagnosis Comments DERMATOPATHOLOGY Routine 06/14/2023 12:0 0 AM CDT documented in this encounter Results * DERMATOPATHOLOGY (06/14/2023 12:00 AM CDT) Case Report Dermatopathology Report Case: [id number] Authorizing Provider: Deon Kathleen MD Collected: 06/14/2023 12:00 AM Ordering Location: [facility] DermPath Lab Received: 06/15/2023 11:31 [...] characteristic determined by the Dermatopathology Laboratory at [facility], directed by Dr. Michelle Jauregui. These tests need not be, and therefore are not, approved by the [place] Food and Drug Administration. The tests are used for clinical purposes. Billing Codes Specimen Charges Stain Charges 93175 12510 1 1 3 2:32 PM CDT DERMATOPATHOLOGY LABORATORY Embedded Images 3 2:32 PM CDT DERMATOPATHOLOGY LABORATORY Pathology/Cytology TISSUE SPECIMEN FROM SKIN / Unknown 06/14/2023 06/15/2023 11:31 AM CDT Miscellaneous samples (specimen) TISSUE SPECIMEN FROM SKIN / Unknown 06/14/2023 06/15/2023 11:31 AM CDT us Deonchristiane Kathleen MD LAB - PATHOLOGY/CYTOLOGY SHAILESH BAIRD Final Result DERMATOPATHOLOGY LABORATORY [facility] - Department of Dermatology [facility] [address] [place] [address], [address] [phone] documented in this encounter Visit Diagnoses Not on filedocumented in this encounter
--- OUTSIDE RECORDS SUMMARY | 2025-06-05 12:48 | XMS_ITS | Clinical Summary ---
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
--- OUTSIDE RECORDS SUMMARY | 2025-06-05 12:48 | XMS_ITS | Clinical Summary ---
Author Organization [facility] stephania Address [address] [place] [address] Care Team Providers Care Shell Shop Supervisor Name Role Phone Deon Kathleen MD Primary Care Provider [phone] Allergies Active Allergy Reactions Criticality Noted Date Comments Latex Hives High 11/10/2013 Morphine Nausea and Vomiting Low 11/10/2013 Penicillin G Other (See Comments) 04/20/2012 Trouble breathing Medications levothyroxine 25 mcg tablet TAKE 1 TABLET DAILY STATOR CONNECTOR. 90 Tablet 2 10/01/2016 Active propranolol (INDERAL) [...] MD Referring Provider: Sunny Cruz MD [address] 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, ER+,OH+,BCT,RT, Tamoxifen Resolved Problems Problem Noted Date Diagnosed Date Resolved Date Hypothyroidism 01/10/2015 04/30/2016 Encounters Date Type Department Care Team Description 2025 External Device Data STL ABSTRACTION Provider, Abstract 05/08/2025 External Device Data STL ABSTRACTION Provider, Abstract 05/01/2025 External Device Data STL ABSTRACTION Provider, Abstract 04/25/2025 External Device Data STL ABSTRACTION Provider, Abstract 04/04/2025 External Device Data STL ABSTRACTION Provider, Abstract 04/03/2025 External Device Data STL ABSTRACTION Provider, Abstract 03/13/2025 External Device Data STL ABSTRACTION Provider, [...] Sex Assigned at Female 08/05/2024 12:43 PM BOAT LABORER Legal Sex Female 3:11 AM BOAT LABORER Gender Identity Female 08/05/2024 12:43 PM BOAT LABORER Sexual Orientation Straight 08/05/2024 12 :43 PM BOAT LABORER Occupation Industry Job Start Date Job End Date Not on file Not on file Not on file Not on file Last Filed Vital Signs Vital Sign Reading Time Taken Comments Blood Pressure 114/82 08/10/2024 12:00 PM BOAT LABORER Pulse 70 08/10/2024 12:00 PM BOAT LABORER Temperature 36.2 C (97.2 F) 08/10/2024 10:07 AM BOAT LABORER Respiratory Rate 16 08/10/2024 12:00 PM BOAT LABORER Oxygen Saturation 99% 08/10/2024 12:00 PM BOAT LABORER Inhaled Oxygen Concentration - - Weight 66.4 kg (146 lb 6.4 oz) 08/10/2024 10:07 AM BOAT LABORER Height 152.4 cm (5') 08/10/2024 10:07 AM BOAT LABORER Body Mass Index 28.59 08/10/2024 10:07 AM BOAT LABORER Plan of Treatment Health Maintenance Due Date [...] 07/17/2014, Additional history exists INFLUENZA VACCINE (#1) 2025 08/10/2014 OSTEOPOROSIS SCREENING 04/01/2026 , 01/28/2018, 01/03/2016, Additional history exists RSV VACCINE (60+ or ) (1 - 1-dose 75+ series) 2028 COLORECTAL SCREENING 08/10/2034 08/10/2024, 08/10/2024, 01/05/2014, Additional history exists Colorectal Cancer Screening 08/10/2034 Procedures Procedure Name Priority Date/Time Associated Diagnosis Comments COLONOSCOPY REPORT 08/10/2024 11 :46 AM BOAT LABORER XR DEXA BONE DENSITY AXIAL 1 OR MORE SITES Routine 04/01/2021 11:51 AM CDT Osteoporosis of multiple sites MAMMO SCREEN IMPL BILAT W OR WO CAD Routine 07/15/2016 9:16 AM CDT Visit for screening mammogram from Last 3 Months or Most Recently Relevant to Health Maintenance Results * COLONOSCOPY REPORT (08/10/2024 11:46 AM BOAT LABORER) Narrative Procedure Note Madyson Pina MD - 08/10/2024 11:46 AM CST [facility] Endoscopy Patient Name: Edith Joyner [...] pathology results. Procedure Code(s): --- Professional --- 55805, Colonoscopy, flexible; with removal of tumor(s), polyp(s), or other lesion(s) by snare technique CPT copyright 2020 [employer]. All rights reserved. The codes documented in this report are preliminary and upon senior instructional designer review may be revised to meet current compliance requirements. Madyson Pina MD 08/10/2024 11:46:01 AM This report has been signed electronically. Number of Addenda: [id number] [place] [address] Madyson Pina MD GI PROCEDURE ORDERABLES Final [...] refer to the full report available in [facility] under the PACS Images tab. If a faxed copy is needed, please call [phone]. DICTATION LOCATION: [facility] Procedure Note Keshawn Mccullough MD - 04/01/2021 SUMMARY DEXA REPORT DATE: 04/01/2021 11:51 AM INDICATION: Breast cancer, postmenopausal FINDINGS: Bone mineral density is consistent with osteopenia. The lowest T score is -1.6. The lowest T score on the previous study was -1.5. Please refer to the full report available in [facility] under the PACS Images tab. If a faxed copy is needed, please call [phone]. DICTATION LOCATION: [facility] Daphnie Arteaga MD DIAGNOSTIC IMAGING ORDERABLES Final Result * MAMMO DIGITAL SCREEN IMPLANTS BILAT (07/15/2016 9:16 AM CDT) Anatomical Region Laterality Modality Breast Bilateral Mammography 07/15/2016 9:16 AM CDT Impressions 07/16/2016 4:54 PM CDT IMPRESSION: Negative bilateral screening mammogram. Recommend routine followup. OVERALL ASSESSMENT: BI-RADS Category 1 - Negative DICTATION LOCATION: [facility] Narrative 07/16/2016 4:54 PM CDT BILATERAL [...] BI-RADS Category 1 - Negative DICTATION LOCATION: [facility] Don Alvarado MD MAMMO ORDERABLES F inal Result from Last 3 Months or Most Recently Relevant to Health Maintenance Insurance [facility] Advance Directives For more information, please contact: [phone] * Full Code (Latest Code Status on File) Date Activated Date Inactivated Comments 01/05/2014 11:11 AM 01/05/2014 3:58 PM Care Teams Shell Shop Supervisor Relationship Specialty Start Date End Date Deon Kathleen MD [address] [place] [address] PCP - General Family Practice 07/31/24
--- OUTSIDE RECORDS SUMMARY | 2025-06-05 12:48 | XMS_ITS | Encounter Summary ---
Author Organization [facility] Address [address] [place] [address] Care Team Providers Care Hand Stoner Name Role Phone Deon Kathleen MD Primary Care Provider [phone] Encounter Details Date Type Department Care Team (Late st Contact Info) Description 07/23/2006 Outpatient Historical [facility] Internal Medicine [place] [address] [place] [address] Ramon Garnett MD [address] [place] [address] Social History Tobacco Use Types Packs/Day Years Used Date Smoking Tobacco: Never Assessed Comments Unknown Sex and Gender Information Value Date Recorded Sex Assigned at Female 08/05/2024 12:43 PM BOND UNDERWRITER Legal Sex Female 3:11 AM BOND UNDERWRITER Gender Identity Female 08/05/2024 12:43 PM BOND UNDERWRITER Sexual Orientation Straight 08/05/2024 12 :43 PM BOND UNDERWRITER documented as of this encounter Plan of Treatment Not on file documented as of this encounter Visit Diagnoses Not on filedocumented in this encounter Care Teams Hand Stoner Relationship Specialty Start Date End Date Deon Kathleen MD [address] [place] [address] PCP - General Family Practice 07/31/24 documented as of this encounter
== END 2025-06-05 10:48 | disposition home or self-care (01) ==
PROVIDERS: PCP Family Medicine; Visit Provider Nurse Practitioner Adult Health
DX: E55.9 Vitamin D deficiency, unspecified (principal)
CPT/HCPCS: 36415; 82306

== ENCOUNTER 2025-07-04 20:53 | Emergency (ER) | payer OTHER, SELFPAY ==
[2025-07-04 20:55] VITALS: BP 160/72; PULSE 71; RESP 18; TEMP 36.6; O2SAT 99
[2025-07-05 02:11] VITALS: BP 137/73; PULSE 79; RESP 16; TEMP 36.5; O2SAT 98
--- NOTE | 2025-07-05 02:55 | ED.GENADULT ---
HPI - General Adult General Chief complaint: Skin/Abscess/Foreign Body Stated complaint: itchy Time Seen by Provider: 07/05/25 02:44 History of Present Illness HPI narrative: Patient is a 70-year-old female who presents emergency department with chief complaint of rash patient reports that she noticed the redness in a band around her abdomen and back patient states that is itchy at times reports no new medications or no new environmental exposure. Patient denies blisters or vesicles Related Data Allergies Allergy/AdvReac Type Severity Reaction Status Date / Time Latex, Natural Rubber Allergy Unknown Blisters Verified 07/04/25 09:26 morphine Allergy Unknown Nausea Verified 07/04/25 09:26 Penicillins Allergy SOB Verified 07/04/25 09:26 propoxyphene (From Darvon) Allergy Rash Verified 07/04/25 09:26 Review of Systems Review of Systems: A 10 system review of systems was completed on the patient and is negative except for what is stated in the HPI. Nursing and ancillary documentation was reviewed. [facility] Past Medical History Medical History Laceration of finger of left hand Brain TIA Thrush, oral Right hand pain GERD (gastroesophageal reflux disease) Dysphagia Changing skin lesion Chronic sinusitis Groin rash Myalgia of muscle of neck Concussion Skin yeast infection Mass of right axilla Neck Pain Dyspepsia Diastolic dysfunction Multiple lacunar infarcts Hypokalemia Overweight with body mass index (BMI) of 28 to 28.9 in adult Cancer of right breast (2010) Status post lumpectomy and radiation therapy. Arthritis Adult BMI 29.0-29.9 kg/sq m Osteopenia Hypothyroidism Hypertension Hyperlipidemia Anxiety Surgical History Surgical History History of dilation and curettage History of lumpectomy of right breast (2010) History of breast augmentation History of cholecystectomy Family History Family History Father CHF (congestive heart failure) Hypertension Mother Hypertension Heart disease Thyroid disorder Sibling Hypertension Obesity Breast cancer Bone cancer Diabetes mellitus Depression Other Depression Other Arthritis HLD (hyperlipidemia) Osteoporosis Social History Social History Social History: Surrogate medical decision maker: Julian Joyner, spouse. Code status: Full code. Caffeine-decaf coffee, occasional soda Smoking packs per day: 1 Smoking cigarettes per day: 20.0 Years smoked: 23 Smoking pack-years: 23.00 Smoking status: Former smoker Tobacco type: cigarettes Second hand tobacco smoke exposure: No Smoking end date: 06/20/11 Alcohol intake: current Alcohol use details: Rarely Substance use: never Substance use type: does not use Do You Feel Safe in your Home?: Yes Lack of Transportation: No Lack of Food: Never True Current Housing: I Have Housing Concerned About Future Housing: No Difficulty Paying Gas/Electric Bills: No Difficulty Paying for Meds: No Currently Unemployed: No Education: Trade/Vocational Certificate Difficulty w/ Childcare or Family Care: YES Living arrangements: with family Additional living arrangements comments: The patient lives with her spouse in [place]. 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 Gender identity (if verbalized by the patient): Female Spiritual care concerns: No Exam Narrative: GENERAL: Well-appearing, well-nourished, and in no acute distress. HEAD: Normocephalic, atraumatic. EYES: PERRLA and EOMI. ENT: Nares clear, no rhinorrhea or epistaxis. Mucous membranes moist. NECK: Supple. CHEST: Clear to auscultation. No respiratory distress. HEART: Regular rate and rhythm. No murmur heard. Normal peripheral pulses. ABDOMEN: Soft, nontender, nondistended, normal active bowel sounds. EXTREMITIES: Normal range of motion. No edema. SKIN: Warm, dry, no rash. NEURO: No focal deficits. Alert and oriented x3. PSYCH: Normal mood and affect. Course Vital Signs Vital signs: Vital Signs Temperature 36.6 C 07/04/25 20:55 Pulse Rate 71 07/04/25 20:55 Respiratory Rate 18 07/04/25 20:55 Blood Pressure 160/72 H 07/04/25 20:55 Pulse Oximetry 99 07/04/25 20:55 Oxygen Delivery Room Air 07/04/25 20:55 Temperature 36.5 C 07/05/25 02:11 Pulse Rate 79 07/05/25 02:11 Respiratory Rate 16 07/05/25 02:11 Blood Pressure 137/73 07/05/25 02:11 Pulse Oximetry 98 07/05/25 02:11 Oxygen Delivery Room Air 07/04/25 20:55 Medical Decision Making [facility] Narrative Medical decision making narrative: Differential diagnosis includes contact dermatitis, dermatitis, allergic reaction The patient shows no signs of airway compromise the patient was started on steroid and will be instructed to follow-up with primary care provider Vital Signs Vital Signs: Vital Signs Temperature 36.6 C 07/04/25 20:55 Pulse Rate 71 07/04/25 20:55 Respiratory Rate 18 07/04/25 20:55 Blood Pressure 160/72 H 07/04/25 20:55 Pulse Oximetry 99 07/04/25 20:55 Oxygen Delivery Room Air 07/04/25 20:55 Temperature 36.5 C 07/05/25 02:11 Pulse Rate 79 07/05/25 02:11 Respiratory Rate 16 07/05/25 02:11 Blood Pressure 137/73 07/05/25 02:11 Pulse Oximetry 98 07/05/25 02:11 Oxygen Delivery Room Air 07/04/25 20:55 Discharge Plan Discharge Clinical Impression: Dermatitis Patient Disposition: Home Condition: Stable Instructions: Antibiotic Form, Dermatitis (ED) Patient Language: Uzbek Prescriptions: New prednisone 20 mg tablet 40 mg PO DAILY 5 Days Qty: 10 0RF No Action calcium carbonate 600 mg calcium (1,500 mg) tablet 600 mg PO DAILY Qty: 1 0RF Rx Instructions: OTC omeprazole 20 mg capsule,delayed release(DR/EC) 20 mg PO DAILY Qty: 30 2RF atorvastatin [Lipitor] 20 mg tablet 20 mg PO HS Qty: 90 3RF propranolol 10 mg tablet 10 mg PO DAILY Qty: 90 1RF levothyroxine 25 mcg tablet 25 mcg PO DAILY Qty: 90 1RF Rx Instructions: TAKE 1 TABLET BY MOUTH EVERY DAY cholecalciferol (vitamin D3) 1,250 mcg (50,000 unit) capsule 1,250 mcg PO WEEKLY Qty: 8 0RF Follow-up/Referrals: Deon Kathleen MD [Primary Care Provider, Family Practice] Time of Disposition: 02:58
[2025-07-05 03:16] VITALS: BP 132/65; PULSE 69; RESP 18; O2SAT 97
== END 2025-07-05 03:17 | disposition home or self-care (01) ==
PROVIDERS: Emergency Provider Emergency Medicine; PCP Family Medicine
DX: L30.9 Dermatitis, unspecified (principal); I11.9 Hypertensive heart disease without heart failure; E03.9 Hypothyroidism, unspecified; J32.9 Chronic sinusitis, unspecified; K21.9 Gastro-esophageal reflux disease without esophagitis; M19.90 Unspecified osteoarthritis, unspecified site; M85.80 Other specified disorders of bone density and structure, unspecified site; Z85.3 Personal history of malignant neoplasm of breast; Z92.3 Personal history of irradiation; Z92.21 Personal history of antineoplastic chemotherapy; Z86.73 Personal history of transient ischemic attack (TIA), and cerebral infarction without residual deficits; Z87.891 Personal history of nicotine dependence; Z90.49 Acquired absence of other specified parts of digestive tract; Z79.899 Other long term (current) drug therapy
CPT/HCPCS: 99283

== ENCOUNTER 2025-07-09 08:32 | Outpatient (CLI) | payer OTHER, SELFPAY ==
--- NOTE | ~2025-07-09 | CT_ITS ---
EXAMINATION: CT sinus wo con COMPARISON: None HISTORY: Chronic frontal sinusitis TECHNIQUE: Axial images were obtained without IV contrast. Sagittal, coronal reconstruction images were obtained from the axial views. CT scan performed using dose optimization techniques including the following automated exposure control; adjustment of mA and/or kV; use of iterative reconstruction technique. Automatic exposure control was used to reduce radiation dose. Permanent radiation dose record is archived to PACS. FINDINGS: Visualized brain parenchyma optic globes and soft tissues appear unremarkable. There is complete opacification of the frontal sinuses bilaterally. Moderate opacification of the ethmoidal air cells. There is a left maxillary sinus mucous retention cyst measuring 2 x 2 cm. The ostiomeatal complexes are patent. Nasal septum is in the midline. No significant thickening of the turbinates and narrowing of the nasal cavities. Sphenoid sinuses are unremarkable. No osseous destruction or wall thickening is identified. IMPRESSION: Sinusitis detailed above with underlying polyp formation suspected Reviewed, dictated and finalized at location P.
== END 2025-07-09 08:33 | disposition home or self-care (01) ==
PROVIDERS: PCP Family Medicine; Visit Provider Otolaryngology
DX: J32.1 Chronic frontal sinusitis (principal); J32.2 Chronic ethmoidal sinusitis; K21.9 Gastro-esophageal reflux disease without esophagitis; K14.3 Hypertrophy of tongue papillae
CPT/HCPCS: 70486

== ENCOUNTER 2025-07-19 09:07 | Outpatient (CLI) | payer OTHER, SELFPAY ==
--- NOTE | ~2025-07-19 | DEXA_ITS ---
Bone Density Report Name: VICENTA TORRES Age: 70 Sex: Female Ethnicity: White Date of : 1955 Indication: osteopenia; parental hip fracture; cancer; Referring Provider: Caren Davidson Study: Bone densitometry was performed. Exam Date: July 19, 2025 Accession number: [id number] Bone Density: Region BMD T-score Z-score Classification AP Spine(L1-L4) 0.874 -1.6 0.7 Osteopenia Femoral Neck (Left) 0.594 -2.3 -0.4 Osteopenia Total Hip (Left) 0.761 -1.5 0.1 Osteopenia Femoral Neck (Right) 0.625 -2.0 -0.1 Osteopenia Total Hip (Right) 0.770 -1.4 0.2 Osteopenia Total Hip Mean 0.765 -1.5 0.2 Osteopenia World Health Organization criteria for BMD impression classify patients as: Normal (T-score at or above -1.0), Osteopenia (T-score between -1.0 and -2.5), or Osteoporosis (T-score at or below -2.5). 10-year Fracture Risk(1): Major Osteoporotic Fracture 22% Hip Fracture 9.2% Reported Risk Factors: [place] (), Neck BMD=0.594, BMI=28.7, parental fracture (1) FRAX(R) Version 3.08. Fracture probability calculated for an untreated patient. Fracture probability may be lower if the patient has received treatment. Previous Exams: -- Region Exam Age BMD T-score BMD Change BMD Change Date g/cm2 vs Baseline vs Previous -- AP Spine (L1-L4) 07/19/2025 70 0.874 -1.6 -0.5% -0.5% 05/04/2023 67 0.878 -1.5 Total Hip(Left) 07/19/2025 70 0.761 -1.5 0.1% 0.1% 05/04/2023 67 0.761 -1.5 Total Hip(Right) 07/19/2025 70 0.770 -1.4 1.6% 1.6% 05/04/2023 67 0.758 -1.5 -- *Denotes significance at 95% confidence level, LSC for AP Spine = 0.022 g/cm2, LSC for Total Hip = 0.027 g/cm2 Clinical Information Provided by Patient: Parent has had a hip fracture Has used the following medications: Vitamin D, Calcium Has the following medical conditions: Cancer, breast cancer Patient maximum height was 62 Menopause Age: 54 No regular weight bearing exercise Drinks caffeinated beverages Onset of menses at age 12 Number of children 1 Impression: The patient has low bone mass, based on the Left Femoral Neck T-score. The patient has an estimated ten-year risk of hip fracture of 9.2% and an estimated ten-year risk of major fracture of 22%, based on the WHO FRAX algorithm. The patient has risk factors, including: parental hip fracture. No significant bone loss was observed. Discussion: BONE DENSITY IS LOW AT ONE OR MORE SKELETAL SITES. THE PATIENT'S BMD AND CLINICAL RISK FACTORS CONTRIBUTE TO THIS PATIENT'S HIGH RISK OF FRACTURE. This patient's lowest T-score is low at one or more skeletal sites. It meets the World Health Organization's (WHO) criteria for ?low bone mass? (T-score between -1.0 and -2.5). The patient's 10-year risk of hip fracture and 10 year risk of a major osteoporotic fracture as calculated by FRAX exceeds the threshold where pharmacological therapy is recommended by the National Osteoporosis Foundation (NOF). However, all treatment decisions require clinical judgment and consideration of individual patient factors, including patient preferences, comorbidities, previous drug use, risk factors not captured in the FRAX model (e.g., frailty, falls, vitamin D deficiency, increased bone turnover, interval significant decline in bone density) and possible under or overestimation of fracture risk by FRAX. The patient should follow a healthful lifestyle (good nutrition with adequate calcium and vitamin D, and appropriate weight-bearing exercise). Follow-Up: Consider a repeat BMD and Vertebral Fracture Assessment (VFA) exam in 2 years or sooner if medically necessary, to reassess this patient's status. Reported by: RAFA on 07/19/2025 9:29:00 AM. Reviewed, dictated and finalized at location A.
== END 2025-07-19 09:08 | disposition home or self-care (01) ==
LOC: MICIMG 09:07
PROVIDERS: PCP Family Medicine; Visit Provider Nurse Practitioner Family
DX: Z78.0 Asymptomatic menopausal state (principal); Z71.2 Person consulting for explanation of examination or test findings; M85.88 Other specified disorders of bone density and structure, other site; M85.852 Other specified disorders of bone density and structure, left thigh; M85.851 Other specified disorders of bone density and structure, right thigh
CPT/HCPCS: 77080

== ENCOUNTER 2025-07-19 09:52 | Outpatient (CLI) | payer OTHER, SELFPAY ==
--- NOTE | 2025-07-19 10:00 | ECG_ITS ---
Test Date: 2025-07-19 10:17:50 Measurements Intervals [place] Rate: 72 P: 55 [place]: 197 QRS: 19 QRSD: 111 T: 147 QT: 391 QTc: 428 Interpretive Statements SINUS RHYTHM INTRAVENTRICULAR CONDUCTION DELAY LOW QRS VOLTAGE IN LIMB LEADS MODERATE T-WAVE ABNORMALITY, CONSIDER ANTEROLATERAL ISCHEMIA BASELINE ARTIFACT- V5 ABNORMAL ECG Electronically Signed On 07-19-2025 11:33:44 CDT by Giovani Gonsalez D.O.
--- OUTSIDE RECORDS SUMMARY | 2025-07-19 10:49 | XMS_ITS | Clinical Summary ---
Author Organization [facility] Address [address] [place] [address] Care Team Providers Care Electrical Wiring Lineman Name Role Phone Unavailable Primary Care Provider Unavailabl e Source Comments [facility] [employer],non-owned Affiliates and Associated Physician Practices is amultiple site organization consisting of ambulatory clinics and hospital sitesin [place], [place], [place] and [place]. This disclosure is being madepursuant to the Care Everywhere program and may not contain all information available regarding this patient. 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
--- OUTSIDE RECORDS SUMMARY | 2025-07-19 10:49 | XMS_ITS | Encounter Summary ---
Author Organization [facility] Address [address] [facility] [place] [address] Care Team Providers Care Psychology Associate Name Role Phone Unavailable Primary Care Provider Unavailabl e Encounter Details Date Type Department Care Team (Late st Contact Info) Description 06/15/2023 Lab Requisition [facility] - DermPath Lab [address] [facility] [place] [phone] Deon Kathleen MD [address] [place] [address] Social History Tobacco Use Types Packs/Day Years Used Date Smoking Tobacco: Never Assessed Comments Unknown Sex and Gender Information Value Date Recorded Sex Assigned at Not on file 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 Sex Female 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 Gender Identity Not on file Sexual Orientation Not on file documented as of this encounter Plan of Treatment Not on file documented as of this encounter Procedures Procedure Name Priority Date/Time Associated Diagnosis Comments DERMATOPATHOLOGY Routine 06/14/2023 12:0 0 AM CDT documented in this encounter Results * DERMATOPATHOLOGY (06/14/2023 12:00 AM CDT) Case Report Dermatopathology Report Case: [id number] Authorizing Provider: Deon Kathleen MD Collected: 06/14/2023 12:00 AM Ordering Location: [facility] DermPath Lab Received: 06/15/2023 [...] characteristic determined by the Dermatopathology Laboratory at [facility], directed by Dr. Michelle Jauregui. These tests need not be, and therefore are not, approved by the [place] Food and Drug Administration. The tests are used for clinical purposes. Billing Codes Specimen Charges Stain Charges 51791 41698 1 1 3 2:32 PM CDT DERMATOPATHOLOGY LABORATORY Embedded Images 3 2:32 PM CDT DERMATOPATHOLOGY LABORATORY Pathology/Cytology TISSUE SPECIMEN FROM SKIN / Unknown 06/14/2023 06/15/2023 11:31 AM CDT Miscellaneous samples (specimen) TISSUE SPECIMEN FROM SKIN / Unknown 06/14/2023 06/15/2023 11:31 AM CDT us Deonchristiane Kathleen MD LAB - PATHOLOGY/CYTOLOGY SHAILESH BAIRD Final Result DERMATOPATHOLOGY LABORATORY [facility] - Department of Dermatology [facility] Medicine [address] [place] [address], [address] [phone] documented in this encounter Visit Diagnoses Not on filedocumented in this encounter
--- OUTSIDE RECORDS SUMMARY | 2025-07-19 10:49 | XMS_ITS | Encounter Summary ---
Author Organization [facility] Address [address] [place] [address] Care Team Providers Care Monorail Car Operator Name Role Phone Unavailable Primary Care Provider Unavailabl e Encounter Details Date Type Department Care Team (Late st Contact Info) Description 10/18/2024 Lab Requisition [facility] - DermPath Lab [address] [facility] [place] [place] [phone] Deon Kathleen MD [address] [place] [address] Social History Tobacco Use Types Packs/Day Years Used Date Smoking Tobacco: Never Assessed Comments Unknown Sex and Gender Information Value Date Recorded Sex Assigned at Not on file Legal Sex Female 1:03 PM FUGITIVE INVESTIGATOR Gender Identity Not on file Sexual Orientation Not on file documented as of this encounter Plan of Treatment Not on file documented as of this encounter Procedures Procedure Name Priority Date/Time Associated Diagnosis Comments DERMATOPATHOLOGY Routine 10/17/2024 3:33 AM FUGITIVE INVESTIGATOR documented in this encounter Results * DERMATOPATHOLOGY (10/17/2024 3:33 AM FUGITIVE INVESTIGATOR) Case Report Dermatopathology Report Case: [id number] Authorizing Provider: Deon Kathleen MD Collected: 10/17/2024 03:33 AM Ordering Location: [facility] - Received: 10/18/2024 01:53 PM DermPath Lab Pathologist: Nury Crawford MD Specimen: Skin, left upper chest 1:29 PM FUGITIVE INVESTIGATOR DERMATOPATHOLOGY LABORATORY Final Diagnosis Specimen A. SKIN, left upper chest: SEBORRHEIC KERATOSIS, CLONAL TYPE; INFLAMED (L82.1) PRESENT AT MARGIN 1:29 PM FUGITIVE INVESTIGATOR DERMATOPATHOLOGY LABORATORY at 1329 FUGITIVE INVESTIGATOR Clinical History Changing Lesion. Check margins 1:29 PM [facility] DERMATOPATHOLOGY LABORATORY Gross Description Specimen A: Received is one formalin filled container labeled with the patient's name and designated left upper chest. The specimen consists of a shave biopsy measuring 9x5x3 mm. Jar 0. 1:29 PM [facility] DERMATOPATHOLOGY LABORATORY Microscopic Description Specimen A. SKIN, left upper chest: Sections show a proliferation of keratinocytes with overlying hyperkeratosis. Aggregates of keratinocytes with abundant pale-staining cytoplasm appear demarcated from surrounding basaloid keratinocytes. There is a lymphohistiocytic infiltrate within the dermis. This lesion is present at the margin of the specimen. 1:29 PM [facility] DERMATOPATHOLOGY LABORATORY Disclaimer An external and internal positive and negative controls are appropriate for the histochemical, immunohistochemical and immunofluorescence stain(s) in this case (if any), except where stated explicitly. The performance characteristics of the stain(s) cited in this report were developed and its performance characteristic determined by the Dermatopathology Laboratory at [facility], directed by Dr. Michelle Jauregui. These tests need not be, and therefore are not, approved by the [place] Food and Drug Administration. The tests are used for clinical purposes. Billing Codes Specimen Charges Stain Charges 34609 1 1:29 PM [facility] DERMATOPATHOLOGY LABORATORY Embedded Images 1:29 PM [facility] DERMATOPATHOLOGY LABORATORY Pathology/Cytolo gy TISSUE SPECIMEN FROM SKIN / Unknown 10/17/2024 3:33 AM FUGITIVE INVESTIGATOR 10/18/2024 1:53 PM [facility] us Deonchristiane Kathleen MD LAB - PATHOLOGY/CYTOLOGY SHAILESH BAIRD Final Result DERMATOPATHOLOGY LABORATORY [facility] - Department of Dermatology [address] [place] [address], [facility] [phone] documented in this encounter Visit Diagnoses Not on filedocumented in this encounter
--- OUTSIDE RECORDS SUMMARY | 2025-07-19 10:49 | XMS_ITS | Encounter Summary ---
Author Organization [facility] Address [address] [place] [address] Care Team Providers Care Director Talent Name Role Phone Deon Kathleen MD Primary Care Provider [phone] Encounter Details Date Type Department Care Team (Late st Contact Info) Description 07/23/2006 Outpatient Historical [facility] Internal Medicine [address] [address] [place] [address] Ramon Garnett MD [address] [place] [address] Social History Tobacco Use Types Packs/Day Years Used Date Smoking Tobacco: Never Assessed Comments Unknown Sex and Gender Information Value Date Recorded Sex Assigned at Female 08/05/2024 12:43 PM SHOP WELDER Legal Sex Female 3:11 AM SHOP WELDER Gender Identity Female 08/05/2024 12:43 PM SHOP WELDER Sexual Orientation Straight 08/05/2024 12 :43 PM SHOP WELDER documented as of this encounter Plan of Treatment Not on file documented as of this encounter Visit Diagnoses Not on filedocumented in this encounter Care Teams Director Talent Relationship Specialty Start Date End Date Deon Kathleen MD [address] [place] [address] PCP - General Family Practice 07/31/24 documented as of this encounter
--- OUTSIDE RECORDS SUMMARY | 2025-07-19 10:49 | XMS_ITS | Clinical Summary ---
Author Organization 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, ER+,DE+,BCT,RT, Tamoxifen Resolved Problems Problem Noted Date Diagnosed Date Resolved Date Hypothyroidism 01/10/2015 04/30/2016 Encounters Date Type Department Care Team Description 06/05/2025 External Device Data STL ABSTRACTION Provider, Abstract 2025 External Device Data STL ABSTRACTION Provider, [...] Sex Assigned at Female 08/05/2024 12:43 PM WEBSPHERE MESSAGE BROKER DEVELOPER Legal Sex Female 3:11 AM WEBSPHERE MESSAGE BROKER DEVELOPER Gender Identity Female 08/05/2024 12:43 PM WEBSPHERE MESSAGE BROKER DEVELOPER Sexual Orientation Straight 08/05/2024 12 :43 PM WEBSPHERE MESSAGE BROKER DEVELOPER Occupation Industry Job Start Date Job End Date Not on file Not on file Not on file Not on file Last Filed Vital Signs Vital Sign Reading Time Taken Comments Blood Pressure 114/82 08/10/2024 12:00 PM WEBSPHERE MESSAGE BROKER DEVELOPER Pulse 70 08/10/2024 12:00 PM WEBSPHERE MESSAGE BROKER DEVELOPER Temperature 36.2 C (97.2 F) 08/10/2024 10:07 AM WEBSPHERE MESSAGE BROKER DEVELOPER Respiratory Rate 16 08/10/2024 12:00 PM WEBSPHERE MESSAGE BROKER DEVELOPER Oxygen Saturation 99% 08/10/2024 12:00 PM WEBSPHERE MESSAGE BROKER DEVELOPER Inhaled Oxygen Concentration - - Weight 66.4 kg (146 lb 6.4 oz) 08/10/2024 10:07 AM WEBSPHERE MESSAGE BROKER DEVELOPER Height 152.4 cm (5') 08/10/2024 10:07 AM WEBSPHERE MESSAGE BROKER DEVELOPER Body Mass Index 28.59 08/10/2024 10:07 AM WEBSPHERE MESSAGE BROKER DEVELOPER Plan of Treatment Health Maintenance Due Date [...] Comments COLONOSCOPY REPORT 08/10/2024 11 :46 AM WEBSPHERE MESSAGE BROKER DEVELOPER XR DEXA BONE DENSITY AXIAL 1 OR MORE SITES Routine 04/01/2021 11:51 AM CDT Osteoporosis of multiple sites MAMMO SCREEN IMPL BILAT W OR WO CAD Routine 07/15/2016 9:16 AM CDT Visit for screening mammogram from Last 3 Months or Most Recently Relevant to Health Maintenance Results * COLONOSCOPY REPORT (08/10/2024 11:46 AM WEBSPHERE MESSAGE BROKER DEVELOPER) Narrative Procedure Note Madyson Pina MD - 08/10/2024 11:46 AM CST [facility] Endoscopy Patient Name: Edith Joyner Procedure [...] pathology results. Procedure Code(s): --- Professional --- 28764, Colonoscopy, flexible; with removal of tumor(s), polyp(s), or other lesion(s) by snare technique CPT copyright 2020 [employer]. All rights reserved. The codes documented in this report are preliminary and upon snow plow tractor operator review may be revised to meet current compliance requirements. Madyson Pina MD 08/10/2024 11:46:01 AM This report has been signed electronically. Number of Addenda: [id number] , [place] [address] Madyson Pina MD GI PROCEDURE ORDERABLES Final [...] refer to the full report available in [facility] under the PACS Images tab. If a faxed copy is needed, please call [phone]. DICTATION LOCATION: [facility] Procedure Note Keshawn Mccullough MD - 04/01/2021 SUMMARY DEXA REPORT DATE: 04/01/2021 11:51 AM INDICATION: Breast cancer, postmenopausal FINDINGS: Bone mineral density is consistent with osteopenia. The lowest T score is -1.6. The lowest T score on the previous study was -1.5. Please refer to the full report available in [facility] under the PACS Images tab. If a faxed copy is needed, please call [phone]. DICTATION LOCATION: [facility] us Daphnie Arteaga MD DIAGNOSTIC IMAGING ORDERABLES Final Result * MAMMO DIGITAL SCREEN IMPLANTS BILAT (07/15/2016 9:16 AM CDT) Anatomical Region Laterality Modality Breast Bilateral Mammography 07/15/2016 9:16 AM CDT Impressions 07/16/2016 4:54 PM CDT IMPRESSION: Negative bilateral screening mammogram. Recommend routine followup. OVERALL ASSESSMENT: BI-RADS Category 1 - Negative DICTATION LOCATION: [facility] Narrative 07/16/2016 4:54 PM CDT BILATERAL DIGITAL [...] BI-RADS Category 1 - Negative DICTATION LOCATION: [facility] Don Alvarado MD MAMMO ORDERABLES F inal Result from Last 3 Months or Most Recently Relevant to Health Maintenance Insurance [employer] MCR Advance Directives For more information, please contact: [phone] * Full Code (Latest Code Status on File) Date Activated Date Inactivated Comments 01/05/2014 11:11 AM 01/05/2014 3:58 PM Care Teams Furniture Rental Consultant Relationship Specialty Start Date End Date Deon Kathleen MD [address] [place] [phone] PCP - General Family Practice 07/31/24
--- OUTSIDE RECORDS SUMMARY | 2025-07-19 10:49 | XMS_ITS | Encounter Summary ---
Author Organization [facility] Address [address] [place] [address] Care Team Providers Care Cake Decorator Name Role Phone Unavailable Primary Care Provider Unavailabl e Encounter Details Date Type Department Care Team (Late st Contact Info) Description 10/29/2021 Lab Requisition [facility] DermPath Lab [address] [facility] [place] [phone] Deon Kathleen MD [address] [place] [address] Social History Tobacco Use Types Packs/Day Years Used Date Smoking Tobacco: Never Assessed Comments Unknown Sex and Gender Information Value Date Recorded Sex Assigned at Not on file Legal Sex Female 1:03 PM AUTOMATION QA LEAD Gender Identity Not on file Sexual Orientation Not on file documented as of this encounter Plan of Treatment Not on file documented as of this encounter Procedures Procedure Name Priority Date/Time Associated Diagnosis Comments DERMATOPATHOLOGY Routine 10/27/2021 12:0 0 AM AUTOMATION QA LEAD documented in this encounter Results * DERMATOPATHOLOGY (10/27/2021 12:00 AM AUTOMATION QA LEAD) Case Report Dermatopathology Report Case: [id number] Authorizing Provider: Deon Kathleen MD Collected: 10/27/2021 12:00 AM Ordering Location: [facility] DermPath Lab Received: 10/29/2021 01:26 PM Pathologist: Joceline Gutierrez MD Specimen: Skin, back 2 10:32 AM AUTOMATION QA LEAD DERMATOPATHOLOGY LABORATORY Final Diagnosis Specimen A. SKIN, back: BENIGN VERRUCOUS KERATOSIS, INFLAMED (L82.1) PRESENT AT MARGIN 2 10:32 AM AUTOMATION QA LEAD DERMATOPATHOLOGY LABORATORY at 1032 AUTOMATION QA LEAD Clinical History Changing lesion. Check margins. 10:32 AM [facility] DERMATOPATHOLOGY LABORATORY Gross Description Specimen A: Received is one formalin filled container labeled with the patient's name and designated back. The specimen consists of a shave biopsy measuring [id number], bisected. The margin is inked green. Jar 0. 10:32 AM [facility] DERMATOPATHOLOGY LABORATORY Microscopic Description Specimen A. SKIN, back: Sections show hyperkeratosis, papillomatosis, hypergranulosis, and acanthosis. Inflammatory cells are present within the dermis. These histological findings can be seen in a verruca vulgaris or a seborrheic keratosis. This lesion is present at the margin of the specimen. 10:32 AM [facility] DERMATOPATHOLOGY LABORATORY Disclaimer An external and [...] purposes. Billing Codes Specimen Charges Stain Charges 96347 1 2 10:32 AM [facility] DERMATOPATHOLOGY LABORATORY Embedded Images 10:32 AM [facility] DERMATOPATHOLOGY LABORATORY Pathology/Cytolog y TISSUE SPECIMEN FROM SKIN / Unknown 10/27/2021 10/29/2021 1:26 PM AUTOMATION QA LEAD us Deonchristiane Kathleen MD LAB - PATHOLOGY/CYTOLOGY SHAILESH BAIRD Final Result DERMATOPATHOLOGY LABORATORY [facility] - Department of Dermatology [address] [phone] documented in this encounter Visit Diagnoses Not on filedocumented in this encounter
--- OUTSIDE RECORDS SUMMARY | 2025-07-19 10:50 | XMS_ITS | Clinical Summary ---
Author Organization [facility] Address [address] [place] [address] Care Team Providers Care Hydrochloric Acid Operator Name Role Phone Harsha Fay MD Primary [...] on file Legal Sex Female 4:19 PM GLUE COOK Gender Identity Not on file Sexual Orientation [...] Treatment Not on file Insurance [employer] [address] [place] [address] [address] [place] [address] HEALTHCARE Care Teams Hydrochloric Acid Operator Relationship Specialty [place] [address] [address] [address] PCP - General Family Medicine 06/01/18
--- OUTSIDE RECORDS SUMMARY | 2025-07-19 10:50 | XMS_ITS | Data Portability ---
Author Organization [facility] Address [address] [place] [address] Care Team Providers Care Community Administrator Name Role Phone DEION MCNEAL Primary Care Provider Assessment Encounter Date Assessment Date Assessment LastModified by Organization Details LastModified Time 03/24/2022 03/24/2022 Annual gynecological exam performed. Patient will come back in a year unless there are new symptoms. [email or web address] Not available 03/24/2022 12:34:50 07/05/2023 07/05/2023 Annual gynecological exam performed. Patient will come back in a year unless there are new symptoms. [email or web address] Not available 07/05/2023 12:21:11 08/16/2024 08/16/2024 Annual [...] Thank you. 2021 022 CLEMENTINA resendez MD, [address] [facility], [facility], [place], [address], 05:00:49 Procedures None recorded. Surgeries None recorded. Imaging None recorded. Medication Orders nystatin-tr iamcinolone 100,000 unit/gram-0 .1 % topical ointment 2023 024 CLEMENTINA [id number], [address], [place], [address], 4 12:00:39 nystatin 100,000 unit/gram topical powder 2022 023 georgiana [id number], [address], [place], [address], 4 11:08:38 Patient TargetsNo targets recorded. Patient [...] patient, Thank you. Referring Physician: Arielle Huff, DECORATING EQUIPMENT SETTER, Encounter Date: 03/24/2022 Results Created Date Observation [...] clini robert sanchez nted. Not Available [facility] - Stat Weekend Draws [address] [facility], [place], [address], 03/30/2022 15:19:58 03/24/20 22 03/24/2022 IMAGE GUIDE [...] as clini robert sanchez nted. Not Available [facility] [address] [place], [address], 05/26/2022 16:54:53 08/16/20 24 08/16/2024 IMAGE GUIDE [...] as clini robert warra nted. Not Available [facility] (Lab) [address], [place], [address], 08/28/2024 16:43:57 05/27/20 22 04/08/2022 MAMMO , diagn ostic , digit al, bilat eral No observ ation record ed. [email or web address] [facility] [address], [place], [address], 05/28/2022 16:19:17 12/10/19 24 12/10/2023 US, tyrese t, unila teral No observ ation record ed. [facility] [address], [place], [address], 12/14/2023 12:52:42 02/04/20 24 02/03/2024 MAMMO , scree josh, bilat eral No observ ation record ed. [facility] [address], [place], [address], 02/09/2024 14:37:02 02/06/20 25 02/03/2025 MAMMO , scree josh, bilat eral No observ ation record ed. [facility] [address], [place], [address], 02/05/2025 11:07:38 Result Notes None recorded. Problems No Known Problems Procedures Surgical History Date Name Laterality Status Provider Name and Address Organization Details Recorded Time 024 Date of Last Colonoscopy completed [facility] 08/16/2024 11:59:03 024 Colonoscopy completed [facility] 08/16/2024 12:02:41 024 Date of Last Mammogram completed [facility] 08/16/2024 12:01:47 023 removal of mole of skin by excision completed [facility] 07/05/2023 12:26:24 022 Date of Last Pap Smear completed [facility] 08/16/2024 12:01:20 022 removal of breast implant completed [facility] 07/05/2023 12:25:18 018 Dilation and Curettage completed [facility] 07/05/2023 12:24:21 017 Dilation and Curettage completed [facility] 07/05/2023 12:24:11 014 completed Judit Saenz [facility] 03/24/2022 12:35:32 011 Breast Surgery completed [facility] 07/05/2023 12:23:48 011 Breast Biopsy completed [facility] 07/05/2023 12:23:41 011 removal of breast implant completed [facility] 07/05/2023 12:25:13 005 procedure on shoulder completed [facility] 07/05/2023 12:26:07 992 procedure on shoulder completed [facility] 07/05/2023 12:25:51 989 Cholecystectomy completed [facility] 07/05/2023 12:24:02 979 termination of completed [facility] 07/05/2023 12:24:32 978 Breast Implants completed [facility] 07/05/2023 12:23:54 Imaging Results None recorded. Procedure Notes None recorded. Medical Equipment None Reported. Allergies Allergen ID Allergen Name Allergen Category Reaction Reaction Severity Criticality Documentation Date Start Date Code Code System Note Provider Name and Address Organization Details Recorded Time 56873 morpholin e salicylat e Not available vomiting moderate Not available 03/24/2022 34387 8 RxNorm [facility] 12:35:24 15874 Product containin g penicilli n (product) medicatio n anaphylax is severe Not available 03/24/2022 08371 8001 SNOMED Judit [facility]ford [facility] 12:35:24 Medications Name Sig Start Date [...] - THESE WERE SENT VIA EMAIL OR Reacción. 08/16 completed Not Available Not Available Not Available [employer] COVID-19 Ag Self Test kit Use as Directed on the Package 07/05 completed Not Available Not Available Not Available Vitals Date Recorded Body height Body mass index (BMI) Body weight Systolic And Diastolic Provider Name and Address Organization Details Last Updated DateTime 03/03/2024 154.94 cm 28.2 kg/m2 34067.26 g 128/74 mm[Hg] Tasneem Reddy [facility] 03/03/2024 09:43:28 Date Recorded Body height Body mass index (BMI) Body weight Systolic And Diastolic Provider Name and Address Organization Details Last Updated DateTime 03/24/2022 154.94 cm 29.5 kg/m2 53163.41 g 140/81 mm[Hg] Judit Saenz [facility] 03/24/2022 12:35:18 Date Recorded Body height Body mass index (BMI) Body weight Systolic And Diastolic Provider Name and Address Organization Details Last Updated DateTime 07/05/2023 154.94 cm 28.5 kg/m2 01400.45 g 125/74 mm[Hg] Linh Wolf [facility] 07/05/2023 12:21:30 Date Recorded Body height Body mass index (BMI) Body weight Systolic And Diastolic Provider Name and Address Organization Details Last Updated DateTime 08/16/2024 154.94 cm 28.3 kg/m2 96251.86 g 122/71 mm[Hg] Rebecca Cheney [facility] 08/16/2024 11:58:51 Social History Question Answer Notes LastModified by Organizat ion Details LastModified Time Tobacco Smoking Status Former Smoker Arianna hernandez [facility] 07/08/2023 14:02:05 Do You Have An [...] Or The Highest Degree You Have Received? [id number] Information not available 03/24/2022 When Did You Quit Smoking? 11-15yearssinc elastcigarette Information not available 07/08/2023 Are There Any Guns Present In Your Home? No Information not available 03/24/2022 Have You Ever Been Counseled For Unhealthy Alcohol Use? No [email or web address] Information not available 07/05/2023 Do You Use [...] is your level of alcohol consumption? Occasional [email or web address] Information not available 07/05/2023 Are you able to walk independently without assistance or assistive devices? YESWOREST Information not available 03/24/2022 Are you able to care for yourself independently? Yes Information not available 03/24/2022 What is your occupation? Retired Information not available 03/24/2022 Do you have difficulty dressing, bathing, grooming, or toileting? No Information not available 03/24/2022 What is your exercise level? Occasional Information not available 03/24/2022 Mental Status Question Answer Note LastModified by Organization D etails LastModified Time Do you feel stressed (tense, restless, nervous, or anxious, or unable to sleep at night)? [id number] Information not available 08/16/2024 Family History Relationship [...] [email or web address] Not available 01/2022 12:35:28 Sister Malignant neoplasm of breast vschroedter Not available 01/2022 12:35:28 Sister Heart disease vschroedter Not available 01/2022 12:35:28 Medical History Condition Response Allergies (Food, seasonal, environmental ) Y Other N Drug/Latex Allergies/Reactions Y Blood Transfusion N Breast Cancer Y Dermatologic Disorders N Lung Disease N Defects or Inherited Disease N Breast Problem Y Gestational Diabetes N Hematologic disorders N Anesthesia Complications N History of STI N Deep Vein Thrombosis N Polycystic ovary syndrome N Anxiety Disorder Y Autoimmune disease Y Arthritis N Polyps N Infertility N Acid Reflux (GERD) Y History of abnormal pap N Cancer Y Varicosities N Stroke N Neurologic/Epilepsy N Endometriosis N High Cholesterol Y Fibromyalgia N Headaches Y Kidney Disease N Heart Problems Y Thyroid Problems Y Kidney or Bladder Problems N GI Problems N Eating Disorder N Anemia [...] Diagnosis SNOMED-CT Code Diagnosis ICD10 Code Diagnosis IMO Codes Diagnosis Note [id number] ARCHANA Magallon [facility] [address] [address] 03/24/2022 12:02:15 03/24/2022 17:11:44 Gynecologic examination 76241298 Z01.419 Take Calcium with Vitamin D 12-1500mg daily. Do monthly self breast exams. It is advised to get annual flu shot in the fall and she could obtain at [facility] or [facility] care clinic. If you haven't received the [...] istory of primary malignant neoplasm of breast 149999397 Z85.3 [id number] ARCHANA Magallon [facility] [address],[place] [address] 07/05/2023 12:01:59 07/05/2023 14:42:13 Gynecologic examination 39285541 Z01.419 WWEpostmen opausalno pap needed todayhx of breast CA : mammogram UTD, due next 4dex a UTD/manage d by PCPcolonos copy UTD/manage d by PCPUTD with routine labs Take Calcium with Vitamin D daily.Do monthly self breast exams.It is advised to get annual flu shot in the fall and she could obtain at [facility] or [facility] care clinic. If you haven't received the [...] no improvemen t RTC for further evaluation [id number] Arielle Huff MARIANGEL [facility] [address] [address] 03/03/2024 09:32:44 03/03/2024 10:22:06 Candidiasis of skin 77421874 B37.2 rx sent for nystatin-t riamcinolo ne ointmentke ep area clean/drya void scented soaps/prod ucts, free and clear laundry products, avoid tigh/restr ictive clothing, cotton underwear only, sleep with no underwearR TC if symptoms persist Time spent in visit is a total of 20 mins with at least 50% of visit consisting of counseling and review of plan of care. 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 For vaginal bleeding, patient reportshistory of menopause having occurredandno history of post menopausal bleeding. For urinary symptoms, patient reportsno hematuria,no incontinence,no nocturia, andno urinary frequency. For vulva, patient reportsno genital lesionandno vulvar atrophy. For vagina, patient reportsnormal vaginal dischargeandno vaginal atrophy.Breast symptomsFor breast, patient reportsno breast lump,no nipple discharge, andno breast pain.Psychological symptomsFor sexual complaints, patient reportsno sexual complaints. For psychological symptoms, patient reportsno depressionandno anxiety.Preventative measuresFor preventive measures, patient reportsencourage regular mammograms starting age 40,encourage self breast examination,encourage regular exercise, andencourage no tobacco use. ARCHANA Magallon [address], [place], [address], [facility] 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 For vaginal bleeding, patient reportshistory of menopause having occurredandno history of post menopausal bleeding. For urinary symptoms, patient reportsno hematuria,no incontinence,no nocturia, andno urinary frequency. For vulva, patient reportsno genital lesionandno vulvar atrophy. For vagina, patient reportsnormal vaginal dischargeandno vaginal atrophy.Breast symptomsFor breast, patient reportsno breast lump,no nipple discharge, andno breast pain(yeast rash under breast, red/itchy (also happens under pannus).Psychological symptomsFor sexual complaints, patient reportsno sexual complaints. For psychological symptoms, patient reportsno depressionandno anxiety.Preventative measuresFor preventive measures, patient reportsencourage regular mammograms starting age 40,encourage self breast examination,encourage regular exercise,encourage no tobacco use, andmammogram performed within the past year.Medical hx: Breast cancer, hypothyroidism, mitral insufficiency, coronary artery disease, GERD, high cholesterol, HTNRight breast cancer, Right lumpectomy in 2010, radiation, tamoxifen therapy (completed in )Upon completion of tamoxifen therapy had an episode of postmen bleeding, had D&C x 2 with benign pathology per patient. No vaginal bleeding since. ARCHANA Magallon [address], [place], [address], [facility] 07/05/2023 14:41:51 4 text/html 68yopresents for irritation in bilateral inner thigh creasesymptoms come and go for the past year, worse when hot outsideirritated and itchy at timessymptoms do not extend to vulva or vagina neg d/c, odors, pelvic painneg n/v/fneg flu-like symptomsneg lesions Medical hx: Breast cancer, hypothyroidism, mitral insufficiency, coronary artery disease, GERD, high cholesterol, HTN ARCHANA Magallon [address], [place], [address], [facility] 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 For vaginal bleeding, patient reportshistory of menopause having occurredandno history of post menopausal bleeding. For urinary symptoms, patient reportsno hematuria,no incontinence,no nocturia, andno urinary frequency. For vulva, patient reportsno genital lesionandno vulvar atrophy. For vagina, patient reportsnormal vaginal dischargeandno vaginal atrophy.Breast symptomsFor breast, patient reportsno breast lump,no nipple discharge, andno breast pain.Psychological symptomsFor sexual complaints, patient reportsno sexual complaints. For psychological symptoms, patient reportsno depressionandno anxiety.Preventative measuresFor preventive measures, patient reportsencourage regular mammograms starting age 40,encourage self breast examination,encourage regular exercise,encourage no tobacco use,mammogram performed within the past year, andhistory of recent colonoscopy.69yo wwepostmenopausallast pap 2021 - normalmammogram UTD 4colonoscopy [...] bleeding since. ARCHANA Magallon [address], [place], [address], [facility] 08/16/2024 12:23:58 OBGyn Episode Ob Episode Information Episode Created Date Number of Fetuses Patient Bloodtype Patient rh Status Prepregnancy Weight lbs Domestic Partner Domestic Partner Phone Father Name Imagery Analyst Status 10/16/20 23 1 CLOSED Fetus Data First Name Last Name Admitted to NICU Weight (g) Sex Living Outcome Pediatric Complications Fetus ID Race Codes Race Delivery Type 3401.94 M Full Term [id number] Vaginal Delivery Ben Calculation Initial Ben Date [...] Domestic Partner Domestic Partner Phone Father Name Imagery Analyst Status 07/05/20 23 1 CLOSED Fetus Data First Name Last Name Admitted to NICU Weight (g) Sex Living Outcome Pediatric Complications Fetus ID Race Codes Race Delivery Type , Induced [id number] Ben Calculation Initial Ben Date Initial Exam [...]
== END 2025-07-19 09:53 | disposition home or self-care (01) ==
LOC: ANHCARD 09:55
PROVIDERS: PCP Family Medicine; Visit Provider Anesthesiology
DX: E78.5 Hyperlipidemia, unspecified (principal); I10 Essential (primary) hypertension; Z01.818 Encounter for other preprocedural examination; I45.9 Conduction disorder, unspecified
CPT/HCPCS: 93005

== ENCOUNTER 2025-08-02 10:14 | Outpatient (CLI) | payer OTHER, SELFPAY ==
--- OUTSIDE RECORDS SUMMARY | 2025-08-02 11:09 | XMS_ITS | Encounter Summary ---
Author Organization [facility] Address [address] [place] [address] Care Team Providers Care Training Engineer Name Role Phone Deon Kathleen MD Primary Care Provider [phone] Encounter Details Date Type Department Care Team (Late st Contact Info) Description 08/02/2025 Transcribe Orders Central Test Scheduling [address] [place] [address] Giovani Gonsalez, DO [address] [facility] [address] [place] [address] Social History Tobacco Use Types Packs/Day Years Used Date Smoking Tobacco: Former Cigarettes 1 32 0 04/20/1979 - 04/20/2011 Smokeless Tobacco: Never Alcohol Use Standard Drinks/Week Comments No 0 (1 standard drink = 0.6 oz pur e alcohol) None since 2010. Feeling Safe Answer Date Recorded Are you in a relationship wi th someone who hurts you emotionally and/or physically? No 08/10/2024 Comments No Sex and Gender Information Value Date Recorded Sex Assigned at Female 08/05/2024 12:43 PM APPLICATION INTEGRATION ENGINEER Legal Sex Female 3:11 AM APPLICATION INTEGRATION ENGINEER Gender Identity Female 08/05/2024 12:43 PM APPLICATION INTEGRATION ENGINEER Sexual Orientation Straight 08/05/2024 12 :43 PM APPLICATION INTEGRATION ENGINEER Occupation Industry Job Start Date Job End Date Not on file Not on file Not on file Not on file documented as of this encounter Plan of Treatment Not on file documented as of this encounter Visit Diagnoses Not on filedocumented in this encounter Care Teams Training Engineer Relationship Specialty Start Date End Date Deon Kathleen MD [address] [place] [address] PCP - General Family Practice 07/31/24 documented as of this encounter
--- OUTSIDE RECORDS SUMMARY | 2025-08-02 11:09 | XMS_ITS | Encounter Summary ---
Author Organization [facility] Address [address] [place] [address] Care Team Providers Care Tax Commissioner Name Role Phone Deon Kathleen MD Primary Care Provider [phone] Reason for Referral * Nuclear Medicine (Routine) - Pending Review Specialty Diagnoses / Procedures Referred By Contac t Referred To Contact Diagnoses Encounter for preprocedural cardiovascular examination Procedures NM MYOCARD PERF IMAG SPECT MULT Giovani Gonsalez DO [address] [address] Phone: tel: fax: Referral ID Status Reason Start Date Expiration Date V isits Requested Visits Authorized [id number] Pending Review 08/02/2025 09/02/2026 1 1 ING TECHNICIAN * Nuclear Medicine (Routine) - Authorized Specialty Diagnoses / Procedures Referred By Contpatrice t Referred To Contact Diagnoses Encounter for preprocedural cardiovascular examination Procedures NM PHARMACOLOGICAL STRESS TEST Giovani Gonsalez DO [address] [place] [address] Phone: tel: fax: Referral ID Status Reason Start Date Expiration Date V isits Requested Visits Authorized [id number] Authorized 08/02/2025 09/02/2026 1 1 ING TECHNICIAN Encounter Details Date Type Department Care Team (Latest Contact Info) Description 08/02/2025 Transcribe Orders Central Test Scheduling [address] [place] [address] Giovani Gonsalez DO [address] [facility] [address] [place] [address] Encounter for preprocedural cardiovascular examination (Primary Dx) Social History Tobacco Use Types Packs/Day Years [...] Sex Assigned at Female 08/05/2024 12:43 PM PLATING TECHNICIAN Legal Sex Female 3:11 AM PLATING TECHNICIAN Gender Identity Female 08/05/2024 12:43 PM PLATING TECHNICIAN Sexual Orientation Straight 08/05/2024 12 :43 PM PLATING TECHNICIAN Occupation Industry Job Start Date Job End Date Not on file Not on file Not on file Not on file documented as of this encounter Plan of Treatment Scheduled Orders Name Type Priority Associated Diagnoses Orde r Schedule NM PHARMACOLOGICAL STRESS TEST Electrophysiology Routine Encounter for preprocedural cardiovascular examination 1 Occurrences starting 08/02/2025 until 08/02/2026 NM MYOCARD PERF IMAG SPECT MULT Electrophysiology Routine Encounter for preprocedural cardiovascular examination 1 Occurrences starting 08/02/2025 until 08/02/2026 documented as of this encounter Visit Diagnoses Diagnosis Encounter for preprocedural cardiovascular examination- Primary Pre-operative cardiovascular examination documented in this encounter Care Teams Tax Commissioner Relationship Specialty Start Date End Date Deon Kathleen MD [address] [place] [address] PCP - General Family Practice 07/31/24 documented as of this encounter
--- OUTSIDE RECORDS SUMMARY | 2025-08-02 11:09 | XMS_ITS | Encounter Summary ---
Author Organization [facility] Address [address] [facility] [place] [address] Care Team Providers Care Belt Maker Name Role Phone Unavailable Primary Care Provider Unavailabl e Encounter Details Date Type Department Care Team (Late st Contact Info) Description 10/18/2024 Lab Requisition [facility] - DermPath Lab [address] [facility] [place] [id number] Deon Kathleen MD [address] [place] [address] Social History Tobacco Use Types Packs/Day Years Used Date Smoking Tobacco: Never Assessed Comments Unknown Sex and Gender Information Value Date Recorded Sex Assigned at Not on file Legal Sex Female 1:03 PM DISH MACHINE OPERATOR Gender Identity Not on file Sexual Orientation Not on file documented as of this encounter Plan of Treatment Not on file documented as of this encounter Procedures Procedure Name Priority Date/Time Associated Diagnosis Comments DERMATOPATHOLOGY Routine 10/17/2024 3:33 AM DISH MACHINE OPERATOR documented in this encounter Results * DERMATOPATHOLOGY (10/17/2024 3:33 AM DISH MACHINE OPERATOR) Case Report Dermatopathology Report [id number]: [id number] Authorizing Provider: Deon Kathleen MD Collected: 10/17/2024 03:33 AM Ordering Location: [facility] - Received: 10/18/2024 01:53 PM DermPath Lab Pathologist: Nury Crawford MD Specimen: Skin, left upper chest 1:29 PM DISH MACHINE OPERATOR DERMATOPATHOLOGY LABORATORY Final Diagnosis Specimen A. SKIN, left upper chest: SEBORRHEIC KERATOSIS, CLONAL TYPE; INFLAMED (L82.1) PRESENT AT MARGIN 1:29 PM DISH MACHINE OPERATOR DERMATOPATHOLOGY LABORATORY at 1329 DISH MACHINE OPERATOR Clinical History Changing Lesion. Check margins 1:29 PM [facility] DERMATOPATHOLOGY LABORATORY Gross Description Specimen A: Received is one formalin filled container labeled with the patient's name and designated left upper chest. The specimen consists of a shave biopsy measuring 9x5x3 mm. Jar 0. 1:29 PM [facility] DERMATOPATHOLOGY LABORATORY Microscopic Description Specimen A. SKIN, left upper chest: Sections show a proliferation of keratinocytes with overlying hyperkeratosis. Aggregates of keratinocytes with abundant pale-staining cytoplasm appear demarcated from surrounding basaloid keratinocytes. There is a lymphohistiocytic infiltrate within the dermis. This lesion is present at the margin of the specimen. 1:29 PM [facility] DERMATOPATHOLOGY LABORATORY Disclaimer An external and internal positive and negative controls are appropriate for the histochemical, immunohistochemical and immunofluorescence stain(s) in this case (if any), except where stated explicitly. The performance characteristics of the stain(s) cited in this report were developed and its performance characteristic determined by the Dermatopathology Laboratory at [facility], directed by Dr. Michelle Jauregui. These tests need not be, and therefore are not, approved by the [place] Food and Drug Administration. The tests are used for clinical purposes. Billing Codes Specimen Charges Stain Charges 51746 1 1:29 PM [facility] DERMATOPATHOLOGY LABORATORY Embedded Images 1:29 PM [facility] DERMATOPATHOLOGY LABORATORY Pathology/Cytolo gy TISSUE SPECIMEN FROM SKIN / Unknown 10/17/2024 3:33 AM DISH MACHINE OPERATOR 10/18/2024 1:53 PM [facility] us Deonchristiane Kathleen MD LAB - PATHOLOGY/CYTOLOGY SHAILESH BAIRD Final Result DERMATOPATHOLOGY LABORATORY [facility] - Department of Dermatology [address] [place] [address], [facility] [phone] documented in this encounter Visit Diagnoses Not on filedocumented in this encounter
--- OUTSIDE RECORDS SUMMARY | 2025-08-02 11:09 | XMS_ITS | Encounter Summary ---
Author Organization [facility] Address [address] [place] [address] Care Team Providers Care Senior Industrial Engineer Name Role Phone Deon Kathleen MD Primary Care Provider [phone] Encounter Details Date Type Department Care Team (Late st Contact Info) Description 07/23/2006 Outpatient Historical [facility] Internal Medicine [place] [address] [place] [address] Ramon Garnett MD [address] [place] [address] Social History Tobacco Use Types Packs/Day Years Used Date Smoking Tobacco: Never Assessed Comments Unknown Sex and Gender Information Value Date Recorded Sex Assigned at Female 08/05/2024 12:43 PM MINIATURE SET CONSTRUCTOR Legal Sex Female 3:11 AM MINIATURE SET CONSTRUCTOR Gender Identity Female 08/05/2024 12:43 PM MINIATURE SET CONSTRUCTOR Sexual Orientation Straight 08/05/2024 12 :43 PM MINIATURE SET CONSTRUCTOR documented as of this encounter Plan of Treatment Not on file documented as of this encounter Visit Diagnoses Not on filedocumented in this encounter Care Teams Senior Industrial Engineer Relationship Specialty Start Date End Date Deon Kathleen MD [address] [place] [address] PCP - General Family Practice 07/31/24 documented as of this encounter
--- OUTSIDE RECORDS SUMMARY | 2025-08-02 11:09 | XMS_ITS | Encounter Summary ---
Author Organization [facility] Address [address] [facility] [place] [address] Care Team Providers Care Percussion Tuner Name Role Phone Unavailable Primary Care Provider Unavailabl e Encounter Details Date Type Department Care Team (Late st Contact Info) Description 10/29/2021 Lab Requisition [facility] DermPath Lab [address] [facility] [place] [address] Deon Kathleen MD [address] [place] [address] Social History Tobacco Use Types Packs/Day Years Used Date Smoking Tobacco: Never Assessed Comments Unknown Sex and Gender Information Value Date Recorded Sex Assigned at Not on file Legal Sex Female 1:03 PM MIDDLE SCHOOL RESOURCE TEACHER Gender Identity Not on file Sexual Orientation Not on file documented as of this encounter Plan of Treatment Not on file documented as of this encounter Procedures Procedure Name Priority Date/Time Associated Diagnosis Comments DERMATOPATHOLOGY Routine 10/27/2021 12:0 0 AM MIDDLE SCHOOL RESOURCE TEACHER documented in this encounter Results * DERMATOPATHOLOGY (10/27/2021 12:00 AM MIDDLE SCHOOL RESOURCE TEACHER) Case Report Dermatopathology Report Case: [id number] Authorizing Provider: Deon Kathleen MD Collected: 10/27/2021 12:00 AM Ordering Location: [facility] DermPath Lab Received: 10/29/2021 01:26 PM Pathologist: Joceline Gutierrez MD Specimen: Skin, back 2 10:32 AM MIDDLE SCHOOL RESOURCE TEACHER DERMATOPATHOLOGY LABORATORY Final Diagnosis Specimen A. SKIN, back: BENIGN VERRUCOUS KERATOSIS, INFLAMED (L82.1) PRESENT AT MARGIN 2 10:32 AM MIDDLE SCHOOL RESOURCE TEACHER DERMATOPATHOLOGY LABORATORY at 1032 MIDDLE SCHOOL RESOURCE TEACHER Clinical History Changing lesion. Check margins. 10:32 AM [facility] DERMATOPATHOLOGY LABORATORY Gross Description Specimen A: Received is one formalin filled container labeled with the patient's name and designated back. The specimen consists of a shave biopsy measuring [id number], bisected. The margin is inked green. Jar 0. 10:32 AM [facility] DERMATOPATHOLOGY LABORATORY Microscopic Description Specimen A. SKIN, back: Sections show hyperkeratosis, papillomatosis, hypergranulosis, and acanthosis. Inflammatory cells are present within the dermis. These histological findings can be seen in a verruca vulgaris or a seborrheic keratosis. This lesion is present at the margin of the specimen. 10:32 AM [facility] DERMATOPATHOLOGY LABORATORY Disclaimer An external and internal positive and negative controls are appropriate for the histochemical, immunohistochemical and immunofluorescence stain(s) in this case (if any), except where stated explicitly. The performance characteristics of the stain(s) cited in this report were developed and its performance characteristic determined by the Dermatopathology Laboratory at [facility], directed by Dr. Michelle Jauregui. These tests need not be, and therefore are not, approved by the [place] Food and Drug Administration. The tests are used for clinical purposes. Billing Codes Specimen Charges Stain Charges 72559 1 2 10:32 AM [facility] DERMATOPATHOLOGY LABORATORY Embedded Images 10:32 AM [facility] DERMATOPATHOLOGY LABORATORY Pathology/Cytolog y TISSUE SPECIMEN FROM SKIN / Unknown 10/27/2021 10/29/2021 1:26 PM MIDDLE SCHOOL RESOURCE TEACHER us Deonchristiane Kathleen MD LAB - PATHOLOGY/CYTOLOGY SHAILESH BAIRD Final Result DERMATOPATHOLOGY LABORATORY [facility] - Department of Dermatology [address] [phone] documented in this encounter Visit Diagnoses Not on filedocumented in this encounter
--- OUTSIDE RECORDS SUMMARY | 2025-08-02 11:09 | XMS_ITS | Encounter Summary ---
Author Organization [facility] Address [address] [facility] [place] [address] Care Team Providers Care Flame Cutting Machine Operator Name Role Phone Unavailable Primary Care Provider Unavailabl e Encounter Details Date Type Department Care Team (Late st Contact Info) Description 06/15/2023 Lab Requisition [facility] - DermPath Lab [address] [facility] [place] [phone] Deon Kathleen MD [address] [place] [address] Social History Tobacco Use Types Packs/Day Years Used Date Smoking Tobacco: Never Assessed Comments Unknown Sex and Gender Information Value Date Recorded Sex Assigned at Not on file Legal Sex Female 1:03 PM RESEARCH PROGRAM INTERNSHIP Gender Identity Not on file Sexual Orientation Not on file documented as of this encounter Plan of Treatment Not on file documented as of this encounter Procedures Procedure Name Priority Date/Time Associated Diagnosis Comments DERMATOPATHOLOGY Routine 06/14/2023 12:0 0 AM CDT documented in this encounter Results * DERMATOPATHOLOGY (06/14/2023 12:00 AM CDT) Case Report Dermatopathology Report Case: [id number] Authorizing Provider: Deon Kathleen MD Collected: 06/14/2023 12:00 AM Ordering Location: [facility] DermPath Lab Received: 06/15/2023 11:31 AM Pathologist: [...] characteristic determined by the Dermatopathology Laboratory at [facility], directed by Dr. Michelle Jauregui. These tests need not be, and therefore are not, approved by the [place] Food and Drug Administration. The tests are used for clinical purposes. Billing Codes Specimen Charges Stain Charges 09216 86081 1 1 3 2:32 PM CDT DERMATOPATHOLOGY LABORATORY Embedded Images 3 2:32 PM CDT DERMATOPATHOLOGY LABORATORY Pathology/Cytology TISSUE SPECIMEN FROM SKIN / Unknown 06/14/2023 06/15/2023 11:31 AM CDT Miscellaneous samples (specimen) TISSUE SPECIMEN FROM SKIN / Unknown 06/14/2023 06/15/2023 11:31 AM CDT us Deonchristiane Kathleen MD LAB - PATHOLOGY/CYTOLOGY SHAILESH BAIRD Final Result DERMATOPATHOLOGY LABORATORY [facility] - Department of Dermatology [facility] Medicine [address] [place] [address], [address] [phone] documented in this encounter Visit Diagnoses Not on filedocumented in this encounter
--- OUTSIDE RECORDS SUMMARY | 2025-08-02 11:09 | XMS_ITS | Clinical Summary ---
Author Organization [facility] Address [address] [place] [address] Care Team Providers Care System Administrator Name Role Phone Unavailable Primary Care Provider Unavailabl e Source Comments [facility] [employer],non-owned Affiliates and Associated Physician Practices is amultiple site organization consisting of ambulatory clinics and hospital sitesin [place], [place], [place] and [place]. This disclosure is being madepursuant to the Care Everywhere program and may not contain all information available regarding this patient. Last updated 18.[facility] [employer] Social History Tobacco Use Types Packs/Day Years Used Date Smoking Tobacco: Never Assessed Comments Unknown Sex and Gender Information Value Date Recorded Sex Assigned at Not on file Legal Sex Female 1:03 PM RIVERBOAT MASTER Gender Identity Not on file Sexual Orientation [...]
--- OUTSIDE RECORDS SUMMARY | 2025-08-02 11:09 | XMS_ITS | Clinical Summary ---
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 90 Tablet 2 10/01/2016 Active propranolol (INDERAL) [...] MD Referring Provider: Sunny Cruz MD [address] [facility] [address] [facility] [address] [place] [address] Other: Problem Noted Date Diagnosed Date Mitral [...] Encounters Date Type Department Care Team Description 08/02/2025 Transcribe Orders Central Test Scheduling [address] [place] [address] Giovani Gonsalez DO 08/02/2025 Transcribe Orders Central Test Scheduling [address] [place] [address] Giovani Gonsalez, Encounter for preprocedural cardiovascular examination (Primary Dx) 06/05/2025 External Device Data [facility] ABSTRACTION Provider, [...] Sex Assigned at Female 08/05/2024 12:43 PM HEAVY EQUIPMENT DIESEL MECHANIC Legal Sex Female 3:11 AM HEAVY EQUIPMENT DIESEL MECHANIC Gender Identity Female 08/05/2024 12:43 PM HEAVY EQUIPMENT DIESEL MECHANIC Sexual Orientation Straight 08/05/2024 12 :43 PM HEAVY EQUIPMENT DIESEL MECHANIC Occupation Industry Job Start Date Job End Date Not on file Not on file Not on file Not on file Last Filed Vital Signs Vital Sign Reading Time Taken Comments Blood Pressure 114/82 08/10/2024 12:00 PM HEAVY EQUIPMENT DIESEL MECHANIC Pulse 70 08/10/2024 12:00 PM HEAVY EQUIPMENT DIESEL MECHANIC Temperature 36.2 C (97.2 F) 08/10/2024 10:07 AM HEAVY EQUIPMENT DIESEL MECHANIC Respiratory Rate 16 08/10/2024 12:00 PM HEAVY EQUIPMENT DIESEL MECHANIC Oxygen Saturation 99% 08/10/2024 12:00 PM HEAVY EQUIPMENT DIESEL MECHANIC Inhaled Oxygen Concentration - - Weight 66.4 kg (146 lb 6.4 oz) 08/10/2024 10:07 AM HEAVY EQUIPMENT DIESEL MECHANIC Height 152.4 cm (5') 08/10/2024 10:07 AM HEAVY EQUIPMENT DIESEL MECHANIC Body Mass Index 28.59 08/10/2024 10:07 AM HEAVY EQUIPMENT DIESEL MECHANIC Plan of Treatment Health Maintenance Due Date [...] 07/15/20 16, 07/05/2015, 07/17/2014, Additional history exists [place] Preventative Visit/Annual Wellness Visit 09/20/2024 07/05/2023, 03/24/2022, 03/19/2021, Additional history exists INFLUENZA VACCINE (#1) 2025 08/10/2014 OSTEOPOROSIS SCREENING 04/01/2026 , 01/28/2018, 01/03/2016, Additional history exists RSV VACCINE (60+ or ) (1 - 1-dose 75+ series) 2028 COLORECTAL SCREENING 08/10/2034 08/10/2024, 08/10/2024, 01/05/2014, Additional history exists Colorectal Cancer Screening 08/10/2034 Procedures Procedure Name Priority Date/Time Associated Diagnosis Comments COLONOSCOPY REPORT 08/10/2024 11 :46 AM HEAVY EQUIPMENT DIESEL MECHANIC XR DEXA BONE DENSITY AXIAL 1 OR MORE SITES Routine 04/01/2021 11:51 AM CDT Osteoporosis of multiple sites MAMMO SCREEN IMPL BILAT W OR WO CAD Routine 07/15/2016 9:16 AM CDT Visit for screening mammogram from Last 3 Months or Most Recently Relevant to Health Maintenance Results * COLONOSCOPY REPORT (08/10/2024 11:46 AM HEAVY EQUIPMENT DIESEL MECHANIC) Narrative Procedure Note Madyson Pina MD - 08/10/2024 11:46 AM CST [facility] Endoscopy Patient Name: Edith Joyner [...] pathology results. Procedure Code(s): --- Professional --- 93804, Colonoscopy, flexible; with removal of tumor(s), polyp(s), or other lesion(s) by snare technique CPT copyright 2020 [employer]. All rights reserved. The codes documented in this report are preliminary and upon program and research coordinator review may be revised to meet current compliance requirements. Madyson Pina MD 08/10/2024 11:46:01 AM This report has been signed electronically. Number of Addenda: [id number] [place] [address] Madyson Pina MD GI PROCEDURE ORDERABLES Final [...] refer to the full report available in [facility] under the PACS Images tab. If a faxed copy is needed, please call [phone]. DICTATION LOCATION: [facility] [place] Procedure Note Keshawn Mccullough MD - 04/01/2021 SUMMARY DEXA REPORT DATE: 04/01/2021 11:51 AM INDICATION: Breast cancer, postmenopausal FINDINGS: Bone mineral density is consistent with osteopenia. The lowest T score is -1.6. The lowest T score on the previous study was -1.5. Please refer to the full report available in [facility] under the PACS Images tab. If a faxed copy is needed, please call [phone]. DICTATION LOCATION: [facility] [place] Daphnie Arteaga MD DIAGNOSTIC IMAGING ORDERABLES Final Result * MAMMO DIGITAL SCREEN IMPLANTS BILAT (07/15/2016 9:16 AM CDT) Anatomical Region Laterality Modality Breast Bilateral Mammography 07/15/2016 9:16 AM CDT Impressions 07/16/2016 4:54 PM CDT IMPRESSION: Negative bilateral screening mammogram. Recommend routine followup. OVERALL ASSESSMENT: BI-RADS Category 1 - Negative DICTATION LOCATION: [facility] 07/16/2016 4:54 PM CDT BILATERAL [...] BI-RADS Category 1 - Negative DICTATION LOCATION: [facility] Don Alvarado MD MAMMO ORDERABLES F inal Result from Last 3 Months or Most Recently Relevant to Health Maintenance Insurance [facility] MCR Advance Directives For more information, please contact: [phone] * Full Code (Latest Code Status on File) Date Activated Date Inactivated Comments 01/05/2014 11:11 AM 01/05/2014 3:58 PM Care Teams Principal Architect Relationship Specialty Start Date End Date Deon Kathleen MD [address] [place] [address] PCP - General Family Practice 07/31/24
--- OUTSIDE RECORDS SUMMARY | 2025-08-02 11:09 | XMS_ITS | Clinical Summary ---
Author Organization [facility] Address [address] [place] [address] Care Team Providers Care Automatic Brine Mixer Operator Name Role Phone Harsha Fay MD [...] on file Legal Sex Female 4:19 PM FREELANCE WEB DESIGNER Gender Identity Not on file Sexual Orientation [...] Treatment Not on file Insurance HEALTHCARE [address] [place] [address] [address] [place] [address] HEALTHCARE Care Teams Automatic Brine Mixer Operator Relationship Specialty [place] [address] [address] [address] PCP - General Family Medicine 06/01/18
== END 2025-08-02 10:15 | disposition home or self-care (01) ==
LOC: ANHLAB 10:17
PROVIDERS: PCP Family Medicine; Visit Provider Nurse Practitioner Adult Health
DX: E55.9 Vitamin D deficiency, unspecified (principal)
CPT/HCPCS: 36415; 82306

== ENCOUNTER 2025-08-08 08:53 | Outpatient (CLI) | payer OTHER, SELFPAY ==
--- NOTE | ~2025-08-08 | NM_ITS ---
EXAMINATION: NM michael stress w perfusion DATE: 08/08/2025 14:31 INDICATION: Preop TECHNIQUE: Rest images were obtained following intravenous administration of 10.9 mCi Tc99m tetrofosmin (Myoview). The patient was infused intravenously with Lexiscan (regadenoson). Then, 33.8 mCi Tc99m tetrofosmin (Myoview) was administered intravenously, and stress images were obtained. Data was charles nstructed into short axis and horizontal and vertical long axis SPECT images. Gated SPECT images were also obtained. COMPARISON: 04/03/2022 FINDINGS: There is no definite reversible or fixed perfusion abnormality to suggest ischemia or infarction. There is no segmental wall motion abnormality. Left ventricular ejection fraction measures 62%. IMPRESSION: 1. No definite ischemia or infarct. 2. Normal left ventricular ejection fraction measuring 62%. Reviewed, dictated and finalized at location A. LDER SAWYER
--- NOTE | 2025-08-08 09:07 | EST_ITS ---
Patient Info Name: Edith Joyner Age: 70 years : 1955 Gender: Female Ht: 61 in Wt: 150 lbs BSA: 1.73 m2 HR: 60 bpm BP: 111 / 80 mmHg Exam Date: 08/08/2025 9:07 AM Patient Status: O Admit Date: 08/08/2025 Exam Type: CA stress michael w NM A regadenoson stress test was performed. Staff Referring Physician: Giovani Gonsalez DO Attending Provider: Giovani Gonsalez DO Exercise Technologist: Brianne Tena Exercise Physician: Giovani Gonsalez DO Summary 1. 1. Abnormal lexiscan stress test for ischemic ST changes by ECG criteria. 2. 2. Stable hemodynamics throughout the test. 3. 3. Nuclear scan to follow and will be reported separately. Please correlate with it. 4. 4. Patient informed of the above results. Protocol: Lexiscan Stress ECG Details Stage: REST Duration (min): 0 min : 55 sec HR (bpm): 63 SBP (mmHg): 111 DBP (mmHg): 80 Stage: REST Duration (min): 5 min : 2 sec HR (bpm): 65 SBP (mmHg): 111 DBP (mmHg): 80 Stage: STAGE 1 Duration (min): 0 min : 59 sec HR (bpm): 88 SBP (mmHg): 115 DBP (mmHg): 74 Stage: RECOVERY Duration (min): 1 min : 0 sec HR (bpm): 99 SBP (mmHg): 115 DBP (mmHg): 74 Stage: RECOVERY Duration (min): 2 min : 0 sec HR (bpm): 96 SBP (mmHg): 115 DBP (mmHg): 74 Stage: RECOVERY Duration (min): 3 min : 0 sec HR (bpm): 92 SBP (mmHg): 110 DBP (mmHg): 70 Stage: RECOVERY Duration (min): 4 min : 0 sec HR (bpm): 86 SBP (mmHg): 110 DBP (mmHg): 70 Stage: RECOVERY Duration (min): 5 min : 0 sec HR (bpm): 85 SBP (mmHg): 111 DBP (mmHg): 69 Stage: RECOVERY Duration (min): 5 min : 39 sec HR (bpm): 84 SBP (mmHg): 111 DBP (mmHg): 69 Rest HR: 65 bpm Peak HR: 99 bpm Rest Sys BP: 111 mmHg Peak Sys BP: 115 mmHg Max Pred HR: 148 bpm % Max Pred HR: 67 % Target HR: 126 bpm Max RPP: 11,385 bpm*mmHg Termination Reason: Completed protocol Cardiac Symptoms: Shortness of breath Total Time: 1 min : 0 sec Rest Shipley BP: 80 mmHg Peak Shipley BP: 74 mmHg Total Dose: 0.4 mg Resting ECG Sinus rhythm. Stress ECG [address] depression in inferior leads and V4-V6. Arrhythmias None. Report Signatures
--- OUTSIDE RECORDS SUMMARY | 2025-08-08 11:11 | XMS_ITS | Encounter Summary ---
Author Organization [facility] Address [address] [place] [address] Care Team Providers Care Commercial Interior Designer Name Role Phone Deon Kathleen MD Primary Care Provider [phone] Encounter Details Date Type Department Care Team (Late st Contact Info) Description 07/23/2006 Outpatient Historical [facility] Internal Medicine [address] [address] [place] [address] Ramon Garnett MD [address] [place] [address] Social History Tobacco Use Types Packs/Day Years Used Date Smoking Tobacco: Never Assessed Comments Unknown Sex and Gender Information Value Date Recorded Sex Assigned at Female 08/05/2024 12:43 PM PROJECT DESIGNER Legal Sex Female 3:11 AM PROJECT DESIGNER Gender Identity Female 08/05/2024 12:43 PM PROJECT DESIGNER Sexual Orientation Straight 08/05/2024 12 :43 PM PROJECT DESIGNER documented as of this encounter Plan of Treatment Not on file documented as of this encounter Visit Diagnoses Not on filedocumented in this encounter Care Teams Commercial Interior Designer Relationship Specialty Start Date End Date Deon Kathleen MD [address] [place] [address] PCP - General Family Practice 07/31/24 documented as of this encounter
--- OUTSIDE RECORDS SUMMARY | 2025-08-08 11:11 | XMS_ITS | Clinical Summary ---
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, ER+,SD+,BCT,RT, Tamoxifen Resolved Problems Problem Noted Date Diagnosed Date Resolved Date Hypothyroidism 01/10/2015 04/30/2016 Encounters Date Type Department Care Team Description 08/07/2025 External Device Data STL ABSTRACTION Provider, Abstract 08/02/2025 Transcribe Orders Central Test Scheduling [address] [place] [address] Giovani Gonsalez DO 08/02/2025 Transcribe Orders Central Test Scheduling [address] [place] [address] Giovani Gonsalez, Encounter for preprocedural cardiovascular examination [...] Sex Assigned at Female 08/05/2024 12:43 PM GERMINATION WORKER Legal Sex Female 3:11 AM GERMINATION WORKER Gender Identity Female 08/05/2024 12:43 PM GERMINATION WORKER Sexual Orientation Straight 08/05/2024 12 :43 PM GERMINATION WORKER Occupation Industry Job Start Date Job End Date Not on file Not on file Not on file Not on file Last Filed Vital Signs Vital Sign Reading Time Taken Comments Blood Pressure 114/82 08/10/2024 12:00 PM GERMINATION WORKER Pulse 70 08/10/2024 12:00 PM GERMINATION WORKER Temperature 36.2 C (97.2 F) 08/10/2024 10:07 AM GERMINATION WORKER Respiratory Rate 16 08/10/2024 12:00 PM GERMINATION WORKER Oxygen Saturation 99% 08/10/2024 12:00 PM GERMINATION WORKER Inhaled Oxygen Concentration - - Weight 66.4 kg (146 lb 6.4 oz) 08/10/2024 10:07 AM GERMINATION WORKER Height 152.4 cm (5') 08/10/2024 10:07 AM GERMINATION WORKER Body Mass Index 28.59 08/10/2024 10:07 AM GERMINATION WORKER Plan of Treatment Health Maintenance Due Date [...] Comments COLONOSCOPY REPORT 08/10/2024 11 :46 AM GERMINATION WORKER XR DEXA BONE DENSITY AXIAL 1 OR MORE SITES Routine 04/01/2021 11:51 AM CDT Osteoporosis of multiple sites MAMMO SCREEN IMPL BILAT W OR WO CAD Routine 07/15/2016 9:16 AM CDT Visit for screening mammogram from Last 3 Months or Most Recently Relevant to Health Maintenance Results * COLONOSCOPY REPORT (08/10/2024 11:46 AM GERMINATION WORKER) Narrative Procedure Note Madyson Pina MD - 08/10/2024 11:46 AM CST [facility] Endoscopy Patient Name: Edith Joyner [...] pathology results. Procedure Code(s): --- Professional --- 69141, Colonoscopy, flexible; with removal of tumor(s), polyp(s), or other lesion(s) by snare technique CPT copyright 2020 [employer]. All rights reserved. The codes documented in this report are preliminary and upon physical metallurgist review may be revised to meet current compliance requirements. Madyson Pina MD 08/10/2024 11:46:01 AM This report has been signed electronically. Number of Addenda: [id number] [place] [address] Madyson Pina MD GI PROCEDURE ORDERABLES Final [...] refer to the full report available in [facility] under the PACS Images tab. If a faxed copy is needed, please call [phone]. DICTATION LOCATION: [facility] [place] Procedure Note Keshawn Mccullough MD - 04/01/2021 SUMMARY DEXA REPORT DATE: 04/01/2021 11:51 AM INDICATION: Breast cancer, postmenopausal FINDINGS: Bone mineral density is consistent with osteopenia. The lowest T score is -1.6. The lowest T score on the previous study was -1.5. Please refer to the full report available in [facility] under the PACS Images tab. If a faxed copy is needed, please call [phone]. DICTATION LOCATION: [facility] [place] us Daphnie Arteaga MD DIAGNOSTIC IMAGING ORDERABLES Final Result * MAMMO DIGITAL SCREEN IMPLANTS BILAT (07/15/2016 9:16 AM CDT) Anatomical Region Laterality Modality Breast Bilateral Mammography 07/15/2016 9:16 AM CDT Impressions 07/16/2016 4:54 PM CDT IMPRESSION: Negative bilateral screening mammogram. Recommend routine followup. OVERALL ASSESSMENT: BI-RADS Category 1 - Negative DICTATION LOCATION: [facility] Narrative 07/16/2016 4:54 PM CDT BILATERAL DIGITAL [...] BI-RADS Category 1 - Negative DICTATION LOCATION: [facility] us Don Alvarado MD MAMMO ORDERABLES F inal Result from Last 3 Months or Most Recently Relevant to Health Maintenance Insurance [facility] MCR [facility] Address: [place] [address] Advance Directives For more information, please contact: [phone] * Full Code (Latest Code Status on File) Date Activated Date Inactivated Comments 01/05/2014 11:11 AM 01/05/2014 3:58 PM Care Teams Data Technician Relationship Specialty Start Date End Date Deon Kathleen MD [address] [place] [address] PCP - General Family Practice 07/31/24
--- OUTSIDE RECORDS SUMMARY | 2025-08-08 11:11 | XMS_ITS | Encounter Summary ---
Author Organization [facility] Address [address] [place] [address] Care Team Providers Care Varnish Dipper Name Role Phone Unavailable Primary Care Provider Unavailabl e Encounter Details Date Type Department Care Team (Late st Contact Info) Description 10/29/2021 Lab Requisition [facility] DermPath Lab [address] [place] [phone] Deon Kathleen MD [address] [place] [address] Social History Tobacco Use Types Packs/Day Years Used Date Smoking Tobacco: Never Assessed Comments Unknown Sex and Gender Information Value Date Recorded Sex Assigned at Not on file Legal Sex Female 1:03 PM PARKS RECREATION COORDINATOR Gender Identity Not on file Sexual Orientation Not on file documented as of this encounter Plan of Treatment Not on file documented as of this encounter Procedures Procedure Name Priority Date/Time Associated Diagnosis Comments DERMATOPATHOLOGY Routine 10/27/2021 12:0 0 AM PARKS RECREATION COORDINATOR documented in this encounter Results * DERMATOPATHOLOGY (10/27/2021 12:00 AM PARKS RECREATION COORDINATOR) Case Report Dermatopathology Report Case: [id number] Authorizing Provider: Deon Kathleen MD Collected: 10/27/2021 12:00 AM Ordering Location: [facility] DermPath Lab Received: 10/29/2021 01:26 PM Pathologist: Joceline Gutierrez MD Specimen: Skin, back 2 10:32 AM PARKS RECREATION COORDINATOR DERMATOPATHOLOGY LABORATORY Final Diagnosis Specimen A. SKIN, back: BENIGN VERRUCOUS KERATOSIS, INFLAMED (L82.1) PRESENT AT MARGIN 2 10:32 AM PARKS RECREATION COORDINATOR DERMATOPATHOLOGY LABORATORY at [address] PARKS RECREATION COORDINATOR Clinical History Changing lesion. Check margins. 10:32 AM [facility] DERMATOPATHOLOGY LABORATORY Gross Description Specimen A: Received is one formalin filled container labeled with the patient's name and designated back. The specimen consists of a shave biopsy measuring [id number], bisected. The margin is inked green. Jar [...] determined by the Dermatopathology Laboratory at [facility], directed by Dr. Michelle Jauregui. These tests need not be, and therefore are not, approved by the [place] Food and Drug Administration. The tests are used for clinical purposes. Billing Codes Specimen Charges Stain Charges 45188 1 2 10:32 AM [facility] DERMATOPATHOLOGY LABORATORY Embedded Images 10:32 AM [facility] DERMATOPATHOLOGY LABORATORY Pathology/Cytolog y TISSUE SPECIMEN FROM SKIN / Unknown 10/27/2021 10/29/2021 1:26 PM PARKS RECREATION COORDINATOR us Deonchristiane Kathleen MD LAB - PATHOLOGY/CYTOLOGY SHAILESH BAIRD Final Result DERMATOPATHOLOGY LABORATORY [facility] - Department of Dermatology [address], [address] [phone] documented in this encounter Visit Diagnoses Not on filedocumented in this encounter
--- OUTSIDE RECORDS SUMMARY | 2025-08-08 11:12 | XMS_ITS | Clinical Summary ---
Author Organization [facility] Address [address] [place] [address] Care Team Providers Care Resist Coater Developer Name Role Phone Harsha Fay MD Primary [...] on file Legal Sex Female 4:19 PM DIALYSIS RN Gender Identity Not on file Sexual Orientation [...] Not on file Insurance [employer]ALTHCARE [address] [place] [address] [address] [place] [address] HEALTHCARE Care Teams Resist Coater Developer Relationship Specialty [place] [address] [address] [address] PCP - General Family Medicine 06/01/18
--- OUTSIDE RECORDS SUMMARY | 2025-08-08 11:12 | XMS_ITS | Encounter Summary ---
Author Organization [facility] Address [address] [place] [address] Care Team Providers Care Metallurgy Teacher Name Role Phone Deon Kathleen MD Primary Care Provider [phone] Encounter Details Date Type Department Care Team (Late st Contact Info) Description 08/07/2025 External Device Data STL ABSTRACTION Provider, Abstract NO ADDRESS ON FILE Social History Tobacco Use Types Packs/Day Years [...] Sex Assigned at Female 08/05/2024 12:43 PM MIXOLOGIST Legal Sex Female 3:11 AM MIXOLOGIST Gender Identity Female 08/05/2024 12:43 PM MIXOLOGIST Sexual Orientation Straight 08/05/2024 12 :43 PM MIXOLOGIST Occupation Industry Job Start Date Job End Date Not on file Not on file Not on file Not on file documented as of this encounter Plan of Treatment Not on file documented as of this encounter Visit Diagnoses Not on filedocumented in this encounter Care Teams Metallurgy Teacher Relationship Specialty Start Date End Date Deon Kathleen MD [address] [place] [address] PCP - General Family Practice 07/31/24 documented as of this encounter
--- OUTSIDE RECORDS SUMMARY | 2025-08-08 11:12 | XMS_ITS | Clinical Summary ---
Author Organization [facility] Address [address] [address] Care Team Providers Care Boiler House Supervisor Name Role Phone Unavailable Primary Care Provider Unavailabl e Source Comments [facility],non-owned Affiliates and Associated Physician Practices is amultiple site organization consisting of ambulatory clinics and hospital sitesin [place], [place], [place] and [place]. This disclosure is being madepursuant to the Care Everywhere program and may not contain all information available regarding this patient. Last updated 18.[facility] Social History Tobacco Use Types Packs/Day Years Used Date Smoking Tobacco: Never Assessed Comments Unknown Sex and Gender Information Value Date Recorded Sex Assigned at Not on file Legal Sex Female 1:03 PM DIGITAL CAMERA TECHNICIAN Gender Identity Not on file Sexual [...] DEPRESSION SCREENING 09/20/2024 COVID-19 VACCINE (1 - 2024-2 6 season) 2025 INFLUENZA VACCINE (#1) 2025 Respiratory [...]
--- OUTSIDE RECORDS SUMMARY | 2025-08-08 11:12 | XMS_ITS | Encounter Summary ---
Author Organization [facility] Address [address] [place] [address] Care Team Providers Care Biodiesel Process Control Technician Name Role Phone Unavailable Primary Care Provider Unavailabl e Encounter Details Date Type Department Care Team (Late st Contact Info) Description 10/18/2024 Lab Requisition [facility] - DermPath Lab [address] [facility] [place] [phone] Deon Kathleen MD [address] [place] [address] Social History Tobacco Use Types Packs/Day Years Used Date Smoking Tobacco: Never Assessed Comments Unknown Sex and Gender Information Value Date Recorded Sex Assigned at Not on file Legal Sex Female 1:03 PM SUPERINTENDENT TRANSPORTATION Gender Identity Not on file Sexual Orientation Not on file documented as of this encounter Plan of Treatment Not on file documented as of this encounter Procedures Procedure Name Priority Date/Time Associated Diagnosis Comments DERMATOPATHOLOGY Routine 10/17/2024 3:33 AM SUPERINTENDENT TRANSPORTATION documented in this encounter Results * DERMATOPATHOLOGY (10/17/2024 3:33 AM SUPERINTENDENT TRANSPORTATION) Case Report Dermatopathology Report Case: [id number] Authorizing Provider: Deon Kathleen MD Collected: 10/17/2024 03:33 AM Ordering Location: [facility] - Received: 10/18/2024 01:53 PM DermPath Lab Pathologist: Nury Crawford MD Specimen: Skin, left upper chest 1:29 PM SUPERINTENDENT TRANSPORTATION DERMATOPATHOLOGY LABORATORY Final Diagnosis Specimen A. SKIN, left upper chest: SEBORRHEIC KERATOSIS, CLONAL TYPE; INFLAMED (L82.1) PRESENT AT MARGIN 1:29 PM SUPERINTENDENT TRANSPORTATION DERMATOPATHOLOGY LABORATORY at [address] SUPERINTENDENT TRANSPORTATION Clinical History Changing Lesion. Check margins 1:29 PM [facility] DERMATOPATHOLOGY LABORATORY Gross Description Specimen A: Received is one formalin filled container labeled with the patient's name and designated left upper chest. The specimen consists of a shave biopsy measuring 9x5x3 mm. Jar 0. 1:29 PM [facility] DERMATOPATHOLOGY LABORATORY Microscopic Description Specimen A. SKIN, left upper chest: Sections show a proliferation of keratinocytes with overlying hyperkeratosis. Aggregates of keratinocytes with abundant pale-staining cytoplasm appear demarcated from surrounding basaloid keratinocytes. There is a lymphohistiocytic infiltrate within the dermis. This lesion is present at the margin of the specimen. 1:29 PM [facility] DERMATOPATHOLOGY LABORATORY Disclaimer An external and internal positive and negative controls are appropriate for the histochemical, immunohistochemical and immunofluorescence stain(s) in this case (if any), except where stated explicitly. The performance characteristics of the stain(s) cited in this report were developed and its performance characteristic determined by the Dermatopathology Laboratory at [facility], directed by Dr. Michelle Jauregui. These tests need not be, and therefore are not, approved by the [place] Food and Drug Administration. The tests are used for clinical purposes. Billing Codes Specimen Charges Stain Charges 30770 1 1:29 PM [facility] DERMATOPATHOLOGY LABORATORY Embedded Images 1:29 PM [facility] DERMATOPATHOLOGY LABORATORY Pathology/Cytolo gy TISSUE SPECIMEN FROM SKIN / Unknown 10/17/2024 3:33 AM SUPERINTENDENT TRANSPORTATION 10/18/2024 1:53 PM [facility] us Deonchristiane Kathleen MD LAB - PATHOLOGY/CYTOLOGY SHAILESH BAIRD Final Result DERMATOPATHOLOGY LABORATORY [facility] - Department of Dermatology [address] [place] [address], [facility] [phone] documented in this encounter Visit Diagnoses Not on filedocumented in this encounter
--- OUTSIDE RECORDS SUMMARY | 2025-08-08 11:12 | XMS_ITS | Encounter Summary ---
Author Organization [facility] Address [address] [place] [address] Care Team Providers Care Machining Department Supervisor Name Role Phone Unavailable Primary Care Provider Unavailabl e Encounter Details Date Type Department Care Team (Late st Contact Info) Description 06/15/2023 Lab Requisition [facility] - DermPath Lab [address] [facility] [place] [phone] Deon Kathleen MD [address] [place] [address] Social History Tobacco Use Types Packs/Day Years Used Date Smoking Tobacco: Never Assessed Comments Unknown Sex and Gender Information Value Date Recorded Sex Assigned at Not on file Legal Sex Female 1:03 PM CHEMIST ENZYMES Gender Identity Not on file Sexual Orientation Not on file documented as of this encounter Plan of Treatment Not on file documented as of this encounter Procedures Procedure Name Priority Date/Time Associated Diagnosis Comments DERMATOPATHOLOGY Routine 06/14/2023 12:0 0 AM CDT documented in this encounter Results * DERMATOPATHOLOGY (06/14/2023 12:00 AM CDT) Case Report Dermatopathology Report Case: [id number] Authorizing Provider: Deon Kathleen MD Collected: 06/14/2023 12:00 AM Ordering Location: [facility] DermPath Lab Received: 06/15/2023 11:31 AM [...] characteristic determined by the Dermatopathology Laboratory at [facility], directed by Dr. Michelle Jauregui. These tests need not be, and therefore are not, approved by the [place] Food and Drug Administration. The tests are used for clinical purposes. Billing Codes Specimen Charges Stain Charges 52828 88445 1 1 3 2:32 PM CDT DERMATOPATHOLOGY LABORATORY Embedded Images 3 2:32 PM CDT DERMATOPATHOLOGY LABORATORY Pathology/Cytology TISSUE SPECIMEN FROM SKIN / Unknown 06/14/2023 06/15/2023 11:31 AM CDT Miscellaneous samples (specimen) TISSUE SPECIMEN FROM SKIN / Unknown 06/14/2023 06/15/2023 11:31 AM CDT us Deonchristiane Kathleen MD LAB - PATHOLOGY/CYTOLOGY SHAILESH BAIRD Final Result DERMATOPATHOLOGY LABORATORY [facility] - Department of Dermatology [facility] Medicine [address] [place] [address], [address] [phone] documented in this encounter Visit Diagnoses Not on filedocumented in this encounter
--- OUTSIDE RECORDS SUMMARY | 2025-08-08 11:12 | XMS_ITS | Data Portability ---
Author Organization [facility] Address [address] [place] [address] Care Team Providers Care Rn Field Case Manager Name Role Phone DEION MCNEAL Primary Care Provider [phone] Assessment Encounter Date Assessment Date Assessment LastModified by Organization Details LastModified Time 03/24/2022 03/24/2022 Annual gynecological exam performed. Patient will come back in a year unless there are new symptoms. [email or web address] Not available 03/24/2022 12:34:50 07/05/2023 07/05/2023 Annual gynecological exam performed. Patient will come back in a year unless there are new symptoms. [email or web address] Not available 07/05/2023 12:21:11 08/16/2024 08/16/2024 Annual [...] Thank you. 2021 022 CLEMENTINA resendez MD, [address] [facility], [facility], [place], [address], 05:00:49 Procedures None recorded. Surgeries None recorded. Imaging None recorded. Medication Orders nystatin-tr iamcinolone 100,000 unit/gram-0 .1 % topical ointment 2023 024 CLEMENTINA [id number], [address], [place], [address], 4 12:00:39 nystatin 100,000 unit/gram topical powder 2022 023 georgiana [id number], [address], [place], [address], 4 11:08:38 Patient TargetsNo targets recorded. Patient [...] patient, Thank you. Referring Physician: Arielle Huff, BAR PILOT, Encounter Date: 03/24/2022 Results Created Date Observation [...] clini robert sanchez nted. Not Available [facility] Stat Weekend Draws [address] [facility], [place], [address], 03/30/2022 15:19:58 03/24/20 22 03/24/2022 IMAGE GUIDE [...] Negat miroslava for Intra epith elial Lesshruti gradne or Leonardo guerrero (NIL) . Elect lito [...] as clini robert sanchez nted. Not Available [facility] [address] [place], [address], 05/26/2022 16:54:53 08/16/20 24 08/16/2024 IMAGE GUIDE [...] as clini robert warra nted. Not Available [facility] (Lab) [address], [place], [address], 08/28/2024 16:43:57 05/27/20 22 04/08/2022 MAMMO , diagn ostic , digit al, bilat eral No observ ation record ed. [email or web address] [facility] [address], [place], [address], 05/28/2022 16:19:17 12/10/19 24 12/10/2023 US, tyrese t, unila teral No observ ation record ed. [facility] [address], [place], [address], 12/14/2023 12:52:42 02/04/20 24 02/03/2024 MAMMO , scree josh, bilat eral No observ ation record ed. [facility] [address], [place], [address], 02/09/2024 14:37:02 02/06/20 25 02/03/2025 MAMMO , scree josh, bilat eral No observ ation record ed. [facility] [address], [place], [address], 02/05/2025 11:07:38 Result Notes None recorded. Problems No Known Problems Procedures Surgical History Date Name Laterality Status Provider Name and Address Organization Details Recorded Time 024 Date of Last Colonoscopy completed [facility] 08/16/2024 11:59:03 024 Colonoscopy completed [facility] 08/16/2024 12:02:41 024 Date of Last Mammogram completed [facility] 08/16/2024 12:01:47 023 removal of mole of skin by excision completed [facility] 07/05/2023 12:26:24 022 Date of Last Pap Smear completed [facility] 08/16/2024 12:01:20 022 removal of breast implant completed [facility] 07/05/2023 12:25:18 018 Dilation and Curettage completed [facility] 07/05/2023 12:24:21 017 Dilation and Curettage completed [facility] 07/05/2023 12:24:11 014 completed Judit Saenz [facility] 03/24/2022 12:35:32 011 Breast Surgery completed [facility] 07/05/2023 12:23:48 011 Breast Biopsy completed [facility] 07/05/2023 12:23:41 011 removal of breast implant completed [facility] 07/05/2023 12:25:13 005 procedure on shoulder completed [facility] 07/05/2023 12:26:07 992 procedure on shoulder completed [facility] 07/05/2023 12:25:51 989 Cholecystectomy completed [facility] 07/05/2023 12:24:02 979 termination of completed [facility] 07/05/2023 12:24:32 978 Breast Implants completed [facility] 07/05/2023 12:23:54 Imaging Results None recorded. Procedure Notes None recorded. Medical Equipment None Reported. Allergies Allergen ID Allergen Name Allergen Category Reaction Reaction Severity Criticality Documentation Date Start Date Code Code System Note Provider Name and Address Organization Details Recorded Time 60450 morpholin e salicylat e Not available vomiting moderate Not available 03/24/2022 68157 8 RxNorm [facility] 12:35:24 19872 Product containin g penicilli n (product) medicatio n anaphylax is severe Not available 03/24/2022 94854 8001 SNOMED Judit stanford [facility] 12:35:24 Medications Name Sig Start Date [...] - THESE WERE SENT VIA EMAIL OR Storactive. 08/16 completed Not Available Not Available Not Available BinaxNOW COVID-19 Ag Self Test kit Use as Directed on the Package 07/05 completed Not Available Not Available Not Available Vitals Date Recorded Body height Body mass index (BMI) Body weight Systolic And Diastolic Provider Name and Address Organization Details Last Updated DateTime 03/03/2024 154.94 cm 28.2 kg/m2 24089.26 g 128/74 mm[Hg] Tasneem Reddy [facility] 03/03/2024 09:43:28 Date Recorded Body height Body mass index (BMI) Body weight Systolic And Diastolic Provider Name and Address Organization Details Last Updated DateTime 03/24/2022 154.94 cm 29.5 kg/m2 55819.41 g 140/81 mm[Hg] Judit Saenz [facility] 03/24/2022 12:35:18 Date Recorded Body height Body mass index (BMI) Body weight Systolic And Diastolic Provider Name and Address Organization Details Last Updated DateTime 07/05/2023 154.94 cm 28.5 kg/m2 82947.45 g 125/74 mm[Hg] Linh Wolf [facility] 07/05/2023 12:21:30 Date Recorded Body height Body mass index (BMI) Body weight Systolic And Diastolic Provider Name and Address Organization Details Last Updated DateTime 08/16/2024 154.94 cm 28.3 kg/m2 94437.86 g 122/71 mm[Hg] Rebecca Cheney [facility] 08/16/2024 11:58:51 Social History Question Answer Notes LastModified by Organizat ion Details LastModified Time Tobacco Smoking Status Former Smoker Arianna hernandez [facility] 07/08/2023 14:02:05 Do You Have An [...] Or The Highest Degree You Have Received? [id number] Information not available 03/24/2022 When Did You Quit Smoking? 11-15yearssinc elastcigarette Information not available 07/08/2023 Are There Any Guns Present In Your Home? No Information not available 03/24/2022 Have You Ever Been Counseled For Unhealthy Alcohol Use? No [email or web address] Information not available 07/05/2023 Do You Use [...] is your level of alcohol consumption? Occasional [email or web address] Information not available 07/05/2023 Are you able [...] anxious, or unable to sleep at night)? [id number] Information not available 08/16/2024 Family History Relationship [...] ICD10 Code Diagnosis IMO Codes Diagnosis Note [id number] ARCHANA Magallon [facility] [address] [address] 03/24/2022 12:02:15 03/24/2022 17:11:44 Gynecologic examination 71527696 Z01.419 Take Calcium with Vitamin D 12-1500mg daily. Do monthly self breast exams. It is advised to get annual flu shot in the fall and she could obtain at [facility] or [facility] care clinic. If you haven't [...] istory of primary malignant neoplasm of breast [id number] Z85.3 [id number] ARCHANA Magallon [facility] [address],[place] [address] 07/05/2023 12:01:59 07/05/2023 14:42:13 Gynecologic examination 74499628 Z01.419 WWEpostmen opausalno pap needed todayhx of breast CA : mammogram UTD, due next 4dex a UTD/manage d by PCPcolonos copy UTD/manage d by PCPUTD with routine labs Take Calcium with Vitamin D daily.Do monthly self breast exams.It is advised to get annual flu shot in the fall and she could obtain at [facility] or [facility] care clinic. If you haven't [...] no improvemen t RTC for further evaluation [id number] Arielle Huff MARIANGEL [facility] [address] [address] 03/03/2024 09:32:44 03/03/2024 10:22:06 Candidiasis of skin 02839942 B37.2 rx sent for nystatin-t riamcinolo ne ointmentke ep area clean/drya void scented soaps/prod ucts, free and clear laundry products, avoid tigh/restr ictive clothing, cotton underwear only, sleep with no underwearR TC if symptoms persist Time spent in visit is a total of 20 mins with at least 50% of visit consisting of counseling and review of plan of care. [id number] ARCHANA Magallon [facility] [address] [address] 08/16/2024 11:48:46 08/16/2024 12:27:02 Gynecologic examination 99370050 Z01.419 WWEpostmen opausalPap - updated per pt [...] Johnson Member ID Guarantor Name 08/19/2024 1 [facility] (MEDICARE REPLACEMENT HMO) [id number] Edith Joyner [id number] Edith Joyner Notes Date Note Type Note Provider Name and Address Organization Details Recorded Time 2 text/html Annual Wood Planer Post-MenopausalReported by PatientGenitourinary symptomsFor menopausal symptoms, patient [...] tobacco use. ARCHANA Magallon [address], [place], [address], [facility] 03/24/2022 14:08:31 3 text/html Annual Wood Planer Post-MenopausalReported by PatientGenitourinary symptomsFor menopausal symptoms, patient [...] bleeding since. ARCHANA Magallon [address], [place], [address], [facility] 07/05/2023 14:41:51 4 text/html 68yopresents for irritation in bilateral inner thigh creasesymptoms come and go for the past year, worse when hot outsideirritated and itchy at timessymptoms do not extend to vulva or vagina neg d/c, odors, pelvic painneg n/v/fneg flu-like symptomsneg lesions Medical hx: Breast cancer, hypothyroidism, mitral insufficiency, coronary artery disease, GERD, high cholesterol, HTN ARCHANA Magallon [address], [place], [address], [facility] 03/03/2024 10:21:31 4 text/html Annual Wood Planer Post-MenopausalReported by PatientGenitourinary symptomsFor menopausal symptoms, patient [...] bleeding since. ARCHANA Magallon [address], [place], [address], [facility] 08/16/2024 12:23:58 OBGyn Episode Ob Episode Information Episode Created Date Number of Fetuses Patient Bloodtype Patient rh Status Prepregnancy Weight lbs Domestic Partner Domestic Partner Phone Father Name Crab Butcher Status 10/16/20 23 1 CLOSED Fetus Data First Name Last Name Admitted to NICU Weight (g) Sex Living Outcome Pediatric Complications Fetus ID Race Codes Race Delivery Type 3401.94 M Full Term [id number] Vaginal Delivery Ben Calculation Initial Ben Date [...] Domestic Partner Domestic Partner Phone Father Name Crab Butcher Status 07/05/20 23 1 CLOSED Fetus Data First Name Last Name Admitted to NICU Weight (g) Sex Living Outcome Pediatric Complications Fetus ID Race Codes Race Delivery Type , Induced [id number] Ben Calculation Initial Ben Date Initial Exam [...]
== END 2025-08-08 08:54 | disposition home or self-care (01) ==
PROVIDERS: PCP Family Medicine; Visit Provider Internal Medicine Cardiovascular Disease
DX: Z01.810 Encounter for preprocedural cardiovascular examination (principal)
CPT/HCPCS: 78452; 93017; A9502; J2785

== ENCOUNTER 2025-09-07 17:42 | Emergency (ER) | payer OTHER, SELFPAY ==
--- OUTSIDE RECORDS SUMMARY | 2025-09-06 03:00 | XMS_ITS ---
Author Organization [facility] [employer] Address [address] [facility] [address] [place] [address] Care Team Providers Care Green Inspector Name Role Phone Inocencia Salomon Unavailable [phone] Allergies No Known Allergies Results Component Value Reference Range Notes UDT (12 Panel) Reviewed date:09/06/2025 10:24:59 AM Interpretation: Performing Lab: Notes/Report: Amphetamine (AMP) N Barbiturates (BAR) N Benzodiazepine (BZO) N Cocaine (CAROLIN) N Ecstasy (MDMA) N Methamphetamine (MET) N Morphine (MOP) N Methadone (MTD) N Oxycodone (OXY) N Phencyclidine (PCP) N Tricyclic Antidepressants (TCA) N Marijuana (THC) N REASON FOR VISIT New Patient Medications Medication SIG (Take, Route, Frequency, Duration) Notes Start Date End Date Status Sertraline HCl 25 MG Tablet 1 tablet Orally Once a day; Duration: 30 days 09/06/2025 Active Atorvastatin Calcium 20 MG Tablet 1 tablet Orally Once a day Active Calcium + D 500-1000-40 MG-UNT-MCG Tablet Chewable as directed Orally Not-Alicia segura Social History Tobacco Use: Social History Observation Description Date Details (start date - stop date) Former Smoker 09/20/1975 - 05/15/2011 Sex Assigned At : Social History Observation Description Sex Assigned At Female Social History Miscellaneous: Social Info Question Answer Notes Safety issues: Are there any firearms in the house? No Social History Social Info Question Answer Notes Household: Marital Status: Number of Adults in household: 2 Number of Children in Household: 0 Level of Education: Professional Schools/Masters /PhD Drug/Alcohol: Social Info Question Answer Notes Drugs Have you used drugs other than those for medical reasons in the past 12 months? No AUDIT-C (Standard) Did you have a drink containing alcohol in the past year? No Interpretation Negative Tobacco Use: Social Info Question Answer Notes Tobacco Control (Standard) Tobacco use: Former smoker When did you start smoking? 09/20/1975 When did you stop smoking? 05/15/2011 How long has it been since you last smoked? 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 Diet: Prefers healthy food; prefers unhealthy food Living situation: Lives in an apartment Problems Problem Type SNOMED Code ICD Code Onset Dates Problem Status W/U Status Risk Notes Problem Generalized anxiety disorder (18096725) Generalized anxiety disorder (F41.1) Active confirmed Vital Signs Blood pressure systolic 107 mm Hg 09/06/20 25 Blood pressure diastolic 69 mm Hg 025 Heart Rate 60 /min 09/06/2025 Weight 152.4 lbs 09/06/2025 Weight-kg 69.13 kg 09/06/2025 Encounters Encounter Location Date Provider Diagnosis [facility] [employer] [facility] [address] [facility] [address] [place] [address] 09/06/2025 Inocencia Salomon Generalized anxiety disorder F41.1 Assessments Encounter Date Diagnosis (ICD Code) Assessment Notes Treatment Notes Treatment Clinical Notes Section Notes 09/06/2025 Generalized anxiety disorder (ICD-10 - F41.1) Persistent worry and anxiety with physical tension reported. Difficulty relaxing and feeling on edge, compounded by complex family dynamics and caregiving responsibilities . Anxiety exacerbated by complex family stressors: -Unpredictable relationship with -Primary caregiver for 9-year-old granddaughter -Ongoing stress involving son and extended family -Reports health-related anxiety with excessive concern about symptoms (e.g., heart palpitations) -Acknowledges prior overuse of medical services due to anxiety -Actively engaged in therapy; reports therapist may no longer accept her insurance -Previously treated with mirtazapine and escitalopram (Lexapro); discontinued years ago for unknown reasons -Denies suicidal ideation, homicidal ideation, or self-harm thoughts 09/06/2025 Other Past meds: Mirtazapine lexapro Plan Of Treatment Medication Medication Name Sig Start Date Stop Date Notes Sertraline HCl 25 MG Tablet 1 tablet Ora lly Once a day; Duration: 30 days 09/06/2025 Treatment Notes Assessment Notes Generalized anxiety disorder Persistent worry and anxiety with physical tension reported. Difficulty relaxing and feeling on edge, compounded by complex family dynamics and caregiving responsibilities. Anxiety exacerbated by complex family stressors: -Unpredictable relationship with -Primary caregiver for 9-year-old granddaughter -Ongoing stress involving son and extended family -Reports health-related anxiety with excessive concern about symptoms (e.g., heart palpitations) -Acknowledges prior overuse of medical services due to anxiety -Actively engaged in therapy; reports therapist may no longer accept her insurance -Previously treated with mirtazapine and escitalopram (Lexapro); discontinued years ago for unknown reasons -Denies suicidal ideation, homicidal ideation, or self-harm thoughts Other Past meds: Mirtazapine lexapro Next Appt Details Follow Up: 4 Weeks, Reason: Provider Name:Catalina Poe , 10/01/2025 10:00:00 AM, [address], [facility] [address], [place], [address], Provider Name:Inocencia Salomon, 10/09/2025 11:00:00 AM, [address], [address], [place], [address], History and Physical Notes * HPI (History of Present Illness) Category Sub-Category Detail Notes Category Notes History of Presenting Problem Depression screening done Depression screening done Pt was seen today and Urine drug screen was done Edith Torres, a 70-year-old female, presented for a mental health visit focused on her ongoing worry and anxiety. She described persistent feelings of anxiety and being on edge, often experiencing physical tension even when sitting quietly. These symptoms are compounded by her complex family dynamics, including unpredictability with her , responsibility for her byee-fciz-lpz granddaughter, and ongoing stressors involving her son and extended family. She expressed concern about her health, noting that she sometimes worries excessively about symptoms such as heart palpitations and has previously overused medical resources out of anxiety. She denied any thoughts of self-harm or harm to others and reported no history of inpatient psychiatric hospitalizations. She has been engaged in therapy, but her therapist may no longer accept her insurance, adding to her stress. In the past, she took mirtazapine and Lexapro for mental health concerns but discontinued them years ago for reasons she cannot recall. 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 She enjoys cooking and prefers healthy food, though her does not share these preferences. Her history includes breast cancer treated with radiation in 2010. Despite her efforts to engage in self-care, such as shopping or going out, she finds it challenging to prioritize her own needs amidst her family responsibilities. Elements of this documentation were generated using an AI-assisted organizational development specialist or drafting tool. The clinician has personally reviewed, amended when appropriate, and attests that the final content accurately reflects the patient encounter, clinical findings, medical decision-making, and plan of care. The clinician accepts responsibility for the accuracy and completeness of the record. Past Psychiatric Hospitalizations Previous psychiatric hospitalizations Previous Psychiatric Hospitalization : No Past History of Suicidal attempt Have yo u ever attempted suicide in the past: No Depression screening PHQ-9 Little inte rest or pleasure in doing things: Nearly every day Feeling down, depressed, or hopeless: Mo re than half the days Trouble falling or staying asleep, or sl eeping too much: Nearly every day Feeling tired or having little energy: N early every day Poor appetite or overeating: More than h jail the days Feeling bad about yourself o r that you are a failure, or have let yourself or your family down: More than half the days Trouble concentrating on thi ngs, such as reading the newspaper or watching television: Several days Moving or speaking so slowly that other people could have noticed; or the opposite, being so fidgety or restless that you have been moving around a lot more than usual: Not at all Thoughts that you would be b dona off or of hurting yourself in some way: Not at all Total Score: 16 Interpretation: Moderately Severe Depres cherri Intervention Depression Screening Findings: P ositve Follow-Up for Depression: Mental health care management, Psychiatric follow-up Suicide Risk Assessment Performed: 09/06 Functional Status Functional Status Assessment F all Risk Assessment:: No falls in the past year Depression Screening YEIMI-7 (2018 Edition) Feelin g nervous, anxious, or on edge: Nearly every day Not being able to stop or control worryi ng: More than half the days Worrying too much about different things : Nearly every day Trouble relaxing: Nearly every day Being so restless that it is hard to sit still: More than half the days Becoming easily annoyed or irritable: Ne marilin every day Feeling afraid as if something awful heladio ht happen: More than half the days Total YEIMI-7 Score: 18 Interpretation of Total: (15 and over) S yoselin [place]-Suicide Severity Rating Scale Suicide Risk (CSRS-screener) in the past one month Have you wished you were or wished you could go to sleep and not wake up?: No in the past one month Have y ou actually had any thoughts of killing yourself?: No Have you ever done anything, started to do anything, or prepared to do anything to end your life?: No Examination Category Sub-Category Detail Notes Category Not es Psychiatry Appearance: Well-groomed, appropriately dressed for age and weather. No unusual features or abnormalities noted. Behavior: Cooperative, calm, and attentive. No psychomotor agitation or retardation. Maintains appropriate eye contact. Speech: Normal rate, rhythm, volume, and articulation. Spontaneous and coherent. No latency or pressure of speech. Mood: Pt reports that she is anxious and edge most days, she has a lot of external stressors with her family that increases her worry Affect: Appropriate to content and context. Full range, stable, congruent with stated mood. Thought Process: Linear, logical, goal-directed. No loosening of associations, tangentiality, or flight of ideas. Thought Content: No delusions, paranoia, obsessions, or preoccupations. Denies suicidal or homicidal ideation. Perceptions: No hallucinations (auditory, visual, or other). No perceptual disturbances. Cognition: Alert and oriented 4 (person, place, time, situation). Attention and concentration intact. Memory (recent and remote) intact. Insight: Good (aware of condition and need for treatment). Judgement: Intact (able to make sound decisions, understands consequences). Progress Notes * Inge TORRES:1955 (70 yo F)Acc No.[id number]:09/06/2025 Patient: Edith Lomeli Provider: Nakia Salomon :1955 A ge:70 Y S ex:Female Date:09/06/2025 Phone: Address:[address], [facility] Subjective: * Chief Complaints: * N ew Patient * HPI: Fan valentine-Suicide Severity Rating Scale: Suicide Risk (CSRS-screener) i n the past one month Have you wished you were or wished you could go to sleep and not wake up? N o i n the past one month Have you actually had any thoughts of killing yourself? N o H ave you ever done anything, started to do anything, or prepared to do anything to end your life? N o D epression screening: PHQ-9 L ittle interest or pleasure in doing things?Nearly every day F eeling down, depressed, or hopeless M ore than half the days T rouble falling or staying asleep, or sleeping too much N early every day F eeling tired or having little energy N early every day P oor appetite or overeating M ore than half the days F eeling bad about yourself or that you are a failure, or have let yourself or your family down M ore than half the days T rouble concentrating on things, such as reading the newspaper or watching television S everal days M oving or speaking so slowly that other people could have noticed; or the opposite, being so fidgety or restless that you have been moving around a lot more than usual N ot at all T houghts that you would be better off or of hurting yourself in some way N ot at all T otal Score 1 6 I nterpretation M oderately Severe Depression Intervention D epression Screening Findings P ositve F ollow-Up for Depression M ental health care management, Psychiatric follow-up S uicide Risk Assessment Performed 1 11/07/2024 F unctional Status: Functional Status Assessment F all Risk Assessment: N o falls in the past year P ast Psychiatric Hospitalizations: Previous psychiatric hospitalizations P revious Psychiatric Hospitalization N o Past History of Suicidal attempt H ave you ever attempted suicide in the past?No H istory of Presenting Problem: Depression screening done Depression screening done Pt was seen today and Urine drug screen was done Edith Torres, a 70-year-old female, presented for a mental health visit focused on her ongoing worry and anxiety. She described persistent feelings of anxiety and being on edge, often experiencing physical tension even when sitting quietly. These symptoms are compounded by her complex family dynamics, including unpredictability with her , responsibility for her xvfa-crez-zhz granddaughter, and ongoing stressors involving her son and extended family. She expressed concern about her health, noting that she sometimes worries excessively about symptoms such as heart palpitations and has previously overused medical resources out of anxiety. She denied any thoughts of self-harm or harm to others and reported no history of inpatient psychiatric hospitalizations. She has been engaged in therapy, but her therapist may no longer accept her insurance, adding to her stress. In the past, she took mirtazapine and Lexapro for mental health concerns but discontinued them years ago for reasons she cannot recall. 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 She enjoys cooking and prefers healthy food, though her does not share these preferences. Her history includes breast cancer treated with radiation in 2010. Despite her efforts to engage in self-care, such as shopping or going out, she finds it challenging to prioritize her own needs amidst her family responsibilities. Elements of this documentation were generated using an AI-assisted organizational development specialist or drafting tool. The clinician has personally reviewed, amended when appropriate, and attests that the final content accurately reflects the patient encounter, clinical findings, medical decision-making, and plan of care. The clinician accepts responsibility for the accuracy and completeness of the record. D epression Screening: YEIMI-7 (2018 Edition) F eeling nervous, anxious, or on edge N early every day N ot being able to stop or control worrying?More than half the days W orrying too much about different things N early every day T rouble relaxing N early every day B eing so restless that it is hard to sit still M ore than half the days B ecoming easily annoyed or irritable N early every day F eeling afraid as if something awful might happen M ore than half the days T otal YEIMI-7 Score 1 8 I nterpretation of Total ( 15 and over) Severe * ROS: C onstitutional: denies fever, chills, weight changes HEENT: denies vision changes, hearing issues, congestion, sore throat Cardiovascular:denies chest pain, palpitations, edema Respiratory:denies cough, shortness of breath, wheezing GI:denies abdominal pain, nausea, vomiting, diarrhea, constipation : denies dysuria, frequency, urgency, hematuria Musculoskeletal:denies joint pain, muscle aches, stiffness Neurological:denies dizziness, weakness, numbness, tingling Skin:denies rash, itching, lesions Endocrine: d enies heat/cold intolerance, polyuria, polydipsia Hematologic:denies bruising or bleeding Allergic/Immunologic: denies allergies or recurrent infections. * Medical History: Past Psychiatric History: Anxiety Disorder abdominal aortic aneurysm: No atrial fibrillation: No chronic fatigue syndrome: No essential tremor: No hyperlipidemia: Yes hypertension: Yes Parkinson's disease: No restless leg syndrome: No stroke: No subdural hematoma: No type 1 diabetes mellitus: No type 2 diabetes mellitus: No vitamin B12 deficiency: No vitamin D deficiency: Yes Medical History Verified * Surgical History: No Surgical History documented. Surgical History verified. * Hospitalization/Major Diagno stic Procedure: No Hospitalization Documented. Hospitalization Verified. * Family History: F ather: . M aternal Aunt: Anxiety Disorder. P aternal Aunt: None. P aternal Uncle: None. M aternal Uncle: PTSD. M other: alive. P aternal Grandfather: None. P aternal Grandmother: None. M aternal Grandfather: None. M aternal Grandmother: None. B rother: None. S ister: Anxiety Disorder,Panic Disorder,PTSD. S on: None. D aughter: None. F amily History Verified.. : bipolar disorder Mother : alive (age 92) Sister : of cancer Father : Ex-'s mother : severe alzheimer's. * Social History: T obacco Use: T obacco Control (Standard) T obacco use: F ormer smoker W hen did you start smoking? 0 09/20/1975 W hen did you stop smoking? 0 05/15/2011 H ow long has it been since you last smoked??Greater than 10 years D rug/Alcohol: D rugs H ave you used drugs other than those for medical reasons in the past 12 months? N o AUDIT-C (Standard) D id you have a drink containing alcohol in the past year? N o I nterpretation N egative M iscellaneous: O ccupation: Retired. Safety issues A re there any firearms in the house? N o S ocial History: [place] arital Status: M arried N umber of Adults in household: 2 N umber of Children in Household: 0 L evel of Education: [employer]/Masters/PhD S ocial History Verified. 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 * Medications: T akingAtorvastatin Calcium 20 MG Tablet 1 tablet Orally Once a day Taking Atorvastatin Calcium 20 MG Tablet 1 tablet Orally Once a day Not-TakingCalcium + D 500-1000-40 MG-UNT-MCG Tablet Chewable as directed Orally Medication List reviewed and reconciled with the patientNot-Taking Calcium + D 500-1000-40 MG-UNT-MCG Tablet Chewable as directed Orally Medication List reviewed and reconciled with the patient * Allergies: N .K.D.A.yesAllergies Verified. Objective: * Vitals: B P:107/69mm Hg, HR:60/min, Wt:152.4lbs, Wt-k.13 kg. * Examination: P sychiatry: A ppearance: Well-groomed, appropriately dressed for age and weather. No unusual features or abnormalities noted. Behavior: Cooperative, calm, and attentive. No psychomotor agitation or retardation. Maintains appropriate eye contact. Speech: Normal rate, rhythm, volume, and articulation. Spontaneous and coherent. No latency or pressure of speech. Mood: Pt reports that she is anxious and edge most days, she has a lot of external stressors with her family that increases her worry Affect: Appropriate to content and context. Full range, stable, congruent with stated mood. Thought Process: Linear, logical, goal-directed. No loosening of associations, tangentiality, or flight of ideas. Thought Content: No delusions, paranoia, obsessions, or preoccupations. Denies suicidal or homicidal ideation. Perceptions: No hallucinations (auditory, visual, or other). No perceptual disturbances. Cognition: Alert and oriented 4 (person, place, time, situation). Attention and concentration intact. Memory (recent and remote) intact. Insight: Good (aware of condition and need for treatment). Judgement: Intact (able to make sound decisions, understands consequences). Assessment: * Assessment: 1. G eneralized anxiety disorder - F41.1 Plan: * Treatment: 2. O thers Notes:Past meds: Mirtazapine lexapro * Labs: * L ab: UDT (12 Panel) (Collection Date & Time - 09/06/2025) Value Reference Range A mphetamine (AMP) N * B arbiturates (BAR) N * B enzodiazepine (BZO) N * C ocaine (CAROLIN) N * E cstasy (MDMA) N * M ethamphetamine (MET) N * M orphine (MOP) N * M ethadone (MTD) N * O xycodone (OXY) N * P hencyclidine (PCP) N * T ricyclic Antidepressants (TCA) N * M arijuana (THC) N * Procedure Codes: 1 036F TOBACCO [id number] BEHAV ASSMT W/SCORE & DOCD/STAND [id number] DRUG TST PRSMV READ INSTRMNT ASSTD DIR OPT OBS, Modifiers: QW 95263 PSYCHIATRIC DIAGNOSTIC EVAL W/MEDICAL SERVICES * Preventive Medicine: Screenings: D epression screening Have you had a recent depression screening? Y es P atient Understanding & Engagement: Patient demonstrated good understanding of the information discussed. Time was taken to clarify questions and ensure comprehension. Patient expressed interest in participating in treatment plan. Patient encouraged to follow up regularly and engage in therapeutic recommendations. Will continue to monitor progress and provide ongoing support. Patient given opportunity to contact provider if issues arise between sessions. * Follow Up: 4 Weeks Billing Information: * Procedure Codes: 1036F TOBACCO NON-USER. 12154 BEHAV ASSMT W/SCORE & DOCD/STAND INSTRUMENT. 00061 DRUG TST PRSMV READ INSTRMNT ASSTD DIR OPT OBS. Modifiers: QW 39829 PSYCHIATRIC DIAGNOSTIC EVAL W/MEDICAL SERVICES. Confirmatory sign off:Can Rowe 09/06/2025 at 07:35 PM CSTReview Notes: I have reviewed the clinical note in its entirety, including the assessment and plan. I concur withthe evaluation, diagnosis, and treatment plan as documented, and have provided supervision and input as appropriate* ICAL TRIAL DATA MANAGER Electronically co-signed by Can Rowe MD on 09/06/2025 at 07:35 PM CLINICAL TRIAL DATA MANAGER Sign off status: Completed true * Provider: Nakia Salomon Date: 11/07/2024 Generated for Lavon torrez/Ayesha/Rajeev on: 11/08/2024 05:44 PM CLINICAL TRIAL DATA MANAGER
[2025-09-07] VITALS (7 sets, daily range): BP systolic 139–155; BP diastolic 65–76; PULSE 66–74; RESP 16–27; TEMP 36.3; O2SAT 97–99
--- NOTE | 2025-09-07 17:44 | ECG_ITS ---
Test Date: 2025-09-07 17:47:16 Measurements Intervals [place] Rate: 62 P: 54 CT: 193 QRS: 11 QRSD: 99 T: 194 QT: 412 QTc: 420 Interpretive Statements SINUS RHYTHM ST-T WAVE ABNORMALITY IN DIFFUSE LEADS- CONSIDER ISCHEMIA BASELINE ARTIFACT- I, II, AVR, AVL, AVF, V1-V6 ABNORMAL ECG Compared to ECG 07/19/2025 10:17:50 NO SIGNIFICANT CHANGE Electronically Signed On 09-07-2025 21:11:38 INFORMATION RECEPTIONIST by Giovani Gonsalez D.O.
--- OUTSIDE RECORDS SUMMARY | 2025-09-07 17:44 | XMS_ITS | Encounter Summary ---
Author Organization [facility] Address [address] [place] [address] Care Team Providers Care Entry Level Chemist Name Role Phone Unavailable Primary Care Provider Unavailabl e Encounter Details Date Type Department Care Team (Late st Contact Info) Description 10/29/2021 Lab Requisition [facility] DermPath Lab [address] [facility] [place] [phone] Deon Kathleen MD [address] [place] [address] Social History Tobacco Use Types Packs/Day Years Used Date Smoking Tobacco: Never Assessed Comments Unknown Sex and Gender Information Value Date Recorded Sex Assigned at Not on file Legal Sex Female 1:03 PM TREKKING GUIDE Gender Identity Not on file Sexual Orientation Not on file documented as of this encounter Plan of Treatment Not on file documented as of this encounter Procedures Procedure Name Priority Date/Time Associated Diagnosis Comments DERMATOPATHOLOGY Routine 10/27/2021 12:0 0 AM TREKKING GUIDE documented in this encounter Results * DERMATOPATHOLOGY (10/27/2021 12:00 AM TREKKING GUIDE) Case Report Dermatopathology Report Case: [id number] Authorizing Provider: Deon Kathleen MD Collected: 10/27/2021 12:00 AM Ordering Location: [facility] DermPath Lab Received: 10/29/2021 01:26 PM Pathologist: Joceline Gutierrez MD Specimen: Skin, back 2 10:32 AM TREKKING GUIDE DERMATOPATHOLOGY LABORATORY Final Diagnosis Specimen A. SKIN, back: BENIGN VERRUCOUS KERATOSIS, INFLAMED (L82.1) PRESENT AT MARGIN 2 10:32 AM TREKKING GUIDE DERMATOPATHOLOGY LABORATORY at 1032 TREKKING GUIDE Clinical History Changing lesion. Check margins. 10:32 AM [facility] DERMATOPATHOLOGY LABORATORY Gross Description Specimen A: Received is one formalin filled container labeled with the patient's name and designated back. The specimen consists of a shave biopsy measuring [id number], bisected. The margin is inked green. Jar [...] characteristic determined by the Dermatopathology Laboratory at [facility], directed by Dr. Michelle Jauregui. These tests need not be, and therefore are not, approved by the [place] Food and Drug Administration. The tests are used for clinical purposes. Billing Codes Specimen Charges Stain Charges 00463 1 2 10:32 AM [facility] DERMATOPATHOLOGY LABORATORY Embedded Images 10:32 AM [facility] DERMATOPATHOLOGY LABORATORY Pathology/Cytolog y TISSUE SPECIMEN FROM SKIN / Unknown 10/27/2021 10/29/2021 1:26 PM TREKKING GUIDE us Deonchristiane Kathleen MD LAB - PATHOLOGY/CYTOLOGY SHAILESH BAIRD Final Result DERMATOPATHOLOGY LABORATORY [facility] - Department of Dermatology [address], [address] [phone] documented in this encounter Visit Diagnoses Not on filedocumented in this encounter
--- OUTSIDE RECORDS SUMMARY | 2025-09-07 17:44 | XMS_ITS | Clinical Summary ---
Author Organization [facility] Address [address] [place] [address] Care Team Providers Care City Weighmaster Name Role Phone Unavailable Primary Care Provider Unavailabl e Source Comments [facility],non-owned Affiliates and Associated Physician Practices is amultiple site organization consisting of ambulatory clinics and hospital sitesin [place], [place], [place] and [place]. This disclosure is being madepursuant to the Care Everywhere program and may not contain all information available regarding this patient. 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
--- OUTSIDE RECORDS SUMMARY | 2025-09-07 17:44 | XMS_ITS | Continuity of Care Document ---
Author Organization [facility] Address [address] [place] [address] [place] [address] Care Team Providers Care Machine Coil Assembler Name Role Phone DEION MCNEAL Primary Care Provider [phone] Assessment Encounter Date Assessment Date Assessment LastModified by Organization Details LastModified Time 08/29/2025 08/29/2025 Annual gynecological exam performed. Patient will come back in a year unless there are new symptoms. Not available 08/29/2025 10:50:26 Plan of Treatment Reminders Order Date Submit Date Provider Last Modified By Organization Details Last Modified Time Details Appointments [facility] 2025 10:15A M ARCHANA Magallon Not available Not available Not available Lab None recorded. Referral None recorded. Procedures None recorded. Surgeries None recorded. Imaging MAMMO, screening , digital, bilateral 2024 025 [facility], [address], [place], [address], 09/05/2025 04:04:49 Medication Orders None recorded. Patient TargetsNo targets recorded. Patient InstructionsNo instructions recorded. Reason for Referral None Reported. Problems No Known Problems Procedures Surgical History Date Name Laterality Status Provider Name and Address Organization Details Recorded Time 02/03/20 25 Date of Last Mammogram completed Tamiko Elias [facility] 08/29/2025 10:59:21 08/16/20 24 Date of Last Pap Smear completed Tamiko Elias [facility] 08/29/2025 11:13:49 08/10/20 24 completed Tamiko Elias [facility] 08/29/2025 10:59:21 08/10/20 24 Date of Last Colonoscopy completed Rebecca [facility] 08/16/2024 11:59:03 08/10/20 24 Colonoscopy completed [facility] 08/16/2024 12:02:41 09/20/19 23 removal of mole of skin by excision completed [facility] 07/05/2023 12:26:24 09/20/19 22 removal of breast implant completed [facility] 07/05/2023 12:25:18 09/20/19 18 Dilation and Curettage completed [facility] 07/05/2023 12:24:21 09/20/19 17 Dilation and Curettage completed [facility] 07/05/2023 12:24:11 09/20/19 11 Breast Surgery completed [facility] 07/05/2023 12:23:48 09/20/19 11 Breast Biopsy completed [facility] 07/05/2023 12:23:41 09/20/19 11 removal of breast implant completed [facility] 07/05/2023 12:25:13 09/20/19 05 procedure on shoulder completed [facility] 07/05/2023 12:26:07 09/20/18 92 procedure on shoulder completed [facility] 07/05/2023 12:25:51 09/20/18 89 Cholecystectomy completed [facility] 07/05/2023 12:24:02 09/20/18 79 termination of completed [facility] 07/05/2023 12:24:32 09/20/18 78 Breast Implants [facility] 07/05/2023 12:23:54 Imaging Results None recorded. Procedure Notes None recorded. Medical Equipment None Reported. Allergies Allergen ID Allergen Name Allergen Category Reaction Reaction Severity Criticality Documentation Date Start Date Code Code System Note Provider Name and Address Organization Details Recorded Time 20555 morpholin e salicylat e Not available vomiting moderate Not available 03/24/2022 92885 8 RxNorm Judit hernandez, [facility] 2 12:35:24 26551 Product containin g penicilli n (product) medicatio n anaphylax is severe Not available 03/24/2022 70337 8001 SNOMED Judit hernandez, [facility] 2 12:35:24 21257 penicilli n V Not available Not available Not available Not available 08/29/20252013 7984 RxNorm Not Available [facility] - External Data [employer] - prod 02:54:40 82180 morphine medicatio n Not available Not available Not available 08/29/20252013 7052 RxNorm Not Available [facility] - External Data Service - prod 5 02:54:40 63826 latex environme nt,medica tion Not available Not available Not available 08/29/20252013 40892 91 RxNorm Not Available [facility] - External Data Service - prod 5 02:54:40 84616 codeine medicatio n Not available Not available Not available 08/29/20252017 2670 RxNorm Not Available [facility] - External Data Service - prod 5 02:54:43 75725 Penicilli n Not available Not available Not available Not available 08/29/20252017 88546 RxNorm Not Available [facility] - External Data Service - prod 5 02:54:43 Medications Name Sig Start Date Stop Date Status Note LastModified by Organization Details LastModified Time silver sulfadiazin e 1 % topical cream APPLY THIN LAYER TO BURN TWICE DAILY FOR 2 WEEKS 08/29 completed Not Available Not Available Not Available nystatin 100,000 unit/mL oral suspension 1 ML ORALLY FOUR TIMES DAILY SWISH AND SWALLOW TO EACH SIDE OF MOUTH 08/29 completed Not Available Not Available Not Available atorvastati n 20 mg tablet TAKE 1 TABLET BY MOUTH EVERY DAY AT BEDTIME active Not Available Not Available No t Available clindamycin HCl 300 mg capsule TAKE 1 CAPSULE BY MOUTH EVERY 12 HOURS 08/27 completed Not Available Not Available Not Available trazodone 50 mg tablet TAKE 1 TABLET BY MOUTH EVERYDAY AT BEDTIME 07/05 completed Not Available Not Available Not Available meloxicam 15 mg tablet TAKE 1 TABLET BY MOUTH EVERY DAY 07/05 completed Not Available Not Available Not Available famotidine 40 mg tablet TAKE 1 TABLET BY MOUTH EVERY EVENING FOR 30 DAYS 07/05 completed Not Available Not Available Not Available prednisone 20 mg tablet TAKE 2 TABLETS BY MOUTH EVERY DAY FOR 5 DAYS 08/29 completed Not Available Not Available Not Available triamcinolo ne acetonide 0.5 % topical ointment APPLY TO AFFECTED AREA TWICE A DAY active Not Available Not Available No t Available sulfamethox azole 800 mg-trimetho prim 160 mg tablet TAKE 1 TABLET BY MOUTH TWICE A DAY 08/27 completed Not Available Not Available Not Available omeprazole 40 mg capsule,del ayed release PLEASE SEE ATTACHED FOR DETAILED DIRECTION S 08/29 completed Not Available Not Available Not Available levothyroxi ne 25 mcg tablet TAKE 1 TABLET (25 MCG) BY MOUTH DAILY active Not Available Not Available No t Available nystatin-tr iamcinolone 100,000 unit/gram-0 .1 % topical ointment APPLY TO AFFECTED AREA TWICE A DAY FOR 7 DAYS 08/16 completed Not Available Not Available Not Available propranolol 10 mg tablet TAKE 1 TABLET BY MOUTH DAILY active Not Available Not Available No t Available benzonatate 100 mg capsule TAKE 1 CAPSULE BY MOUTH THREE TIMES A DAY NEEDED FOR COUGH 07/05 completed Not Available Not Available Not Available simvastatin 5 mg tablet TAKE 1 TABLET BY MOUTH EVERY DAY IN THE EVENING 07/05 /2022 completed Not Available Not Available Not Available nystatin 100,000 unit/gram topical cream APPLY TOPICALLY TWICE A DAY 08/29 completed Not Available Not Available Not Available nystatin-tr iamcinolone 100,000 unit/g-0.1 % topical cream APPLY TOPICALLY TWICE A DAY 08/16 completed Not Available Not Available Not Available omeprazole 20 mg capsule,del ayed release TAKE 1 CAPSULE BY MOUTH EVERY DAY 08/29 completed Not Available Not Available Not Available mupirocin 2 % topical ointment 1 APPLIC TOPICALLY TWICE A DAY INTRANASA L 08/27 completed Not Available Not Available Not Available mirtazapine 15 mg tablet TAKE 1 TABLET BY MOUTH EVERY DAY BEFORE BEDTIME 03/24 completed Not Available Not Available Not Available fluconazole 40 mg/mL oral suspension PLEASE SEE ATTACHED FOR DETAILED DIRECTION S 08/29 completed Not Available Not Available Not Available ondansetron 4 mg disintegrat ing tablet DISSOLVE 1 TABLET ON THE TONGUE EVERY 8 HOURS NEEDED FOR NAUSEA/VO MITING 03/03 completed Not Available Not Available Not Available fluticasone propionate 50 mcg/actuati on nasal spray,suspe nsion INSTILL 1-2 SPRAYS INTO EACH NOSTRIL ONCE DAILY FOR CHRONIC SEASONAL ALLERGIC RHINITIS active Not Available Not Available No t Available doxycycline hyclate 100 mg tablet TAKE 1 TABLET BY MOUTH TWICE A DAY FOR 7 DAYS 08/27 completed Not Available Not Available Not Available hydrocortis one 1 % topical cream with perineal applicator APPLY 1 APPLICATI ON TO AFFECTED AREA THREE TIMES A DAY NEEDED FOR ITCHING 08/29 completed Not Available Not Available Not Available cholecalcif corby (vitamin D3) 1,250 mcg (50,000 unit) capsule TAKE 1 CAPSULE BY MOUTH ONCE WEEKLY 08/29 completed Not Available Not Available Not Available Gavilyte-C 240 gram-22.72 gram-6.72 gram-5.84 gram oral solution FOLLOW PRESCRIBI NG PHYSICIAN S INSTRUCTI ONS ONLY - THESE WERE SENT VIA EMAIL OR Mobile[employer]. 08/16 completed Not Available Not Available Not Available BinaxNOW COVID-19 Ag Self Test kit Use as Directed on the Package 07/05 completed Not Available Not Available Not Available Alive Calcium-Vit yepez D3 active Not Available Not Available Not Available Klayesta 100,000 unit/gram topical powder APPLY TOPICALLY TWICE A DAY active Not Available Not Available No t Available Vitals Date Recorded Body height Body mass index (BMI) Body weight Systolic And Diastolic Provider Name and Address Organization Details Last Updated DateTime 08/29/2025 154.94 cm 28.7 kg/m2 54083.04 g 120/73 mm[Hg] Tamiko Elias [facility] 08/29/2025 10:58:55 Social History Question Answer Notes LastModified by Organizat ion Details LastModified Time Tobacco Smoking Status Former Smoker Arianna Case mary, [facility] 07/08/2023 14:02:05 Do You Have [...] Or The Highest Degree You Have Received? [id number] Information not available 03/24/2022 When Did You Quit Smoking? 11-15yearssinc elastcigarette Information not available 07/08/2023 Are There Any Guns Present In Your Home? No Information not available 03/24/2022 Have You Ever Been Counseled For Unhealthy Alcohol Use? No [email or web address] Information not available 07/05/2023 Do You Use [...] is your level of alcohol consumption? Occasional [email or web address] Information not available 07/05/2023 Are you able [...] anxious, or unable to sleep at night)? [id number] Information not available 08/16/2024 Family History Relationship [...] 01/2022 12:35:28 Sister Malignant neoplasm of breast [email or web address] Not available 2024 10:14:40 Sister Heart disease [email or web address] Not available 01/2022 [...] History Statement/Question Response Date of Last Mammogram 02/02/2025 Date of LMP 08/20/2011 N Was last [...] Monthly N Date of DEXA bone scan 04/09/2025 Age of first menstrual cycle 13 Date of Last Pap Smear 08/16/2024 Sexual Problems? N LMP Approximate 08/10/2024 N Obstetrics History GPAL:G 2 P 1 0 1 1 Type Value Full Term 1 Induced 1 Living 1 Total 2 Past Encounters Encounter ID Performer Location Encounter Start Date Encounter Closed Date Diagnosis/Indication Diagnosis SNOMED-CT Code Diagnosis ICD10 Code Diagnosis IMO Codes Diagnosis Note [id number] ARCHANA Magallon [place] [address] [address] 08/29/2025 10:12:58 08/29/2025 15:14:49 Gynecologic examination 63808688 Z01.809 [id number] WWEpostmen opausalPap - UTD/not indicated todaySTI screen - declinedMa mmogram - order givenColon cancer screening - UTDDexa - UTD/PCPRou bassem [...] dietary consult advised.Qu estions have been answered. Screening mammography 24 551165 Z12.31 [id number] Health Concerns Section Related Observation LastModified by Organization Detai ls LastModified Time None Recorded Concern Status LastModified by Organization Details LastModified Time None Recorded Payers Encounter Date Sequence Insurance Name Policy Number Policy Johnson Covered Member ID Johnson Member ID Guarantor Name 08/29/2025 1 [facility] (MEDICARE REPLACEMENT/A DVANTAGE - PPO) [id number] Edith Joyner [id number] Edith Joyner Notes Date Note Type Note Provider Name and Address Organization Details Recorded Time text/html Annual Theatre Manager Post-MenopausalReported by PatientGenitourinary symptomsFor menopausal symptoms, patient [...] breast examination,encourage regular exercise, andencourage no tobacco use.70yo wwepostmenopausallast pap 07/2024 nilm, HPV (-)mammogram olonoscopy UTD exa UTD 2024 osteopeniah/o right lumpectomy d/t breast cancer, diagnosed in 2010 ARCHANA Magallon [address], [place], [address], [place] - [facility] 08/29/2025 14:40:13 OBGyn Episode No OBEpisode recorded.
--- OUTSIDE RECORDS SUMMARY | 2025-09-07 17:44 | XMS_ITS | Clinical Summary ---
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
--- OUTSIDE RECORDS SUMMARY | 2025-09-07 17:44 | XMS_ITS | Patient Health Record ---
Author Organization [facility] [employer] Address [address] [facility] [address] [place] [address] Care Team Providers Care Home Health Specialist Name Role Phone Inocencia Salomon Unavailable [phone] Allergies No Known Allergies Results Component Value Reference Range Notes UDT (12 Panel) Reviewed date:09/06/2025 10:24:59 AM Interpretation: Performing Lab: Notes/Report: Amphetamine (AMP) N Barbiturates (BAR) N Benzodiazepine (BZO) N Cocaine (CAROLIN) N Ecstasy (MDMA) N Methamphetamine (MET) N Morphine (MOP) N Methadone (MTD) N Oxycodone (OXY) N Phencyclidine (PCP) N Tricyclic Antidepressants (TCA) N Marijuana (THC) N Reason For Referral No Information Medications Medication SIG (Take, Route, Frequency, Duration) [...] 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 Notes: 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 Diet: Prefers healthy food; prefers unhealthy food Living situation: Lives in an apartment Problems Problem Type SNOMED Code ICD Code Onset Dates Problem Status W/U Status Risk Notes Problem Generalized anxiety disorder (81525933) Generalized anxiety disorder (F41.1) Active confirmed Vital Signs Heart Rate 60 /min 09/06/2025 Blood pressure diastolic 69 mm Hg 09/06/2025 Weight-kg 69.13 kg 09/06/2025 Blood pressure systolic 107 mm Hg 09/06/2025 Weight 152.4 lbs 09/06/2025 Encounters Encounter Location Date Provider Diagnosis [facility] [place] [address] [address] 09/06/2025 Inocencia [employer] Generalized anxiety disorder F41.1 [facility] [place] [employer] [place] [address] [address] [facility] [address] [address] 09/06/2025 Inocencia [place] [facility] [place] [employer] [place] [address] [address] [facility] [address] [address] 09/07/2025 Inocencia [place] [facility] [place] [employer] [place] [place] [address] [address] 09/07/2025 Inocencia [employer] Assessments Encounter Date Diagnosis (ICD Code) Assessment [...] Past meds: Mirtazapine lexapro Plan Of Treatment Next Appt Details Provider Name:Catalina Poe , 10/01/2025 10:00:00 AM, [address], [facility] [address], [place], [address], Provider Name:Inocencia Salomon, 10/09/2025 11:00:00 AM, [address], [address], [place], [address], Insurance Providers Payer Name Payer Address Payer Phone Subscriber Number Group Number Insured Name Patient Relationship to Insured Coverage Start Date Coverage End Date [employer] Medicare Replacement/ Advantage - Hmo [address] [id number] [id number] Edith Joyner Self - patient is the insured Medical (General) History Medical History History ICD Code Past Psychiatric History: Anxiety Disord er abdominal aortic aneurysm: No atrial fibrillation: No chronic fatigue syndrome: No essential tremor: No hyperlipidemia: Yes hypertension: Yes Parkinson's disease: No restless leg syndrome: No stroke: No subdural hematoma: No type 1 diabetes mellitus: No type 2 diabetes mellitus: No vitamin B12 deficiency: No vitamin D deficiency: Yes
--- OUTSIDE RECORDS SUMMARY | 2025-09-07 17:44 | XMS_ITS | Encounter Summary ---
Author Organization [facility] Address [address] [place] [address] Care Team Providers Care Talent Acquisition Specialist Name Role Phone Unavailable Primary Care Provider Unavailabl e Encounter Details Date Type Department Care Team (Late st Contact Info) Description 06/15/2023 Lab Requisition [facility] - DermPath Lab [address] [facility] [place] [phone] Deon Kathleen MD [address] [place] [address] Social History Tobacco Use Types Packs/Day Years Used Date Smoking Tobacco: Never Assessed Comments Unknown Sex and Gender Information Value Date Recorded Sex Assigned at Not on file 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 Gender Identity Not on file Sexual Orientation Not on file documented as of this encounter Plan of Treatment Not on file documented as of this encounter Procedures Procedure Name Priority Date/Time Associated Diagnosis Comments DERMATOPATHOLOGY Routine 06/14/2023 12:0 0 AM CDT documented in this encounter Results * DERMATOPATHOLOGY (06/14/2023 12:00 AM CDT) Case Report Dermatopathology Report Case: [id number] Authorizing Provider: Deon Kathleen MD Collected: 06/14/2023 12:00 AM Ordering Location: [facility] DermPath Lab Received: 06/15/2023 11:31 AM Pathologist: [...] characteristic determined by the Dermatopathology Laboratory at [facility], directed by Dr. Michelle Jauregui. These tests need not be, and therefore are not, approved by the [place] Food and Drug Administration. The tests are used for clinical purposes. Billing Codes Specimen Charges Stain Charges 16600 10109 1 1 3 2:32 PM CDT DERMATOPATHOLOGY LABORATORY Embedded Images 3 2:32 PM CDT DERMATOPATHOLOGY LABORATORY Pathology/Cytology TISSUE SPECIMEN FROM SKIN / Unknown 06/14/2023 06/15/2023 11:31 AM CDT Miscellaneous samples (specimen) TISSUE SPECIMEN FROM SKIN / Unknown 06/14/2023 06/15/2023 11:31 AM CDT us Deonchristiane Kathleen MD LAB - PATHOLOGY/CYTOLOGY SHAILESH BAIRD Final Result DERMATOPATHOLOGY LABORATORY [facility] - Department of Dermatology [facility] Medicine [address] [place] [address], [address] [phone] documented in this encounter Visit Diagnoses Not on filedocumented in this encounter
--- OUTSIDE RECORDS SUMMARY | 2025-09-07 17:44 | XMS_ITS | Clinical Summary ---
Author Organization [facility] stephania Address [address] [place] [address] Care Team Providers Care Newspaper Inserter Name Role Phone Deon Kathleen MD Primary Care Provider [phone] Allergies Active Allergy Reactions Criticality Noted Date Comments Latex Hives High 11/10/2013 Morphine Nausea and Vomiting Low 11/10/2013 Penicillin G Other (See Comments) 04/20/2012 Trouble breathing Medications levothyroxine 25 mcg tablet TAKE 1 TABLET DAILY EVP [employer]. 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, ER+,CT+,BCT,RT, Tamoxifen Resolved Problems Problem Noted Date Diagnosed Date Resolved Date Hypothyroidism 01/10/2015 04/30/2016 Encounters Date Type Department Care Team Description 08/07/2025 External Device Data STL ABSTRACTION Provider, Abstract 08/02/2025 Transcribe Orders Central Test Scheduling [address] [place] [address] Giovani Gonsalez DO 08/02/2025 Transcribe Orders Central Test Scheduling [address] [place] [address] Giovani Gonsalez, DO Encounter for preprocedural cardiovascular examination (Primary Dx) from Last 3 Months Immunizations Immunization Administration [...] Sex Assigned at Female 08/05/2024 12:43 PM COAL HAULER Legal Sex Female 3:11 AM COAL HAULER Gender Identity Female 08/05/2024 12:43 PM COAL HAULER Sexual Orientation Straight 08/05/2024 12 :43 PM COAL HAULER Occupation Industry Job Start Date Job End Date Not on file Not on file Not on file Not on file Last Filed Vital Signs Vital Sign Reading Time Taken Comments Blood Pressure 114/82 08/10/2024 12:00 PM COAL HAULER Pulse 70 08/10/2024 12:00 PM COAL HAULER Temperature 36.2 C (97.2 F) 08/10/2024 10:07 AM COAL HAULER Respiratory Rate 16 08/10/2024 12:00 PM COAL HAULER Oxygen Saturation 99% 08/10/2024 12:00 PM COAL HAULER Inhaled Oxygen Concentration - - Weight 66.4 kg (146 lb 6.4 oz) 08/10/2024 10:07 AM COAL HAULER Height 152.4 cm (5') 08/10/2024 10:07 AM COAL HAULER Body Mass Index 28.59 08/10/2024 10:07 AM COAL HAULER Plan of Treatment Health Maintenance Due Date Last Done Comments DTAP/TDAP/TD VACCINES (1 - Tdap) 1972 FIT-DNA Q 3 years 1998 FIT/FOBT Q 1 year 1998 Flex Sig/CT Colonography Q 5 years 1998 PNEUMOCOCCAL VACCINE 50+ YEA RS (1 of [...] Comments COLONOSCOPY REPORT 08/10/2024 11 :46 AM COAL HAULER XR DEXA BONE DENSITY AXIAL 1 OR MORE SITES Routine 04/01/2021 11:51 AM CDT Osteoporosis of multiple sites MAMMO SCREEN IMPL BILAT W OR WO CAD Routine 07/15/2016 9:16 AM CDT Visit for screening mammogram from Last 3 Months or Most Recently Relevant to Health Maintenance Results * COLONOSCOPY REPORT (08/10/2024 11:46 AM COAL HAULER) Narrative Procedure Note Madyson Pina MD - 08/10/2024 11:[address] [facility] Endoscopy Patient Name: Edith Joyner [...] pathology results. Procedure Code(s): --- Professional --- 60113, Colonoscopy, flexible; with removal of tumor(s), polyp(s), or other lesion(s) by snare technique CPT copyright 2020 [employer]. All rights reserved. The codes documented in this report are preliminary and upon gas inspector review may be revised to meet current compliance requirements. Madyson Pina MD 08/10/2024 11:46:01 AM This report has been signed electronically. Number of Addenda: [id number] [place] [address] us Madyson Pina MD GI PROCEDURE ORDERABLES [...] refer to the full report available in [facility] under the PACS Images tab. If a faxed copy is needed, please call [phone]. DICTATION LOCATION: [facility] Procedure Note Keshawn Mccullough MD - 04/01/2021 SUMMARY DEXA REPORT DATE: 04/01/2021 11:51 AM INDICATION: Breast cancer, postmenopausal FINDINGS: Bone mineral density is consistent with osteopenia. The lowest T score is -1.6. The lowest T score on the previous study was -1.5. Please refer to the full report available in [facility] under the PACS Images tab. If a faxed copy is needed, please call [phone]. DICTATION LOCATION: [facility] Daphnie Arteaga MD DIAGNOSTIC IMAGING ORDERABLES Final Result * MAMMO DIGITAL SCREEN IMPLANTS BILAT (07/15/2016 9:16 AM CDT) Anatomical Region Laterality Modality Breast Bilateral Mammography 07/15/2016 9:16 AM CDT Impressions 07/16/2016 4:54 PM CDT IMPRESSION: Negative bilateral screening mammogram. Recommend routine followup. OVERALL ASSESSMENT: BI-RADS Category 1 - Negative DICTATION LOCATION: [facility] Narrative 07/16/2016 4:54 PM CDT BILATERAL [...] BI-RADS Category 1 - Negative DICTATION LOCATION: [facility] Don Alvarado MD MAMMO ORDERABLES F inal Result from Last 3 Months or Most Recently Relevant to Health Maintenance Insurance [address] [place] [address] [facility] Advance Directives For more information, please contact: [phone] * Full Code (Latest Code Status on File) Date Activated Date Inactivated Comments 01/05/2014 11:11 AM 01/05/2014 3:58 PM Care Teams Newspaper Inserter Relationship Specialty Start Date End Date Deon Kathleen MD [address] [place] [address] PCP - General Family Practice 07/31/24
--- OUTSIDE RECORDS SUMMARY | 2025-09-07 17:44 | XMS_ITS | Data Portability ---
Author Organization [facility] Address [address] [place] [address] Care Team Providers Care Director Of Ancillary Services Name Role Phone DEION MCNEAL Primary Care Provider [phone] Assessment Encounter Date Assessment Date Assessment LastModified by Organization Details LastModified Time 03/24/2022 03/24/2022 Annual gynecological exam performed. Patient will come back in a year unless there are new symptoms. [email or web address] Not available 03/24/2022 12:34:50 07/05/2023 07/05/2023 Annual gynecological exam performed. Patient will come back in a year unless there are new symptoms. [email or web address] Not available 07/05/2023 12:21:11 08/16/2024 08/16/2024 Annual gynecological exam performed. Patient will come back in a year unless there are new symptoms. Not available 08/16/2024 11:54:58 08/29/2025 08/29/2025 Annual gynecological exam performed. Patient will come back in a year unless there are new symptoms. [email or web address] Not available 08/29/2025 10:50:26 Plan of Treatment Reminders Order Date Submit Date Provider Last Modified By Organization Details Last Modified Time Details Appointments [facility] 2025 10:15A ARCHANA Camargo Not available Not available Not available Lab None recorded. Referral breast surgery referral - This patient wants to be referred to a breast specialis t. Our office can not refer her with her [employer] insurance . The patients PCP must send out off specialis t referrals . Please create an insurance referral for this patient, Thank you. 2021 022 [place] Jennifer resendez MD, [address] [facility], [address], [place], [address], 11/08/2022 05:00:49 Procedures None recorded. Surgeries None recorded. Imaging MAMMO, screening , digital, bilateral [address] [facility], [address], [place], [address], 09/05/2025 04:04:49 Medication Orders nystatin- triamcino lone 100,000 unit/gram -0.1 % topical ointment 2023 024 [facility]/Pharmacy #[id number], [address], [place], [address], 08/16/2024 12:00:39 nystatin 100,000 unit/gram topical powder [address]/Pharmacy #[id number], [address], [place], [address], 03/01/2024 11:08:38 Patient TargetsNo targets recorded. Patient InstructionsNo [...] patient, Thank you. Referring Physician: Arielle Huff, BLACK ASH BURNER OPERATOR, Encounter Date: 03/24/2022 Results Created Date Observation Date Name Description Value Unit Range Abnormal Flag Note LastModifiedBy Organization Detail LastModifiedTime 03/24/2003/24/2022 IMAGE GUIDE D PAP AND HPV REGAR DLESS image guided Pap, HPV regardless of Pap result SEE RESULT S BELOW CASE REPOR T: Cytol ogy Gynec ologi monique Repor t Case: [id number] Autho mary g Provi ronny: Arielle Huff, MARIANGEL Colle cted: 03/24 1256 Order ing Locat ion: [place] Patho jeet Baii alia: 03/25 0810 First Scree n: Kalee Jaimes , CT Rescr een: Zarina [place], CT Speci men: Scree josh Pap - Image d, Cervi x STATE MENT OF ADEQU ACY: Satis facto ry for evalu ation Trans forma tion zone compo nent prese nt FINAL DIAGN OSIS: Negat miroslava for Intra epith elial Lesshruti n or Leonardo guerrero (NIL) . Elect cynthiajose coronel lindsay d by Zarina [place], MEGHA on 2021 at 2:17 PM ----- ----- [...] as clini robert warra nted. Not Available [facility] Stat Weekend Draws [address] [facility], [place], [address], 03/30/2022 15:19:58 03/24/20 22 03/24/2022 IMAGE GUIDE D PAP AND HPV REGAR DLESS image guided Pap, HPV regardless of Pap result SEE RESULT S BELOW CASE REPOR T: Cytol ogy Gynec ologi monique Repor t Case: [id number] Autho mary colton Provi ronny: Arielle Huff, MARIANGEL Colle cted: [...] Lesio n or Leonardo guerrero (NIL) . Marty montoya d by Zarina [place], CT on 2021 [...] as clini robert sanchez nted. Not Available [facility] [address] [place], [address], 05/26/2022 16:54:53 08/16/20 24 08/16/2024 IMAGE GUIDE D PAP AND HPV REGAR DLESS image guided Pap, HPV regardless of Pap result SEE RESULT S BELOW CASE REPOR T: Cytol ogy Gynec ologi monique Repor t Case: [id number] Autho mary segura Provi ronny: Arielle Huff NP Colle cted: 08/16 1346 Order ing Locat ion: [place] Patho logy Recei alia: 08/17 0229 First Scree n: Soumya Foley ret, CT Speci men: Donis moreno Pap - [...] . Elect lito coronel lindsay d by Soumya Foley ret, CT on [...] as clini robert sanchez nted. Not Available [facility] (Lab) [address], [place], [address], 08/28/2024 16:43:57 05/27/20 22 04/08/2022 MAMMO , diagn ostic , digit al, bilat eral No observ ation record ed. [email or web address] [facility] [address], [place], [address], 05/28/2022 16:19:17 12/10/19 24 12/10/2023 , teodoro tenorio No observ ation record ed. [facility] [address], [place], [address], 12/14/2023 12:52:42 02/04/20 24 02/03/2024 MAMMO , scree josh, bilat eral No observ ation record ed. [facility] [address], [place], [address], 02/09/2024 14:37:02 02/06/20 25 02/03/2025 MAMMO , scree josh, bilat eral No observ ation record ed. [facility] [address], [place], [address], 02/05/2025 11:07:38 Result Notes None recorded. Problems No Known Problems Procedures Surgical History Date Name Laterality Status Provider Name and Address Organization Details Recorded Time 02/03/20 25 Date of Last Mammogram completed [facility] 08/29/2025 10:59:21 08/16/20 24 Date of Last Pap Smear completed [facility] 08/29/2025 11:13:49 08/10/20 24 completed [facility] 08/29/2025 10:59:21 08/10/20 24 Date of Last Colonoscopy completed Rebecca [facility] 08/16/2024 11:59:03 08/10/20 24 Colonoscopy completed Rebecca [facility] 08/16/2024 12:02:41 09/20/19 23 removal of mole of skin by excision completed Linh Wolf [facility] 07/05/2023 12:26:24 09/20/19 22 removal of breast implant completed Linh Wolf [facility] 07/05/2023 12:25:18 09/20/19 18 Dilation and Curettage completed Linh Wolf [facility] 07/05/2023 12:24:21 09/20/19 17 Dilation and Curettage completed Linhmatteo Wolf [facility] 07/05/2023 12:24:11 09/20/[address] [facility] 07/05/2023 12:23:48 09/20/[address] [facility] 07/05/2023 12:23:41 09/20/19 11 removal of breast implant completed [facility] 07/05/2023 12:25:13 09/20/19 05 procedure on shoulder completed [facility] 07/05/2023 12:26:07 09/20/18 92 procedure on shoulder completed [facility] 07/05/2023 12:25:51 09/20/[address] [facility] 07/05/2023 12:24:02 09/20/[address] [facility] 07/05/2023 12:24:32 09/20/[address] [facility] 07/05/2023 12:23:54 Imaging Results None recorded. Procedure Notes None recorded. Medical Equipment None Reported. Allergies Allergen ID Allergen Name Allergen Category Reaction Reaction Severity Criticality Documentation Date Start Date Code Code System Note Provider Name and Address Organization Details Recorded Time 60481 morpholin e salicylat e Not available vomiting moderate Not available 03/24/2022 75491 8 RxNorm Judit hernandez, [facility] 2 12:35:24 59993 Product containin g penicilli n (product) medicatio n anaphylax is severe Not available 03/24/2022 00447 8001 SNOMED Judit hernandez, [facility] 2 12:35:24 51581 penicilli n V Not available Not available Not available Not available 08/29/2025 05/27/ 2014 7984 RxNorm Not Available [facility] - [employer] - prod 5 02:54:40 31598 morphine medicatio n Not available Not available Not available 08/29/20252013 7052 RxNorm Not Available [facility] - External [facility] - [facility] 5 02:54:40 12354 latex environme nt,medica tion Not available Not available Not available 08/29/20252013 63879 91 RxNorm Not Available [facility] - [facility] [employer] - [facility] 5 02:54:40 57643 codeine medicatio n Not available Not available Not available 08/29/20252017 2670 RxNorm Not Available [facility] [employer] - [facility] 5 02:54:43 12974 Penicilli n Not available Not available Not available Not available 08/29/20252017 03298 RxNorm Not Available [facility] [employer] - [facility] 5 02:54:43 Medications Name Sig Start Date [...] - THESE WERE SENT VIA EMAIL OR ONOSYS Online Ordering. 08/16 completed Not Available Not Available Not [...] Updated DateTime 03/03/2024 154.94 cm 28.2 kg/m2 93795.26 g 128/74 mm[Hg] Tasneem Reddy [facility] 03/03/2024 09:43:28 Date Recorded Body height Body mass index (BMI) Body weight Systolic And Diastolic Provider Name and Address Organization Details Last Updated DateTime 03/24/2022 154.94 cm 29.5 kg/m2 41782.41 g 140/81 mm[Hg] Judit Saenz [facility] 03/24/2022 12:35:18 Date Recorded Body height Body mass index (BMI) Body weight Systolic And Diastolic Provider Name and Address Organization Details Last Updated DateTime 07/05/2023 154.94 cm 28.5 kg/m2 15856.45 g 125/74 mm[Hg] Linh Wolf [facility] 07/05/2023 12:21:30 Date Recorded Body height Body mass index (BMI) Body weight Systolic And Diastolic Provider Name and Address Organization Details Last Updated DateTime 08/16/2024 154.94 cm 28.3 kg/m2 44258.86 g 122/71 mm[Hg] Rebecca Cheney [facility] 08/16/2024 11:58:51 Date Recorded Body height Body mass index (BMI) Body weight Systolic And Diastolic Provider Name and Address Organization Details Last Updated DateTime 08/29/2025 154.94 cm 28.7 kg/m2 96744.04 g 120/73 mm[Hg] Tmaiko Elias [facility] 08/29/2025 10:58:55 Social History Question Answer Notes LastModified by Organizat ion Details LastModified Time Tobacco Smoking Status Former Smoker Arianna Evie hernandez, [facility] 07/08/2023 14:02:05 Do You Have An [...] Or The Highest Degree You Have Received? PR99263-3 Information not available 03/24/2022 When Did You [...] is your level of alcohol consumption? Occasional [email or web address] Information not available 07/05/2023 Are you able [...] anxious, or unable to sleep at night)? [id number] Information not available 08/16/2024 Family History Relationship [...] 01/2022 12:35:28 Sister Malignant neoplasm of breast [email or web address] Not available 2024 10:14:40 Sister Heart disease [...] ICD10 Code Diagnosis IMO Codes Diagnosis Note [id number] ARCHANA Magallon [facility] [address] [address] 03/24/2022 12:02:15 03/24/2022 17:11:44 Gynecologic examination 86885215 Z01.419 Take Calcium with Vitamin D 12-1500mg daily. Do monthly self breast exams. It is advised to get annual flu shot in the fall and she could obtain at [facility] or [facility] clinic. If you haven't received the Tdap [...] istory of primary malignant neoplasm of breast 212166197 Z85.3 [id number] ARCHANA Magallon [facility] [address] [address] 07/05/2023 12:01:59 07/05/2023 14:42:13 Gynecologic examination 90211965 Z01.419 WWEpostmen opausalno pap needed todayhx of breast CA : mammogram UTD, due next 4dex a UTD/manage d by PCPcolonos copy UTD/manage d by PCPUTD with routine labs Take Calcium with Vitamin D daily.Do monthly self breast exams.It is advised to get annual flu shot in the fall and she could obtain at [facility] or [facility] take care clinic. If you haven't received the [...] no improvemen t RTC for further evaluation [id number] Arielle Huff MARIANGEL [facility] [address] [address] 03/03/2024 09:32:44 03/03/2024 10:22:06 Candidiasis of skin 79627554 B37.2 rx sent for nystatin-t riamcinolo ne ointmentke ep area clean/drya void scented soaps/prod ucts, free and clear laundry products, avoid tigh/restr ictive clothing, cotton underwear only, sleep with no underwearR TC if symptoms persist Time spent in visit is a total of 20 mins with at least 50% of visit consisting of counseling and review of plan of care. [id number] Arielle Huff MARIANGEL [facility] [address] [address] 08/16/2024 11:48:46 08/16/2024 12:27:02 Gynecologic examination 02086760 Z01.419 Dhruv Villatoro - updated per pt requestSTI screen - [...] dietary consult advised.Qu estions have been answered. [id number] ARCHANA Magallon [facility] [address] [address] 08/29/2025 10:12:58 08/29/2025 15:14:49 Gynecologic examination 33996515 Z01.127 [id number] WWEpostmen opausalPap - UTD/not indicated todaySTI screen [...] estions have been answered. Screening mammography 24 278367 Z12.31 [id number] Health Concerns Section Related Observation LastModified by Organization Detai ls LastModified Time None Recorded Concern Status LastModified by Organization Details LastModified Time None Recorded Advance Directives Directive N: Payers Insurance Date Sequence Insurance Name Policy Number Policy Johnson Covered Member ID Johnson Member ID Guarantor Name 08/29/2025 1 [employer] (MEDICARE REPLACEMENT/AD VANTAGE - O) [id number] Edith Joyner [id number] Edith Joyner 08/29/2025 1 [employer] (MEDICARE REPLACEMENT HMO) [id number] Edith Joyner [id number] Edith Joyner Notes Date Note Type Note Provider Name and Address Organization Details Recorded Time 2 text/html Annual Supervisor Instrument Repair Post-MenopausalReported by PatientGenitourinary symptomsFor menopausal symptoms, patient [...] tobacco use. ARCHANA Magallon [address], [place], [address], [facility] 03/24/2022 14:08:31 3 text/html Annual Supervisor Instrument Repair Post-MenopausalReported by PatientGenitourinary symptomsFor menopausal symptoms, patient [...] bleeding since. ARCHANA Magallon [address], [place], [address], [facility] 07/05/2023 14:41:51 4 text/html [...] cholesterol, HTN ARCHANA Magallon [address], [place], [address], [facility] 03/03/2024 10:21:31 4 text/html Annual Supervisor Instrument Repair Post-MenopausalReported by PatientGenitourinary symptomsFor menopausal symptoms, patient [...] bleeding since. ARCHANA Magallon [address], [place], [address], [facility] 08/16/2024 12:23:58 5 text/html Annual Supervisor Instrument Repair Post-MenopausalReported by PatientGenitourinary symptomsFor menopausal symptoms, patient [...] cancer, diagnosed in 2010 ARCHANA Magallon [address], [place], [address], [place] [facility] 08/29/2025 14:40:13 OBGyn Episode Ob Episode Information Episode Created Date Number of Fetuses Patient Bloodtype Patient rh Status Prepregnancy Weight lbs Domestic Partner Domestic Partner Phone Father Name Dermatology Physician Assistant Status 07/05/20 23 1 CLOSED Fetus Data First Name Last Name Admitted to NICU Weight (g) Sex Living Outcome Pediatric Complications Fetus ID Race Codes Race Delivery Type 3401.94 M Full Term [id number] Vaginal Delivery Ben Calculation Initial Ben Date [...] Domestic Partner Domestic Partner Phone Father Name Dermatology Physician Assistant Status 07/05/20 23 1 CLOSED Fetus Data First Name Last Name Admitted to NICU Weight (g) Sex Living Outcome Pediatric Complications Fetus ID Race Codes Race Delivery Type , Induced [id number] Ben Calculation Initial Ben Date Initial Exam [...]
--- OUTSIDE RECORDS SUMMARY | 2025-09-07 17:44 | XMS_ITS | Encounter Summary ---
Author Organization [facility] Address [address] [place] [address] Care Team Providers Care Informatica Architect Name Role Phone Deon Kathleen MD Primary Care Provider [phone] Encounter Details Date Type Department Care Team (Late st Contact Info) Description 07/23/2006 Outpatient Historical [facility] Internal Medicine [address] [place] [address] Ramon Garnett MD [address] [place] [address] Social History Tobacco Use Types Packs/Day Years Used Date Smoking Tobacco: Never Assessed Comments Unknown Sex and Gender Information Value Date Recorded Sex Assigned at Female 08/05/2024 12:43 PM CUT OUT AND MARKING MACHINE OPERATOR Legal Sex Female 3:11 AM CUT OUT AND MARKING MACHINE OPERATOR Gender Identity Female 08/05/2024 12:43 PM CUT OUT AND MARKING MACHINE OPERATOR Sexual Orientation Straight 08/05/2024 12 :43 PM CUT OUT AND MARKING MACHINE OPERATOR documented as of this encounter Plan of Treatment Not on file documented as of this encounter Visit Diagnoses Not on filedocumented in this encounter Care Teams Informatica Architect Relationship Specialty Start Date End Date Deon Kathleen MD [address] [place] [address] PCP - General Family Practice 07/31/24 documented as of this encounter
--- OUTSIDE RECORDS SUMMARY | 2025-09-07 17:44 | XMS_ITS | Encounter Summary ---
Author Organization [facility] Address [address] [facility] [place] [address] Care Team Providers Care Clinical Trials Specialist Name Role Phone Unavailable Primary Care Provider Unavailabl e Encounter Details Date Type Department Care Team (Late st Contact Info) Description 10/18/2024 Lab Requisition [facility] - DermPath Lab [address] [facility] [place] [id number] Deon Kathleen MD [address] [place] [address] Social History Tobacco Use Types Packs/Day Years Used Date Smoking Tobacco: Never Assessed Comments Unknown Sex and Gender Information Value Date Recorded Sex Assigned at Not on file Legal Sex Female 1:03 PM ETCHER PHOTOENGRAVING Gender Identity Not on file Sexual Orientation Not on file documented as of this encounter Plan of Treatment Not on file documented as of this encounter Procedures Procedure Name Priority Date/Time Associated Diagnosis Comments DERMATOPATHOLOGY Routine 10/17/2024 3:33 AM ETCHER PHOTOENGRAVING documented in this encounter Results * DERMATOPATHOLOGY (10/17/2024 3:33 AM ETCHER PHOTOENGRAVING) Case Report Dermatopathology Report Case: [id number] Authorizing Provider: Deon Kathleen MD Collected: 10/17/2024 03:33 AM Ordering Location: [facility] - Received: 10/18/2024 01:53 PM DermPath Lab Pathologist: Nury Crawford MD Specimen: Skin, left upper chest 1:29 PM ETCHER PHOTOENGRAVING DERMATOPATHOLOGY LABORATORY Final Diagnosis Specimen A. SKIN, left upper chest: SEBORRHEIC KERATOSIS, CLONAL TYPE; INFLAMED (L82.1) PRESENT AT MARGIN 1:29 PM ETCHER PHOTOENGRAVING DERMATOPATHOLOGY LABORATORY at 1329 ETCHER PHOTOENGRAVING Clinical History Changing Lesion. Check margins 1:29 PM [facility] DERMATOPATHOLOGY LABORATORY Gross Description Specimen A: Received is one formalin filled container labeled with the patient's name and designated left upper chest. The specimen consists of a shave biopsy measuring 9x5x3 mm. Jar 0. 1:29 PM [facility] DERMATOPATHOLOGY LABORATORY Microscopic Description Specimen A. SKIN, left upper chest: Sections show a proliferation of keratinocytes with overlying hyperkeratosis. Aggregates of keratinocytes with abundant pale-staining cytoplasm appear demarcated from surrounding basaloid keratinocytes. There is a lymphohistiocytic infiltrate within the dermis. This lesion is present at the margin of the specimen. 1:29 PM [facility] DERMATOPATHOLOGY LABORATORY Disclaimer An external and internal positive and negative controls are appropriate for the histochemical, immunohistochemical and immunofluorescence stain(s) in this case (if any), except where stated explicitly. The performance characteristics of the stain(s) cited in this report were developed and its performance characteristic determined by the Dermatopathology Laboratory at [facility], directed by Dr. Michelle Jauregui. These tests need not be, and therefore are not, approved by the [place] Food and Drug Administration. The tests are used for clinical purposes. Billing Codes Specimen Charges Stain Charges 72823 1 1:29 PM [facility] DERMATOPATHOLOGY LABORATORY Embedded Images 1:29 PM [facility] DERMATOPATHOLOGY LABORATORY Pathology/Cytolo gy TISSUE SPECIMEN FROM SKIN / Unknown 10/17/2024 3:33 AM ETCHER PHOTOENGRAVING 10/18/2024 1:53 PM [facility] us Deonchristiane Kathleen MD LAB - PATHOLOGY/CYTOLOGY SHAILESH BAIRD Final Result DERMATOPATHOLOGY LABORATORY [facility] - Department of Dermatology [address] [place] [address], [facility] [phone] documented in this encounter Visit Diagnoses Not on filedocumented in this encounter
--- NOTE | 2025-09-07 19:54 | ED_ITS ---
HPI - Anxiety General Chief Complaint: Anxiety Stated Complaint: I think I am having an anxiety attack Time Seen by Provider: 09/07/25 19:35 History of Present Illness HPI narrative: 70-year-old female with history of hypertension and anxiety. Patient presents to the emergency department today as she was having elevated blood pressure readings at home and feeling anxiety. Patient states she took her 1st dose of Zoloft today and feels like it impact her blood pressure by raising it. She started getting worried and took her blood pressure multiple times and was still high in the 150s to 160s. She had no symptoms and came to the ER. She had her psychiatrist started her on Zoloft for anxiety. She is on propranolol daily for this and was told that these can interact together. No other medication changes. Was otherwise in her normal state of health. Had no symptoms during the event and no symptoms presently. Denies any chest pain, nausea, vomiting, fever, chills, syncope, weakness, neuropathy, shortness of breath. Patient states she is strictly worried about that number and feels like it could have been a panic attack. Related Data Home Medications ?Medication ?Instructions ?Recorded ?Confirmed ?Last Taken ?Type famotidine 20 mg tablet 20 mg PO DAILY PRN acid refl ux 07/18/25 08/28/25 Unknown History Allergies Allergy/AdvReac Type Severity Reaction Status Date / Time Latex, Natural Rubber Allergy Unknown Blisters Verified 09/07/25 18:07 morphine Allergy Unknown Nausea Verified 09/07/25 18:07 Penicillins Allergy SOB Verified 09/07/25 18:07 propoxyphene (From Darvon) Allergy Rash Verified 09/07/25 18:07 Review of Systems Review of Systems: As reviewed above in HPI All systems reviewed & are unremarkable except as noted in HPI and below PMFSH Past Medical History Medical History Laceration of finger of left hand Brain TIA Thrush, oral Right hand pain GERD (gastroesophageal reflux disease) Dysphagia Changing skin lesion Chronic sinusitis Groin rash Myalgia of muscle of neck Concussion Skin yeast infection Mass of right axilla Neck Pain Dyspepsia Diastolic dysfunction Multiple lacunar infarcts Hypokalemia Overweight with body mass index (BMI) of 28 to 28.9 in adult Cancer of right breast (2010) Status post lumpectomy and radiation therapy. Arthritis Adult BMI 29.0-29.9 kg/sq m Osteopenia Hypothyroidism Hypertension Hyperlipidemia Anxiety Surgical History Surgical History History of dilation and curettage History of lumpectomy of right breast (2010) History of breast augmentation History of cholecystectomy Family History Family History Father CHF (congestive heart failure) Hypertension Mother Hypertension Heart disease Thyroid disorder Sibling Hypertension Obesity Breast cancer Bone cancer Diabetes mellitus Depression Other Depression Other Arthritis HLD (hyperlipidemia) Osteoporosis Social History Social History Social History: Surrogate medical decision maker: Julian Joyner, spouse. Code status: Full code. Caffeine-decaf coffee, occasional soda Smoking packs per day: 1 Smoking cigarettes per day: 20.0 Years smoked: 23 Smoking pack-years: 23.00 Smoking status: Former smoker Tobacco type: cigarettes Second hand tobacco smoke exposure: No Smoking end date: 06/20/11 Additional smoking assessment comments: Quit 2010 Alcohol intake: current Alcohol use details: Rarely Substance use: never Substance use type: does not use Lack of Transportation: No Lack of Food: Never True Current Housing: I Have Housing Concerned About Future Housing: No Difficulty Paying Gas/Electric Bills: No Difficulty Paying for Meds: No Currently Unemployed: No Education: Trade/Vocational Certificate Difficulty w/ Childcare or Family Care: YES Living arrangements: with family Additional living arrangements comments: The patient lives with her spouse in [place]. 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 Gender identity (if verbalized by the patient): Female Spiritual care concerns: No Exam Narrative: GENERAL: [Well-appearing, well-nourished, and in no acute distress.] HEAD: [Normocephalic, atraumatic.] EYES: [PERRLA and EOMI.] ENT: Nares clear, no rhinorrhea or epistaxis. Mucous membranes moist. NECK: Supple. CHEST: [Clear to auscultation. No respiratory distress.] HEART: [Regular rate and rhythm]. No murmur heard. [Normal peripheral pulses.] ABDOMEN: [Soft, nondistended], [nontender], [No rigidity or guarding] EXTREMITIES: Normal range of motion. [No edema.] SKIN: Warm, dry, no rash. NEURO: [No focal deficits]. Alert and oriented [x3.] PSYCH: Anxious Course Vital Signs Vital signs: Vital Signs Temperature 36.3 C L 09/07/25 18:03 Pulse Rate 72 09/07/25 18:03 Respiratory Rate 20 09/07/25 18:03 Blood Pressure 139/66 09/07/25 18:03 Pulse Oximetry 98 09/07/25 18:03 Oxygen Delivery Room Air 09/07/25 18:03 Temperature 36.3 C L 09/07/25 18:03 Pulse Rate 74 09/07/25 20:17 Respiratory Rate 27 H 09/07/25 20:17 Blood Pressure 142/75 H 09/07/25 20:17 Pulse Oximetry 98 09/07/25 20:17 Oxygen Delivery Room Air 09/07/25 19:37 MDM MDM Narrative Medical decision making narrative: 70-year-old female with history of hypertension and anxiety. Patient presents to the emergency department today as she was having elevated blood pressure readings at home and feeling anxiety. Patient states she took her 1st dose of Zoloft today and feels like it impact her blood pressure by raising it. She started getting worried and took her blood pressure multiple times and was still high in the 150s to 160s. She had no symptoms and came to the ER. She had her psychiatrist started her on Zoloft for anxiety. She is on propranolol daily for this and was told that these can interact together. No other medication changes. Was otherwise in her normal state of health. Had no symptoms during the event and no symptoms presently. Denies any chest pain, nausea, vomiting, fever, chills, syncope, weakness, neuropathy, shortness of breath. Patient sta chavo she is strictly worried about that number and feels like it could have been a panic attack. Patient does appear anxious but not in any distress. She has normal vital signs here. Blood pressure 139/66, heart rate 72, no tachypnea. No fever or hypoxemia. She has a benign physical examination. Strong symmetric pulses. Normal neurological status. Clear breath sounds throughout. We discussed at length at bedside anxiety and asymptomatic hypertension. She has no symptoms at this time and an EKG was obtained without any acute concerns compared to previous EKGs. Discussed with her that I do not believe laboratory studies are indicated at this time and she will contact her PCP and psychiatrist for medication regimen adjustment either her blood pressure or anxiety medications and was given strict return precautions and safe for discharge home at this time. Differential Diagnosis Differential Diagnosis: Anxiety, panic attack, asymptomatic hypertension. Lab Data MDM Lab Attestation statement: I personally reviewed the patient's lab results. Discharge Plan Discharge Clinical Impression: Anxiety, Asymptomatic hypertension Patient Disposition: Home Condition: Stable Instructions: Antibiotic Form, Anxiety (ED) Additional Instructions: Symptoms consistent with anxiety and asymptomatic hypertension. Contact your psychiatrist regarding changing your medications to another agent that can help your anxiety and not impact your blood pressure. Return if you have emergent concerns or symptoms of hypertensive urgency/emergency such as crushing chest pain, stroke symptoms, difficulty breathing, losing consciousness, intractable vomiting or any other emergent concerns otherwise follow-up with regular care providers. Refrain from taking her blood pressures serially as that can cause worsening anxiety and elevate the numbers artificially. Continue your other medications as prescribed and return with any issues. Patient Language: Beninese Prescriptions: No Action calcium carbonate 600 mg calcium (1,500 mg) tablet 600 mg PO DAILY Qty: 1 0RF Rx Instructions: OTC atorvastatin [Lipitor] 20 mg tablet 20 mg PO HS Qty: 90 3RF propranolol 10 mg tablet 10 mg PO DAILY Qty: 90 1RF levothyroxine 25 mcg tablet 25 mcg PO DAILY Qty: 90 1RF Rx Instructions: TAKE 1 TABLET BY MOUTH EVERY DAY mupirocin [Centany] 2 % ointment 1 applic topical BID Qty: 22 0RF Rx Instructions: intranasal cholecalciferol (vitamin D3) 1,250 mcg (50,000 unit) capsule 1,250 mcg PO WEEKLY Qty: 8 0RF famotidine 20 mg tablet 20 mg PO DAILY PRN (Reason: acid reflux) Follow-up/Referrals: Sarah Triplett APRN [Advanced Practice Nurse, [facility]] Time of Disposition: 19:54
--- OUTSIDE RECORDS SUMMARY | 2025-09-07 20:18 | XMS_ITS | Encounter Summary ---
Author Organization [facility] Address [address] [facility] [place] [address] Care Team Providers Care Sales Stock Associate Name Role Phone Unavailable Primary Care Provider Unavailabl e Encounter Details Date Type Department Care Team (Late st Contact Info) Description 10/29/2021 Lab Requisition [facility] DermPath Lab [address] [facility] [place] [id number] Deon Kathleen MD [address] [place] [address] Social History Tobacco Use Types Packs/Day Years Used Date Smoking Tobacco: Never Assessed Comments Unknown Sex and Gender Information Value Date Recorded Sex Assigned at Not on file Legal Sex Female 1:03 PM AS400 ADMINISTRATOR Gender Identity Not on file Sexual Orientation Not on file documented as of this encounter Plan of Treatment Not on file documented as of this encounter Procedures Procedure Name Priority Date/Time Associated Diagnosis Comments DERMATOPATHOLOGY Routine 10/27/2021 12:0 0 AM AS400 ADMINISTRATOR documented in this encounter Results * DERMATOPATHOLOGY (10/27/2021 12:00 AM AS400 ADMINISTRATOR) Case Report Dermatopathology Report Case: [id number] Authorizing Provider: Deon Kathleen MD Collected: 10/27/2021 12:00 AM Ordering Location: [facility] DermPath Lab Received: 10/29/2021 01:26 PM Pathologist: Joceline Gutierrez MD Specimen: Skin, back 2 10:32 AM AS400 ADMINISTRATOR DERMATOPATHOLOGY LABORATORY Final Diagnosis Specimen A. SKIN, back: BENIGN VERRUCOUS KERATOSIS, INFLAMED (L82.1) PRESENT AT MARGIN 2 10:32 AM AS400 ADMINISTRATOR DERMATOPATHOLOGY LABORATORY at 1032 AS400 ADMINISTRATOR Clinical History Changing lesion. Check margins. 10:32 AM [facility] DERMATOPATHOLOGY LABORATORY Gross Description Specimen A: Received is one formalin filled container labeled with the patient's name and designated back. The specimen consists of a shave biopsy measuring 0s1v5cr, bisected. The margin is inked green. Jar 0. 10:32 AM [facility] DERMATOPATHOLOGY LABORATORY Microscopic Description Specimen A. SKIN, back: Sections show hyperkeratosis, papillomatosis, hypergranulosis, and acanthosis. Inflammatory cells are present within the dermis. These histological findings can be seen in a verruca vulgaris or a seborrheic keratosis. This lesion is present at the margin of the specimen. 10:32 AM [facility] DERMATOPATHOLOGY LABORATORY Disclaimer An external and internal positive and negative controls are appropriate for the histochemical, immunohistochemical and immunofluorescence stain(s) in this case (if any), except where stated explicitly. The performance characteristics of the stain(s) cited in this report were developed and its performance characteristic determined by the Dermatopathology Laboratory at [facility], directed by Dr. Michelle Jauregui. These tests need not be, and therefore are not, approved by the [place] Food and Drug Administration. The tests are used for clinical purposes. Billing Codes Specimen Charges Stain Charges 65556 1 2 10:32 AM [facility] DERMATOPATHOLOGY LABORATORY Embedded Images 10:32 AM [facility] DERMATOPATHOLOGY LABORATORY Pathology/Cytolog y TISSUE SPECIMEN FROM SKIN / Unknown 10/27/2021 10/29/2021 1:26 PM AS400 ADMINISTRATOR us Deonchristiane Kathleen MD LAB - PATHOLOGY/CYTOLOGY SHAILESH BAIRD Final Result DERMATOPATHOLOGY LABORATORY [facility] - Department of Dermatology [address] [phone] documented in this encounter Visit Diagnoses Not on filedocumented in this encounter
--- OUTSIDE RECORDS SUMMARY | 2025-09-07 20:18 | XMS_ITS | Clinical Summary ---
Author Organization [facility] Address [address] [place] [address] Care Team Providers Care Direct Service Worker Name Role Phone Unavailable Primary Care Provider Unavailabl e Source Comments [facility] [address],non-owned Affiliates and Associated Physician Practices is amultiple site organization consisting of ambulatory clinics and hospital sitesin [place], [place], [place] and [place]. This disclosure is being madepursuant to the Care Everywhere program and may not contain all information available regarding this patient. Last updated 18.[facility] [address] Social History Tobacco Use Types Packs/Day Years Used Date Smoking Tobacco: Never Assessed Comments Unknown Sex and Gender Information Value Date Recorded Sex Assigned at Not on file Legal Sex Female 1:03 PM MEDIA ASSOCIATE Gender Identity Not on file Sexual Orientation [...]
--- OUTSIDE RECORDS SUMMARY | 2025-09-07 20:18 | XMS_ITS | Clinical Summary ---
Author Organization [facility] Address [address] [place] [address] Care Team Providers Care Municipal Services Manager Name Role Phone Deon Kathleen MD Primary [...] on file Legal Sex Female 4:19 PM PARTS ROOM ASSOCIATE Gender Identity Not on file Sexual [...] Not on file Insurance HEALTHCARE Care Teams Municipal Services Manager Relationship Specialty Start Date End Date Deon Kathleen MD [address] [place] [phone] PCP - General Family Medicine 08/22/25
--- OUTSIDE RECORDS SUMMARY | 2025-09-07 20:18 | XMS_ITS | Encounter Summary ---
Author Organization [facility] Address [address] [facility] [place] [address] Care Team Providers Care Adjustment Examiner Name Role Phone Unavailable Primary Care Provider Unavailabl e Encounter Details Date Type Department Care Team (Late st Contact Info) Description 10/18/2024 Lab Requisition [facility] - DermPath Lab [address] [facility] [place] [phone] Deon Kathleen MD [address] [place] [address] Social History Tobacco Use Types Packs/Day Years Used Date Smoking Tobacco: Never Assessed Comments Unknown Sex and Gender Information Value Date Recorded Sex Assigned at Not on file Legal Sex Female 1:03 PM DISTRIBUTING CLERK Gender Identity Not on file Sexual Orientation Not on file documented as of this encounter Plan of Treatment Not on file documented as of this encounter Procedures Procedure Name Priority Date/Time Associated Diagnosis Comments DERMATOPATHOLOGY Routine 10/17/2024 3:33 AM DISTRIBUTING CLERK documented in this encounter Results * DERMATOPATHOLOGY (10/17/2024 3:33 AM DISTRIBUTING CLERK) Case Report Dermatopathology Report Case: [id number] Authorizing Provider: Deon Kathleen MD Collected: 10/17/2024 03:33 AM Ordering Location: [facility] - Received: 10/18/2024 01:53 PM DermPath Lab Pathologist: Nury Crawford MD Specimen: Skin, left upper chest 1:29 PM DISTRIBUTING CLERK DERMATOPATHOLOGY LABORATORY Final Diagnosis Specimen A. SKIN, left upper chest: SEBORRHEIC KERATOSIS, CLONAL TYPE; INFLAMED (L82.1) PRESENT AT MARGIN 1:29 PM DISTRIBUTING CLERK DERMATOPATHOLOGY LABORATORY at 1329 DISTRIBUTING CLERK Clinical History Changing Lesion. Check margins 1:29 PM [facility] DERMATOPATHOLOGY LABORATORY Gross Description Specimen A: Received is one formalin filled container labeled with the patient's name and designated left upper chest. The specimen consists of a shave biopsy measuring 9x5x3 mm. Jar 0. 1:29 PM [facility] DERMATOPATHOLOGY LABORATORY Microscopic Description Specimen A. SKIN, left upper chest: Sections show a proliferation of keratinocytes with overlying hyperkeratosis. Aggregates of keratinocytes with abundant pale-staining cytoplasm appear demarcated from surrounding basaloid keratinocytes. There is a lymphohistiocytic infiltrate within the dermis. This lesion is present at the margin of the specimen. 1:29 PM [facility] DERMATOPATHOLOGY LABORATORY Disclaimer An external and internal positive and negative controls are appropriate for the histochemical, immunohistochemical and immunofluorescence stain(s) in this case (if any), except where stated explicitly. The performance characteristics of the stain(s) cited in this report were developed and its performance characteristic determined by the Dermatopathology Laboratory at [facility], directed by Dr. Michelle Jauregui. These tests need not be, and therefore are not, approved by the [place] Food and Drug Administration. The tests are used for clinical purposes. Billing Codes Specimen Charges Stain Charges 67963 1 1:29 PM [facility] DERMATOPATHOLOGY LABORATORY Embedded Images 1:29 PM [facility] DERMATOPATHOLOGY LABORATORY Pathology/Cytolo gy TISSUE SPECIMEN FROM SKIN / Unknown 10/17/2024 3:33 AM DISTRIBUTING CLERK 10/18/2024 1:53 PM [facility] us Deonchristiane Kathleen MD LAB - PATHOLOGY/CYTOLOGY SHAILESH BAIRD Final Result DERMATOPATHOLOGY LABORATORY [facility] - Department of Dermatology [address] [place] [address], [facility] [phone] documented in this encounter Visit Diagnoses Not on filedocumented in this encounter
--- OUTSIDE RECORDS SUMMARY | 2025-09-07 20:18 | XMS_ITS | Clinical Summary ---
Author Organization [employer] [facility] stephania Address [address] [place] [address] Care Team Providers Care Mortgage Counselor Name Role Phone Deon Kathleen MD Primary Care Provider [phone] Allergies Active Allergy Reactions Criticality Noted Date Comments Latex Hives High 11/10/2013 Morphine Nausea and Vomiting Low 11/10/2013 Penicillin G Other (See Comments) 04/20/2012 Trouble breathing Medications levothyroxine 25 mcg tablet TAKE 1 TABLET DAILY INTEGRATION CONSULTANT. 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, ER+,WV+,BCT,RT, Tamoxifen Resolved Problems Problem Noted Date Diagnosed Date Resolved Date Hypothyroidism 01/10/2015 04/30/2016 Encounters Date Type Department Care Team Description 08/07/2025 External Device Data ST[facility] ABSTRACTION Provider, Abstract 08/02/2025 Transcribe Orders Central Test Scheduling [address] [place] [address] Giovani Gonsalez DO 08/02/2025 Transcribe Orders Central Test Scheduling [address] [place] [address] Giovani Gonsalez, DO Encounter for preprocedural cardiovascular [...] Sex Assigned at Female 08/05/2024 12:43 PM SUPERVISOR PASTRY Legal Sex Female 3:11 AM SUPERVISOR PASTRY Gender Identity Female 08/05/2024 12:43 PM SUPERVISOR PASTRY Sexual Orientation Straight 08/05/2024 12 :43 PM SUPERVISOR PASTRY Occupation Industry Job Start Date Job End Date Not on file Not on file Not on file Not on file Last Filed Vital Signs Vital Sign Reading Time Taken Comments Blood Pressure 114/82 08/10/2024 12:00 PM SUPERVISOR PASTRY Pulse 70 08/10/2024 12:00 PM SUPERVISOR PASTRY Temperature 36.2 C (97.2 F) 08/10/2024 10:07 AM SUPERVISOR PASTRY Respiratory Rate 16 08/10/2024 12:00 PM SUPERVISOR PASTRY Oxygen Saturation 99% 08/10/2024 12:00 PM SUPERVISOR PASTRY Inhaled Oxygen Concentration - - Weight 66.4 kg (146 lb 6.4 oz) 08/10/2024 10:07 AM SUPERVISOR PASTRY Height 152.4 cm (5') 08/10/2024 10:07 AM SUPERVISOR PASTRY Body Mass Index 28.59 08/10/2024 10:07 AM SUPERVISOR PASTRY Plan of Treatment Health Maintenance Due Date [...] Comments COLONOSCOPY REPORT 08/10/2024 11 :46 AM SUPERVISOR PASTRY XR DEXA BONE DENSITY AXIAL 1 OR MORE SITES Routine 04/01/2021 11:51 AM CDT Osteoporosis of multiple sites MAMMO SCREEN IMPL BILAT W OR WO CAD Routine 07/15/2016 9:16 AM CDT Visit for screening mammogram from Last 3 Months or Most Recently Relevant to Health Maintenance Results * COLONOSCOPY REPORT (08/10/2024 11:46 AM SUPERVISOR PASTRY) Narrative Procedure Note Madyson Pina MD - 08/10/2024 11:46 AM CST [facility] Endoscopy Patient Name: Edith Joyner Procedure [...] pathology results. Procedure Code(s): --- Professional --- 68193, Colonoscopy, flexible; with removal of tumor(s), polyp(s), or other lesion(s) by snare technique CPT copyright 2020 [employer]. All rights reserved. The codes documented in this report are preliminary and upon health information coder review may be revised to meet current compliance requirements. Madyson Pina MD 08/10/2024 11:46:01 AM This report has been signed electronically. Number of Addenda: [id number] [place] [address] us Madyson Pina MD GI PROCEDURE ORDERABLES [...] refer to the full report available in [facility] under the PACS Images tab. If a faxed copy is needed, please call [phone]. DICTATION LOCATION: [facility] Procedure Note Keshawn Mccullough MD - 04/01/2021 SUMMARY DEXA REPORT DATE: 04/01/2021 11:51 AM INDICATION: Breast cancer, postmenopausal FINDINGS: Bone mineral density is consistent with osteopenia. The lowest T score is -1.6. The lowest T score on the previous study was -1.5. Please refer to the full report available in [facility] under the PACS Images tab. If a faxed copy is needed, please call [phone]. DICTATION LOCATION: [facility] Daphnie Arteaga MD DIAGNOSTIC IMAGING ORDERABLES Final Result * MAMMO DIGITAL SCREEN IMPLANTS BILAT (07/15/2016 9:16 AM CDT) Anatomical Region Laterality Modality Breast Bilateral Mammography 07/15/2016 9:16 AM CDT Impressions 07/16/2016 4:54 PM CDT IMPRESSION: Negative bilateral screening mammogram. Recommend routine followup. OVERALL ASSESSMENT: BI-RADS Category 1 - Negative DICTATION LOCATION: [facility] Narrative 07/16/2016 4:54 PM CDT BILATERAL [...] BI-RADS Category 1 - Negative DICTATION LOCATION: [facility] Don Alvarado MD MAMMO ORDERABLES F inal Result from Last 3 Months or Most Recently Relevant to Health Maintenance Insurance [address] [place] [address] [facility] Advance Directives For more information, please contact: [phone] * Full Code (Latest Code Status on File) Date Activated Date Inactivated Comments 01/05/2014 11:11 AM 01/05/2014 3:58 PM Care Teams Mortgage Counselor Relationship Specialty Start Date End Date Deon Kathleen MD [address] [place] [address] PCP - General Family Practice 07/31/24
--- OUTSIDE RECORDS SUMMARY | 2025-09-07 20:18 | XMS_ITS | Encounter Summary ---
Author Organization [facility] Address [address] [place] [address] Care Team Providers Care Animal Hospital Clerk Name Role Phone Unavailable Primary Care Provider Unavailabl e Encounter Details Date Type Department Care Team (Late st Contact Info) Description 06/15/2023 Lab Requisition [facility] - DermPath Lab [address] [facility] [place] [id number] Deon Kathleen MD [address] [place] [address] Social History Tobacco Use Types Packs/Day Years Used Date Smoking Tobacco: Never Assessed Comments Unknown Sex and Gender Information Value Date Recorded Sex Assigned at Not on file Legal Sex Female 1:03 PM MOTEL MAID Gender Identity Not on file Sexual Orientation Not on file documented as of this encounter Plan of Treatment Not on file documented as of this encounter Procedures Procedure Name Priority Date/Time Associated Diagnosis Comments DERMATOPATHOLOGY Routine 06/14/2023 12:0 0 AM CDT documented in this encounter Results * DERMATOPATHOLOGY (06/14/2023 12:00 AM CDT) Case Report Dermatopathology Report Case: [id number] Authorizing Provider: Deon Kathleen MD Collected: 06/14/2023 12:00 AM Ordering Location: [facility] DermPath Lab Received: 06/15/2023 11:31 [...] characteristic determined by the Dermatopathology Laboratory at [facility], directed by Dr. Michelle Jauregui. These tests need not be, and therefore are not, approved by the [place] Food and Drug Administration. The tests are used for clinical purposes. Billing Codes Specimen Charges Stain Charges 34066 30720 1 1 3 2:32 PM CDT DERMATOPATHOLOGY LABORATORY Embedded Images 3 2:32 PM CDT DERMATOPATHOLOGY LABORATORY Pathology/Cytology TISSUE SPECIMEN FROM SKIN / Unknown 06/14/2023 06/15/2023 11:31 AM CDT Miscellaneous samples (specimen) TISSUE SPECIMEN FROM SKIN / Unknown 06/14/2023 06/15/2023 11:31 AM CDT us Deonchristiane Kathleen MD LAB - PATHOLOGY/CYTOLOGY SHAILESH BAIRD Final Result DERMATOPATHOLOGY LABORATORY [facility] - Department of Dermatology [facility] [address] [place] [address], [address] [phone] documented in this encounter Visit Diagnoses Not on filedocumented in this encounter
== END 2025-09-07 20:32 | disposition home or self-care (01) ==
LOC: ANHED 20:16
PROVIDERS: Emergency Provider Student in an Organized Health Care Education/Training Program; PCP Family Medicine
DX: F41.9 Anxiety disorder, unspecified (principal); I10 Essential (primary) hypertension; R94.31 Abnormal electrocardiogram [ECG] [EKG]; K21.9 Gastro-esophageal reflux disease without esophagitis; M19.90 Unspecified osteoarthritis, unspecified site; E03.9 Hypothyroidism, unspecified; E78.5 Hyperlipidemia, unspecified
CPT/HCPCS: 93005; 99283